=== PATIENT | female | born 1980 | race Caucasian/White ===

== ENCOUNTER → 2016-07-06 | Outpatient (CLI) | payer OTHER ==
[~2016-07-06] MED LIST: /LOR25TA PO; /PANT40TA PO; ALBUTEROL INH; ALLE25CA PO; AMIT25TA2 PO; ASPI81TA83 PO; CATA0.1T PO; CELE40TA PO; FIORICET PO; FLOM5CAP PO; GABA100C PO; HYDR25TA6 PO; LISI5TAB PO; LOFIBRA PO; MELO7.5S PO; MORP15TA4 OR; NAPR500T PO; NEUR100C PO; NEXI20CA PO; NIAS500T2 PO; NUCYNTA PO; PERCOCET PO; SOMA350T PO; VOLT1GEL2 TD; ZANT150T OR; [UNRECOGNIZED DRUG - OTHER]; butrans TOP; combination cream; combination cream TD; nucynta; zantac PO; zocor PO
--- NOTE | 2016-07-07 00:15 | ECWPNPC ---
PATIENT NAME: EAMON DOW : 1980 GENDER: FEMALE VISIT DATE: 07/06/2016 DISCHARGE DATE: 07/06/16 1247 VISIT LOCKED DATE TIME: PHYSICIAN: GREGOR DANIELS RESOURCE: GREGOR DANIELS REASON FOR APPOINTMENT 1. FOLLOW UP HISTORY OF PRESENT ILLNESS HISTORY OF PRESENT ILLNESS: HERE FOR F/U AND MANAGEMENT OF LBP AND LEFT LEG PAIN.DESCRIBES PAIN CONSTANT BURNING AND ACHING PAIN.RATING PAIN VAS4/10.HAS HAD GOOD RELIEF WITH LESI.USING HYDROCONE 10/325 UP TO 5 TABS. PER DAY WHICH SHE REPORTS IS HELPFUL. FALL RISK SCREENING: SCREENING :NO FALLS IN THE PAST YEAR CURRENT MEDICATIONS TAKING MAY HAVE QUATRO FX C PAP MASK AND ACCESORIES SIZE LARGE AT NIGHT DX 780.58 TAKING ASPIR-81 81 MG TABLET DELAYED RELEASE 1 TABLET ORALLY ONCE A DAY TAKING HYDROCHLOROTHIAZIDE 12.5 12.5MG CAPSULE 1 CAP(S) ORAL TWICE A DAY TAKING PROTONIX 40 MG TABLET DELAYED RELEASE 1 TABLET ORALLY BID TAKING LISINOPRIL 10 MG TABLET 1 TABLET ORALLY ONCE A DAY TAKING LIPITOR 80 MG TABLET 1 TABLET ORALLY ONCE A DAY TAKING LOPID 600 MG TABLET 1 TABLET ORALLY TWICE A DAY TAKING NORCO 10-325 MG TABLETS 1 ORALLY Q4-6HMDD5 NOT-TAKING VICODIN ES 10-325 MG TABLET 1 ORALLY Q4H PRN PAIN MDD5 NOT-TAKING VALIUM 5 MG TABLET 1 TABLET NEEDED ORALLY 1 TAB Q8H MDD3 NOT-TAKING PERCOCET 5-325 MG TABLET 1 TABLET NEEDED ORALLY EVERY 6 HRS PRN PAIN NOT-TAKING OXYCODONE HCL 5 MG TABLET 1 TABLET ORALLY 2 TAB PRE PROC. MDD2 NOT-TAKING RANITIDINE HCL 150 MG CAPSULE 1 CAPSULE ORALLY TWICE A DAY NOT-TAKING ZANTAC 150 MG TABLET 1 TABLET ORALLY DAILY NOT-TAKING KETOROLAC TROMETHAMINE 10 MG TABLET DIRECTED ORALLY EVERY 6 HRS NOT-TAKING FLOMAX 0.4 MG CAPSULE 1 CAPSULE 30 MINUTES AFTER THE SAME MEAL EACH DAY ORALLY ONCE A DAY MEDICATION LIST REVIEWED AND RECONCILED WITH THE PATIENT PAST MEDICAL HISTORY HTN- 4 YRS- ON HCTZ DYSLIPIDEMIA-RECENTLY- HYPERTRYGLY DEPRESSION- CELEXA MIGRAINES- FIORECIT LBP- SPINAL STENOSIS/SCIATICA- DR MCNEILL IN [facility] [facility] HX OF RENAL STONE SLEEP APNOEA- CPAP- DYSPEPSIA HYPERCHOLESTEROLEMIA MRSA INFECTION GERD OVARIAN CYSTS SOCIAL HISTORY GENERAL: TOBACCO USE ARE YOU A:CURRENT SMOKER LEARNING BARRIERS / SPECIAL NEEDS ORIENTED TO PLAN OF CARE: PATIENT, PAIN MANAGEMENT PATIENT, ORIENTED TO PLAN OF CARE: PATIENT, PAIN MANAGEMENT PATIENT. NEW PATIENT PAIN DIARY TODAY'S VISITNOTES FROM 0-10, WHAT LEVEL IS YOUR PAIN TODAY?0 PAIN CLINIC PFS, CLERGY, PUBLIC HEALTH REFERRALS PFS REFERRAL NEEDED?NO CLERGY REFERRAL NEEDED?NO PUBLIC HEALTH REFERRAL NEEDED?NO WAS THE PROVIDER NOTIFIED OF ANY PERTINENT INFO?NO PFS REFERRAL NEEDED?NO CLERGY REFERRAL NEEDED?NO PUBLIC HEALTH REFERRAL NEEDED?NO WAS THE PROVIDER NOTIFIED OF ANY PERTINENT INFO?NO REVIEW OF SYSTEMS CONSTITUTIONAL: ANY CHANGE IN YOUR MEDICAL CONDITION? NO . CHILLS NO . FEVER NO . INFECTION: DO YOU HAVE NEW INFECTIONS? NO . DO YOU HAVE HISTORY OF MRSA? NO . MUSCULOSKELETAL: ANY NEW PATTERNS OF PAIN OR NUMBNESS? NO . GASTROENTEROLOGY: ANY NEW CHANGE IN BOWEL CONTROL? NO . GENITOURINARY: ANY NEW CHANGE IN BLADDER CONTROL? NO . IS THERE A CHANCE YOU COULD BE ? NO . HEMATOLOGY/LYMPH: DO YOU TAKE ANY BLOOD THINNERS? (FOR EXAMPLE- COUMADIN, PLAVIX, AGGRENOX, PLATEL, PRADAXA, OR XARELTO) NO . WHEN WAS YOUR LAST DOSE? DATE: TIME: . NEUROLOGY: HAVE YOU FALLEN IN THE PAST 6 MONTHS? NO . ANY NEW EXTREMITY NUMBNESS OR WEAKNESS? 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 CARDIOLOGY: DO YOU HAVE A PACEMAKER OR DEFIBRILLATOR? NO . RESPIRATORY: HAVE YOU BEEN SICK IN THE PAST WEEK? NO . FEVER NO . FLU LIKE SYMPTOMS? NO . COUGH NO . INTEGUMENTARY: DO YOU HAVE ANY RASHES OR OPEN SORES? NO . ALLERGIC/IMMUNO: ARE YOU ALLERGIC TO SHELLFISH OR IV DYE? NO . ANY NEW ALLERGIES? NO . PSYCHIATRIC: DO YOU HAVE THOUGHTS OF HURTING YOURSELF OR SOMEONE ELSE? NO . ARE YOU ABUSED, NEGLECTED, OR IN AN UNSAFE ENVIRONMENT? NO . ENDOCRINOLOGY: ARE YOU DIABETIC? NO . OTHER: DO YOU NEED ANY PRESCRIPTIONS? NO . IF YES, PLEASE LIST: ____ . ANY NEW PROBLEMS WITH YOUR MEDICATIONS? NO . WHEN DID YOU LAST EAT? ____ . WHEN DID YOU LAST DRINK? ____ . WHAT DID YOU LAST DRINK? ____ . NAME OF PERSON DRIVING YOU HOME? ____ . DO YOU HAVE ANY OTHER QUESTIONS OR CONCERNS NO . REVIEWED BY: PROVIDER: GREGOR MENON . VITAL SIGNS WT 200 LBS, HT 65 IN, BMI 33.28 INDEX, BP 149/100 R ARM, REPEAT BP 165/97 L ARM, HR 84 /MIN, RR 16 /MIN, TEMP 97.4 F, OXYGEN SAT % 96, NA INITIALS TL 1135, REVIEWED BY: KGELEVATED BP, PT STATES SHE HAS NOT BEEN TAKING HER BP MEDICATION IN QUITE SOMETIME-TL. EXAMINATION GENERAL EXAMINATION: LUNGS:LUNG SOUNDS ARE CLEAR. HEART:HEART RATE REGULAR. MUSCULOSKELETAL:*SPECIFIC POINT TENDERNESS AND TRIGGER POINTS NOTED OVER LEFT PRIFORMIS.. ASSESSMENTS PIRIFORMIS MUSCLE PAIN - M79.1 (PRIMARY) CHRONIC PRESCRIPTION OPIATE USE - Z79.891 PROTRUDED LUMBAR DISC - M51.26 TREATMENT PIRIFORMIS MUSCLE PAIN CAUDAL/LUMBAR EPIDURAL NOTES: ISTOP REGISTRY REVIEWED AND DEMNOSTRATES COMPLLIANCE. BRINGS IN MEDICATIONS WHICH IS APPROPRIATE FOR WHAT WAS DISPENSED. RECENT URINE TOXICOLOGY REVIEWED. NO UNAUTHORIZED MEDICATIONS. NO ILLICIT SUBSTANCES AND PRESCRIBED MEDICATIONS WERE PRESENT. , RISKS AND BENEFITS OF NARCOTIC/OPIOD MEDICATIONS WERE REVIEWED WITH PATIENT - THIS INCLUDES BUT IS NOT LIMITED TO RISK OF DEPENDANCE/DEVELOPMENT OF ADDICTION, MOOD DISTURBANCE AND DEPRESSION, OSTEOPOROSIS, HORMONAL AND LABIDAL CHANGES, RESPIRATORY DEPRESSION AND . PATIENT IS ADVISED NOT TO DRIVE WHILE ON THESE MEDICATIONS. PROTRUDED LUMBAR DISC CAUDAL/LUMBAR EPIDURAL PROCEDURE CODES FA211 ESTABILISHED PATIENT [facility] CHARGE DISPOSITION & COMMUNICATION FOLLOW UP 2WK POST (REASON: L4/5-L5/S1 LESI) ELECTRONICALLY SIGNED BY LYNSEY LIMA ON 07/06/2016 AT 02:27 PM EST DISCLAIMER : THIS IS A VISIT SUMMARY EXTRACTED FROM THE [employer] CHART. IT IS NOT A COPY OF THE [employer] PROGRESS NOTE. JEOVANNY
== END ==
LOC: M PAIN 11:00
PROVIDERS: ATTEND Nurse Practitioner Family
DX: Z09 Encounter for follow-up examination after completed treatment for conditions other than malignant neoplasm (principal); M79.1 Myalgia; M51.26 Other intervertebral disc displacement, lumbar region; I10 Essential (primary) hypertension; E78.5 Hyperlipidemia, unspecified; F32.9 Major depressive disorder, single episode, unspecified; G43.909 Migraine, unspecified, not intractable, without status migrainosus; M48.00 Spinal stenosis, site unspecified; K30 Functional dyspepsia; E78.00 Pure hypercholesterolemia, unspecified; Z86.14 Personal history of Methicillin resistant Staphylococcus aureus infection; F17.200 Nicotine dependence, unspecified, uncomplicated; Z79.82 Long term (current) use of aspirin; Z79.891 Long term (current) use of opiate analgesic; Z79.899 Other long term (current) drug therapy

== ENCOUNTER → 2016-11-28 | Outpatient (CLI) | payer OTHER ==
[~2016-11-28] MED LIST changes: +IBUP80TA PO
--- NOTE | 2016-12-19 01:07 | ECWPNPC ---
PATIENT NAME: EAMON DOW : 1980 GENDER: FEMALE VISIT DATE: 11/28/2016 DISCHARGE DATE: 11/28/16 1521 VISIT LOCKED DATE TIME: PHYSICIAN: GREGOR DANIELS RESOURCE: GREGOR DANIELS REASON FOR APPOINTMENT 1. BACK/SCIATIC HISTORY OF PRESENT ILLNESS HISTORY OF PRESENT ILLNESS: HERE FOR F/U AND MANAGEMENT OF LBP AND LEFT LEG PAIN.DESCRIBES PAIN CONSTANT BURNING AND ACHING PAIN.RATING PAIN VAS4/10.HAS HAD GOOD RELIEF WITH LESI.USING HYDROCONE 10/325 UP TO 5 TABS. PER DAY WHICH SHE REPORTS IS HELPFUL.LAST VISIT WAS IN JUL[place].INFORMED HER WE WOULD HAVE TO SEE HER EVERY 3 MONTHS IN ORDER TO CONTINUE OPIOD PRESCRIBING.ALSO WE SCHEDULED A LESI THAT SHE HAS CANCELLED ON THREE OCCASIONS OVER THE PAST 5 MONTHS. PAIN THE PATIENT DESCRIBES THE PAIN... THE PATIENT DESCRIBES THE PAIN... FALL RISK SCREENING: SCREENING :NO FALLS IN THE PAST YEAR CURRENT MEDICATIONS TAKING MAY HAVE QUATRO FX C PAP MASK AND ACCESORIES SIZE LARGE AT NIGHT DX 780.58 TAKING ASPIR-81 81 MG TABLET DELAYED RELEASE 1 TABLET ORALLY ONCE A DAY TAKING HYDROCHLOROTHIAZIDE 12.5 12.5MG CAPSULE 1 CAP(S) ORAL TWICE A DAY TAKING PROTONIX 40 MG TABLET DELAYED RELEASE 1 TABLET ORALLY BID TAKING LISINOPRIL 10 MG TABLET 1 TABLET ORALLY ONCE A DAY TAKING LIPITOR 80 MG TABLET 1 TABLET ORALLY ONCE A DAY TAKING LOPID 600 MG TABLET 1 TABLET ORALLY TWICE A DAY TAKING NORCO 10-325 MG TABLETS 1 ORALLY Q4-6HMDD5 NOT-TAKING VICODIN ES 10-325 MG TABLET 1 ORALLY Q4H PRN PAIN MDD5 NOT-TAKING VALIUM 5 MG TABLET 1 TABLET NEEDED ORALLY 1 TAB Q8H MDD3 NOT-TAKING PERCOCET 5-325 MG TABLET 1 TABLET NEEDED ORALLY EVERY 6 HRS PRN PAIN NOT-TAKING OXYCODONE HCL 5 MG TABLET 1 TABLET ORALLY 2 TAB PRE PROC. MDD2 NOT-TAKING RANITIDINE HCL 150 MG CAPSULE 1 CAPSULE ORALLY TWICE A DAY NOT-TAKING ZANTAC 150 MG TABLET 1 TABLET ORALLY DAILY NOT-TAKING KETOROLAC TROMETHAMINE 10 MG TABLET DIRECTED ORALLY EVERY 6 HRS NOT-TAKING FLOMAX 0.4 MG CAPSULE 1 CAPSULE 30 MINUTES AFTER THE SAME MEAL EACH DAY ORALLY ONCE A DAY MEDICATION LIST REVIEWED AND RECONCILED WITH THE PATIENT PAST MEDICAL HISTORY HTN- 4 YRS- ON HCTZ DYSLIPIDEMIA-RECENTLY- HYPERTRYGLY DEPRESSION- CELEXA MIGRAINES- FIORECIT LBP- SPINAL STENOSIS/SCIATICA- DR MCNEILL IN [place] HX OF RENAL STONE SLEEP APNOEA- CPAP- DYSPEPSIA HYPERCHOLESTEROLEMIA MRSA INFECTION GERD OVARIAN CYSTS ALLERGIES N.K.D.A. SURGICAL HISTORY 09/04,11/07,11/09 CHOLECYSTECTOMY 06/1998 RIGHT JJ STENT/ESWL 05/2007 LEFT ESWL 2006 RIGHT JJ STENT PLACEMENT 08/2010 OVARAIN CYST REMOVAL 2014 4 CYSTS REMOVED LEFT OVARY 08/2015 OVARIAN CYST REMOVAL 2014 HOSPITALIZATION/MAJOR DIAGNOSTIC PROCEDURE SURGERIES PELVIC ABSCESS 2001 REVIEW OF SYSTEMS REVIEWED BY: PROVIDER: GREGOR MENON . CONSTITUTIONAL: ANY CHANGE IN YOUR MEDICAL CONDITION? NO, PT STATES SHE WAS SCHEDUED FOR LESI OR CAUDAL , BUT IT WAS NOT DONE INSURANCE WOULD NOT COVER PRE-SEDATE. . CHILLS NO . FEVER NO . INFECTION: DO YOU HAVE NEW INFECTIONS? NO . DO YOU HAVE HISTORY OF MRSA? NO . MUSCULOSKELETAL: ANY NEW PATTERNS OF PAIN OR NUMBNESS? NO . GASTROENTEROLOGY: ANY NEW CHANGE IN BOWEL CONTROL? NO . GENITOURINARY: ANY NEW CHANGE IN BLADDER CONTROL? NO . IS THERE A CHANCE YOU COULD BE ? NO . HEMATOLOGY/LYMPH: DO YOU TAKE ANY BLOOD THINNERS? (FOR EXAMPLE- COUMADIN, PLAVIX, AGGRENOX, PLATEL, PRADAXA, OR XARELTO) NO . WHEN WAS YOUR LAST DOSE? DATE: TIME: . NEUROLOGY: HAVE YOU FALLEN IN THE PAST 6 MONTHS? YES, TWICE FOR WEAKNESS IN LEFT LEG. PT DENIES INJURIES REQUIRING MEDICAL ATTENTION . ANY NEW EXTREMITY NUMBNESS OR WEAKNESS? NO . CARDIOLOGY: DO YOU HAVE A PACEMAKER OR DEFIBRILLATOR? NO . RESPIRATORY: HAVE YOU BEEN SICK IN THE PAST WEEK? NO . FEVER NO . FLU LIKE SYMPTOMS? NO . COUGH NO . INTEGUMENTARY: DO YOU HAVE ANY RASHES OR OPEN SORES? NO . ALLERGIC/IMMUNO: ARE YOU ALLERGIC TO SHELLFISH OR IV DYE? NO . ANY NEW ALLERGIES? NO . PSYCHIATRIC: DO YOU HAVE THOUGHTS OF HURTING YOURSELF OR SOMEONE ELSE? NO . ARE YOU ABUSED, NEGLECTED, OR IN AN UNSAFE ENVIRONMENT? NO . ENDOCRINOLOGY: ARE YOU DIABETIC? NO . OTHER: DO YOU NEED ANY PRESCRIPTIONS? NO . IF YES, PLEASE LIST: ____ . ANY NEW PROBLEMS WITH YOUR MEDICATIONS? NO . WHEN DID YOU LAST EAT? ____ . WHEN DID YOU LAST DRINK? ____ . WHAT DID YOU LAST DRINK? ____ . NAME OF PERSON DRIVING YOU HOME? ____ . DO YOU HAVE ANY OTHER QUESTIONS OR CONCERNS NO . VITAL SIGNS WT 204 LBS, HT 65 IN, BMI 33.94 INDEX, BP 150/86 MM HG, HR 83 /MIN, RR 16 /MIN, TEMP 98.5 F, OXYGEN SAT % 98, SAFE IN ENV? (Y/N) Y, REVIEWED BY: EM. EXAMINATION GENERAL EXAMINATION: LUNGS:LUNG SOUNDS ARE CLEAR. HEART:HEART RATE REGULAR. MUSCULOSKELETAL:*SPECIFIC POINT TENDERNESS AND TRIGGER POINTS NOTED OVER LEFT PRIFORMIS.. ASSESSMENTS PIRIFORMIS MUSCLE PAIN - M79.1 (PRIMARY) CHRONIC PRESCRIPTION OPIATE USE - Z79.891 PROTRUDED LUMBAR DISC - M51.26 TREATMENT PIRIFORMIS MUSCLE PAIN CONTINUE NORCO TABLETS, 10-325 MG, 1, ORALLY, Q4-6HMDD5 START VALIUM TABLET, 10 MG, 1 TABLET NEEDED, ORALLY, ONE TAB 1HR PRE PROCEDURE=MDD, 1 DOSE(S), 1, REFILLS 0 NOTES: L3/4 TRANSFORAMINAL EPIDURAL STEROID INJECTION. PROCEDURE CODES FA211 ESTABILISHED PATIENT [facility] CHARGE DISPOSITION & COMMUNICATION FOLLOW UP POST PROCEDURE (REASON: L3/4 TRANSFORAMINAL EPIDURAL STEROID INJECTION) ELECTRONICALLY SIGNED BY LYNSEY LIMA ON 12/18/2016 AT 07:10 PM EDT DISCLAIMER : THIS IS A VISIT SUMMARY EXTRACTED FROM THE [employer] CHART. IT IS NOT A COPY OF THE [employer] PROGRESS NOTE. MTDD
== END ==
LOC: M PAIN 14:20
PROVIDERS: ATTEND Nurse Practitioner Family
DX: M79.1 Myalgia (principal); Z79.891 Long term (current) use of opiate analgesic; M51.26 Other intervertebral disc displacement, lumbar region; Z79.82 Long term (current) use of aspirin; Z79.899 Other long term (current) drug therapy

== ENCOUNTER 2017-02-24 01:57 | Emergency (ER) | payer OTHER, SELFPAY ==
[~2017-02-24] VITALS: Ht 165.1 cm; Wt 90.9 kg
[~2017-02-24 01:57] MED LIST changes: -IBUP80TA PO
[2017-02-24 01:59] VITALS: BP 152/92
[2017-02-24] MEDS ORDERED: IBUP80TA PO (19:29)
== END 2017-02-24 05:10 | disposition left against medical advice (07) ==
LOC: M ED 01:57
DX: Z53.21 Procedure and treatment not carried out due to patient leaving prior to being seen by health care provider (principal)

== ENCOUNTER 2017-02-24 16:05 | Emergency (ER) | payer SELFPAY ==
[~2017-02-24] VITALS: Ht 165.1 cm; Wt 90.9 kg
[2017-02-24] MEDS ORDERED: ONDANSETRON 4MG/2ML VIAL (J2405) IV ONE (17:15)
[2017-02-24] MEDS ORDERED: KETOROLAC 30 MG/ML VIAL (J1885) IV ONE (17:15)
[2017-02-24 17:20] LABS: BASO # 0.1 10^3/uL (0.0-0.2); BASO % 0.8 % (0.0-1.0); EOS # 0.5 10^3/uL (0.0-0.50); EOS % 5.1 % (0.0-3.0); IMMATURE GRANULOCYTE % 0.1 % (0-0); MEAN CORPUSCULAR HEMOGLOBIN 22.8 pg (27.0-33.0); MEAN CORPUSCULAR HGB CONC 31.1 g/dl (32.0-36.5); MONO % 10.3 % (0.0-5.0); NEUTROPHILS # 4.8 10^3/uL (1.8-7.7); NEUTROPHILS % 51.7 % (36.0-66.0); PLATELET COUNT, AUTOMATED 441 10^3/uL (150-450); RED CELL DISTRIBUTION WIDTH 16.4 % (11.5-14.5); WHITE BLOOD COUNT 9.3 10^3/uL (4.0-10.0)
[2017-02-24 17:22] LABS: ADD MORPHOLOGY? YES; MEAN CORPUSCULAR VOLUME 73.4 fl (80.0-96.0); POSITIVE MORPH POS FLAG
[2017-02-24 17:38] LABS: CONTROL LINE UCG INT CTR LINE PRESENT
[2017-02-24 17:47] LABS: CONTROL LINE HCG INT CTR LINE PRESENT
[2017-02-24 18:01] LABS: ALBUMIN 3.6 GM/DL (3.2-5.2); ALBUMIN/GLOBULIN RATIO 0.97 (1.00-1.93); ALKALINE PHOSPHATASE 46 U/L (45-117); ALT/SGPT 25 U/L (12-78); ANION GAP 7 MEQ/L (8-16); AST/SGOT 9 U/L (15-37); BILIRUBIN,DIRECT < 0.1 MG/DL (0.0-0.2); BILIRUBIN,TOTAL 0.2 MG/DL (0.2-1.0); BLOOD UREA NITROGEN 9 MG/DL (7-18); CALCIUM LEVEL 8.5 MG/DL (8.5-10.1); CARBON DIOXIDE LEVEL 25 MEQ/L (21-32); CHLORIDE LEVEL 107 MEQ/L (98-107); CREATININE FOR GFR 0.51 MG/DL (0.55-1.02); GLOMERULAR FILTRATION RATE > 60.0 (>60); GLUCOSE, FASTING 104 MG/DL (70-105); MICROCYTOSIS 2+; POTASSIUM SERUM 4.3 MEQ/L (3.5-5.1); SODIUM LEVEL 139 MEQ/L (136-145); TOTAL PROTEIN 7.3 GM/DL (6.4-8.2)
--- NOTE | 2017-02-24 19:20 | REPUSA ---
CLINICAL HISTORY: LLQ pain. TECHNIQUE: Realtime sonographic images were obtained in multiple projections. COMMENTS: The uterus is anteverted measuring 9.1 x 4.5 x 5.3 cm. It demonstrates heterogeneous myometrium. Th e endometrial echo pattern is within normal limits measuring 7.8 mm. Multiple nabothian cysts are se en. There is no evidence of free fluid within the pelvic cul-de-sac. The right ovary measures 4.5 x 3 x 3.5 cm and the left ovary measures 1.1 x 1.16 x 3.1 cm. Both ovar ies are free of solid or cystic mass. No torsion is identified. The right ovarian artery RI is 0.41. The left ovarian artery RI is 0.36. IMPRESSION: 1. Heterogeneous uterine myometrium. This could be due to diffuse adenomyosis versus myomatosis. 2. Multiple nabothian cysts are seen.
[2017-02-24] MEDS ORDERED: IBUP80TA PO (19:29)
[2017-02-24 19:34] VITALS: BP 134/82
== END 2017-02-24 19:50 | disposition home or self-care (01) ==
LOC: M ED 16:05
DX: N80.0 Endometriosis of uterus (principal); Z72.0 Tobacco use
CPT/HCPCS: 76830; 76856; 80048; 80076; 81001; 83690; 84703; 85025; 87086; 93976; 96374; 96375; 99284; J1885; J2405

== ENCOUNTER → 2017-03-14 | Outpatient (CLI) | payer OTHER ==
[~2017-03-14] MED LIST changes: +IBUP80TA PO
--- NOTE | 2017-04-02 02:06 | ECWPNPC ---
PATIENT NAME: EAMON DOW : 1980 GENDER: FEMALE VISIT DATE: 03/14/2017 DISCHARGE DATE: 03/14/17 1135 VISIT LOCKED DATE TIME: PHYSICIAN: GREGOR DANIELS RESOURCE: GREGOR DANIELS REASON FOR APPOINTMENT 1. 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 PAIN THE PATIENT DESCRIBES THE PAIN... FALL RISK SCREENING: SCREENING :NO FALLS IN THE PAST YEAR CURRENT MEDICATIONS TAKING MAY HAVE QUATRO FX C PAP MASK AND ACCESORIES SIZE LARGE AT NIGHT DX 780.58 TAKING ASPIR-81 81 MG TABLET DELAYED RELEASE 1 TABLET ORALLY ONCE A DAY TAKING HYDROCHLOROTHIAZIDE 12.5 12.5MG CAPSULE 1 CAP(S) ORAL TWICE A DAY TAKING PROTONIX 40 MG TABLET DELAYED RELEASE 1 TABLET ORALLY BID TAKING LISINOPRIL 10 MG TABLET 1 TABLET ORALLY ONCE A DAY TAKING LIPITOR 80 MG TABLET 1 TABLET ORALLY ONCE A DAY TAKING LOPID 600 MG TABLET 1 TABLET ORALLY TWICE A DAY TAKING NORCO 10-325 MG TABLETS 1 ORALLY Q4-6HMDD5 TAKING RANITIDINE HCL 150 MG CAPSULE 1 CAPSULE ORALLY TWICE A DAY NOT-TAKING VALIUM 10 MG TABLET 1 TABLET NEEDED ORALLY ONE TAB 1HR PRE PROCEDURE=MDD NOT-TAKING VICODIN ES 10-325 MG TABLET 1 ORALLY Q4H PRN PAIN MDD5 NOT-TAKING VALIUM 5 MG TABLET 1 TABLET NEEDED ORALLY 1 TAB Q8H MDD3 NOT-TAKING PERCOCET 5-325 MG TABLET 1 TABLET NEEDED ORALLY EVERY 6 HRS PRN PAIN NOT-TAKING OXYCODONE HCL 5 MG TABLET 1 TABLET ORALLY 2 TAB PRE PROC. MDD2 NOT-TAKING ZANTAC 150 MG TABLET 1 TABLET ORALLY DAILY NOT-TAKING KETOROLAC TROMETHAMINE 10 MG TABLET DIRECTED ORALLY EVERY 6 HRS NOT-TAKING FLOMAX 0.4 MG CAPSULE 1 CAPSULE 30 MINUTES AFTER THE SAME MEAL EACH DAY ORALLY ONCE A DAY MEDICATION LIST REVIEWED AND RECONCILED WITH THE PATIENT PAST MEDICAL HISTORY HTN- 4 YRS- ON HCTZ DYSLIPIDEMIA-RECENTLY- HYPERTRYGLY DEPRESSION- CELEXA MIGRAINES- FIORECIT LBP- SPINAL STENOSIS/SCIATICA- DR MCNEILL IN [place] HX OF RENAL STONE SLEEP APNOEA- CPAP- DYSPEPSIA HYPERCHOLESTEROLEMIA MRSA INFECTION GERD OVARIAN CYSTS ADENOMYOSIS ALLERGIES N.K.D.A. SURGICAL HISTORY 09/04,11/07,11/09 CHOLECYSTECTOMY 06/1998 RIGHT JJ STENT/ESWL 05/2007 LEFT ESWL 2006 RIGHT JJ STENT PLACEMENT 08/2010 OVARAIN CYST REMOVAL 2013 4 CYSTS REMOVED LEFT OVARY 08/2015 OVARIAN CYST REMOVAL 2014 SOCIAL HISTORY GENERAL: TOBACCO USE ARE YOU A:CURRENT SMOKER ARE YOU INTERESTED IN QUITTING?NOT READY TO QUIT COUNSELED THE PATIENT ON SMOKING EFFECTS, EDUCATION ORWSYNFI05/09/2017 HOW MANY CIGARETTES A DAY DO YOU SMOKE?21-30 PATIENT COUNSELED ON THE DANGERS OF TOBACCO USE AND URGED TO QUIT:03/14/2017 LUNG CANCER SCREENING SMOKING STATUS:CURRENT SMOKER ALCOHOL SCREENING POINTS0 INTERPRETATIONNEGATIVE MARITAL STATUS: . BAPTISM [id number] RELIGION LANGUAGE LANGUAGES SPOKEN:CZECH EDUCATION LEVEL OF EDUCATION:NOT FINISHED COLLEGE LEARNING BARRIERS / SPECIAL NEEDS ORIENTED TO PLAN OF CARE: PATIENT, PAIN MANAGEMENT PATIENT, ORIENTED TO PLAN OF CARE: PATIENT, PAIN MANAGEMENT PATIENT. NEW PATIENT PAIN DIARY TODAY'S VISITNOTES FROM 0-10, WHAT LEVEL IS YOUR PAIN TODAY?0 PAIN CLINIC PFS, CLERGY, PUBLIC HEALTH REFERRALS PFS REFERRAL NEEDED?NO CLERGY REFERRAL NEEDED?NO PUBLIC HEALTH REFERRAL NEEDED?NO WAS THE PROVIDER NOTIFIED OF ANY PERTINENT INFO?NO HAS THE PATIENT BEEN EDUCATED REGARDING HIS/HER PLAN OF CARE?YES HAS THE PATIENT BEEN EDUCATED REGARDING PAIN, THE RISK FOR PAIN, THE IMPORTANCE OF EFFECTIVE PAIN MANAGEMENT, AND THE PAIN ASSESSMENT PROCESS?YES ADVANCE DIRECTIVES HEALTH CARE PROXY?NO DO YOU HAVE A DNR?NO LIVING WILL?NO POWER OF BOTTLE INSPECTOR?NO HOSPITALIZATION/MAJOR DIAGNOSTIC PROCEDURE SURGERIES PELVIC ABSCESS 2001 REVIEW OF SYSTEMS REVIEWED BY: PROVIDER: GREGOR MENON . CONSTITUTIONAL: ANY CHANGE IN YOUR MEDICAL CONDITION? YES, WORSENING ARM NUMBNESS. OVARIAN CYSTS AND ADEMOMYOSIS (FIBROIDS ON UTERUS) . CHILLS NO . FEVER NO . INFECTION: DO YOU HAVE NEW INFECTIONS? NO . DO YOU HAVE HISTORY OF MRSA? NO . MUSCULOSKELETAL: ANY NEW PATTERNS OF PAIN OR NUMBNESS? YES, BILAT ARM NUMBNESS X COUPLE YEARS INTERMITTENTLY. LATELY EVERYDAY X6 MOS . GASTROENTEROLOGY: ANY NEW CHANGE IN BOWEL CONTROL? NO . GENITOURINARY: ANY NEW CHANGE IN BLADDER CONTROL? NO . IS THERE A CHANCE YOU COULD BE ? NO . HEMATOLOGY/LYMPH: DO YOU TAKE ANY BLOOD THINNERS? (FOR EXAMPLE- COUMADIN, PLAVIX, AGGRENOX, PLATEL, PRADAXA, OR XARELTO) NO . WHEN WAS YOUR LAST DOSE? DATE: TIME: . NEUROLOGY: HAVE YOU FALLEN IN THE PAST 6 MONTHS? NO . ANY NEW EXTREMITY NUMBNESS OR WEAKNESS? NO . CARDIOLOGY: DO YOU HAVE A PACEMAKER OR DEFIBRILLATOR? NO . RESPIRATORY: HAVE YOU BEEN SICK IN THE PAST WEEK? NO . FEVER NO . FLU LIKE SYMPTOMS? NO . COUGH NO . INTEGUMENTARY: DO YOU HAVE ANY RASHES OR OPEN SORES? NO . ALLERGIC/IMMUNO: ARE YOU ALLERGIC TO SHELLFISH OR IV DYE? NO . ANY NEW ALLERGIES? NO . PSYCHIATRIC: DO YOU HAVE THOUGHTS OF HURTING YOURSELF OR SOMEONE ELSE? NO . ARE YOU ABUSED, NEGLECTED, OR IN AN UNSAFE ENVIRONMENT? NO . ENDOCRINOLOGY: ARE YOU DIABETIC? NO . OTHER: DO YOU NEED ANY PRESCRIPTIONS? NO . IF YES, PLEASE LIST: ____ . ANY NEW PROBLEMS WITH YOUR MEDICATIONS? NO . WHEN DID YOU LAST EAT? ____ . WHEN DID YOU LAST DRINK? ____ . WHAT DID YOU LAST DRINK? ____ . NAME OF PERSON DRIVING YOU HOME? ____ . DO YOU HAVE ANY OTHER QUESTIONS OR CONCERNS NO, PT DENIES HAVING FLU SHOT THIS SEASON, NOR DOES SHE PLAN TO . VITAL SIGNS WT 208.2 LBS, HT 65 IN, BMI 34.64 INDEX, BP 158/91 MM HG, HR 92 /MIN, RR 16 /MIN, TEMP 97.9 F, OXYGEN SAT % 98%, NA INITIALS TL 1037, REVIEWED BY: EM. EXAMINATION GENERAL EXAMINATION: LUNGS:LUNG SOUNDS ARE CLEAR. HEART:HEART RATE REGULAR. MUSCULOSKELETAL:*SPECIFIC POINT TENDERNESS AND TRIGGER POINTS NOTED OVER LEFT PRIFORMIS.SPECIFIC TENDERNESS OVER LEFT L3/4 LUMBAR FACET., MUSCLE STRENGTH TESTING 5/5 BILATERAL. ASSESSMENTS PROTRUSION OF INTERVERTEBRAL DISC OF LUMBOSACRAL REGION - M51.27 (PRIMARY) LUMBAR RADICULOPATHY - M54.16 TREATMENT PROTRUSION OF INTERVERTEBRAL DISC OF LUMBOSACRAL REGION REFILL NORCO TABLETS, 10-325 MG, 1, ORALLY, Q4-6HMDD5, 30 DAY(S), 150, REFILLS 0 NOTES: ISTOP REGISTRY REVIEWED [id number] AND DEMNOSTRATES COMPLLIANCE. BRINGS IN MEDICATIONS WHICH IS APPROPRIATE FOR WHAT WAS DISPENSED. RECENT URINE TOXICOLOGY REVIEWED. NO UNAUTHORIZED MEDICATIONS. NO ILLICIT SUBSTANCES AND PRESCRIBED MEDICATIONS WERE PRESENT.URINE TOX TODAY , RISKS AND BENEFITS OF NARCOTIC/OPIOD MEDICATIONS WERE REVIEWED WITH PATIENT - THIS INCLUDES BUT IS NOT LIMITED TO RISK OF DEPENDANCE/DEVELOPMENT OF ADDICTION, MOOD DISTURBANCE AND DEPRESSION, OSTEOPOROSIS, HORMONAL AND LABIDAL CHANGES, RESPIRATORY DEPRESSION AND . PATIENT IS ADVISED NOT TO DRIVE WHILE ON THESE MEDICATIONSREQUEST LEFT L33/4 TRANSFORAMINAL EPIDURAL. PROCEDURE CODES FA211 ESTABILISHED PATIENT [facility] CHARGE DISPOSITION & COMMUNICATION FOLLOW UP 2WKS POST (REASON: REQUEST LEFT L33/4 TRANSFORAMINAL EPIDURAL) ELECTRONICALLY SIGNED BY LYNSEY LIMA ON 04/01/2017 AT 07:35 PM EST DISCLAIMER : THIS IS A VISIT SUMMARY EXTRACTED FROM THE [employer] CHART. IT IS NOT A COPY OF THE [employer] PROGRESS NOTE. MTDD
== END ==
LOC: M PAIN 10:15
PROVIDERS: ATTEND Nurse Practitioner Family
DX: G89.29 Other chronic pain (principal); M51.27 Other intervertebral disc displacement, lumbosacral region; M54.16 Radiculopathy, lumbar region; I10 Essential (primary) hypertension; E78.1 Pure hyperglyceridemia; F32.9 Major depressive disorder, single episode, unspecified; G43.909 Migraine, unspecified, not intractable, without status migrainosus; G47.30 Sleep apnea, unspecified; E78.00 Pure hypercholesterolemia, unspecified; K21.9 Gastro-esophageal reflux disease without esophagitis; F17.210 Nicotine dependence, cigarettes, uncomplicated; Z79.82 Long term (current) use of aspirin; Z79.891 Long term (current) use of opiate analgesic; Z79.899 Other long term (current) drug therapy

== ENCOUNTER → 2017-06-11 | Outpatient (CLI) | payer OTHER | LOC: M PAIN 11:30 | DX: M51.27 Other intervertebral disc displacement, lumbosacral region (principal); I10 Essential (primary) hypertension; E78.5 Hyperlipidemia, unspecified; F32.9 Major depressive disorder, single episode, unspecified; G43.909 Migraine, unspecified, not intractable, without status migrainosus; G47.30 Sleep apnea, unspecified; E78.00 Pure hypercholesterolemia, unspecified; K21.9 Gastro-esophageal reflux disease without esophagitis; K30 Functional dyspepsia; F17.210 Nicotine dependence, cigarettes, uncomplicated; Z79.82 Long term (current) use of aspirin; Z79.891 Long term (current) use of opiate analgesic; Z79.899 Other long term (current) drug therapy | CPT/HCPCS: G0463 ==

== ENCOUNTER → 2017-08-12 | Outpatient (CLI) | payer OTHER | END | disposition home or self-care (01) | LOC: M PAIN 10:15 | DX: G89.29 Other chronic pain (principal); M51.27 Other intervertebral disc displacement, lumbosacral region; I10 Essential (primary) hypertension; F33.9 Major depressive disorder, recurrent, unspecified; G43.909 Migraine, unspecified, not intractable, without status migrainosus; G47.30 Sleep apnea, unspecified; E78.00 Pure hypercholesterolemia, unspecified; K21.9 Gastro-esophageal reflux disease without esophagitis; Z99.89 Dependence on other enabling machines and devices; Z79.899 Other long term (current) drug therapy; Z79.82 Long term (current) use of aspirin; F17.210 Nicotine dependence, cigarettes, uncomplicated | CPT/HCPCS: G0463 ==

== ENCOUNTER 2017-09-26 20:11 | Emergency (ER) | payer OTHER ==
[2017-09-27] MEDS: KETOROLAC TROMETHAMINE 10 MG TAB PO (00:32)
== END 2017-09-27 00:49 | disposition home or self-care (01) ==
LOC: M ED 20:11
DX: S23.41XA Sprain of ribs, initial encounter (principal); I45.19 Other right bundle-branch block; X58.XXXA Exposure to other specified factors, initial encounter; Y92.9 Unspecified place or not applicable; Y93.9 Activity, unspecified; Y99.9 Unspecified external cause status; I10 Essential (primary) hypertension; E78.5 Hyperlipidemia, unspecified; K21.9 Gastro-esophageal reflux disease without esophagitis; F41.9 Anxiety disorder, unspecified; F32.9 Major depressive disorder, single episode, unspecified; Z72.0 Tobacco use; Z79.82 Long term (current) use of aspirin; Z79.899 Other long term (current) drug therapy
CPT/HCPCS: 71046

== ENCOUNTER → 2017-09-26 | Outpatient (CLI) | payer OTHER | LOC: M RAD 10:53 | DX: M51.27 Other intervertebral disc displacement, lumbosacral region (principal) | CPT/HCPCS: 72148 ==

== ENCOUNTER → 2017-11-04 | Outpatient (CLI) | payer OTHER, MEDICAID | LOC: M PAIN 09:45 | DX: M51.27 Other intervertebral disc displacement, lumbosacral region (principal); M48.07 Spinal stenosis, lumbosacral region; G89.29 Other chronic pain; I10 Essential (primary) hypertension; F32.9 Major depressive disorder, single episode, unspecified; G43.909 Migraine, unspecified, not intractable, without status migrainosus; G47.30 Sleep apnea, unspecified; E78.00 Pure hypercholesterolemia, unspecified; K21.9 Gastro-esophageal reflux disease without esophagitis; F17.210 Nicotine dependence, cigarettes, uncomplicated; Z79.82 Long term (current) use of aspirin; Z79.891 Long term (current) use of opiate analgesic; Z79.899 Other long term (current) drug therapy | CPT/HCPCS: G0463 ==

== ENCOUNTER 2017-11-19 12:45 | Emergency (ER) | payer OTHER, MEDICAID, SELFPAY | END 2017-11-19 14:27 | disposition left against medical advice (07) | LOC: M ED 12:45 | DX: Z53.21 Procedure and treatment not carried out due to patient leaving prior to being seen by health care provider (principal) ==

== ENCOUNTER → 2017-12-18 | Outpatient (CLI) | payer OTHER, MEDICAID ==
[~2017-12-18] MED LIST changes: -/LOR25TA PO; -/PANT40TA PO; -ALBUTEROL INH; -ALLE25CA PO; -AMIT25TA2 PO; -ASPI81TA83 PO; -CATA0.1T PO; -CELE40TA PO; -FIORICET PO; -FLOM5CAP PO; -GABA100C PO; -HYDR25TA6 PO; -IBUP80TA PO; +ISOVUE-M 300 61% 15ML VIAL (Q9967) As Ordered; +LIDOCAINE 1% SDV INJ 30 ML VIAL As Ordered; -LISI5TAB PO; -LOFIBRA PO; -MELO7.5S PO; +MIDAZOLAM INJ 2 MG/2 ML VIAL (J2250) As Ordered; -MORP15TA4 OR; -NAPR500T PO; -NEUR100C PO; -NEXI20CA PO; -NIAS500T2 PO; -NUCYNTA PO; -PERCOCET PO; -SOMA350T PO; -VOLT1GEL2 TD; -ZANT150T OR; -[UNRECOGNIZED DRUG - OTHER]; -butrans TOP; -combination cream; -combination cream TD; +fentaNYL 100 MCG/2 ML INJECTION (J3010) As Ordered; +methylPREDNISolone SUSP 40 MG/ML (DEPO-medrol) VIAL (J1030) As Ordered; -nucynta; -zantac PO; -zocor PO
== END ==
LOC: M PAIN 11:00
DX: G89.29 Other chronic pain (principal); M51.17 Intervertebral disc disorders with radiculopathy, lumbosacral region; I10 Essential (primary) hypertension; F32.9 Major depressive disorder, single episode, unspecified; G43.909 Migraine, unspecified, not intractable, without status migrainosus; G47.30 Sleep apnea, unspecified; E78.00 Pure hypercholesterolemia, unspecified; K21.9 Gastro-esophageal reflux disease without esophagitis; F17.210 Nicotine dependence, cigarettes, uncomplicated; Z79.891 Long term (current) use of opiate analgesic; Z79.899 Other long term (current) drug therapy
CPT/HCPCS: J1030

== ENCOUNTER → 2018-03-13 | Outpatient (CLI) | payer OTHER, MEDICAID | LOC: M PAIN 09:45 | DX: M51.27 Other intervertebral disc displacement, lumbosacral region (principal); G89.29 Other chronic pain; M48.07 Spinal stenosis, lumbosacral region; Z51.81 Encounter for therapeutic drug level monitoring; Z79.891 Long term (current) use of opiate analgesic; I10 Essential (primary) hypertension; F32.9 Major depressive disorder, single episode, unspecified; G43.909 Migraine, unspecified, not intractable, without status migrainosus; G47.30 Sleep apnea, unspecified; E78.00 Pure hypercholesterolemia, unspecified; K21.9 Gastro-esophageal reflux disease without esophagitis; F17.210 Nicotine dependence, cigarettes, uncomplicated; Z79.899 Other long term (current) drug therapy | CPT/HCPCS: G0463 ==

== ENCOUNTER 2018-04-30 19:54 | Emergency (ER) | payer MEDICAID, OTHER ==
[~2018-04-30] VITALS: Ht 162.6 cm; Wt 86.4 kg
[~2018-04-30 19:54] MED LIST changes: +/LOR25TA PO; +/PANT40TA PO; +ALBUTEROL INH; +ALLE25CA PO; +AMIT25TA2 PO; +APAP; +ASPI81TA83 PO; +CATA0.1T PO; +CELE20TA PO; +CELE40TA PO; +CYCL10TA PO; +FIORICET PO; +FLOM0.4C39 PO; +GABA100C PO; +HYDR25TA6 PO; +HYDROCODONE; +IBUP80TA PO; -ISOVUE-M 300 61% 15ML VIAL (Q9967) As Ordered; -LIDOCAINE 1% SDV INJ 30 ML VIAL As Ordered; +LISI-538; +LISI5TAB PO; +LOFIBRA PO; +MELO7.5S PO; -MIDAZOLAM INJ 2 MG/2 ML VIAL (J2250) As Ordered; +MORP15TA4 OR; +NAPR-49 PO; +NAPR500T PO; +NEUR100C PO; +NEXI20CA PO; +NIAS500T2 PO; +NUCYNTA PO; +PERCOCET PO; +SOMA350T PO; +VOLT1GEL2 TD; +ZANT150T OR; +[UNRECOGNIZED DRUG - OTHER]; +butrans TOP; +combination cream; +combination cream TD; -fentaNYL 100 MCG/2 ML INJECTION (J3010) As Ordered; -methylPREDNISolone SUSP 40 MG/ML (DEPO-medrol) VIAL (J1030) As Ordered; +nucynta; +zantac PO; +zocor PO
[2018-04-30] MEDS ORDERED: ASPI81TA85 PO (20:01)
[2018-04-30] MEDS ORDERED: CELE10TA PO (20:01)
[2018-04-30 21:10] LABS: HEMATOCRIT 35.9 % (36.0-47.0); HEMOGLOBIN 10.9 g/dl (12.0-15.5); MEAN CORPUSCULAR HEMOGLOBIN 20.6 pg (27.0-33.0); MEAN CORPUSCULAR HGB CONC 30.4 g/dl (32.0-36.5); PLATELET COUNT, AUTOMATED 556 10^3/uL (150-450); RED BLOOD COUNT 5.28 10^6/uL (4.00-5.40); WHITE BLOOD COUNT 15.1 10^3/uL (4.0-10.0)
[2018-04-30 21:33] LABS: BLOOD UREA NITROGEN 8 MG/DL (7-18); C REACTIVE PROTEIN QUANTITATIV 3.02 MG/DL (0.00-0.30); CALCIUM LEVEL 8.6 MG/DL (8.5-10.1); CARBON DIOXIDE LEVEL 26 MEQ/L (21-32); CHLORIDE LEVEL 105 MEQ/L (98-107); CREATININE FOR GFR 0.63 MG/DL (0.55-1.30); GLOMERULAR FILTRATION RATE > 60.0 (>60); GLUCOSE, FASTING 116 MG/DL (70-100); POTASSIUM SERUM 4.3 MEQ/L (3.5-5.1); SODIUM LEVEL 136 MEQ/L (136-145)
--- NOTE | 2018-04-30 22:17 | REPVR ---
EXAM: US lower lumbar region EXAM DATE/TIME: 04/30/2018 9:32 PM CLINICAL HISTORY: 37 years old, female; Signs and symptoms; Symptoms: Wound; Additional info: Left low back potential fluid collection COMPARISON: No relevant prior studies available. FINDINGS: Examination of the lumbar soft tissues demonstrates a complex thinly septated fluid collection the left of midline in the lower back deep to the subcutaneous fat measuring 8 x 1.5 x 6.7 cm. A 3.6 cm fluid-filled extension originating from the large fluid-filled mass extends towards the cutaneous surface. IMPRESSION: Complex fluid collection in the low back to the left of midline as described above. Further evaluation with CT or MRI is suggested to establish if there is any connection to the epidural space and determine if there is an associated spinal dysraphism. Electronically signed by: Yovani Gillis On 04/30/2018 22:17:22 PM
[2018-04-30] MEDS ORDERED: NS 1,000 ML IV ONE (22:30)
[2018-04-30] MEDS ORDERED: VANCOMYCIN HCL 1,000 MG, VIAL MATE ADAPTER 1 EACH in D5W 250 ML IV ONE (22:30)
[2018-04-30] MEDS ORDERED: ACETAMINOPHEN TAB 650MG DOSE (2X325MG) PO ONE (23:00)
[2018-05-01 00:14] VITALS: BP 131/73
== END 2018-05-01 00:21 | disposition short-term general hospital (02) ==
LOC: M ED 19:54
DX: L02.212 Cutaneous abscess of back [any part, except buttock and flank] (principal); I10 Essential (primary) hypertension; Z79.899 Other long term (current) drug therapy; Z79.82 Long term (current) use of aspirin; F17.210 Nicotine dependence, cigarettes, uncomplicated
CPT/HCPCS: 76857; 80048; 85027; 86140; 87040; 87070; 87077; 87186; 87205; 96361; 96374; 99284; J3370

== ENCOUNTER → 2018-05-12 | Outpatient (REF) | payer OTHER ==
[~2018-05-12] MED LIST changes: +ASPI81TA85 PO; +CELE10TA PO; -NAPR-49 PO; +NAPR-50 PO
[2018-05-12 16:56] LABS: BASO # 0.1 10^3/uL (0.0-0.2); BASO % 0.9 % (0.0-1.0); EOS # 0.4 10^3/uL (0.0-0.50); EOS % 4.3 % (0.0-3.0); HEMATOCRIT 37.5 % (36.0-47.0); LYMPH # 2.6 10^3/uL (1.5-4.5); LYMPH % 30.1 % (24.0-44.0); MEAN CORPUSCULAR HEMOGLOBIN 20.5 pg (27.0-33.0); MEAN CORPUSCULAR HGB CONC 29.3 g/dl (32.0-36.5); MEAN CORPUSCULAR VOLUME 69.8 fl (80.0-96.0); MONO # 0.7 10^3/uL (0.0-0.8); MONO % 8.2 % (0.0-5.0); NEUTROPHILS # 4.9 10^3/uL (1.8-7.7); NEUTROPHILS % 56.4 % (36.0-66.0); PLATELET COUNT, AUTOMATED 613 10^3/uL (150-450); RED BLOOD COUNT 5.37 10^6/uL (4.00-5.40); WHITE BLOOD COUNT 8.7 10^3/uL (4.0-10.0)
[2018-05-12 17:13] LABS: ALBUMIN 3.8 GM/DL (3.2-5.2); ALT/SGPT 20 U/L (12-78); BILIRUBIN,TOTAL 0.2 MG/DL (0.2-1.0); BLOOD UREA NITROGEN 9 MG/DL (7-18); CALCIUM LEVEL 8.8 MG/DL (8.5-10.1); CARBON DIOXIDE LEVEL 26 MEQ/L (21-32); CHLORIDE LEVEL 106 MEQ/L (98-107); CREATININE FOR GFR 0.58 MG/DL (0.55-1.30); GLOMERULAR FILTRATION RATE > 60.0 (>60); GLUCOSE, FASTING 113 MG/DL (70-100); POTASSIUM SERUM 4.6 MEQ/L (3.5-5.1); SODIUM LEVEL 139 MEQ/L (136-145); TOTAL PROTEIN 7.5 GM/DL (6.4-8.2)
== END ==
LOC: M SHH 15:57
PROVIDERS: ATTEND Orthopaedic Surgery Orthopaedic Surgery of the Spine
DX: Z47.89 Encounter for other orthopedic aftercare (principal)

== ENCOUNTER → 2018-05-19 | Outpatient (REF) | payer OTHER ==
[2018-05-19 12:06] LABS: HEMATOCRIT 32.7 % (36.0-47.0); MEAN CORPUSCULAR HEMOGLOBIN 21.1 pg (27.0-33.0); MEAN CORPUSCULAR HGB CONC 30.6 g/dl (32.0-36.5); MEAN CORPUSCULAR VOLUME 69.1 fl (80.0-96.0); PLATELET COUNT, AUTOMATED 683 10^3/uL (150-450); RED BLOOD COUNT 4.73 10^6/uL (4.00-5.40); WHITE BLOOD COUNT 13.1 10^3/uL (4.0-10.0)
[2018-05-19 12:16] LABS: ALBUMIN 3.6 GM/DL (3.2-5.2); ALT/SGPT 21 U/L (12-78); BILIRUBIN,TOTAL 0.1 MG/DL (0.2-1.0); BLOOD UREA NITROGEN 7 MG/DL (7-18); CALCIUM LEVEL 8.9 MG/DL (8.5-10.1); CARBON DIOXIDE LEVEL 26 MEQ/L (21-32); CHLORIDE LEVEL 104 MEQ/L (98-107); CREATININE FOR GFR 0.54 MG/DL (0.55-1.30); GLOMERULAR FILTRATION RATE > 60.0 (>60); GLUCOSE, FASTING 110 MG/DL (70-100); SODIUM LEVEL 138 MEQ/L (136-145)
[2018-05-19 12:32] LABS: BASOPHILS 1 % (0-4); EOSINOPHILS 3 % (0-5); LYMPHOCYTES 44 % (16-52); MONOCYTES 1 % (0-8); NEUTROPHILS 51 % (35-75)
[2018-05-19 12:33] LABS: PLATELET ESTIMATE INCREASED (NORMAL); POLYCHROMASIA 1+
== END ==
LOC: M LAB REF 11:31
PROVIDERS: ATTEND Orthopaedic Surgery Orthopaedic Surgery of the Spine
DX: Z47.89 Encounter for other orthopedic aftercare (principal)

== ENCOUNTER → 2018-05-26 | Outpatient (REF) | payer OTHER ==
[2018-05-26 13:50] LABS: BASO # 0.1 10^3/uL (0.0-0.2); BASO % 0.8 % (0.0-1.0); EOS # 0.5 10^3/uL (0.0-0.50); EOS % 4.2 % (0.0-3.0); HEMATOCRIT 36.2 % (36.0-47.0); HEMOGLOBIN 10.7 g/dl (12.0-15.5); LYMPH # 4.5 10^3/uL (1.5-4.5); LYMPH % 38.7 % (24.0-44.0); MEAN CORPUSCULAR HEMOGLOBIN 20.5 pg (27.0-33.0); MEAN CORPUSCULAR HGB CONC 29.6 g/dl (32.0-36.5); MEAN CORPUSCULAR VOLUME 69.3 fl (80.0-96.0); MONO # 1.4 10^3/uL (0.0-0.8); MONO % 12.2 % (0.0-5.0); NEUTROPHILS # 5.1 10^3/uL (1.8-7.7); NEUTROPHILS % 43.8 % (36.0-66.0); PLATELET COUNT, AUTOMATED 534 10^3/uL (150-450); RED BLOOD COUNT 5.22 10^6/uL (4.00-5.40); WHITE BLOOD COUNT 11.6 10^3/uL (4.0-10.0)
[2018-05-26 14:21] LABS: ALBUMIN 3.6 GM/DL (3.2-5.2); ALT/SGPT 19 U/L (12-78); BILIRUBIN,TOTAL 0.2 MG/DL (0.2-1.0); BLOOD UREA NITROGEN 11 MG/DL (7-18); CALCIUM LEVEL 8.7 MG/DL (8.5-10.1); CARBON DIOXIDE LEVEL 23 MEQ/L (21-32); CHLORIDE LEVEL 106 MEQ/L (98-107); CREATININE FOR GFR 0.49 MG/DL (0.55-1.30); GLOMERULAR FILTRATION RATE > 60.0 (>60); GLUCOSE, FASTING 80 MG/DL (70-100); POTASSIUM SERUM 4.4 MEQ/L (3.5-5.1); SODIUM LEVEL 136 MEQ/L (136-145); TOTAL PROTEIN 7.6 GM/DL (6.4-8.2)
== END ==
LOC: M SHH 13:07 → M LAB REF 13:07
PROVIDERS: ATTEND Orthopaedic Surgery Orthopaedic Surgery of the Spine
DX: Z47.89 Encounter for other orthopedic aftercare (principal)

== ENCOUNTER → 2018-06-04 | Outpatient (REF) | payer OTHER ==
[2018-06-04 16:12] LABS: HEMATOCRIT 35.1 % (36.0-47.0); HEMOGLOBIN 10.3 g/dl (12.0-15.5); MEAN CORPUSCULAR HEMOGLOBIN 19.9 pg (27.0-33.0); MEAN CORPUSCULAR HGB CONC 29.3 g/dl (32.0-36.5); MEAN CORPUSCULAR VOLUME 67.8 fl (80.0-96.0); PLATELET COUNT, AUTOMATED 536 10^3/uL (150-450); RED BLOOD COUNT 5.18 10^6/uL (4.00-5.40); WHITE BLOOD COUNT 10.1 10^3/uL (4.0-10.0)
== END ==
LOC: M LAB REF 15:46
PROVIDERS: ATTEND Internal Medicine Infectious Disease
DX: B99.9 Unspecified infectious disease (principal)

== ENCOUNTER → 2018-06-23 | Outpatient (CLI) | payer OTHER ==
[2018-06-23 13:26] LABS: HEMATOCRIT 33.9 % (36.0-47.0); HEMOGLOBIN 9.8 g/dl (12.0-15.5); MEAN CORPUSCULAR HGB CONC 28.9 g/dl (32.0-36.5); MEAN CORPUSCULAR VOLUME 69.2 fl (80.0-96.0); PLATELET COUNT, AUTOMATED 470 10^3/uL (150-450); WHITE BLOOD COUNT 11.9 10^3/uL (4.0-10.0)
[2018-06-23 13:33] LABS: ALBUMIN 3.8 GM/DL (3.2-5.2); ALT/SGPT 22 U/L (12-78); BILIRUBIN,TOTAL 0.2 MG/DL (0.2-1.0); BLOOD UREA NITROGEN 10 MG/DL (7-18); CALCIUM LEVEL 8.6 MG/DL (8.5-10.1); CARBON DIOXIDE LEVEL 26 MEQ/L (21-32); CHLORIDE LEVEL 106 MEQ/L (98-107); CREATININE FOR GFR 0.55 MG/DL (0.55-1.30); GLOMERULAR FILTRATION RATE > 60.0 (>60); GLUCOSE, FASTING 108 MG/DL (70-100); POTASSIUM SERUM 4.6 MEQ/L (3.5-5.1); SODIUM LEVEL 138 MEQ/L (136-145); TOTAL PROTEIN 7.4 GM/DL (6.4-8.2)
== END ==
LOC: M SMT 10:11
PROVIDERS: ATTEND Internal Medicine Infectious Disease
DX: B99.9 Unspecified infectious disease (principal)

== ENCOUNTER → 2018-08-20 | Outpatient (CLI) | payer OTHER, MEDICAID ==
[~2018-08-20] MED LIST changes: -/PANT40TA PO; -LISI-538; +LISI-538 PO; -NAPR-50 PO; +NAPR-837 PO; +NICO21DI31 TOP; +PLAV1TAB2 PO; +PROT1TAB2 PO; +RANI1TAB38 PO
--- NOTE | 2018-09-08 00:19 | ECWPNPC ---
PATIENT NAME: EAMON FREEMAN : 1980 GENDER: FEMALE VISIT DATE: 08/20/2018 DISCHARGE DATE: 08/20/18 1408 VISIT LOCKED DATE TIME: PHYSICIAN: GREGOR DANIELS RESOURCE: GREGOR DANIELS REASON FOR APPOINTMENT 1. MED MNGMT HISTORY OF PRESENT ILLNESS HISTORY OF PRESENT ILLNESS: HERE FOR F/U OF CHRONIC LOW BACK PAIN AND LEFT THIGH PAIN.HAD LUMBAR SURGERY IN [place] AND REPORTING RESOLUTION OF LEFT THIGH PAIN.DOES CONTINUE WITH MODERATE LOW BACK PAIN BUT OVERALL DOING MUCH BETTER.SHE IS BACK TO WORK.DISCUSSED REDUCING HYDROCODONE FROM 5 TAB PER DAY TO 4 TAB PER DAY.SHE IS RECEPTIVE TO TRYING BUT CONCERNED ABOUT ABILITY TO CONTINUE WORKING IF PAIN BECOMES UNTOLERABLE WITH REDUCTION.REASSURED WE WOULD MONITOR AND ENCOURAGED HER TO CALL WITH ANY PROBLEMS.RATING PAIN VAS 3/10. PAIN THE PATIENT DESCRIBES THE PAIN... FALL RISK SCREENING: SCREENING :NO FALLS REPORTED IN THE LAST YEAR CURRENT MEDICATIONS TAKING MAY HAVE QUATRO FX C PAP MASK AND ACCESORIES SIZE LARGE AT NIGHT DX 780.58 TAKING PROTONIX 40 MG TABLET DELAYED RELEASE 1 TABLET ORALLY BID TAKING LISINOPRIL 10 MG TABLET 1 TABLET ORALLY ONCE A DAY TAKING CYMBALTA 30 MG CAPSULE DELAYED RELEASE PARTICLES 1 CAPSULE ORALLY ONCE A DAY TAKING NORCO 10-325 MG TABLET 1 TABLET NEEDED ORALLY Q4-6H PRN MDD5 TAKING ZANTAC 150 MG TABLET 1 TABLET ORALLY DAILY NOT-TAKING AMITRIPTYLINE HCL 25 MG TABLET 1-2 ORALLY BEFORE BEDTIME NOT-TAKING OXYCODONE HCL 15 MG TABLET 1 TABLET ORALLY 1 TAB Q8H PRN MDD3 NOT-TAKING HYDROCHLOROTHIAZIDE 12.5 12.5MG CAPSULE 1 CAP(S) ORAL TWICE A DAY NOT-TAKING LIPITOR 80 MG TABLET 1 TABLET ORALLY ONCE A DAY NOT-TAKING LOPID 600 MG TABLET 1 TABLET ORALLY TWICE A DAY NOT-TAKING AMOXICILLIN 500 MG CAPSULE 1 CAPSULE ORALLY BID F75DONC DISCONTINUED HYDROCODONE-ACETAMINOPHEN 10-325 MG TABLET 1 TABLET NEEDED ORALLY EVERY 4-6 HRS PRN PAIN MDD=5, NOTES: DUPLICATE DISCONTINUED VALIUM 10 MG TABLET 1 TABLET NEEDED ORALLY ONE TAB 1HR PRE PROCEDURE=MDD DISCONTINUED VICODIN ES 10-325 MG TABLET 1 ORALLY Q4H PRN PAIN MDD5 DISCONTINUED VALIUM 5 MG TABLET 1 TABLET NEEDED ORALLY 1 TAB Q8H MDD3 DISCONTINUED PERCOCET 5-325 MG TABLET 1 TABLET NEEDED ORALLY EVERY 6 HRS PRN PAIN DISCONTINUED OXYCODONE HCL 5 MG TABLET 1 TABLET ORALLY 2 TAB PRE PROC. MDD2 DISCONTINUED KETOROLAC TROMETHAMINE 10 MG TABLET DIRECTED ORALLY EVERY 6 HRS DISCONTINUED FLOMAX 0.4 MG CAPSULE 1 CAPSULE 30 MINUTES AFTER THE SAME MEAL EACH DAY ORALLY ONCE A DAY MEDICATION LIST REVIEWED AND RECONCILED WITH THE PATIENT PAST MEDICAL HISTORY HTN- 4 YRS- ON HCTZ DYSLIPIDEMIA-RECENTLY- HYPERTRYGLY DEPRESSION- CELEXA MIGRAINES- FIORECIT LBP- SPINAL STENOSIS/SCIATICA- DR MCNEILL IN [place] HX OF RENAL STONE SLEEP APNOEA- CPAP- DYSPEPSIA HYPERCHOLESTEROLEMIA MRSA INFECTION GERD OVARIAN CYSTS ADENOMYOSIS STAPH INFECTION POST LAMINECTOMY ALLERGIES N.K.D.A. SURGICAL HISTORY 09/04,11/07,11/09 CHOLECYSTECTOMY 06/1998 RIGHT JJ STENT/ESWL 05/2007 LEFT ESWL 2006 RIGHT JJ STENT PLACEMENT 08/2010 OVARAIN CYST REMOVAL 2013 4 CYSTS REMOVED LEFT OVARY 08/2015 OVARIAN CYST REMOVAL 2014 LAMINECTOMY @ [facility] 04/07/2018 I&D OF LAMINECTOMY 05/01/18 FAMILY HISTORY FATHER: ALIVE, DIAGNOSED WITH HEART DISEASE, OTHER, HYPERTENSION MOTHER: , CANCER SIBLINGS: ALIVE, HYPERTENSION SON(S): ALIVE DAUGHTER(S): ALIVE 3 BROTHER(S) . 3 SON(S) , 2 DAUGHTER(S) - HEALTHY. 2 BROTHERS - HTN\NSONS - DELETION ON CHROMOSOME 22, ECZEMA\NDAUGHTER - DUPLICATION ON CHROMOSOME 11\N1 SON & ! DAUGHTER - DEVELOPMENTALLY DELAYED\NFATHER - SPINAL STENOSIS\NMOTHER - RENAL CELL CARCINOMA. SOCIAL HISTORY GENERAL: TOBACCO USE ARE YOU A:CURRENT SMOKER ARE YOU INTERESTED IN QUITTING?NOT READY TO QUIT COUNSELED THE PATIENT ON SMOKING EFFECTS, EDUCATION [id number]/17/2019 HOW MANY CIGARETTES A DAY DO YOU SMOKE?11-20 HOW SOON AFTER YOU WAKE UP DO YOU SMOKE YOUR FIRST CIGARETTE?31-60 MIN HOW OFTEN DO YOU SMOKE CIGARETTES?EVERY DAY PATIENT COUNSELED ON THE DANGERS OF TOBACCO USE AND URGED TO QUIT:08/20/2018 LATEX QUESTIONNAIRE LATEX ALLERGY : HAVE YOU EVER DEVELOPED ANY TYPE OF REACTION AFTER HANDLING LATEX PRODUCTS SUCH RUBBER GLOVES, CONDOMS, DIAPHRAGMS, BALLOONS, SOCKS, OR UNDERWEAR?NO LATEX ALLERGY : HAVE YOU EVER DEVELOPED ANY TYPE OF REACTION DURING OR AFTER DENTAL APPOINTMENT, VAGINAL/RECTAL EXAMINATION, SURGICAL PROCEDURE, OR ANY OTHER EXPOSURE?NO LATEX RISK : HAVE YOU EVER HAD ANY DIFFICULTY BREATHING OR HIVES AFTER EATING OR HANDLING ANY FRUITS, OR VEGETABLES; SUCH KIWI, BANANAS, STONE FRUITS, OR CHESTNUTSNO LATEX RISK : DO YOU HAVE A PREVIOUS PERSONAL HISTORY OF MORE THAN NINE SURGERIES, SPINA BIFIDA, OR REPEATED CATHERTIZATIONS? YES - PLEASE INDICATE : > 9 SURGERIES LATEX RISK : ARE YOU FREQUENTLY EXPOSED TO LATEX PRODUCTS IN YOUR OCCUPATION?YES DATE ASKED : 08/20/2018 LUNG CANCER SCREENING SMOKING STATUS:CURRENT SMOKER ALCOHOL SCREENING DID YOU HAVE A DRINK CONTAINING ALCOHOL IN THE PAST YEAR?NO POINTS0 INTERPRETATIONNEGATIVE RECREATIONAL DRUG USE DRUG USE?NO CONFUCIANISM [id number] SCIENTOLOGY LANGUAGE LANGUAGES SPOKEN:BAHRAINI EDUCATION LEVEL OF EDUCATION:NOT FINISHED COLLEGE LEARNING BARRIERS / SPECIAL NEEDS BARRIERS TO LEARNING?NO HEARING IMPAIRED?NO VISION IMPAIRED?NO COGNITIVELY IMPAIRED?NO READINESS TO LEARN?YES LEARNING PREFERENCES?YES :BOOKLETS, HANDOUTS LEARNING CAPABILITIES PRESENT?YES EMOTIONAL BARRIERS?NO SPECIAL DEVICES?NO ONLINE MARKETING COORDINATOR NEEDED?NO DOMESTIC VIOLENCE DO YOU FEEL SAFE IN YOUR ENVIRONMENT?YES MARITAL STATUS: . NEW PATIENT PAIN DIARY FROM 0-10, WHAT LEVEL IS YOUR PAIN TODAY?3 PAIN CLINIC PFS, CLERGY, PUBLIC HEALTH REFERRALS PFS REFERRAL NEEDED?NO CLERGY REFERRAL NEEDED?NO PUBLIC HEALTH REFERRAL NEEDED?NO WAS THE PROVIDER NOTIFIED OF ANY PERTINENT INFO? N/A HAS THE PATIENT BEEN EDUCATED REGARDING HIS/HER PLAN OF CARE?YES HAS THE PATIENT BEEN EDUCATED REGARDING PAIN, THE RISK FOR PAIN, THE IMPORTANCE OF EFFECTIVE PAIN MANAGEMENT, AND THE PAIN ASSESSMENT PROCESS?YES ADVANCE DIRECTIVE ADVANCE DIRECTIVE DISCUSSED WITH PATIENT:YES 08/20/18 PT DOES NOT HAVE ANY ADVANCED DIRECTIVES AND SHE DECLINED INFORMATION ON HCP AT THIS TIME AD REVIEWED WITH PATIENT 03/13/18 1016 JS. HOSPITALIZATION/MAJOR DIAGNOSTIC PROCEDURE SURGERIES PELVIC ABSCESS 2002 INFECTION AFTER LAMINECTOMY 05/01/18 REVIEW OF SYSTEMS REVIEWED BY: PROVIDER: GREGOR MENON . CONSTITUTIONAL: ANY CHANGE IN YOUR MEDICAL CONDITION? YES, STAPH INFECTION POST LAMINECTOMY IN DEC. . CHILLS NO . FEVER NO . INFECTION: DO YOU HAVE NEW INFECTIONS? NO . DO YOU HAVE HISTORY OF MRSA? NO . MUSCULOSKELETAL: ANY NEW PATTERNS OF PAIN OR NUMBNESS? NO . GASTROENTEROLOGY: ANY NEW CHANGE IN BOWEL CONTROL? NO . GENITOURINARY: ANY NEW CHANGE IN BLADDER CONTROL? NO . IS THERE A CHANCE YOU COULD BE ? NO . HEMATOLOGY/LYMPH: DO YOU TAKE ANY BLOOD THINNERS? (FOR EXAMPLE- COUMADIN, PLAVIX, AGGRENOX, PLATEL, PRADAXA, OR XARELTO) NO . WHEN WAS YOUR LAST DOSE? DATE: TIME: . NEUROLOGY: HAVE YOU FALLEN IN THE PAST 12 MONTHS? NO . ANY NEW EXTREMITY NUMBNESS OR WEAKNESS? NO . CARDIOLOGY: DO YOU HAVE A PACEMAKER OR DEFIBRILLATOR? NO . RESPIRATORY: HAVE YOU BEEN SICK IN THE PAST WEEK? YES, STOMACH BUG APPROX 1 WEEK AGO . FEVER YES, SLIGHT WITH STOMACH BUG . FLU LIKE SYMPTOMS? NO . COUGH NO . INTEGUMENTARY: DO YOU HAVE ANY RASHES OR OPEN SORES? NO . ALLERGIC/IMMUNO: ARE YOU ALLERGIC TO IV DYE? NO . ANY NEW ALLERGIES? NO . PSYCHIATRIC: DO YOU HAVE THOUGHTS OF HURTING YOURSELF OR SOMEONE ELSE? NO . ARE YOU ABUSED, NEGLECTED, OR IN AN UNSAFE ENVIRONMENT? NO . ENDOCRINOLOGY: ARE YOU DIABETIC? NO . OTHER: DO YOU NEED ANY PRESCRIPTIONS? NO . IF YES, PLEASE LIST: ____ . ANY NEW PROBLEMS WITH YOUR MEDICATIONS? NO . WHEN DID YOU LAST EAT? ____ . WHEN DID YOU LAST DRINK? ____ . WHAT DID YOU LAST DRINK? ____ . NAME OF PERSON DRIVING YOU HOME? ____ . DO YOU HAVE ANY OTHER QUESTIONS OR CONCERNS NO . VITAL SIGNS WT 209 LBS, HT 65 IN, BMI 34.78 INDEX, BP 143/75 MM HG, HR 89 /MIN, RR 16 /MIN, TEMP 98.8 F, OXYGEN SAT % 98%, NA INITIALS AW 1317. EXAMINATION GENERAL EXAMINATION: GENERAL APPEARANCE:AWAKE,ALERT ,PLEAASANT . PSYCHAFFECT NORMAL . LUNGS:LUNG CABALLERO ARE CLEAR TO AUSCULTATION BILATERALLY. GOOD MOVEMENT OF AIR . HEART:S1, S2 IN A REGULAR RATE AND RHYTHM. NO SIGNIFICANT MURMURS, RUBS OR GALLOPS NOTED . ASSESSMENTS PROTRUSION OF INTERVERTEBRAL DISC OF LUMBOSACRAL REGION - M51.27 (PRIMARY) TREATMENT PROTRUSION OF INTERVERTEBRAL DISC OF LUMBOSACRAL REGION DECREASE NORCO TABLET, 10-325 MG, 1 TABLET NEEDED, ORALLY, Q4-6H PRN MDD5, 30 DAY(S), 120, REFILLS 0 NOTES: REDUCE HYDROCODONE TO MAX 4 PER DAY, RISKS AND BENEFITS OF NARCOTIC/OPIOD MEDICATIONS WERE REVIEWED WITH PATIENT - THIS INCLUDES BUT IS NOT LIMITED TO RISK OF DEPENDANCE/DEVELOPMENT OF ADDICTION, MOOD DISTURBANCE AND DEPRESSION, OSTEOPOROSIS, HORMONAL AND LABIDAL CHANGES, RESPIRATORY DEPRESSION AND . PATIENT IS ADVISED NOT TO DRIVE OR DRINK ALCOHOL WHILE ON THESE MEDICATIONS, [facility] NARCOTIC AGREEMENT WAS UPDATED REVIEWED AND SIGNED TODAY BY THE PATIENT. SEE ATTACHED DOCUMENT FOR FULL DETAILS; SPECIFIC ISSUES WERE REVIEWED: 1) KEEP PAIN MEDS IN THEIR ORIGINAL BOTTLES AND ANY WEEKLY PLANNERS ARE TO BE BROUGHT TO THE PAIN CENTER AT EVERY VISIT. 2) THE PATIENT IS NOT TO INCREASE DOSING OR TIMING OF THEIR PAIN MEDICATION WITHOUT SPECIFIC DIRECTION OF THEIR PAIN CENTERPROVIDER (NOT ER OR OTHER PROVIDERS). 3) ALL PAIN MEDS ARE TO BE KEPT SECURED, IN A LOCKED BOX. 4) NO PAIN MEDS ARE TO BE SHARED WITH ANY OTHER PERSON FOR ANY REASON. 5) NO PAIN MEDS MAY BE TAKEN FROM ANY FRIENDS OR RELATIVES FOR ANY REASON 6) NO MEDS OR SUBSTANCES WHICH ARE NOT LEGAL ARE TO BE USED- NO MARIJUANA, NO COCAINE, AMPHETAMINES, HEROIN, OR OTHERS ARE EVER TO BE USED. 7)URINE TESTING IS DONE TO ACCOUNT FOR MEDS AND SUBSTANCES BEING TAKEN AND WILL BE DONE RANDOMLY., ISTOP REGISTRY REVIEWED AND DEMONSTRATES COMPLLIANCE. (REF #[id number] ) BRINGS IN MEDICATIONS WHICH IS APPROPRIATE FOR WHAT WAS DISPENSED. RECENT URINE TOXICOLOGY REVIEWED. NO UNAUTHORIZED MEDICATIONS. NO ILLICIT SUBSTANCES AND PRESCRIBED MEDICATIONS WERE PRESENT. URINE TOX TODAY. PROCEDURE CODES FA211 ESTABILISHED PATIENT [facility] CHARGE DISPOSITION & COMMUNICATION FOLLOW UP 2 MONTHS ELECTRONICALLY SIGNED BY LYNSEY HURLEY ON 09/07/2018 AT 12:28 PM EDT DISCLAIMER : THIS IS A VISIT SUMMARY EXTRACTED FROM THE [employer] MET[employer]TECH CHART. IT IS NOT A COPY OF THE [email or web address] PROGRESS NOTE. JEOVANNY
== END ==
LOC: M PAIN 13:45
PROVIDERS: ATTEND Nurse Practitioner Family
DX: M51.27 Other intervertebral disc displacement, lumbosacral region (principal); G89.29 Other chronic pain; I10 Essential (primary) hypertension; E78.1 Pure hyperglyceridemia; G43.909 Migraine, unspecified, not intractable, without status migrainosus; G47.30 Sleep apnea, unspecified; K21.9 Gastro-esophageal reflux disease without esophagitis; F32.9 Major depressive disorder, single episode, unspecified; F17.210 Nicotine dependence, cigarettes, uncomplicated; Z79.899 Other long term (current) drug therapy

== ENCOUNTER 2018-08-30 11:59 | Emergency (ER) | payer MEDICAID, OTHER ==
[~2018-08-30] VITALS: Ht 165.1 cm; Wt 86.4 kg
[~2018-08-30 11:59] MED LIST changes: -NICO21DI31 TOP; -PLAV1TAB2 PO; -RANI1TAB38 PO
[2018-08-30] MEDS ORDERED: RANI1TAB38 PO (12:07)
[2018-08-30] MEDS ORDERED: NS 1,000 ML IV ONE (12:45)
[2018-08-30 13:01] LABS: BASO # 0.1 10^3/uL (0.0-0.2); BASO % 0.7 % (0.0-1.0); EOS % 0.4 % (0.0-3.0); HEMATOCRIT 33.1 % (36.0-47.0); HEMOGLOBIN 9.5 g/dl (12.0-15.5); LYMPH # 2.3 10^3/uL (1.5-4.5); LYMPH % 23.3 % (24.0-44.0); MEAN CORPUSCULAR HEMOGLOBIN 19.2 pg (27.0-33.0); MEAN CORPUSCULAR HGB CONC 28.7 g/dl (32.0-36.5); MEAN CORPUSCULAR VOLUME 66.9 fl (80.0-96.0); MONO # 0.5 10^3/uL (0.0-0.8); MONO % 4.8 % (0.0-5.0); NEUTROPHILS # 6.9 10^3/uL (1.8-7.7); NEUTROPHILS % 70.4 % (36.0-66.0); PLATELET COUNT, AUTOMATED 562 10^3/uL (150-450); RED BLOOD COUNT 4.95 10^6/uL (4.00-5.40); WHITE BLOOD COUNT 9.8 10^3/uL (4.0-10.0)
[2018-08-30 13:12] LABS: PARTIAL THROMBOPLASTIN TIME 27.5 SECONDS (25.4-37.6)
[2018-08-30 13:20] LABS: INR 0.98; PROTHROMBIN TIME 13.1 SECONDS (12.1-14.4)
[2018-08-30 13:26] LABS: ALBUMIN 3.6 GM/DL (3.2-5.2); ALT/SGPT 20 U/L (12-78); BILIRUBIN,TOTAL 0.2 MG/DL (0.2-1.0); BLOOD UREA NITROGEN 12 MG/DL (7-18); C REACTIVE PROTEIN QUANTITATIV < 0.30 MG/DL (0.00-0.30); CALCIUM LEVEL 8.6 MG/DL (8.5-10.1); CARBON DIOXIDE LEVEL 26 MEQ/L (21-32); CHLORIDE LEVEL 109 MEQ/L (98-107); CREATININE FOR GFR 0.62 MG/DL (0.55-1.30); ERYTHROCYTE SEDIMENTATION RATE 11 mm/hr (0-20); GLOMERULAR FILTRATION RATE > 60.0 (>60); GLUCOSE, FASTING 123 MG/DL (70-100); POTASSIUM SERUM 4.5 MEQ/L (3.5-5.1); SODIUM LEVEL 138 MEQ/L (136-145); TOTAL PROTEIN 7.3 GM/DL (6.4-8.2); URIC ACID 3.2 MG/DL (2.6-6.0)
--- NOTE | 2018-08-30 14:35 | REP ---
Left upper extremity duplex veins History: Swelling There are no filling defects in the deep venous system. The deep venous system is patent. Impression: There is no deep venous thrombosis. Electronically Signed by Niall Kamara MD 08/30/2018 02:26 P
[2018-08-30] MEDS ORDERED: PLAV1TAB2 PO (17:05)
[2018-08-30] MEDS ORDERED: NICO21DI31 TOP (17:10)
[2018-08-30] MEDS ORDERED: CLOPIDOGREL 75 MG TAB PO ONE (17:15)
[2018-08-30] MEDS ORDERED: KETOROLAC 30 MG/ML VIAL (J1885) IV ONE (17:15)
[2018-08-30 17:36] VITALS: BP 146/98
--- NOTE | 2018-08-30 17:42 | ECGEPIP ---
Stationary ECG Study [facility] - ED Test Date: 2018-08-30 Pat Name: EAMON FREEMAN Department: Room: - Gender: [employer] Chief: [employer] : 1980 Requested By: Edgardo Barcenas Order Number: [id number] Reading MD: Edgardo Barcenas Measurements Intervals [place] Rate: 89 P: 30 [place]: 175 QRS: 25 QRSD: 95 T: 37 QT: 341 QTc: 415 Interpretive Statements SINUS RHYTHM NONSPECIFIC ST T WAVE CHANGES CW RATE INCREASED NONSPECIFIC ST T WAVE CHANGES Electronically Signed On 08-30-2018 17:42:46 EDT by Edgardo Barcenas
--- NOTE | 2018-08-30 17:45 | REPVR ---
EXAM: US Duplex Left Upper Extremity Arteries EXAM DATE/TIME: 08/30/2018 4:35 PM CLINICAL HISTORY: 38 years old, female; Fingers and hand; Left; Patient HX: Sudden onset arm swelling & pain; Additional info: Left- pain/swelling TECHNIQUE: Imaging protocol: Left Real-time ultrasound scan of the arteries of the left upper extremity with 2-D joseph scale, color Doppler flow and spectral waveform analysis. COMPARISON: No relevant prior studies available. FINDINGS: Left subclavian artery: Peak systolic velocities in the left subclavian artery measure 150 and 113 cm/s. Triphasic waveforms. Left axillary artery: Peak systolic velocity in the left axillary artery measures 181 cm/s. Triphasic waveform. Left brachial artery: Peak systolic velocities in the left brachial artery measure 111, 126, and 134 cm/s. Triphasic waveforms. Left Radial artery: Peak systolic velocities in the left radial artery measure 88, 91, and 90 cm/s. Triphasic waveforms. Left ulnar artery: Peak systolic velocities in the left ulnar artery measure 86, 49, and 65 cm/s. Triphasic waveforms. Other arteries: Peak systolic velocity in the left common carotid artery measures 135 cm/s. Triphasic waveform. Soft tissues: Unremarkable. IMPRESSION: No evidence of hemodynamically significant arterial stenosis within the left upper extremity. Electronically signed by: Bre Centeno On 08/30/2018 17:45:07 PM
== END 2018-08-30 17:40 | disposition home or self-care (01) ==
LOC: M ED 11:59
DX: M79.642 Pain in left hand (principal); I10 Essential (primary) hypertension; E78.9 Disorder of lipoprotein metabolism, unspecified; F33.9 Major depressive disorder, recurrent, unspecified; Z79.899 Other long term (current) drug therapy; Z79.82 Long term (current) use of aspirin; Z79.02 Long term (current) use of antithrombotics/antiplatelets; F17.210 Nicotine dependence, cigarettes, uncomplicated
CPT/HCPCS: 80053; 84550; 85025; 85610; 85652; 85730; 86140; 93005; 93931; 93971; 96361; 96374; 99285; J1885

== ENCOUNTER 2018-12-12 20:11 | Emergency (ER) | payer OTHER ==
[~2018-12-12] VITALS: Ht 165.1 cm; Wt 90.9 kg
[~2018-12-12 20:11] MED LIST changes: +NICO21DI31 TOP; +PLAV1TAB2 PO; +RANI1TAB38 PO
[2018-12-12 21:12] LABS: BASO # 0.1 10^3/uL (0.0-0.2); BASO % 0.6 % (0.0-1.0); EOS # 0.4 10^3/uL (0.0-0.50); HEMATOCRIT 32.9 % (36.0-47.0); HEMOGLOBIN 9.3 g/dl (12.0-15.5); LYMPH # 3.8 10^3/uL (1.5-4.5); LYMPH % 40.4 % (24.0-44.0); MEAN CORPUSCULAR HEMOGLOBIN 19.5 pg (27.0-33.0); MEAN CORPUSCULAR HGB CONC 28.3 g/dl (32.0-36.5); MEAN CORPUSCULAR VOLUME 69.1 fl (80.0-96.0); MONO # 0.7 10^3/uL (0.0-0.8); MONO % 7.6 % (0.0-5.0); NEUTROPHILS # 4.4 10^3/uL (1.8-7.7); NEUTROPHILS % 47.2 % (36.0-66.0); PLATELET COUNT, AUTOMATED 516 10^3/uL (150-450); RED BLOOD COUNT 4.76 10^6/uL (4.00-5.40); WHITE BLOOD COUNT 9.3 10^3/uL (4.0-10.0)
[2018-12-12 21:22] LABS: PROTHROMBIN TIME 12.9 SECONDS (11.8-14.0)
[2018-12-12 21:23] LABS: PARTIAL THROMBOPLASTIN TIME 29.2 SECONDS (25.0-38.4)
[2018-12-12 21:44] LABS: ALBUMIN 3.3 GM/DL (3.2-5.2); ALT/SGPT 31 U/L (12-78); BILIRUBIN,DIRECT < 0.1 MG/DL (0.0-0.2); BILIRUBIN,TOTAL 0.1 MG/DL (0.2-1.0); BLOOD UREA NITROGEN 9 MG/DL (7-18); CALCIUM LEVEL 8.6 MG/DL (8.5-10.1); CARBON DIOXIDE LEVEL 26 MEQ/L (21-32); CHLORIDE LEVEL 110 MEQ/L (98-107); CK-MB VALUE MASS < 1.0 NG/ML (<3.6); CPK CREATINE PHOSPHOKINASE 60 U/L (26-192); FREE T4 0.93 NG/DL (0.76-1.46); GLOMERULAR FILTRATION RATE > 60.0 (>60); GLUCOSE, FASTING 114 MG/DL (70-100); MB/CK RELATIVE INDEX 1.67 (< OR =4); NT-PRO BNP 25 PG/ML (<125); POTASSIUM SERUM 3.6 MEQ/L (3.5-5.1); SODIUM LEVEL 142 MEQ/L (136-145); THYROID STIMULATING HORMONE 0.755 uIU/ML (0.358-3.740); TOTAL PROTEIN 6.9 GM/DL (6.4-8.2); TROPONIN I < 0.02 NG/ML (< 0.10)
--- NOTE | 2018-12-12 22:06 | REPVR ---
EXAM: US Duplex Right Upper Extremity Veins, Limited EXAM DATE/TIME: 12/12/2018 9:34 PM CLINICAL HISTORY: 38 years old, female; Pain; Arn, upper; Right; Additional info: Rue swelling eval for dvt TECHNIQUE: Imaging protocol: Real-time Duplex ultrasound of the Right Upper Extremity with 2-D joseph scale, color Doppler flow and spectral waveform analysis with image documentation. Limited exam focused on the right upper extremity veins. COMPARISON: US DUPLEX EXT UPPER VEINS UNILATE 08/30/2018 1:40 PM FINDINGS: Right deep veins: Unremarkable. Axillary and brachial veins are patent throughout without thrombus. Normal Doppler waveforms. Normal compressibility and/or augmentation response. Visualized internal jugular and subclavian veins are patent. Right superficial veins: Occluded and expanded distal cephalic vein. Visualized basilic veins are patent without thrombus. Soft tissues: Unremarkable. IMPRESSION: Occluded distal cephalic vein. No evidence of deep vein thrombosis. Electronically signed by: Yovani Gillis On 12/12/2018 22:06:24 PM
--- NOTE | 2018-12-12 22:12 | REPVR ---
EXAM: XR Chest, 2 Views EXAM DATE/TIME: 12/12/2018 8:53 PM CLINICAL HISTORY: 38 years old, female; Pain; Other: Extremity; Prior surgery; Surgery date: 3-7 days post-operative; Surgery type: Loop recorder; Additional info: R arm swelling eval for chf TECHNIQUE: Imaging protocol: XR of the chest, 2 views. COMPARISON: CR Chest, 2 view PA, Lat 09/26/2017 8:56 PM FINDINGS: Tubes, catheters and devices: Loop recorder demonstrated. Lungs: Unremarkable. No consolidation. Pleural space: Unremarkable. No pleural effusion. No pneumothorax. Heart/Mediastinum: Unremarkable. No cardiomegaly. Bones/joints: Unremarkable. IMPRESSION: No acute findings. Electronically signed by: Yovani Gillis On 12/12/2018 22:12:43 PM
[2018-12-12 22:30] VITALS: BP 142/78
--- NOTE | 2018-12-13 08:12 | ECGEPIP ---
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
== END 2018-12-12 22:45 | disposition home or self-care (01) ==
LOC: M ED 20:11
DX: I82.611 Acute embolism and thrombosis of superficial veins of right upper extremity (principal); I10 Essential (primary) hypertension; E78.5 Hyperlipidemia, unspecified; Z79.899 Other long term (current) drug therapy; Z79.82 Long term (current) use of aspirin; Z79.02 Long term (current) use of antithrombotics/antiplatelets; F17.210 Nicotine dependence, cigarettes, uncomplicated

== ENCOUNTER → 2019-01-13 | Outpatient (REF) | payer OTHER ==
[2019-01-20 00:06] LABS: ANCA-ATYPICAL <1:20 titer (Neg:<1:20); ANTI DS-DNA AB <1:10 titer (.); ANTI THROMBIN 3 ANTIGEN IMMUNO 99 % (72-124); ANTI THROMBIN 3 FUNCT ACTIVITY 114 % (75-135); ANTINUCLEAR ANTIBODIES DIRECT Negative (Negative); CARDIOLIPIN IGA ANTIBODY <9 APL U/mL (0-11); CARDIOLIPIN IGG ANTIBODY <9 GPL U/mL (0-14); CARDIOLIPIN IGM ANTIBODY <9 MPL U/mL (0-12); CYTOPLASMIC NEUTROP AB ANCA-C <1:20 titer (Neg:<1:20); F8 ACTIVITY FOR F8 PANEL 197 % (56-140); F8 ACTIVITY vWB FOR F8 PANEL 188 % (50-200); F8 ANTIGEN FOR F8 PANEL 248 % (50-200); HOMOCYST(E)INE SERUM 9.4 umol/L (0.0-15.0); PERINUCLEAR AB ANCA-P <1:20 titer (Neg:<1:20); PROTEIN C FUNCTIONAL ACTIVITY 120 % (73-180); PROTEIN S FUNCTIONAL ACTIVITY 69 % (63-140); SJOGREN'S ANTI SS-A <0.2 AI (0.0-0.9); SJOGREN'S ANTI SS-B <0.2 AI (0.0-0.9)
[2019-01-20 08:53] LABS: DRVV SCREEN 36.9 SEC
[2019-01-20 08:56] LABS: PTT LUPUS TYPE ANTICOAG SCREEN 0.9 (0-1.2)
== END ==
LOC: M LABNEURO 14:57
PROVIDERS: ATTEND Psychiatry & Neurology Neurology
DX: E11.9 Type 2 diabetes mellitus without complications (principal); I63.9 Cerebral infarction, unspecified

== ENCOUNTER → 2019-02-02 | Outpatient (RCR) | payer OTHER | LOC: M PT 01-08 11:06 → M ST 01-27 13:30 | PROVIDERS: ATTEND Nurse Practitioner Family | DX: Z86.73 Personal history of transient ischemic attack (TIA), and cerebral infarction without residual deficits (principal) ==

== ENCOUNTER → 2019-02-12 | Outpatient (CLI) | payer OTHER, MEDICAID ==
--- NOTE | 2019-03-03 02:29 | ECWPNPC ---
PATIENT NAME: EAMON FREEMAN : 1980 GENDER: FEMALE VISIT DATE: 02/12/2019 DISCHARGE DATE: 02/12/19 1042 VISIT LOCKED DATE TIME: PHYSICIAN: GREGOR DANIELS RESOURCE: GREGOR DANIELS REASON FOR APPOINTMENT 1. MED MGMT HISTORY OF PRESENT ILLNESS HISTORY OF PRESENT ILLNESS: HERE FOR F/U OF CHRONIC LBP W RIGHT LEG PAIN.HAD A STROKE 12/02/18 WITH RESIDUAL RIGHT SIDED WEAKNESS.CURRENTLY SUFFERING FROM MAINLY RIGHT LOW BACK AND LEG PAIN.SCIATIC LEFT LEG PAIN WAS TAKEN CARE OF WITH LUMBAR SURGERY SEVERAL MONTHS AGO.CURRENTLY UNDER THE CARE OF NEUROLOGY AND CARDIOLOGY.CURRENTLY HYDROCODONE CONTINUES TO BE EFFECTIVE AND WE WONT MAKE CHANGES TO THIS AT THIS POINT DUE TO HER COMPLEX MEDICAL SITUATION AT THE PRESENT TIME.RATING PAIN VAS 5/10. PAIN THE PATIENT DESCRIBES THE PAIN... FALL RISK SCREENING: SCREENING :NO FALLS REPORTED IN THE LAST YEAR CURRENT MEDICATIONS TAKING PROTONIX 40 MG TABLET DELAYED RELEASE 1 TABLET ORALLY BID TAKING LISINOPRIL 20 MG TABLET 1 TABLET ORALLY ONCE A DAY TAKING ATORVASTATIN CALCIUM 80 MG TABLET TAKE ONE TABLET BY MOUTH ONCE DAILY ORAL TAKING ASPIRIN 81 MG TABLET DELAYED RELEASE TAKE ONE TABLET BY MOUTH ONCE DAILY ORAL TAKING NORCO 10-325 MG TABLET 1/2 TO 1 TAB ORALLY Q4-6H PRN MDD4.5 TAKING FLUOXETINE HCL 10 MG CAPSULE TAKE ONE CAPSULE BY MOUTH ONCE DAILY ORAL DAILY TAKING AMLODIPINE BESYLATE 5 MG TABLET 1 TABLET ORALLY ONCE A DAY NOT-TAKING MAY HAVE QUATRO FX C PAP MASK AND ACCESORIES SIZE LARGE AT NIGHT DX 780.58 NOT-TAKING ZANTAC 150 MG TABLET 1 TABLET ORALLY DAILY NOT-TAKING CYMBALTA 30 MG CAPSULE DELAYED RELEASE PARTICLES 1 CAPSULE ORALLY ONCE A DAY NOT-TAKING AMITRIPTYLINE HCL 25 MG TABLET 1-2 ORALLY BEFORE BEDTIME NOT-TAKING OXYCODONE HCL 15 MG TABLET 1 TABLET ORALLY 1 TAB Q8H PRN MDD3 NOT-TAKING HYDROCHLOROTHIAZIDE 12.5 12.5MG CAPSULE 1 CAP(S) ORAL TWICE A DAY NOT-TAKING LIPITOR 80 MG TABLET 1 TABLET ORALLY ONCE A DAY NOT-TAKING LOPID 600 MG TABLET 1 TABLET ORALLY TWICE A DAY NOT-TAKING AMOXICILLIN 500 MG CAPSULE 1 CAPSULE ORALLY BID [id number] MEDICATION LIST REVIEWED AND RECONCILED WITH THE PATIENT PAST MEDICAL HISTORY HTN- 5 YRS- ON HCTZ DYSLIPIDEMIA-RECENTLY- HYPERTRYGLY DEPRESSION- CELEXA MIGRAINES- FIORECIT LBP- SPINAL STENOSIS/SCIATICA- DR MCNEILL IN [place] HX OF RENAL STONE SLEEP APNOEA- CPAP- DYSPEPSIA HYPERCHOLESTEROLEMIA MRSA INFECTION GERD OVARIAN CYSTS ADENOMYOSIS STAPH INFECTION POST LAMINECTOMY 12/02/18 STROKE - RIGHT SIDED WEAKNESS ALLERGIES N.K.D.A. SURGICAL HISTORY 09/04,11/07,11/09 CHOLECYSTECTOMY 06/1998 RIGHT JJ STENT/ESWL 05/2007 LEFT ESWL 2006 RIGHT JJ STENT PLACEMENT 08/2010 OVARAIN CYST REMOVAL 2013 4 CYSTS REMOVED LEFT OVARY 08/2015 OVARIAN CYST REMOVAL 2014 LAMINECTOMY @ [facility] 04/07/2018 I&D OF LAMINECTOMY 05/01/18 ANGIO PLASTY - BRAIN 12/02/18 FAMILY HISTORY FATHER: ALIVE, DIAGNOSED WITH HYPERTENSION, UNSPECIFIED HEART DISEASE, OTHER SPECIFIED CONDITIONS INFLUENCING HEALTH STATUS MOTHER: , OTHER MALIGNANT NEOPLASM OF UNSPECIFIED SITE SIBLINGS: ALIVE, HYPERTENSION SON(S): ALIVE DAUGHTER(S): ALIVE 3 BROTHER(S) . 3 SON(S) , 2 DAUGHTER(S) - HEALTHY. 2 BROTHERS - HTN\NSONS - DELETION ON CHROMOSOME 22, ECZEMA\NDAUGHTER - DUPLICATION ON CHROMOSOME 11\N1 SON & ! DAUGHTER - DEVELOPMENTALLY DELAYED\NFATHER - SPINAL STENOSIS\NMOTHER - RENAL CELL CARCINOMA. SOCIAL HISTORY GENERAL: TOBACCO USE ARE YOU A:FORMER SMOKER HIV / HEP-C SCREENING HIV TEST OFFERED TO PATIENT:YES DATE OFFERED:12/16/2018 TEST ACCEPTED:NO HEP-C TEST OFFERED TO PATIENT:NO REASON:PATIENT DECLINED BROCHURE PROVIDED TO PATIENTYES OTHERS AT HOME: CHILDREN, OTHER NON-RELATIVE. EDUCATION LEVEL OF EDUCATION:NOT FINISHED COLLEGE DIET: REGULAR. LANGUAGE LANGUAGES SPOKEN:[place] DOMESTIC VIOLENCE DO YOU FEEL SAFE IN YOUR ENVIRONMENT?YES NEW PATIENT PAIN DIARY FROM 0-10, WHAT LEVEL IS YOUR PAIN TODAY?3 BMI CARE GOAL FOLLOW-UP ABOVE NORMAL BMI FOLLOW-UPDIETARY MANAGEMENT EDUCATION, GUIDANCE, AND COUNSELING, DIETARY NEEDS EDUCATION RECREATIONAL DRUG USE DRUG USE?NO EXERCISE: DAILY. LEARNING BARRIERS / SPECIAL NEEDS CHANGE FROM LAST VISIT?NO BARRIERS TO LEARNING?NO HEARING IMPAIRED?NO VISION IMPAIRED?NO COGNITIVELY IMPAIRED?NO READINESS TO LEARN?YES LEARNING PREFERENCES?YES :BOOKLETS, HANDOUTS LEARNING CAPABILITIES PRESENT?YES EMOTIONAL BARRIERS?NO SPECIAL DEVICES?NO VEST BUSHELER NEEDED?NO LUNG CANCER SCREENING SMOKING STATUS:CURRENT SMOKER PAIN CLINIC PFS, CLERGY, PUBLIC HEALTH REFERRALS PFS REFERRAL NEEDED?NO CLERGY REFERRAL NEEDED?NO PUBLIC HEALTH REFERRAL NEEDED?NO WAS THE PROVIDER NOTIFIED OF ANY PERTINENT INFO? N/A HAS THE PATIENT BEEN EDUCATED REGARDING HIS/HER PLAN OF CARE?YES HAS THE PATIENT BEEN EDUCATED REGARDING PAIN, THE RISK FOR PAIN, THE IMPORTANCE OF EFFECTIVE PAIN MANAGEMENT, AND THE PAIN ASSESSMENT PROCESS?YES LATEX QUESTIONNAIRE LATEX ALLERGY : HAVE YOU EVER DEVELOPED ANY TYPE OF REACTION AFTER HANDLING LATEX PRODUCTS SUCH RUBBER GLOVES, CONDOMS, DIAPHRAGMS, BALLOONS, SOCKS, OR UNDERWEAR?NO LATEX ALLERGY : HAVE YOU EVER DEVELOPED ANY TYPE OF REACTION DURING OR AFTER DENTAL APPOINTMENT, VAGINAL/RECTAL EXAMINATION, SURGICAL PROCEDURE, OR ANY OTHER EXPOSURE?NO DATE ASKED : 08/20/2018 LATEX RISK : HAVE YOU EVER HAD ANY DIFFICULTY BREATHING OR HIVES AFTER EATING OR HANDLING ANY FRUITS, OR VEGETABLES; SUCH KIWI, BANANAS, STONE FRUITS, OR CHESTNUTSNO LATEX RISK : DO YOU HAVE A PREVIOUS PERSONAL HISTORY OF MORE THAN NINE SURGERIES, SPINA BIFIDA, OR REPEATED CATHERIZATIONS? YES - PLEASE INDICATE : > 9 SURGERIES LATEX RISK : ARE YOU FREQUENTLY EXPOSED TO LATEX PRODUCTS IN YOUR OCCUPATION?YES CAFFEINE CAFFEINE USE?YES HOW OFTEN AND HOW MUCH? COFFEE ADVANCE DIRECTIVE ADVANCE DIRECTIVE DISCUSSED WITH PATIENT:YES 08/20/18 PT DOES NOT HAVE ANY ADVANCED DIRECTIVES AND SHE DECLINED INFORMATION ON HCP AT THIS TIME AD HOAHAOISM [id number] RESTORATION MARITAL STATUS: SINGLE. ALCOHOL SCREENING DID YOU HAVE A DRINK CONTAINING ALCOHOL IN THE PAST YEAR?NO POINTS0 INTERPRETATIONNEGATIVE OCCUPATION: UNEMPLOYED. SEXUAL HX HAD SEX IN THE LAST 12 MONTHS (VAGINAL, ORAL, OR ANAL)?NO HAVE YOU EVER HAD AN STD?NO REVIEWED WITH PATIENT 03/13/[address] [place] [address]. HOSPITALIZATION/MAJOR DIAGNOSTIC PROCEDURE SURGERIES PELVIC ABSCESS 2002 INFECTION AFTER LAMINECTOMY 05/01/18 [facility] - STROKE 12/02/18-12/07/18 REVIEW OF SYSTEMS REVIEWED BY: PROVIDER: GREGOR MENON . CONSTITUTIONAL: ANY CHANGE IN YOUR MEDICAL CONDITION? YES- PT HAD A STROKE 12/02/18 AND WAS TRANSFERRED TO [facility], HAS RIGHT SIDED WEAKNESS AND NUMBNESS FROM STROKE . CHILLS NO . FEVER NO . INFECTION: DO YOU HAVE NEW INFECTIONS? NO . DO YOU HAVE HISTORY OF MRSA? NO . MUSCULOSKELETAL: ANY NEW PATTERNS OF PAIN OR NUMBNESS? YES- STATES PAIN IN LOWER BACK IS THE SAME, STATES THE NUMBNESS IN HER RIGHT LEG IS WORSE, BUT STATES IT IS DUE TO THE STROKE, PT STATES MEDS ARE HELPING WITH BACK PAIN . GASTROENTEROLOGY: ANY NEW CHANGE IN BOWEL CONTROL? NO . GENITOURINARY: ANY NEW CHANGE IN BLADDER CONTROL? NO . IS THERE A CHANCE YOU COULD BE ? NO . HEMATOLOGY/LYMPH: DO YOU TAKE ANY BLOOD THINNERS? (FOR EXAMPLE- COUMADIN, PLAVIX, AGGRENOX, PLATEL, PRADAXA, OR XARELTO) NO . WHEN WAS YOUR LAST DOSE? DATE: TIME: . NEUROLOGY: HAVE YOU FALLEN IN THE PAST 12 MONTHS? NO . ANY NEW EXTREMITY NUMBNESS OR WEAKNESS? YES- STATES NUMBNESS ON RIGHT SIDE DUE TO STROKE . CARDIOLOGY: DO YOU HAVE A PACEMAKER OR DEFIBRILLATOR? NO . RESPIRATORY: HAVE YOU BEEN SICK IN THE PAST WEEK? NO . FEVER NO . FLU LIKE SYMPTOMS? NO . COUGH NO . INTEGUMENTARY: DO YOU HAVE ANY RASHES OR OPEN SORES? NO . ALLERGIC/IMMUNO: ARE YOU ALLERGIC TO IV DYE? NO . ANY NEW ALLERGIES? NO . PSYCHIATRIC: DO YOU HAVE THOUGHTS OF HURTING YOURSELF OR SOMEONE ELSE? NO . ARE YOU ABUSED, NEGLECTED, OR IN AN UNSAFE ENVIRONMENT? NO . ENDOCRINOLOGY: ARE YOU DIABETIC? NO . OTHER: DO YOU NEED ANY PRESCRIPTIONS? NO . IF YES, PLEASE LIST: ____ . ANY NEW PROBLEMS WITH YOUR MEDICATIONS? NO . WHEN DID YOU LAST EAT? ____ . WHEN DID YOU LAST DRINK? ____ . WHAT DID YOU LAST DRINK? ____ . NAME OF PERSON DRIVING YOU HOME? ____ . DO YOU HAVE ANY OTHER QUESTIONS OR CONCERNS NO . VITAL SIGNS WT 208 LBS, HT 65 IN, BMI 34.61 INDEX, BP 139/77 MM HG, HR 88 /MIN, RR 18 /MIN, TEMP 97.3 F, OXYGEN SAT % 100%, SAFE IN ENV? (Y/N) YES, NA INITIALS AW 0954, REVIEWED BY: KIMBERLEE. EXAMINATION GENERAL EXAMINATION: GENERALAWAKE,ALERT ,PLEAASANT . PSYCHAFFECT NORMAL . LUNGS:LUNG CABALLERO ARE CLEAR TO AUSCULTATION BILATERALLY. GOOD MOVEMENT OF AIR . HEART:S1, S2 IN A REGULAR RATE AND RHYTHM. NO SIGNIFICANT MURMURS, RUBS OR GALLOPS NOTED . ASSESSMENTS PROTRUSION OF INTERVERTEBRAL DISC OF LUMBOSACRAL REGION - M51.27 (PRIMARY) TREATMENT PROTRUSION OF INTERVERTEBRAL DISC OF LUMBOSACRAL REGION CONTINUE NORCO TABLET, 10-325 MG, 1/2 TO 1 TAB, ORALLY, Q4-6H PRN MDD4.5 NOTES: ISTOP REGISTRY REVIEWED AND DEMONSTRATES COMPLLIANCE. BRINGS IN MEDICATIONS WHICH IS APPROPRIATE FOR WHAT WAS DISPENSED. RECENT URINE TOXICOLOGY REVIEWED. NO UNAUTHORIZED MEDICATIONS. NO ILLICIT SUBSTANCES AND PRESCRIBED MEDICATIONS WERE PRESENT. . PROCEDURE CODES FA211 ESTABILISHED PATIENT [facility] CHARGE DISPOSITION & COMMUNICATION FOLLOW UP 2 MONTHS ELECTRONICALLY SIGNED BY LYNSEY HURLEY ON 03/02/2019 AT 08:47 AM EDT DISCLAIMER : THIS IS A VISIT SUMMARY EXTRACTED FROM THE [employer] CHART. IT IS NOT A COPY OF THE [employer] PROGRESS NOTE. MTDD
== END ==
LOC: M PAIN 09:30
PROVIDERS: ATTEND Nurse Practitioner Family
DX: M51.27 Other intervertebral disc displacement, lumbosacral region (principal); G89.29 Other chronic pain; I10 Essential (primary) hypertension; Z86.59 Personal history of other mental and behavioral disorders; G43.909 Migraine, unspecified, not intractable, without status migrainosus; G47.30 Sleep apnea, unspecified; E78.00 Pure hypercholesterolemia, unspecified; Z86.14 Personal history of Methicillin resistant Staphylococcus aureus infection; K21.9 Gastro-esophageal reflux disease without esophagitis; Z87.891 Personal history of nicotine dependence; Z79.82 Long term (current) use of aspirin; Z79.891 Long term (current) use of opiate analgesic; Z79.899 Other long term (current) drug therapy

== ENCOUNTER 2019-02-16 14:15 | Outpatient (RCR) | payer OTHER | END 2019-03-05 | LOC: M ST 14:15 | PROVIDERS: ATTEND Nurse Practitioner Family | DX: I69.351 Hemiplegia and hemiparesis following cerebral infarction affecting right dominant side (principal) ==

== ENCOUNTER → 2019-02-27 | Outpatient (CLI) | payer OTHER ==
[2019-02-27 10:33] LABS: HEMATOCRIT 36.2 % (36.0-47.0); HEMOGLOBIN 10.2 g/dl (12.0-15.5); MEAN CORPUSCULAR HEMOGLOBIN 19.9 pg (27.0-33.0); MEAN CORPUSCULAR HGB CONC 28.2 g/dl (32.0-36.5); MEAN CORPUSCULAR VOLUME 70.7 fl (80.0-96.0); PLATELET COUNT, AUTOMATED 552 10^3/uL (150-450); RED BLOOD COUNT 5.12 10^6/uL (4.00-5.40); WHITE BLOOD COUNT 8.6 10^3/uL (4.0-10.0)
[2019-02-27 11:33] LABS: ALBUMIN 3.6 GM/DL (3.2-5.2); ALT/SGPT 30 U/L (12-78); BILIRUBIN,TOTAL 0.3 MG/DL (0.2-1.0); BLOOD UREA NITROGEN 8 MG/DL (7-18); CALCIUM LEVEL 8.8 MG/DL (8.5-10.1); CARBON DIOXIDE LEVEL 29 MEQ/L (21-32); CHLORIDE LEVEL 108 MEQ/L (98-107); CHOLESTEROL LEVEL 129 MG/DL (<200); CHOLESTEROL RISK RATIO 4.607 (<5); CREATININE FOR GFR 0.54 MG/DL (0.55-1.30); GLOMERULAR FILTRATION RATE > 60.0 (>60); GLUCOSE, FASTING 91 MG/DL (70-100); HDL CHOLESTEROL 28 MG/DL (>40); LDL CHOLESTEROL 46 MG/DL (<100); NON-HDL-C 101 MG/DL; POTASSIUM SERUM 4.6 MEQ/L (3.5-5.1); SODIUM LEVEL 140 MEQ/L (136-145); TOTAL PROTEIN 6.9 GM/DL (6.4-8.2); TRIGLYCERIDES LEVEL 274 MG/DL (<150)
== END ==
LOC: M LAB 09:33
PROVIDERS: ATTEND Physician Assistant
DX: D64.9 Anemia, unspecified (principal); E78.2 Mixed hyperlipidemia

== ENCOUNTER → 2019-05-18 | Outpatient (CLI) | payer OTHER, MEDICAID ==
--- NOTE | 2019-06-03 01:34 | ECWPNPC ---
PATIENT NAME: EAMON FEREMAN : 1980 GENDER: FEMALE VISIT DATE: 05/18/2019 DISCHARGE DATE: 05/18/19 1103 VISIT LOCKED DATE TIME: PHYSICIAN: GREGOR DANIELS RESOURCE: GREGOR DANIELS REASON FOR APPOINTMENT 1. MED MGMT HISTORY OF PRESENT ILLNESS HISTORY OF PRESENT ILLNESS: HERE FOR FOLLOW-UP OF CHRONIC LOW BACK PAIN. REPORTING SIGNIFICANT INCREASE IN PAIN IN THE CENTRAL LOW BACK SINCE REDUCING HYDROCODONE FROM 5 A DAY TO 4 PER DAY. SHE HAS TAKEN ON A JOB AT [employer]. HAS TO STAND ON HER FEET FOR SEVERAL HOURS. DESCRIBES PAIN CONTINUOUS, STABBING AND ACHING. RATING PAIN LEVEL AN 8/10 VAS. SHE IS VERY DEPRESSED TODAY. HISTORY OF HAVING A STROKE APPROXIMATELY 8 MONTHS AGO. STATES THAT SHE FEELS SHE CAN'T DO ANYTHING ANYMORE SINCE THE STROKE. PAIN HAS MADE HER MORE DEPRESSED. PAIN THE PATIENT DESCRIBES THE PAIN... FALL RISK SCREENING: SCREENING :NO FALLS REPORTED IN THE LAST YEAR CURRENT MEDICATIONS TAKING PROTONIX 40 MG TABLET DELAYED RELEASE 1 TABLET ORALLY BID TAKING AMLODIPINE BESYLATE 5 MG TABLET 1 TABLET ORALLY ONCE A DAY TAKING IRON 325 (65 FE) MG TABLET 1 TABLET ORALLY EVERY OTHER DAY TAKING ATORVASTATIN CALCIUM 80 MG TABLET 1 TABLET ORAL DAILY TAKING LISINOPRIL 20 MG TABLET 1 TABLET ORALLY ONCE A DAY TAKING QUAD CANE - MISCELLANEOUS DIRECTED DAILY, NOTES: ICD10: Z86.73, DEFICIT=RS WEAKNESS TAKING ASPIRIN ADULT 325 MG TABLET 1 TABLET ORALLY ONCE A DAY TAKING PROZAC 20 MG CAPSULE 2 CAPSULE ORALLY ONCE A DAY TAKING NORCO 10-325 MG TABLET 1/2 TO 1 TAB ORALLY Q4-6H PRN MDD4.5 NOT-TAKING PREDNISONE 20 MG TABLET 2 TABLET ORALLY ONCE A DAY NOT-TAKING ALBUTEROL SULFATE HFA 108 (90 BASE) MCG/ACT AEROSOL SOLUTION 2 PUFFS NEEDED INHALATION EVERY 6 HRS NOT-TAKING ASPIRIN 81 MG TABLET DELAYED RELEASE 1 TABLET ORAL DAILY NOT-TAKING MAY HAVE QUATRO FX C PAP MASK AND ACCESORIES SIZE LARGE AT NIGHT DX 780.58 NOT-TAKING ZANTAC 150 MG TABLET 1 TABLET ORALLY DAILY NOT-TAKING CYMBALTA 30 MG CAPSULE DELAYED RELEASE PARTICLES 1 CAPSULE ORALLY ONCE A DAY NOT-TAKING AMITRIPTYLINE HCL 25 MG TABLET 1-2 ORALLY BEFORE BEDTIME NOT-TAKING OXYCODONE HCL 15 MG TABLET 1 TABLET ORALLY 1 TAB Q8H PRN MDD3 NOT-TAKING HYDROCHLOROTHIAZIDE 12.5 12.5MG CAPSULE 1 CAP(S) ORAL TWICE A DAY NOT-TAKING LIPITOR 80 MG TABLET 1 TABLET ORALLY ONCE A DAY NOT-TAKING LOPID 600 MG TABLET 1 TABLET ORALLY TWICE A DAY NOT-TAKING AMOXICILLIN 500 MG CAPSULE 1 CAPSULE ORALLY BID [id number] MEDICATION LIST REVIEWED AND RECONCILED WITH THE PATIENT PAST MEDICAL HISTORY HTN- 4 YRS- ON HCTZ DYSLIPIDEMIA-RECENTLY- HYPERTRYGLY DEPRESSION- CELEXA MIGRAINES- FIORECIT LBP- SPINAL STENOSIS/SCIATICA- DR MCNEILL IN [place] HX OF RENAL STONE SLEEP APNOEA- CPAP- DYSPEPSIA HYPERCHOLESTEROLEMIA MRSA INFECTION GERD OVARIAN CYSTS ADENOMYOSIS STAPH INFECTION POST LAMINECTOMY 12/02/18 STROKE - RIGHT SIDED WEAKNESS BRONCHITIS ALLERGIES N.K.D.A. SURGICAL HISTORY 09/04,11/07,11/09 CHOLECYSTECTOMY 06/1998 RIGHT JJ STENT/ESWL 05/2007 LEFT ESWL 2006 RIGHT JJ STENT PLACEMENT 08/2010 OVARAIN CYST REMOVAL 2013 4 CYSTS REMOVED LEFT OVARY 08/2015 OVARIAN CYST REMOVAL 2014 LAMINECTOMY @ [facility] 04/07/2018 I&D OF LAMINECTOMY 05/01/18 ANGIO PLASTY - BRAIN 12/02/18 FAMILY HISTORY FATHER: ALIVE, DIAGNOSED WITH HYPERTENSION, UNSPECIFIED HEART DISEASE, OTHER SPECIFIED CONDITIONS INFLUENCING HEALTH STATUS MOTHER: , OTHER MALIGNANT NEOPLASM OF UNSPECIFIED SITE SIBLINGS: ALIVE, HYPERTENSION SON(S): ALIVE DAUGHTER(S): ALIVE 3 BROTHER(S) . 3 SON(S) , 2 DAUGHTER(S) - HEALTHY. 2 BROTHERS - HTN\NSONS - DELETION ON CHROMOSOME 22, ECZEMA\NDAUGHTER - DUPLICATION ON CHROMOSOME 11\N1 SON & ! DAUGHTER - DEVELOPMENTALLY DELAYED\NFATHER - SPINAL STENOSIS\NMOTHER - RENAL CELL CARCINOMA. SOCIAL HISTORY GENERAL: TOBACCO USE ARE YOU A:CURRENT SMOKER ARE YOU INTERESTED IN QUITTING?NOT READY TO QUIT COUNSELED THE PATIENT ON SMOKING EFFECTS, EDUCATION [id number]/13/2020 HOW MANY CIGARETTES A DAY DO YOU SMOKE?6-10 HOW SOON AFTER YOU WAKE UP DO YOU SMOKE YOUR FIRST CIGARETTE?31-60 MIN HOW OFTEN DO YOU SMOKE CIGARETTES?EVERY DAY HIV / HEP-C SCREENING HIV TEST OFFERED TO PATIENT:YES DATE OFFERED:12/16/2018 TEST ACCEPTED:NO HEP-C TEST OFFERED TO PATIENT:NO REASON:PATIENT DECLINED BROCHURE PROVIDED TO PATIENTYES OTHERS AT HOME: CHILDREN, OTHER NON-RELATIVE. EDUCATION LEVEL OF EDUCATION:NOT FINISHED COLLEGE DIET: REGULAR. LANGUAGE LANGUAGES SPOKEN:TUNISIAN DOMESTIC VIOLENCE DO YOU FEEL SAFE IN YOUR ENVIRONMENT?YES NEW PATIENT PAIN DIARY FROM 0-10, WHAT LEVEL IS YOUR PAIN TODAY?3 BMI CARE GOAL FOLLOW-UP ABOVE NORMAL BMI FOLLOW-UPDIETARY MANAGEMENT EDUCATION, GUIDANCE, AND COUNSELING, DIETARY NEEDS EDUCATION RECREATIONAL DRUG USE DRUG USE?NO EXERCISE: DAILY. LEARNING BARRIERS / SPECIAL NEEDS CHANGE FROM LAST VISIT?NO BARRIERS TO LEARNING?NO HEARING IMPAIRED?NO VISION IMPAIRED?NO COGNITIVELY IMPAIRED?NO READINESS TO LEARN?YES LEARNING PREFERENCES?YES :BOOKLETS, HANDOUTS LEARNING CAPABILITIES PRESENT?YES EMOTIONAL BARRIERS?NO SPECIAL DEVICES?NO AWNING FINISHER NEEDED?NO LUNG CANCER SCREENING SMOKING STATUS:CURRENT SMOKER PAIN CLINIC PFS, CLERGY, PUBLIC HEALTH REFERRALS PFS REFERRAL NEEDED?NO CLERGY REFERRAL NEEDED?NO PUBLIC HEALTH REFERRAL NEEDED?NO WAS THE PROVIDER NOTIFIED OF ANY PERTINENT INFO? N/A HAS THE PATIENT BEEN EDUCATED REGARDING HIS/HER PLAN OF CARE?YES HAS THE PATIENT BEEN EDUCATED REGARDING PAIN, THE RISK FOR PAIN, THE IMPORTANCE OF EFFECTIVE PAIN MANAGEMENT, AND THE PAIN ASSESSMENT PROCESS?YES LATEX QUESTIONNAIRE LATEX ALLERGY : HAVE YOU EVER DEVELOPED ANY TYPE OF REACTION AFTER HANDLING LATEX PRODUCTS SUCH RUBBER GLOVES, CONDOMS, DIAPHRAGMS, BALLOONS, SOCKS, OR UNDERWEAR?NO LATEX ALLERGY : HAVE YOU EVER DEVELOPED ANY TYPE OF REACTION DURING OR AFTER DENTAL APPOINTMENT, VAGINAL/RECTAL EXAMINATION, SURGICAL PROCEDURE, OR ANY OTHER EXPOSURE?NO LATEX RISK : HAVE YOU EVER HAD ANY DIFFICULTY BREATHING OR HIVES AFTER EATING OR HANDLING ANY FRUITS, OR VEGETABLES; SUCH KIWI, BANANAS, STONE FRUITS, OR CHESTNUTSNO LATEX RISK : DO YOU HAVE A PREVIOUS PERSONAL HISTORY OF MORE THAN NINE SURGERIES, SPINA BIFIDA, OR REPEATED CATHERIZATIONS? YES - PLEASE INDICATE : > 9 SURGERIES LATEX RISK : ARE YOU FREQUENTLY EXPOSED TO LATEX PRODUCTS IN YOUR OCCUPATION?YES DATE ASKED : 08/20/2018 CAFFEINE CAFFEINE USE?YES HOW OFTEN AND HOW MUCH? COFFEE ADVANCE DIRECTIVE ADVANCE DIRECTIVE DISCUSSED WITH PATIENT:YES HCP - BETINA FREEMAN (SON) RESTORATIONISM [id number] YARSANISM MARITAL STATUS: SINGLE. ALCOHOL SCREENING DID YOU HAVE A DRINK CONTAINING ALCOHOL IN THE PAST YEAR?NO POINTS0 INTERPRETATIONNEGATIVE OCCUPATION: UNEMPLOYED. SEXUAL HX HAD SEX IN THE LAST 12 MONTHS (VAGINAL, ORAL, OR ANAL)?NO HAVE YOU EVER HAD AN STD?NO REVIEWED WITH PATIENT 03/13/18 1016 JSREVIEWED WITH PATIENT 05/18/2019 1012 JS. HOSPITALIZATION/MAJOR DIAGNOSTIC PROCEDURE SURGERIES PELVIC ABSCESS 2002 INFECTION AFTER LAMINECTOMY 05/01/18 [facility] - STROKE 12/02/18-12/07/18 REVIEW OF SYSTEMS REVIEWED BY: PROVIDER: GREGOR MENON . CONSTITUTIONAL: ANY CHANGE IN YOUR MEDICAL CONDITION? NO . CHILLS NO . FEVER NO . INFECTION: DO YOU HAVE NEW INFECTIONS? NO . DO YOU HAVE HISTORY OF MRSA? YES, HISTORY OF MRSA IN [place] . MUSCULOSKELETAL: ANY NEW PATTERNS OF PAIN OR NUMBNESS? NO . GASTROENTEROLOGY: ANY NEW CHANGE IN BOWEL CONTROL? NO . GENITOURINARY: ANY NEW CHANGE IN BLADDER CONTROL? NO . IS THERE A CHANCE YOU COULD BE ? NO . HEMATOLOGY/LYMPH: DO YOU TAKE ANY BLOOD THINNERS? (FOR EXAMPLE- COUMADIN, PLAVIX, AGGRENOX, PLATEL, PRADAXA, OR XARELTO) NO . WHEN WAS YOUR LAST DOSE? DATE: TIME: . NEUROLOGY: HAVE YOU FALLEN IN THE PAST 12 MONTHS? YES, STATES FALL IN MARCH AND APRIL - SLIPPED ON ICE AND RIGHT LEG GAVE OUT. NO MAJOR INJURIES, NO ED VISIT . ANY NEW EXTREMITY NUMBNESS OR WEAKNESS? NO . CARDIOLOGY: DO YOU HAVE A PACEMAKER OR DEFIBRILLATOR? NO . RESPIRATORY: HAVE YOU BEEN SICK IN THE PAST WEEK? NO . FEVER NO . FLU LIKE SYMPTOMS? NO . COUGH NO . INTEGUMENTARY: DO YOU HAVE ANY RASHES OR OPEN SORES? NO . ALLERGIC/IMMUNO: ARE YOU ALLERGIC TO IV DYE? NO . ANY NEW ALLERGIES? NO . PSYCHIATRIC: DO YOU HAVE THOUGHTS OF HURTING YOURSELF OR SOMEONE ELSE? NO . ARE YOU ABUSED, NEGLECTED, OR IN AN UNSAFE ENVIRONMENT? NO . ENDOCRINOLOGY: ARE YOU DIABETIC? NO . OTHER: DO YOU NEED ANY PRESCRIPTIONS? YES . IF YES, PLEASE LIST: ____WOULD LIKE TO DISCUSS WITH GREGOR . ANY NEW PROBLEMS WITH YOUR MEDICATIONS? NO . WHEN DID YOU LAST EAT? ____ . WHEN DID YOU LAST DRINK? ____ . WHAT DID YOU LAST DRINK? ____ . NAME OF PERSON DRIVING YOU HOME? ____ . DO YOU HAVE ANY OTHER QUESTIONS OR CONCERNS YES, WOULD LIKE TO DISCUSS MEDICATIONS WITH GREGOR - HIGHER DOSE OR DIFFERENT PAIN MEDICATION . VITAL SIGNS WT 197.8 LBS, HT 65 IN, BMI 32.91 INDEX, BP 140/72 MM HG, HR 85 /MIN, RR 18 /MIN, TEMP 97.9 F, OXYGEN SAT % 99, SAFE IN ENV? (Y/N) YES, REVIEWED BY: TYLER. TIMOTEO WORRELL LPN II @ 1005. EXAMINATION GENERAL EXAMINATION: GENERALAWAKE,ALERT ,PLEAASANT . PSYCHAFFECT NORMAL . LUNGS:LUNG CABALLERO ARE CLEAR TO AUSCULTATION BILATERALLY. GOOD MOVEMENT OF AIR . HEART:S1, S2 IN A REGULAR RATE AND RHYTHM. NO SIGNIFICANT MURMURS, RUBS OR GALLOPS NOTED . ASSESSMENTS PROTRUSION OF INTERVERTEBRAL DISC OF LUMBOSACRAL REGION - M51.27 (PRIMARY) TREATMENT PROTRUSION OF INTERVERTEBRAL DISC OF LUMBOSACRAL REGION INCREASE NORCO TABLET, 10-325 MG, 1 TAB, ORALLY, Q4H PRN MDD5, 30 DAY(S), 150, REFILLS 0 NOTES: ISTOP REGISTRY REVIEWED AND DEMONSTRATES COMPLLIANCE. BRINGS IN MEDICATIONS WHICH IS APPROPRIATE FOR WHAT WAS DISPENSED. RECENT URINE TOXICOLOGY REVIEWED. NO UNAUTHORIZED MEDICATIONS. NO ILLICIT SUBSTANCES AND PRESCRIBED MEDICATIONS WERE PRESENT. PROCEDURE CODES FA211 ESTABILISHED PATIENT [facility] CHARGE DISPOSITION & COMMUNICATION FOLLOW UP 4 WEEKS (REASON: MED MGMNT) ELECTRONICALLY SIGNED BY LYNSEY HURLEY ON 06/02/2019 AT 04:14 PM EST DISCLAIMER : THIS IS A VISIT SUMMARY EXTRACTED FROM THE [employer] CHART. IT IS NOT A COPY OF THE [employer] PROGRESS NOTE. JEOVANNY
== END ==
LOC: M PAIN 09:45
PROVIDERS: ATTEND Nurse Practitioner Family
DX: M51.27 Other intervertebral disc displacement, lumbosacral region (principal); G89.29 Other chronic pain; I10 Essential (primary) hypertension; Z86.59 Personal history of other mental and behavioral disorders; G43.909 Migraine, unspecified, not intractable, without status migrainosus; G47.30 Sleep apnea, unspecified; E78.00 Pure hypercholesterolemia, unspecified; Z86.14 Personal history of Methicillin resistant Staphylococcus aureus infection; K21.9 Gastro-esophageal reflux disease without esophagitis; F17.210 Nicotine dependence, cigarettes, uncomplicated; Z79.82 Long term (current) use of aspirin; Z79.891 Long term (current) use of opiate analgesic; Z79.899 Other long term (current) drug therapy

== ENCOUNTER 2019-06-26 14:27 | Emergency (ER) | payer MEDICAID, OTHER ==
[~2019-06-26] VITALS: Ht 165.1 cm; Wt 90.9 kg
[2019-06-26 15:11] LABS: HEMATOCRIT 35.9 % (36.0-47.0); HEMOGLOBIN 10.9 g/dl (12.0-15.5); MEAN CORPUSCULAR HEMOGLOBIN 22.2 pg (27.0-33.0); MEAN CORPUSCULAR HGB CONC 30.4 g/dl (32.0-36.5); MEAN CORPUSCULAR VOLUME 73.3 fl (80.0-96.0); PLATELET COUNT, AUTOMATED 490 10^3/uL (150-450); WHITE BLOOD COUNT 10.3 10^3/uL (4.0-10.0)
[2019-06-26 15:24] LABS: INR 0.96; PROTHROMBIN TIME 12.5 SECONDS (11.8-14.0)
[2019-06-26 15:25] LABS: PARTIAL THROMBOPLASTIN TIME 28.6 SECONDS (25.0-38.4)
[2019-06-26 15:40] LABS: ALBUMIN 3.6 GM/DL (3.2-5.2); ALT/SGPT 26 U/L (12-78); BILIRUBIN,DIRECT < 0.1 MG/DL (0.0-0.2); BILIRUBIN,TOTAL 0.1 MG/DL (0.2-1.0); BLOOD UREA NITROGEN 11 MG/DL (7-18); C REACTIVE PROTEIN QUANTITATIV < 0.30 MG/DL (0.00-0.30); CALCIUM LEVEL 8.6 MG/DL (8.5-10.1); CARBON DIOXIDE LEVEL 24 MEQ/L (21-32); CHLORIDE LEVEL 109 MEQ/L (98-107); CREATININE FOR GFR 0.59 MG/DL (0.55-1.30); GLOMERULAR FILTRATION RATE > 60.0 (>60); GLUCOSE, FASTING 122 MG/DL (70-100); POTASSIUM SERUM 4.3 MEQ/L (3.5-5.1); SODIUM LEVEL 138 MEQ/L (136-145)
[2019-06-26 15:51] LABS: ANISOCYTOSIS 2+; ATYPICAL LYMPH 4 % (0-5); EOSINOPHILS 2 % (0-3); HYPOCHROMASIA 1+; LYMPHOCYTES 31 % (16-44); MONOCYTES 5 % (0-5); NEUTROPHILS 58 % (28-66)
[2019-06-26 15:52] LABS: PLATELET ESTIMATE INCREASED (NORMAL); POLYCHROMASIA 2+
[2019-06-26 15:53] LABS: TEAR DROP CELLS 1+
--- NOTE | 2019-06-26 15:55 | REP ---
Clinical: Right upper extremity pain and swelling . Technique: Nolasco scale and color Doppler evaluation of the right upper extremity using linear high frequency transducer. Findings: Ultrasound examination of the right upper extremity including jugular, axillary, subclavian, basilic, brachial, and cephalic veins demonstrate normal flow characteristics without evidence for deep venous thrombosis. Impression: No evidence for deep venous thrombosis involving the right upper extremity . Electronically Signed by Ho Aguiar MD 06/26/2019 03:47 P
[2019-06-26 16:45] LABS: ERYTHROCYTE SEDIMENTATION RATE 8 mm/hr (0-20)
--- NOTE | 2019-06-26 17:22 | REP ---
Ultrasound of the right forearm soft tissues in area of redness, swelling, tenderness and warmth: The area of interest in the right forearm is evaluated by ultrasound. In the area of interest, the cephalic vein distal to the elbow contains occlusive thrombus. There is no focal fluid collection, cyst, mass or other abnormality. Impression: Occlusive thrombus in the cephalic vein just distal to the elbow. Electronically Signed by Jeffy Beauchamp MD 06/26/2019 05:13 P
[2019-06-26 17:36] VITALS: BP 125/65
--- NOTE | 2019-06-29 10:47 | ED PDOC ---
Post-Departure Follow-Up extrem us faxed to [facility] for fu Edgardo Finley MD Jun 29, 2019 10:47
== END 2019-06-26 17:36 | disposition home or self-care (01) ==
LOC: M ED 14:27
DX: I82.611 Acute embolism and thrombosis of superficial veins of right upper extremity (principal); I10 Essential (primary) hypertension; E78.5 Hyperlipidemia, unspecified; D66 Hereditary factor VIII deficiency; Z86.73 Personal history of transient ischemic attack (TIA), and cerebral infarction without residual deficits; Z86.718 Personal history of other venous thrombosis and embolism; F17.210 Nicotine dependence, cigarettes, uncomplicated; Z79.899 Other long term (current) drug therapy; Z79.02 Long term (current) use of antithrombotics/antiplatelets; Z79.82 Long term (current) use of aspirin

== ENCOUNTER → 2019-06-26 | Outpatient (CLI) | payer OTHER, MEDICAID | LOC: M PAIN 13:45 | PROVIDERS: ATTEND Nurse Practitioner Family | DX: Z53.20 Procedure and treatment not carried out because of patient's decision for unspecified reasons (principal) ==

== ENCOUNTER → 2019-07-09 | Outpatient (CLI) | payer OTHER, MEDICAID ==
--- NOTE | 2019-07-11 01:50 | ECWPNPC ---
PATIENT NAME: EAMON FREEMAN : 1980 GENDER: FEMALE VISIT DATE: 07/09/2019 DISCHARGE DATE: 07/09/19 1151 VISIT LOCKED DATE TIME: PHYSICIAN: GREGOR DANIELS RESOURCE: GREGOR DANIELS REASON FOR APPOINTMENT 1. MED MNG HISTORY OF PRESENT ILLNESS HISTORY OF PRESENT ILLNESS: HERE FOR FOLLOW-UP OF CHRONIC LOW BACK PAIN. HISTORY OF STROKE WITH RIGHT SIDE PAIN AND PARESTHESIA X6 MONTHS. REPORTS BURNING PAIN AND HYPERSENSITIVITY IN HER RIGHT ARM. RECENTLY HAD BLOOD CLOT IN RIGHT ARM. [facility] DOCTORS ARE CONSIDERING PUTTING HER ON XARELTO. HISTORY OF LUMBAR SURGERY OVER A YEAR AGO THAT HELPED WITH HER LEFT LOW BACK AND LEFT LEG PAIN WHICH CONTINUES TODAY. CHIEF COMPLAINTS ARE POST STROKE NEUROPATHY RELATED OVER THE RIGHT SIDE. DISCUSSED PALLIATIVE CARE REFERRAL. INCREASE IN HYDROCODONE 10/325 DONE AT LAST VISIT IS NOT HELPFUL. THIS WAS DONE AT LAST VISIT 2 MONTHS AGO.RATING PAIN VAS 7/10. PAIN THE PATIENT DESCRIBES THE PAIN... FALL RISK SCREENING: SCREENING :NO FALLS REPORTED IN THE LAST YEAR CURRENT MEDICATIONS TAKING PROTONIX 40 MG TABLET DELAYED RELEASE 1 TABLET ORALLY BID TAKING AMLODIPINE BESYLATE 5 MG TABLET 1 TABLET ORALLY ONCE A DAY TAKING IRON 325 (65 FE) MG TABLET 1 TABLET ORALLY EVERY OTHER DAY TAKING ATORVASTATIN CALCIUM 80 MG TABLET 1 TABLET ORAL DAILY TAKING LISINOPRIL 20 MG TABLET 1 TABLET ORALLY ONCE A DAY TAKING QUAD CANE - MISCELLANEOUS DIRECTED DAILY, NOTES: ICD10: Z86.73, DEFICIT=RS WEAKNESS TAKING ASPIRIN ADULT 325 MG TABLET 1 TABLET ORALLY ONCE A DAY TAKING PROZAC 20 MG CAPSULE 2 CAPSULE ORALLY ONCE A DAY TAKING NORCO 10-325 MG TABLET 1 TAB ORALLY Q4H PRN MDD5 NOT-TAKING PREDNISONE 20 MG TABLET 2 TABLET ORALLY ONCE A DAY NOT-TAKING ALBUTEROL SULFATE HFA 108 (90 BASE) MCG/ACT AEROSOL SOLUTION 2 PUFFS NEEDED INHALATION EVERY 6 HRS NOT-TAKING ASPIRIN 81 MG TABLET DELAYED RELEASE 1 TABLET ORAL DAILY NOT-TAKING MAY HAVE QUATRO FX C PAP MASK AND ACCESORIES SIZE LARGE AT NIGHT DX 780.58 NOT-TAKING ZANTAC 150 MG TABLET 1 TABLET ORALLY DAILY NOT-TAKING CYMBALTA 30 MG CAPSULE DELAYED RELEASE PARTICLES 1 CAPSULE ORALLY ONCE A DAY NOT-TAKING AMITRIPTYLINE HCL 25 MG TABLET 1-2 ORALLY BEFORE BEDTIME NOT-TAKING OXYCODONE HCL 15 MG TABLET 1 TABLET ORALLY 1 TAB Q8H PRN MDD3 NOT-TAKING HYDROCHLOROTHIAZIDE 12.5 12.5MG CAPSULE 1 CAP(S) ORAL TWICE A DAY NOT-TAKING LIPITOR 80 MG TABLET 1 TABLET ORALLY ONCE A DAY NOT-TAKING LOPID 600 MG TABLET 1 TABLET ORALLY TWICE A DAY NOT-TAKING AMOXICILLIN 500 MG CAPSULE 1 CAPSULE ORALLY BID [id number] MEDICATION LIST REVIEWED AND RECONCILED WITH THE PATIENT PAST MEDICAL HISTORY HTN- 4 YRS- ON HCTZ DYSLIPIDEMIA-RECENTLY- HYPERTRYGLY DEPRESSION- CELEXA MIGRAINES- FIORECIT LBP- SPINAL STENOSIS/SCIATICA- DR MCNEILL IN [place] HX OF RENAL STONE SLEEP APNOEA- CPAP- DYSPEPSIA HYPERCHOLESTEROLEMIA MRSA INFECTION GERD OVARIAN CYSTS ADENOMYOSIS STAPH INFECTION POST LAMINECTOMY 12/02/18 STROKE - RIGHT SIDED WEAKNESS BRONCHITIS HIGH FACTOR 8 ALLERGIES N.K.D.A. SURGICAL HISTORY 09/04,11/07,11/09 CHOLECYSTECTOMY 06/1998 RIGHT JJ STENT/ESWL 05/2007 LEFT ESWL 2006 RIGHT JJ STENT PLACEMENT 08/2010 OVARAIN CYST REMOVAL 2014 4 CYSTS REMOVED LEFT OVARY 08/2015 OVARIAN CYST REMOVAL 2014 LAMINECTOMY @ [facility] 04/07/2018 I&D OF LAMINECTOMY 05/01/18 ANGIO PLASTY - BRAIN 12/02/18 FAMILY HISTORY FATHER: ALIVE, DIAGNOSED WITH HYPERTENSION, UNSPECIFIED HEART DISEASE, OTHER SPECIFIED CONDITIONS INFLUENCING HEALTH STATUS MOTHER: , OTHER MALIGNANT NEOPLASM OF UNSPECIFIED SITE SIBLINGS: ALIVE, HYPERTENSION SON(S): ALIVE DAUGHTER(S): ALIVE 3 BROTHER(S) . 3 SON(S) , 2 DAUGHTER(S) - HEALTHY. 2 BROTHERS - HTN\NSONS - DELETION ON CHROMOSOME 22, ECZEMA\NDAUGHTER - DUPLICATION ON CHROMOSOME 11\N1 SON & ! DAUGHTER - DEVELOPMENTALLY DELAYED\NFATHER - SPINAL STENOSIS\NMOTHER - RENAL CELL CARCINOMA. SOCIAL HISTORY GENERAL: TOBACCO USE ARE YOU A:CURRENT SMOKER ARE YOU INTERESTED IN QUITTING?NOT READY TO QUIT COUNSELED THE PATIENT ON SMOKING EFFECTS, EDUCATION [id number]/05/2020 HOW MANY CIGARETTES A DAY DO YOU SMOKE?6-10 HOW SOON AFTER YOU WAKE UP DO YOU SMOKE YOUR FIRST CIGARETTE?31-60 MIN HOW OFTEN DO YOU SMOKE CIGARETTES?EVERY DAY PATIENT COUNSELED ON THE DANGERS OF TOBACCO USE AND URGED TO QUIT:07/09/2019 HIV / HEP-C SCREENING HIV TEST OFFERED TO PATIENT:YES DATE OFFERED:12/16/2018 TEST ACCEPTED:NO HEP-C TEST OFFERED TO PATIENT:NO REASON:PATIENT DECLINED BROCHURE PROVIDED TO PATIENTYES OTHERS AT HOME: CHILDREN, OTHER NON-RELATIVE. EDUCATION LEVEL OF EDUCATION:NOT FINISHED COLLEGE DIET: REGULAR. LANGUAGE LANGUAGES SPOKEN:SUDANESE DOMESTIC VIOLENCE DO YOU FEEL SAFE IN YOUR ENVIRONMENT?YES NEW PATIENT PAIN DIARY FROM 0-10, WHAT LEVEL IS YOUR PAIN TODAY?3 BMI CARE GOAL FOLLOW-UP ABOVE NORMAL BMI FOLLOW-UPDIETARY MANAGEMENT EDUCATION, GUIDANCE, AND COUNSELING, DIETARY NEEDS EDUCATION RECREATIONAL DRUG USE DRUG USE?NO EXERCISE: DAILY. LEARNING BARRIERS / SPECIAL NEEDS CHANGE FROM LAST VISIT?NO BARRIERS TO LEARNING?NO HEARING IMPAIRED?NO VISION IMPAIRED?NO COGNITIVELY IMPAIRED?NO READINESS TO LEARN?YES LEARNING PREFERENCES?YES :BOOKLETS, HANDOUTS LEARNING CAPABILITIES PRESENT?YES EMOTIONAL BARRIERS?NO SPECIAL DEVICES?NO MEDICAL LABORATORY TECHNOLOGIST NEEDED?NO LUNG CANCER SCREENING SMOKING STATUS:CURRENT SMOKER PAIN CLINIC PFS, CLERGY, PUBLIC HEALTH REFERRALS PFS REFERRAL NEEDED?NO CLERGY REFERRAL NEEDED?NO PUBLIC HEALTH REFERRAL NEEDED?NO WAS THE PROVIDER NOTIFIED OF ANY PERTINENT INFO? N/A HAS THE PATIENT BEEN EDUCATED REGARDING HIS/HER PLAN OF CARE?YES HAS THE PATIENT BEEN EDUCATED REGARDING PAIN, THE RISK FOR PAIN, THE IMPORTANCE OF EFFECTIVE PAIN MANAGEMENT, AND THE PAIN ASSESSMENT PROCESS?YES LATEX QUESTIONNAIRE LATEX ALLERGY : HAVE YOU EVER DEVELOPED ANY TYPE OF REACTION AFTER HANDLING LATEX PRODUCTS SUCH RUBBER GLOVES, CONDOMS, DIAPHRAGMS, BALLOONS, SOCKS, OR UNDERWEAR?NO LATEX ALLERGY : HAVE YOU EVER DEVELOPED ANY TYPE OF REACTION DURING OR AFTER DENTAL APPOINTMENT, VAGINAL/RECTAL EXAMINATION, SURGICAL PROCEDURE, OR ANY OTHER EXPOSURE?NO LATEX RISK : HAVE YOU EVER HAD ANY DIFFICULTY BREATHING OR HIVES AFTER EATING OR HANDLING ANY FRUITS, OR VEGETABLES; SUCH KIWI, BANANAS, STONE FRUITS, OR CHESTNUTSNO LATEX RISK : DO YOU HAVE A PREVIOUS PERSONAL HISTORY OF MORE THAN NINE SURGERIES, SPINA BIFIDA, OR REPEATED CATHERIZATIONS? YES - PLEASE INDICATE : > 9 SURGERIES LATEX RISK : ARE YOU FREQUENTLY EXPOSED TO LATEX PRODUCTS IN YOUR OCCUPATION?YES DATE ASKED : 08/20/2018 CAFFEINE CAFFEINE USE?YES HOW OFTEN AND HOW MUCH? COFFEE ADVANCE DIRECTIVE ADVANCE DIRECTIVE DISCUSSED WITH PATIENT:YES HCP - BETINA FREEMAN (SON) YAZIDISM [id number] NONDENOMINATIONAL MARITAL STATUS: SINGLE. ALCOHOL SCREENING DID YOU HAVE A DRINK CONTAINING ALCOHOL IN THE PAST YEAR?NO POINTS0 INTERPRETATIONNEGATIVE OCCUPATION: UNEMPLOYED. SEXUAL HX HAD SEX IN THE LAST 12 MONTHS (VAGINAL, ORAL, OR ANAL)?NO HAVE YOU EVER HAD AN STD?NO HOSPITALIZATION/MAJOR DIAGNOSTIC PROCEDURE SURGERIES PELVIC ABSCESS 2002 INFECTION AFTER LAMINECTOMY 05/01/18 [facility] - STROKE 12/02/18-12/07/18 REVIEW OF SYSTEMS REVIEWED BY: PROVIDER: GREGOR MENON . CONSTITUTIONAL: ANY CHANGE IN YOUR MEDICAL CONDITION? NO . CHILLS NO . FEVER NO . INFECTION: DO YOU HAVE NEW INFECTIONS? NO . DO YOU HAVE HISTORY OF MRSA? YES . MUSCULOSKELETAL: ANY NEW PATTERNS OF PAIN OR NUMBNESS? NO . GASTROENTEROLOGY: ANY NEW CHANGE IN BOWEL CONTROL? NO . GENITOURINARY: ANY NEW CHANGE IN BLADDER CONTROL? NO . IS THERE A CHANCE YOU COULD BE ? NO . HEMATOLOGY/LYMPH: DO YOU TAKE ANY BLOOD THINNERS? (FOR EXAMPLE- COUMADIN, PLAVIX, AGGRENOX, PLATEL, PRADAXA, OR XARELTO) NO . WHEN WAS YOUR LAST DOSE? DATE: TIME: . NEUROLOGY: HAVE YOU FALLEN IN THE PAST 12 MONTHS? NO . ANY NEW EXTREMITY NUMBNESS OR WEAKNESS? NO . CARDIOLOGY: DO YOU HAVE A PACEMAKER OR DEFIBRILLATOR? NO . RESPIRATORY: HAVE YOU BEEN SICK IN THE PAST WEEK? NO . FEVER NO . FLU LIKE SYMPTOMS? NO . COUGH NO . INTEGUMENTARY: DO YOU HAVE ANY RASHES OR OPEN SORES? NO . ALLERGIC/IMMUNO: ARE YOU ALLERGIC TO IV DYE? NO . ANY NEW ALLERGIES? NO . PSYCHIATRIC: DO YOU HAVE THOUGHTS OF HURTING YOURSELF OR SOMEONE ELSE? NO . ARE YOU ABUSED, NEGLECTED, OR IN AN UNSAFE ENVIRONMENT? NO . ENDOCRINOLOGY: ARE YOU DIABETIC? NO . OTHER: DO YOU NEED ANY PRESCRIPTIONS? YES . IF YES, PLEASE LIST: ____HYDROCODONE . ANY NEW PROBLEMS WITH YOUR MEDICATIONS? NO . WHEN DID YOU LAST EAT? ____ . WHEN DID YOU LAST DRINK? ____ . WHAT DID YOU LAST DRINK? ____ . NAME OF PERSON DRIVING YOU HOME? ____ . DO YOU HAVE ANY OTHER QUESTIONS OR CONCERNS NO . VITAL SIGNS WT 192 LBS, HT 65 IN, BMI 31.95 INDEX, BP 141/81 MM HG, HR 79 /MIN, RR 18 /MIN, TEMP 98.0 F, OXYGEN SAT % 98%, NA INITIALS AW 1105. EXAMINATION GENERAL EXAMINATION: GENERALAWAKE,ALERT ,PLEAASANT . PSYCHAFFECT NORMAL . LUNGS:LUNG CABALLERO ARE CLEAR TO AUSCULTATION BILATERALLY. GOOD MOVEMENT OF AIR . HEART:S1, S2 IN A REGULAR RATE AND RHYTHM. NO SIGNIFICANT MURMURS, RUBS OR GALLOPS NOTED . ASSESSMENTS SEQUELA, POST-STROKE - I69.30 (PRIMARY) NEUROPATHY DUE TO MEDICAL CONDITION - G63 TREATMENT SEQUELA, POST-STROKE REFILL NORCO TABLET, 10-325 MG, 1 TAB, ORALLY, Q4H PRN MDD5, 30 DAY(S), 150, REFILLS 0 START GABAPENTIN CAPSULE, 100 MG, 1 CAPSULE, ORALLY, Q8H TID, 30 DAY(S), 90, REFILLS 5 NOTES: ISTOP REGISTRY REVIEWED AND DEMONSTRATES COMPLLIANCE. BRINGS IN MEDICATIONS WHICH IS APPROPRIATE FOR WHAT WAS DISPENSED. RECENT URINE TOXICOLOGY REVIEWED. NO UNAUTHORIZED MEDICATIONS. NO ILLICIT SUBSTANCES AND PRESCRIBED MEDICATIONS WERE PRESENT. URINE TOX TODAY, RISKS OF NARCOTIC/OPIOD MEDICATIONS INCLUDES BUT IS NOT LIMITED TO RISK OF DEPENDANCE/DEVELOPMENT OF ADDICTION, MOOD DISTURBANCE AND DEPRESSION, OSTEOPOROSIS, HORMONAL AND LABIDAL CHANGES, RESPIRATORY DEPRESSION AND . PATIENT IS ADVISED NOT TO DRIVE OR DRINK ALCOHOL WHILE ON THESE MEDICATIONS. REFERRAL TO:[facility] [place] [facility] REASON:HX OF STROKE 11/2018-CHRONIC RIGHT SIDED NEUROPATHY POST STROKE PROCEDURE CODES FA211 ESTABILISHED PATIENT [facility]AC[facility] CHARGE DISPOSITION & COMMUNICATION FOLLOW UP 6WKS (REASON: MED MGMNT) ELECTRONICALLY SIGNED BY LYNSEY HURLEY ON 07/10/2019 AT 09:54 AM EST DISCLAIMER : THIS IS A VISIT SUMMARY EXTRACTED FROM THE [employer] CHART. IT IS NOT A COPY OF THE [employer] PROGRESS NOTE. CHEKOD
== END ==
LOC: M PAIN 10:45
PROVIDERS: ATTEND Nurse Practitioner Family
DX: I69.30 Unspecified sequelae of cerebral infarction (principal); G63 Polyneuropathy in diseases classified elsewhere; G89.29 Other chronic pain; I10 Essential (primary) hypertension; Z86.59 Personal history of other mental and behavioral disorders; G43.909 Migraine, unspecified, not intractable, without status migrainosus; G47.30 Sleep apnea, unspecified; E78.00 Pure hypercholesterolemia, unspecified; Z86.14 Personal history of Methicillin resistant Staphylococcus aureus infection; K21.9 Gastro-esophageal reflux disease without esophagitis; F17.210 Nicotine dependence, cigarettes, uncomplicated; Z79.82 Long term (current) use of aspirin; Z79.891 Long term (current) use of opiate analgesic; Z79.899 Other long term (current) drug therapy

== ENCOUNTER → 2019-08-20 | Outpatient (CLI) | payer MEDICAID, OTHER ==
[~2019-08-20] MED LIST changes: +AMLO5TAB6 PO; +ATOR80TA59 PO; +BAYE325T12 PO; +CYCL-707 PO; -CYCL10TA PO; +HYDR-4517 PO; +IRON1TAB2 PO; +PANT40TA3 PO; +PROZ40CA PO
--- NOTE | 2019-08-24 08:26 | ECWPNPC ---
PATIENT NAME: EAMON FREEMAN : 1980 GENDER: FEMALE VISIT DATE: 08/20/2019 DISCHARGE DATE: 08/20/19 1303 VISIT LOCKED DATE TIME: PHYSICIAN: GREGOR DANIELS RESOURCE: GREGOR DANIELS REASON FOR APPOINTMENT 1. MED MNG/LOW BACK--[phone] HISTORY OF PRESENT ILLNESS HISTORY OF PRESENT ILLNESS: PATIENT IS AGREEABLE TO TELEMED VISIT. SUFFERS FROM CHRONIC LOW BACK PAIN. PAIN HAS BEEN SEVERE OVER THE PAST MONTH. STATES SHE HAS BEEN HAVING TO STAY ON THE COUCH MOST OF THE TIME. RATING PAIN LEVEL A 7/10 VAS. FINDS HYDROCODONE 10/325 MINIMALLY EFFECTIVE, EVEN AFTER INCREASING DOSE 2 MAX DAILY DOSE OF 5. STARTED ON GABAPENTIN 100 MG 3 TIMES A DAY AT LAST VISIT. PATIENT IS FINDING NO IMPROVED PAIN CONTROL AT THIS DOSE. AT ONE POINT, WE WERE USING BUTTE TRANS-PATCH AND PATIENT WAS DOING MUCH BETTER. HAS SUFFERED A STROKE LAST YEAR. HAS BEEN DOING POORLY EVER SINCE. IT'S NOT RECOMMENDED FOR HER TO BE ON A BLOOD THINNER. SHE WOULD CONSIDER DOING PROCEDURES IN THE FUTURE. DISCUSSED MEDICATION AND TREATMENT OPTIONS. PAIN THE PATIENT DESCRIBES THE PAIN... FALL RISK SCREENING: SCREENING :NO FALLS REPORTED IN THE LAST YEAR CURRENT MEDICATIONS TAKING PROTONIX 40 MG TABLET DELAYED RELEASE 1 TABLET ORALLY BID TAKING AMLODIPINE BESYLATE 5 MG TABLET 1 TABLET ORALLY ONCE A DAY TAKING IRON 325 (65 FE) MG TABLET 1 TABLET ORALLY EVERY OTHER DAY TAKING ATORVASTATIN CALCIUM 80 MG TABLET 1 TABLET ORAL DAILY TAKING LISINOPRIL 20 MG TABLET 1 TABLET ORALLY ONCE A DAY TAKING QUAD CANE - MISCELLANEOUS DIRECTED DAILY, NOTES: ICD10: Z86.73, DEFICIT=RS WEAKNESS TAKING ASPIRIN ADULT 325 MG TABLET 1 TABLET ORALLY ONCE A DAY TAKING PROZAC 20 MG CAPSULE 2 CAPSULE ORALLY ONCE A DAY TAKING GABAPENTIN 100 MG CAPSULE 1 CAPSULE ORALLY Q8H TID TAKING NORCO 10-325 MG TABLET 1 TAB ORALLY Q4H PRN MDD5 NOT-TAKING PREDNISONE 20 MG TABLET 2 TABLET ORALLY ONCE A DAY NOT-TAKING ALBUTEROL SULFATE HFA 108 (90 BASE) MCG/ACT AEROSOL SOLUTION 2 PUFFS NEEDED INHALATION EVERY 6 HRS NOT-TAKING ASPIRIN 81 MG TABLET DELAYED RELEASE 1 TABLET ORAL DAILY NOT-TAKING MAY HAVE QUATRO FX C PAP MASK AND ACCESORIES SIZE LARGE AT NIGHT DX 780.58 NOT-TAKING ZANTAC 150 MG TABLET 1 TABLET ORALLY DAILY NOT-TAKING CYMBALTA 30 MG CAPSULE DELAYED RELEASE PARTICLES 1 CAPSULE ORALLY ONCE A DAY NOT-TAKING AMITRIPTYLINE HCL 25 MG TABLET 1-2 ORALLY BEFORE BEDTIME NOT-TAKING OXYCODONE HCL 15 MG TABLET 1 TABLET ORALLY 1 TAB Q8H PRN MDD3 NOT-TAKING HYDROCHLOROTHIAZIDE 12.5 12.5MG CAPSULE 1 CAP(S) ORAL TWICE A DAY NOT-TAKING LIPITOR 80 MG TABLET 1 TABLET ORALLY ONCE A DAY NOT-TAKING LOPID 600 MG TABLET 1 TABLET ORALLY TWICE A DAY NOT-TAKING AMOXICILLIN 500 MG CAPSULE 1 CAPSULE ORALLY BID [id number] MEDICATION LIST REVIEWED AND RECONCILED WITH THE PATIENT PAST MEDICAL HISTORY HTN- 4 YRS- ON HCTZ DYSLIPIDEMIA-RECENTLY- HYPERTRYGLY DEPRESSION- CELEXA MIGRAINES- FIORECIT LBP- SPINAL STENOSIS/SCIATICA- DR MCNEILL IN SECRETARY HX OF RENAL STONE SLEEP APNOEA- CPAP- DYSPEPSIA HYPERCHOLESTEROLEMIA MRSA INFECTION GERD OVARIAN CYSTS ADENOMYOSIS STAPH INFECTION POST LAMINECTOMY 12/02/18 STROKE - RIGHT SIDED WEAKNESS BRONCHITIS HIGH FACTOR 8 ALLERGIES N.K.D.A. SURGICAL HISTORY 09/04,11/07,11/09 CHOLECYSTECTOMY 06/1998 RIGHT JJ STENT/ESWL 05/2007 LEFT ESWL 2006 RIGHT JJ STENT PLACEMENT 08/2010 OVARAIN CYST REMOVAL 2013 4 CYSTS REMOVED LEFT OVARY 08/2015 OVARIAN CYST REMOVAL 2014 LAMINECTOMY @ [facility] 04/07/2018 I&D OF LAMINECTOMY 05/01/18 ANGIO PLASTY - BRAIN 12/02/18 FAMILY HISTORY FATHER: ALIVE, DIAGNOSED WITH HYPERTENSION, UNSPECIFIED HEART DISEASE, OTHER SPECIFIED CONDITIONS INFLUENCING HEALTH STATUS MOTHER: , OTHER MALIGNANT NEOPLASM OF UNSPECIFIED SITE SIBLINGS: ALIVE, HYPERTENSION SON(S): ALIVE DAUGHTER(S): ALIVE 3 BROTHER(S) . 3 SON(S) , 2 DAUGHTER(S) - HEALTHY. 2 BROTHERS - HTN\NSONS - DELETION ON CHROMOSOME 22, ECZEMA\NDAUGHTER - DUPLICATION ON CHROMOSOME 11\N1 SON & ! DAUGHTER - DEVELOPMENTALLY DELAYED\NFATHER - SPINAL STENOSIS\NMOTHER - RENAL CELL CARCINOMA. SOCIAL HISTORY GENERAL: TOBACCO USE ARE YOU A:CURRENT SMOKER ARE YOU INTERESTED IN QUITTING?NOT READY TO QUIT COUNSELED THE PATIENT ON SMOKING EFFECTS, EDUCATION TXUYMICA90/16/2020 HOW MANY CIGARETTES A DAY DO YOU SMOKE?6-10 HOW SOON AFTER YOU WAKE UP DO YOU SMOKE YOUR FIRST CIGARETTE?31-60 MIN HOW OFTEN DO YOU SMOKE CIGARETTES?EVERY DAY PATIENT COUNSELED ON THE DANGERS OF TOBACCO USE AND URGED TO QUIT:08/20/2019 HIV / HEP-C SCREENING HIV TEST OFFERED TO PATIENT:YES DATE OFFERED:07/17/2019 TEST ACCEPTED:NO HEP-C TEST OFFERED TO PATIENT:NO REASON:PATIENT DECLINED BROCHURE PROVIDED TO PATIENTYES OTHERS AT HOME: CHILDREN, OTHER NON-RELATIVE. EDUCATION LEVEL OF EDUCATION:NOT FINISHED COLLEGE DIET: REGULAR. LANGUAGE LANGUAGES SPOKEN:ERITREAN DOMESTIC VIOLENCE DO YOU FEEL SAFE IN YOUR ENVIRONMENT?YES NEW PATIENT PAIN DIARY TODAY'S VISITNOTES 08/20/2019 PATIENT DESCRIBES PAIN :ACHING, HAVE IT ALL THE TIME, THROBBING FROM 0-10, WHAT LEVEL IS YOUR PAIN TODAY?6 BMI CARE GOAL FOLLOW-UP ABOVE NORMAL BMI FOLLOW-UPDIETARY MANAGEMENT EDUCATION, GUIDANCE, AND COUNSELING, DIETARY NEEDS EDUCATION RECREATIONAL DRUG USE DRUG USE?NO EXERCISE: DAILY. LEARNING BARRIERS / SPECIAL NEEDS CHANGE FROM LAST VISIT?NO BARRIERS TO LEARNING?NO HEARING IMPAIRED?NO VISION IMPAIRED?NO COGNITIVELY IMPAIRED?NO READINESS TO LEARN?YES LEARNING PREFERENCES?YES :BOOKLETS, HANDOUTS LEARNING CAPABILITIES PRESENT?YES EMOTIONAL BARRIERS?NO SPECIAL DEVICES?NO CLINICAL SAFETY MANAGER NEEDED?NO LUNG CANCER SCREENING SMOKING STATUS:CURRENT SMOKER PAIN CLINIC PFS, CLERGY, PUBLIC HEALTH REFERRALS PFS REFERRAL NEEDED?NO CLERGY REFERRAL NEEDED?NO PUBLIC HEALTH REFERRAL NEEDED?NO WAS THE PROVIDER NOTIFIED OF ANY PERTINENT INFO? N/A HAS THE PATIENT BEEN EDUCATED REGARDING HIS/HER PLAN OF CARE?YES HAS THE PATIENT BEEN EDUCATED REGARDING PAIN, THE RISK FOR PAIN, THE IMPORTANCE OF EFFECTIVE PAIN MANAGEMENT, AND THE PAIN ASSESSMENT PROCESS?YES LATEX QUESTIONNAIRE LATEX ALLERGY : HAVE YOU EVER DEVELOPED ANY TYPE OF REACTION AFTER HANDLING LATEX PRODUCTS SUCH RUBBER GLOVES, CONDOMS, DIAPHRAGMS, BALLOONS, SOCKS, OR UNDERWEAR?NO LATEX ALLERGY : HAVE YOU EVER DEVELOPED ANY TYPE OF REACTION DURING OR AFTER DENTAL APPOINTMENT, VAGINAL/RECTAL EXAMINATION, SURGICAL PROCEDURE, OR ANY OTHER EXPOSURE?NO LATEX RISK : HAVE YOU EVER HAD ANY DIFFICULTY BREATHING OR HIVES AFTER EATING OR HANDLING ANY FRUITS, OR VEGETABLES; SUCH KIWI, BANANAS, STONE FRUITS, OR CHESTNUTSNO LATEX RISK : DO YOU HAVE A PREVIOUS PERSONAL HISTORY OF MORE THAN NINE SURGERIES, SPINA BIFIDA, OR REPEATED CATHERIZATIONS? YES - PLEASE INDICATE : > 9 SURGERIES LATEX RISK : ARE YOU FREQUENTLY EXPOSED TO LATEX PRODUCTS IN YOUR OCCUPATION?YES DATE ASKED : 07/17/2019 CAFFEINE CAFFEINE USE?YES HOW OFTEN AND HOW MUCH? COFFEE ADVANCE DIRECTIVE ADVANCE DIRECTIVE DISCUSSED WITH PATIENT:YES HCP - BETINA FREEMAN (SON) BAHAI [id number] ANABAPTIST MARITAL STATUS: SINGLE. ALCOHOL SCREENING DID YOU HAVE A DRINK CONTAINING ALCOHOL IN THE PAST YEAR?NO POINTS0 INTERPRETATIONNEGATIVE OCCUPATION: UNEMPLOYED. SEXUAL HX HAD SEX IN THE LAST 12 MONTHS (VAGINAL, ORAL, OR ANAL)?NO HAVE YOU EVER HAD AN STD?NO HOSPITALIZATION/MAJOR DIAGNOSTIC PROCEDURE SURGERIES PELVIC ABSCESS 2001 INFECTION AFTER LAMINECTOMY 05/01/18 [facility] - STROKE 12/02/18-12/07/18 REVIEW OF SYSTEMS REVIEWED BY: PROVIDER: GREGOR MENON . CONSTITUTIONAL: ANY CHANGE IN YOUR MEDICAL CONDITION? NO . CHILLS NO . FEVER NO . INFECTION: DO YOU HAVE NEW INFECTIONS? NO . DO YOU HAVE HISTORY OF MRSA? NO . MUSCULOSKELETAL: ANY NEW PATTERNS OF PAIN OR NUMBNESS? NO . GASTROENTEROLOGY: ANY NEW CHANGE IN BOWEL CONTROL? NO . GENITOURINARY: ANY NEW CHANGE IN BLADDER CONTROL? NO . IS THERE A CHANCE YOU COULD BE ? NO . HEMATOLOGY/LYMPH: DO YOU TAKE ANY BLOOD THINNERS? (FOR EXAMPLE- COUMADIN, PLAVIX, AGGRENOX, PLATEL, PRADAXA, OR XARELTO) NO . WHEN WAS YOUR LAST DOSE? DATE: TIME: . NEUROLOGY: HAVE YOU FALLEN IN THE PAST 12 MONTHS? YES, STATES PRIOR TO LAST VISIT, DISCUSSED PREVIOUSLY . ANY NEW EXTREMITY NUMBNESS OR WEAKNESS? NO . CARDIOLOGY: DO YOU HAVE A PACEMAKER OR DEFIBRILLATOR? NO . RESPIRATORY: HAVE YOU BEEN SICK IN THE PAST WEEK? YES, GI BUG FOR THE PAST MONTH . FEVER NO . FLU LIKE SYMPTOMS? NO . COUGH NO . INTEGUMENTARY: DO YOU HAVE ANY RASHES OR OPEN SORES? NO . ALLERGIC/IMMUNO: ARE YOU ALLERGIC TO IV DYE? NO . ANY NEW ALLERGIES? NO . PSYCHIATRIC: DO YOU HAVE THOUGHTS OF HURTING YOURSELF OR SOMEONE ELSE? NO . ARE YOU ABUSED, NEGLECTED, OR IN AN UNSAFE ENVIRONMENT? NO . ENDOCRINOLOGY: ARE YOU DIABETIC? NO . OTHER: DO YOU NEED ANY PRESCRIPTIONS? NO . IF YES, PLEASE LIST: ____ . ANY NEW PROBLEMS WITH YOUR MEDICATIONS? NO . WHEN DID YOU LAST EAT? ____ . WHEN DID YOU LAST DRINK? ____ . WHAT DID YOU LAST DRINK? ____ . NAME OF PERSON DRIVING YOU HOME? ____ . DO YOU HAVE ANY OTHER QUESTIONS OR CONCERNS NO . ASSESSMENTS SPINAL STENOSIS OF LUMBAR REGION WITHOUT NEUROGENIC CLAUDICATION - M48.061 (PRIMARY) CHRONIC PRESCRIPTION OPIATE USE - Z79.891 TREATMENT SPINAL STENOSIS OF LUMBAR REGION WITHOUT NEUROGENIC CLAUDICATION INCREASE GABAPENTIN CAPSULE, 300 MG, 1 CAPSULE, ORALLY, BID, 30 DAY(S), 60 CAPSULE, REFILLS 2 REFILL NORCO TABLET, 10-325 MG, 1 TAB, ORALLY, Q4H PRN MDD5, 30 DAY(S), 150, REFILLS 0 START BUTRANS PATCH WEEKLY, 10 MCG/HR, 1 PATCH TO SKIN, TRANSDERMAL, [id number], 30 DAYS, 4, REFILLS 2 NOTES: DUE TO UNCONTROLLED CHRONIC PAIN IT IS NECESSARY TO USE A 24-HOUR PAIN MEDICATION. I'M CHOOSING BUTRANS PATCH DUE TO CDC RECOMMENDATIONS IN ATTEMPT TO REDUCE MORPHINE MILLIEQUIVALENTS. SHE HAS RESPONDED WELL TO BUTRANS-PATCH IN THE PAST. TODAY WE WILL INCREASE GABAPENTIN TO 300 MG MORNING AND NIGHT. FOLLOW-UP WILL BE SCHEDULED IN 2 MONTHS TO CONSIDER INTERVENTIONAL THERAPY WELL MEDICINE MANAGEMENT FOR CHRONIC PAIN. SHE IS NOT INTERESTED IN REFERRAL TO PALLIATIVE CARE TO CONSIDER MEDICAL MARIJUANA. OTHERS NOTES: NO VITALS OBTAINED DUE TO VIRTUAL VISIT. DISPOSITION & COMMUNICATION FOLLOW UP 2 MONTHS (REASON: LBP/MED MGMNT) ELECTRONICALLY SIGNED BY LYNSEY HURLEY ON 08/20/2019 AT 12:30 PM EDT DISCLAIMER : THIS IS A VISIT SUMMARY EXTRACTED FROM THE [employer] CHART. IT IS NOT A COPY OF THE [employer] PROGRESS NOTE. JEOVANNY
== END ==
LOC: M PAIN 11:30 → M TMPAIN 11:30
PROVIDERS: ATTEND Nurse Practitioner Family
DX: M48.061 Spinal stenosis, lumbar region without neurogenic claudication (principal); G89.29 Other chronic pain; I10 Essential (primary) hypertension; Z86.59 Personal history of other mental and behavioral disorders; G43.909 Migraine, unspecified, not intractable, without status migrainosus; G47.30 Sleep apnea, unspecified; Z86.14 Personal history of Methicillin resistant Staphylococcus aureus infection; K21.9 Gastro-esophageal reflux disease without esophagitis; F17.210 Nicotine dependence, cigarettes, uncomplicated; Z79.82 Long term (current) use of aspirin; Z79.891 Long term (current) use of opiate analgesic; Z79.899 Other long term (current) drug therapy

== ENCOUNTER → 2019-12-10 | Outpatient (POV) | payer OTHER ==
[~2019-12-10] MED LIST changes: +AMLO1TAB24 PO; -AMLO5TAB6 PO; -ASPI81TA85 PO; +ASPI81TA86 PO; +PANT40TA29 PO; -PANT40TA3 PO
== END ==
LOC: M PAIN 09:00
PROVIDERS: ATTEND Nurse Practitioner Family
DX: M51.27 Other intervertebral disc displacement, lumbosacral region (principal); Z79.891 Long term (current) use of opiate analgesic

== ENCOUNTER 2020-03-29 13:07 | Emergency (ER) | payer OTHER ==
[~2020-03-29] VITALS: Ht 165.1 cm; Wt 86.4 kg
[2020-03-29 13:19] VITALS: BP 137/72
[2020-03-29] MEDS ORDERED: PROTPAK PO (13:34)
[2020-03-29] MEDS ORDERED: BUTR10DI TOP (13:34)
[2020-03-29] MEDS ORDERED: PROZ20CA11 PO (13:34)
== END 2020-03-29 23:34 | disposition home or self-care (01) ==
LOC: M ED 13:07
DX: M54.5 Low back pain (principal); M54.2 Cervicalgia; V43.52XA Car driver injured in collision with other type car in traffic accident, initial encounter; Y92.410 Unspecified street and highway as the place of occurrence of the external cause; I10 Essential (primary) hypertension; K21.9 Gastro-esophageal reflux disease without esophagitis; Z79.899 Other long term (current) drug therapy; Z79.82 Long term (current) use of aspirin

== ENCOUNTER 2020-04-13 21:59 | Emergency (ER) | payer OTHER ==
[~2020-04-13] VITALS: Ht 162.6 cm; Wt 91.2 kg
[~2020-04-13 21:59] MED LIST changes: +BUTR10DI TOP; +NICO1DIS12 TOP; -NICO21DI31 TOP; +PROTPAK PO; +PROZ20CA11 PO
[2020-04-13] MEDS ORDERED: FLUO20CA22 PO (22:09)
[2020-04-13 22:47] LABS: HEMATOCRIT 30.1 % (36.0-47.0); HEMOGLOBIN 8.6 g/dl (12.0-15.5); MEAN CORPUSCULAR HEMOGLOBIN 19.2 pg (27.0-33.0); MEAN CORPUSCULAR HGB CONC 28.6 g/dl (32.0-36.5); PLATELET COUNT, AUTOMATED 517 10^3/uL (150-450); RED BLOOD COUNT 4.49 10^6/uL (4.00-5.40); WHITE BLOOD COUNT 9.6 10^3/uL (4.0-10.0)
--- NOTE | 2020-04-13 22:49 | REPVR ---
PROCEDURE INFORMATION: Exam: XR Chest, 1 View Exam date and time: 04/13/2020 10:42 PM Age: 39 years old Clinical indication: Other: Dyspnea; Additional info: Dyspnea/cough TECHNIQUE: Imaging protocol: XR of the chest Views: 1 view. COMPARISON: CR Chest, 2 view PA, Lat 12/12/2018 9:10 PM FINDINGS: Tubes, catheters and devices: Loop recorder demonstrated. Lungs: Unremarkable. No consolidation. Pleural space: Unremarkable. No pleural effusion. No pneumothorax. Heart/Mediastinum: Unremarkable. No cardiomegaly. Bones/joints: Unremarkable. IMPRESSION: No acute findings. Electronically signed by: Yovani Gillis On 04/13/2020 22:49:26 PM
[2020-04-13 23:04] LABS: ATYPICAL LYMPH 1 % (0-5); EOSINOPHILS 9 % (0-3); LYMPHOCYTES 38 % (16-44); MONOCYTES 4 % (0-5); NEUTROPHILS 48 % (28-66)
[2020-04-13 23:06] LABS: ANISOCYTOSIS 2+; MICROCYTOSIS 3+; PLATELET ESTIMATE INCREASED (NORMAL); POIKILOCYTOSIS 2+; POLYCHROMASIA 1+
[2020-04-13 23:07] LABS: OVALOCYTES 2+
[2020-04-13 23:08] LABS: HYPOCHROMASIA 2+; TEAR DROP CELLS 1+
[2020-04-13 23:19] LABS: ALBUMIN 3.1 GM/DL (3.2-5.2); ALT/SGPT 25 U/L (12-78); BILIRUBIN,DIRECT < 0.1 MG/DL (0.0-0.2); BILIRUBIN,TOTAL 0.1 MG/DL (0.2-1.0); BLOOD UREA NITROGEN 10 MG/DL (7-18); CALCIUM LEVEL 7.8 MG/DL (8.5-10.1); CARBON DIOXIDE LEVEL 24 MEQ/L (21-32); CHLORIDE LEVEL 110 MEQ/L (98-107); CK-MB VALUE MASS < 1.0 NG/ML (<3.6); CPK CREATINE PHOSPHOKINASE 67 U/L (26-192); CREATININE FOR GFR 0.61 MG/DL (0.55-1.30); GLOMERULAR FILTRATION RATE > 60.0 (>60); GLUCOSE, FASTING 133 MG/DL (70-100); MB/CK RELATIVE INDEX 1.49 (< OR =4); POTASSIUM SERUM 3.9 MEQ/L (3.5-5.1); SODIUM LEVEL 140 MEQ/L (136-145); THYROXINE (T4) 8.1 UG/DL (4.5-12.0); TOTAL PROTEIN 6.3 GM/DL (6.4-8.2); TROPONIN I < 0.02 NG/ML (< 0.10)
[2020-04-13] MEDS ORDERED: ISOVUE-370 76% 100ML VIAL As Ordered ONE (23:43)
--- NOTE | 2020-04-13 23:59 | REPVR ---
PROCEDURE INFORMATION: Exam: US Duplex Lower Extremity Veins, Bilateral Exam date and time: 04/13/2020 11:40 PM Age: 39 years old Clinical indication: Pain; Leg, lower; Bilateral; Additional info: Bilateral lower leg pain/swelling; R/O dvt TECHNIQUE: Imaging protocol: Real-time duplex ultrasound of the extremities with 2-D ojseph scale, color Doppler flow and spectral waveform analysis with image documentation. Complete exam focused on the bilateral lower extremity veins. COMPARISON: US Duplex, Ext,LOWER veins,unilat 04/01/2019 2:14 PM FINDINGS: Right deep veins: Unremarkable. The common femoral, femoral and popliteal veins are patent without thrombus. Normal Doppler waveforms. Normal compressibility and/or augmentation response. Right superficial veins: Saphenofemoral junction is patent without thrombus. Left deep veins: Unremarkable. The common femoral, femoral and popliteal veins are patent without thrombus. Normal Doppler waveforms. Normal compressibility and/or augmentation response. Left superficial veins: Saphenofemoral junction is patent without thrombus. Soft tissues: Unremarkable. IMPRESSION: No sonographic evidence of deep vein thrombosis. Electronically signed by: Dexter Melgoza On 04/13/2020 23:59:21 PM
--- NOTE | 2020-04-14 00:28 | REPVR ---
PROCEDURE INFORMATION: Exam: CT Angiography Chest With Contrast Exam date and time: 04/13/2020 11:15 PM Age: 39 years old Clinical indication: Shortness of breath; Additional info: Chest pain/sob; R/O pe TECHNIQUE: Imaging protocol: Computed tomographic angiography of the chest with intravenous contrast. Axial, coronal and sagittal reformatted images were created and reviewed. 3D rendering (Not supervised by radiologist): MIP and/or 3D reconstructed images were created by the technologist. Radiation optimization: All CT scans at this facility use at least one of these dose optimization techniques: automated exposure control; mA and/or kV adjustment per patient size (includes targeted exams where dose is matched to clinical indication); or iterative reconstruction. Contrast material: ISO; Contrast volume: 75 ml; Contrast route: INTRAVENOUS (IV); COMPARISON: CT Chest with contrast 08/26/2013 8:16 PM FINDINGS: Pulmonary arteries: Contrast opacification satisfactory. No intraluminal filling defect. Aorta: Unremarkable. No aneurysm or dissection. Lungs: Mild linear stranding and groundglass, likely due to atelectasis and/or scarring. No focal consolidation. Pleural space: Unremarkable. No pneumothorax. No pleural effusion. Heart: Unremarkable. No cardiomegaly. No pericardial effusion. Lymph nodes: Calcified right hilar lymph nodes, consistent with prior granulomatous disease. Diaphragm: Elevated left hemidiaphragm. Gallbladder and bile ducts: Status post cholecystectomy. No biliary ductal dilatation. Bones/joints: No acute osseous abnormality. Mild degenerative changes. Soft tissues: Unremarkable. IMPRESSION: 1. No CT evidence of pulmonary embolism. 2. Additional findings, as above. Electronically signed by: Dexter Melgoza On 04/14/2020 00:27:11 AM
[2020-04-14 01:02] VITALS: BP 124/82
--- NOTE | 2020-04-14 06:39 | ECGEPIP ---
[facility] - ED Test Date: 2020-04-13 Pat Name: EAMON FREEMAN Department: Room: - Gender: Female Size Changer: pauline : 1980 Requested By: JOHN MENON Order Number: [id number] Reading MD: Edgardo Barcenas Measurements Intervals [place] Rate: 78 P: 30 NH: 196 QRS: 40 QRSD: 107 T: 34 QT: 396 QTc: 454 Interpretive Statements SINUS RHYTHM NONSPECIFIC ST T WAVE CHANGES 12/11/[address] T WAVE CHANGES Electronically Signed on 04-14-2020 6:39:30 EST by Edgardo Barcenas
== END 2020-04-14 01:04 | disposition home or self-care (01) ==
LOC: M ED 21:59
DX: M79.651 Pain in right thigh (principal); M79.89 Other specified soft tissue disorders; D64.9 Anemia, unspecified; E88.09 Other disorders of plasma-protein metabolism, not elsewhere classified; R05 Cough; R06.02 Shortness of breath; I10 Essential (primary) hypertension; K21.9 Gastro-esophageal reflux disease without esophagitis; F41.9 Anxiety disorder, unspecified; F32.9 Major depressive disorder, single episode, unspecified; Z86.718 Personal history of other venous thrombosis and embolism; Z86.73 Personal history of transient ischemic attack (TIA), and cerebral infarction without residual deficits; F17.210 Nicotine dependence, cigarettes, uncomplicated; Z79.899 Other long term (current) drug therapy; Z79.82 Long term (current) use of aspirin
CPT/HCPCS: 71045; 71275; 80048; 80076; 82550; 82553; 84436; 85025; 85379; 93005; 93041; 93970; 94760; 99285; Q9967

== ENCOUNTER → 2020-04-15 | Outpatient (CLI) | payer OTHER, MEDICAID ==
[~2020-04-15] MED LIST changes: +FLUO20CA22 PO
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
== END ==
LOC: M PAIN 14:15
PROVIDERS: ATTEND Nurse Practitioner Family
DX: M48.061 Spinal stenosis, lumbar region without neurogenic claudication (principal); G89.29 Other chronic pain; G43.909 Migraine, unspecified, not intractable, without status migrainosus; G47.30 Sleep apnea, unspecified; K21.9 Gastro-esophageal reflux disease without esophagitis; F17.210 Nicotine dependence, cigarettes, uncomplicated; Z86.14 Personal history of Methicillin resistant Staphylococcus aureus infection; Z86.59 Personal history of other mental and behavioral disorders; Z79.82 Long term (current) use of aspirin; Z79.891 Long term (current) use of opiate analgesic; Z79.899 Other long term (current) drug therapy

== ENCOUNTER 2020-06-08 02:29 | Emergency (ER) | payer MEDICARE, OTHER ==
[~2020-06-08] VITALS: Ht 165.1 cm; Wt 86.2 kg
[~2020-06-08 02:29] MED LIST changes: -LISI-538 PO; +LISI20TA33 PO
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
--- OUTSIDE RECORDS SUMMARY | 2020-06-08 02:39 | CCD ---
Author Author [facility] Organization [facility] Address Unknown Phone Unavailable Care Team Providers Care Rehabilitation Services Manager Name Role Phone Margoth Neves Unavailable PROBLEMS Type Condition ICD9-CM Code [id number] Code Onset Dates Condition S tatus SNOMED Code Notes Problem Sciatica 724.3 Active 05477475 Problem Back Pain - Lumbar 724.2 Active 587157730 Problem Chronic migraine without aur a, without mention of intractable migraine without mention of status migrainosus 346.70 Active 825192161957057 Problem Dyspepsia and other specified disorders of function of stomach 536.8 Active 478253136 Problem Low back pain due to displacement of intervertebral disc M51.26 Active 04830539 Problem Depressive disorder, not elsewhere classified 311 Active 03291472 Problem Piriformis syndrome of left side G57.02 Active 957894559 Problem Mixed hyperlipidemia 272.2 Active 622843254 Problem Chronic prescription opiate use Z79.899 Active 278150783 Problem Nondependent tobacco use disorder 305.1 Active 528479808 Problem Protrusion of intervertebral disc of lumbosacral region M51.27 Active 15439293 Problem Lumbar radiculopathy M54.16 Active 446807946 Problem 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 Active 05214562 Problem Sequela, 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 Active 67260643898 05 Problem Protruded lumbar disc M51.26 Active 167900499 Problem Personal history of urinary calculi V13.01 Acti ve 548561720 Problem 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 G63 Acti ve 01508304 Problem Sacroiliitis, not elsewhere classified M46.1 A ctive 656530367 Problem Unspecified essential hypertension 401.9 Activ e 17305401 Problem Spinal stenosis of lumbar region without neuroge marlene claudication M48.061 Active 82582139 Problem Reactive depression F32.9 Active 34138868 Problem Dysthymia F34.1 Active 88794080 Problem Claudication of right lower extremity I73.9 Ac tive 56778733 Problem Claudication of lower extremity I73.9 Active 12905459 ALLERGIES Allergen (clinical drug ingredient) Drug/Non Drug Allergy do cumented on EMR Reaction Allergy Type Onset Date Status Butran Transdermal Patch hives Drug Allergy Inactive ENCOUNTERS from 1981 to 2020-03-23 Encounter Location Date Provider Diagnosis [facility] [address] [place] [phone] Mar, Margoth Neves IMMUNIZATIONS Vaccine Route Administration Date Status Influenza [...] Education Language: Question Answer Notes Languages spoken: Congolese Rastafari: Question Answer Notes Rastafari 21 Religion Sexual Hx: Question Answer Notes Had sex [...] Notes Start Da te End Date Status Iron 325 (65 Fe) MG 1 tablet Orally every other day Active Aspirin 81 MG 1 tablet Oral Daily for 30 days Not-Taking Protonix 40 MG 1 tablet Orally bid for 90 days Active Atorvastatin Calcium 80 MG 1 tablet Oral Daily for 30 days Active Lopid 600 MG 1 tablet Orally Twice a day Not-Taking May have Quatro FX and accesories size large at night DX 780.58 for 99 10 Nov, 2011 Not-Taking Aspirin Adult 325 MG 1 tablet Orally Once a day for 30 day(s) Active Zantac 150 MG 1 tablet Orally daily Not-Taking Quad Cane - as directed Daily Mar, Acti ve Amitriptyline HCl 25 mg 1-2 Orally before bedtime for 30 day(s) Mar, Not-Taking Cymbalta 30 MG 1 capsule Orally Once a day Not-Taking Amoxicillin 500 MG 1 capsule Orally bid [id number] Not-Taking PredniSONE 20 MG 2 tablet Orally Once a day for 5 day(s) 0 Apr, Not-Taking Oxycodone HCl 15 MG 1 tablet Orally 1 tab Q8H PRN MDD3 for 30 da y(s) May, Not-Taking Albuterol Sulfate HFA 108 (90 Base) MCG/ACT 2 puffs as needed Inhalation every 6 hrs for 14 day(s) Apr, Not-Taking [place] 10-325 MG 1 tab Orally Q4H PRN MDD5 for 30 day(s) Mar, Active Lipitor 80 MG 1 tablet Orally Once a day Not-Taking Gabapentin 300 MG 1 capsule Orally bid for 30 day(s) 2019 Active Butrans 10 MCG/HR 1 patch to skin Transdermal [id number]=prq for 30 Days Aug, Active PROzac 20 MG 2 capsule Orally Once a day for 90 days 2018 Active Lisinopril 20 MG 1 tablet Orally Once a day for 30 Days Active Hydrochlorothiazide 12.5 12.5mg 1 cap(s) oral twice a day for 30 day(s) Jan, Not-Taking AmLODIPine Besylate 5 MG 1 tablet Orally Once a day for 30 day(s) Active PROCEDURES No Information RESULTS No Results REASON FOR VISIT BUTRANS 10 MCG PATCH MEDICAL (GENERAL) HISTORY Type Description Date Medical History HTN- 4 yrs- on HCTZ Medical History Dyslipidemia-recently- Hypertrygly Medical History Depression- celexa Medical History Migraines- fiorecit Medical History LBP- spinal stenosis/sciatica- Dr Salas in [place] Medical History Hx of renal stone Medical History Sleep apnoea- CPAP- Medical History Dyspepsia Medical History Hypercholesterolemia Medical History MRSA infection Medical History GERD Medical History Ovarian Cysts Medical History adenomyosis Medical History Staph Infection post Laminectomy Medical History 12/02/18 stroke - right sided weakness Medical History Bronchitis Medical History High Factor 8 Surgical History 09/04,11/07,11/09 Surgical History Cholecystectomy 06/1998 Surgical History Right JJ stent/ESWL 05/2007 Surgical History Left ESWL 2006 Surgical History Right JJ Stent Placement 08/2010 Surgical History Ovarain Cyst removal 2013 Surgical History 4 cysts removed left ovary 08/2015 Surgical History ovarian cyst removal 2014 Surgical History Laminectomy @ [facility] 04/07/2018 Surgical History I&D of Laminectomy 05/01/18 [...] 10 MCG/HR 1 patch to skin Transdermal [id number] f or 30 Days Aug, Gabapentin 300 MG 1 capsule Orally bid for 30 day(s) Jul, 0 PROzac 20 MG 2 capsule Orally Once a day for 90 days Apr, [place] 10-325 MG 1 tab Orally Q4H PRN MDD5 for 30 day(s) Mar, Protonix 40 MG 1 tablet Orally bid for 90 days Next Appt Details Provider Name:Margoth Neves, 2020-04-04 02 :15:00 PM, [address] [place], [address], Insurance Providers Payer Name Payer Address Payer Phone Insured Name Patient Relati onship to Insured Coverage Start Date Coverage End Date [employer] PLAN [employer] [address] [facility] [phone] EAMON FREEMAN MEDICAID [employer] [address] [facility] [id number] EAMON FREEMAN
--- OUTSIDE RECORDS SUMMARY | 2020-06-08 02:39 | CCD ---
Author Author [facility] Organization [facility] Address Unknown Phone Unavailable Care Team Providers Care Safety Manager Name Role Phone Margoth Neves Unavailable PROBLEMS Type Condition ICD9-CM Code [id number] Code Onset Dates Condition S tatus SNOMED Code Notes Problem Sciatica 724.3 Active 38475641 Problem Back Pain - Lumbar 724.2 Active 123134889 Problem Chronic migraine without aur a, without mention of intractable migraine without mention of status migrainosus 346.70 Active 289077348788321 Problem Dyspepsia and other specified disorders of function of stomach 536.8 Active 852720330 Problem Low back pain due to displacement of intervertebral disc M51.26 Active 03888410 Problem Depressive disorder, not elsewhere classified 311 Active 50143012 Problem Piriformis syndrome of left side G57.02 Active 616180523 Problem Mixed hyperlipidemia 272.2 Active 089466591 Problem Chronic prescription opiate use Z79.899 Active 892232032 Problem Nondependent tobacco use disorder 305.1 Active 399408833 Problem Protrusion of intervertebral disc of lumbosacral region M51.27 Active 38273974 Problem Lumbar radiculopathy M54.16 Active 697448551 Problem 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 Active 26945478 Problem Sequela, 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 Active 70193686889 05 Problem Protruded lumbar disc M51.26 Active 179875036 Problem Personal history of urinary calculi V13.01 Acti ve 277257445 Problem 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 G63 Acti ve 71342861 Problem Sacroiliitis, not elsewhere classified M46.1 A ctive 396721301 Problem Unspecified essential hypertension 401.9 Activ e 33578548 Problem Spinal stenosis of lumbar region without neuroge marlene claudication M48.061 Active 27399914 Problem Reactive depression F32.9 Active 44974050 Problem Dysthymia F34.1 Active 22978247 Problem Claudication of right lower extremity I73.9 Ac tive 38880775 Problem Claudication of lower extremity I73.9 Active 26891162 ALLERGIES Allergen (clinical drug ingredient) Drug/Non Drug Allergy do cumented on EMR Reaction Allergy Type Onset Date Status Butran Transdermal Patch hives Drug Allergy Inactive ENCOUNTERS from 1981 to 2020-04-08 Encounter Location Date Provider Diagnosis [facility] [address] [place] [phone] Apr, Margoth Neves Spinal stenosis of lumbar region without neurogenic claudication M48.061 IMMUNIZATIONS Vaccine Route Administration Date Status Influenza [...] Education Language: Question Answer Notes Languages spoken: Swedish Sabianism: Question Answer Notes Sabianism 21 Rastafarian Sexual Hx: Question Answer Notes Had sex [...] tablet Oral Daily for 30 days Not-Taking [place] 10-325 MG 1 tab Orally Q4H PRN MDD5 for 30 day(s) Apr, Active Atorvastatin Calcium 80 MG 1 tablet [...] Amoxicillin 500 MG 1 capsule Orally bid [id number] Not-Taking PredniSONE 20 MG 2 tablet Orally Once a day for 5 day(s) 0 Apr, Not-Taking Oxycodone HCl 15 MG 1 tablet Orally 1 tab Q8H PRN MDD3 for 30 da y(s) May, Not-Taking Albuterol Sulfate HFA 108 (90 Base) MCG/ACT 2 puffs as needed Inhalation every 6 hrs for 14 day(s) Apr, Not-Taking PROzac 20 MG 2 capsule Orally Once a day for 90 days 2018 Active Lipitor 80 MG 1 tablet Orally Once a day Not-Taking Gabapentin 300 MG 1 capsule Orally bid for 30 day(s) 2019 Active Butrans 10 MCG/HR 1 patch to skin Transdermal r4vfhy=jmd for 30 Days Aug, Active Protonix 40 MG 1 tablet Orally bid for 90 days Active Lisinopril 20 MG 1 tablet Orally Once a day for 30 Days Active Hydrochlorothiazide 12.5 12.5mg 1 cap(s) oral twice a day for 30 day(s) Jan, Not-Taking AmLODIPine Besylate 5 MG 1 tablet Orally Once a day for 30 day(s) Active PROCEDURES No Information RESULTS No Results REASON FOR VISIT NORCO REFILL MEDICAL (GENERAL) HISTORY Type Description Date Medical History HTN- 4 yrs- on HCTZ Medical History Dyslipidemia-recently- Hypertrygly Medical History Depression- celexa Medical History Migraines- fiorecit Medical History LBP- spinal stenosis/sciatica- Dr Salas in [place] Medical History Hx of renal stone Medical [...] No Information FUNCTIONAL STATUS No Information ASSESSMENTS Encounter Date Diagnosis Assessment Notes Treatment Notes Treatm ent Clinical Notes Apr, Spinal stenosis of lumbar re gion without neurogenic claudication (ICD-10 - M48.061) PLAN OF TREATMENT Medication Medication Name Sig Start Date Stop Date Butrans 10 MCG/HR 1 patch to skin Transdermal y0boip=ckp f or 30 Days Aug, Gabapentin 300 MG 1 capsule Orally bid for 30 day(s) Jul, 0 Protonix 40 MG 1 tablet Orally bid for 90 days PROzac 20 MG 2 capsule Orally Once a day for 90 days Apr, [place] 10-325 MG 1 tab Orally Q4H PRN MDD5 for 30 day(s) Apr, Next Appt Details Provider Name:Margoth Neves 2020-04-15 02 :15:00 PM, [address] [place], [address], Insurance Providers Payer Name Payer Address Payer Phone Insured Name Patient Relati onship to Insured Coverage Start Date Coverage End Date MEDICAID [employer] [address] [facility] [id number] [facility] PLAN [facility] [address] [facility] [phone] EAMON FREEMAN
--- OUTSIDE RECORDS SUMMARY | 2020-06-08 02:39 | CCD ---
Author Author [facility] Organization [facility] Address Unknown Phone Unavailable Care Team Providers Care Nutrition Associate Name Role Phone Margoth Neves Unavailable PROBLEMS Type Condition ICD9-CM Code [id number] Code Onset Dates Condition S tatus SNOMED Code Notes Problem Sciatica 724.3 Active 51734710 Problem Back Pain - Lumbar 724.2 Active 912100365 Problem Chronic migraine without aur a, without mention of intractable migraine without mention of status migrainosus 346.70 Active 603788788663603 Problem Dyspepsia and other specified disorders of function of stomach 536.8 Active 736765359 Problem Low back pain due to displacement of intervertebral disc M51.26 Active 99217387 Problem Depressive disorder, not elsewhere classified 311 Active 30041957 Problem Piriformis syndrome of left side G57.02 Active 024881274 Problem Mixed hyperlipidemia 272.2 Active 548543597 Problem Chronic prescription opiate use Z79.899 Active 029804012 Problem Nondependent tobacco use disorder 305.1 Active 649926108 Problem Protrusion of intervertebral disc of lumbosacral region M51.27 Active 30600999 Problem Lumbar radiculopathy M54.16 Active 656213299 Problem 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 Active 64811572 Problem Sequela, 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 Active 40509706552 05 Problem Protruded lumbar disc M51.26 Active 280187291 Problem Personal history of urinary calculi V13.01 Acti ve 835255269 Problem 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 G63 Acti ve 16670974 Problem Sacroiliitis, not elsewhere classified M46.1 A ctive 627654280 Problem Unspecified essential hypertension 401.9 Activ e 34310143 Problem Spinal stenosis of lumbar region without neuroge marlene claudication M48.061 Active 35876375 Problem Reactive depression F32.9 Active 17093404 Problem Dysthymia F34.1 Active 94537828 Problem Claudication of right lower extremity I73.9 Ac tive 45636495 Problem Claudication of lower extremity I73.9 Active 27935485 ALLERGIES Allergen (clinical drug ingredient) Drug/Non Drug Allergy do cumented on EMR Reaction Allergy Type Onset Date Status Butran Transdermal Patch hives Drug Allergy Inactive ENCOUNTERS from 1981 to 2020-04-20 Encounter Location Date Provider Diagnosis [facility] [address] [place] [phone] Apr, Margoth Neves Spinal stenosis of lumbar region without neurogenic claudication M48.061 and Chronic prescription opiate use Z79.891 IMMUNIZATIONS Vaccine Route Administration Date Status Influenza [...] Education Language: Question Answer Notes Languages spoken: Italian Worship: Question Answer Notes Worship 21 Congregation Sexual Hx: Question Answer Notes Had sex [...] REASON FOR REFERRAL No Information VITAL SIGNS Weight 200.8 lbs Apr, Height 65 in Apr, BMI 33.41 kg/m2 Apr, Heart Rate 92 /min Apr, Respiratory Rate 18 /min Apr, Temperature 98.0 degrees Fahrenheit Apr, Oximetry 99% Apr, Blood pressure systolic 141 mm Hg Apr, Blood pressure diastolic 71 mm Hg Apr, MEDICATIONS Medication SIG (Take, Route, Frequency, Duration) Notes Start Da te End Date Status Oxycodone HCl 15 MG 1 tablet Orally 1 tab Q8H PRN MDD3 for 30 da y(s) May, Not-Taking Protonix 40 MG 1 tablet Orally bid for 90 days Active Aspirin 81 MG 1 tablet Oral Daily for 30 days Not-Taking Lipitor 80 MG 1 tablet Orally Once a day Not-Taking Amitriptyline HCl 25 mg 1-2 Orally before bedtime for 30 day(s) Mar, Not-Taking Lopid 600 MG 1 tablet Orally Twice a day Not-Taking Zantac 150 MG 1 tablet Orally daily Not-Taking Albuterol Sulfate HFA 108 (90 Base) MCG/ACT 2 puffs as needed Inhalation every 6 hrs for 14 day(s) Apr, Not-Taking Iron 325 (65 Fe) MG 1 tablet Orally every other day Active Quad Cane - as directed Daily Mar, Acti ve Atorvastatin Calcium 80 MG 1 tablet Oral Daily for 30 days Active Cymbalta 30 MG 1 capsule Orally Once a day Not-Taking Aspirin Adult 325 MG 1 tablet Orally Once a day for 30 day(s) Active Lisinopril 20 MG 1 tablet Orally Once a day for 30 Days Active Hydrochlorothiazide 12.5 12.5mg 1 cap(s) oral twice a day for 30 day(s) Jan, Not-Taking Amoxicillin 500 MG 1 capsule Orally bid [id number] Not-Taking Gabapentin 300 MG 1 capsule Orally bid for 30 day(s) 2019 Not-Taking PROzac 20 MG 2 capsule Orally Once a day for 90 days 2018 Active PredniSONE 20 MG 2 tablet Orally Once a day for 5 day(s) 0 Apr, Not-Taking May have Quatro FX and accesories size large at night DX 780.58 for 99 10 Nov, 2011 Not-Taking AmLODIPine Besylate 5 MG 1 tablet Orally Once a day for 30 day(s) Active Butrans 10 MCG/HR 1 patch to skin Transdermal z4lrsg=flz for 30 Days 16 Apr, 2020 Active [place] 10-325 MG 1 tab Orally Q4H PRN MDD5 Apr, Active PROCEDURES No Information RESULTS No Results REASON FOR VISIT low back MEDICAL (GENERAL) HISTORY Type Description Date Medical History HTN- 4 yrs- on HCTZ Medical History Dyslipidemia-recently- Hypertrygly Medical History Depression- celexa Medical History Migraines- fiorecit Medical History LBP- spinal stenosis/sciatica- Dr Salas in [place] Medical History Hx of renal stone Medical [...] gion without neurogenic claudication (ICD-10 - M48.061) ISTOP registry reviewed and demonstrates complliance. Brings in medications which is appropriate for what was dispensed. Recent urine toxicology reviewed. No unauthorized medications. No illicit substances and prescribed medications were present URINE TOX TODAY , Risks of narcotic/opiod medications includes but is not limited to risk of dependance/development of addiction, mood disturbance and depression, osteoporosis, hormonal and labidal changes, respiratory depression and . Patient is advised NOT to DRIVE or drink ALCOHOL while on these medications Apr, Chronic prescription opiate use (ICD-10 - Z79.89 1) PLAN OF TREATMENT Medication Medication Name Sig Start Date Stop Date Guys 10-325 MG 1 tab Orally Q4H PRN MDD5 Apr, Butrans 10 MCG/HR 1 patch to skin Transdermal k4txms=cez f or 30 Days Aug, Treatment Notes Assessment Notes Clinical Notes Spinal stenosis of lumbar region without neurogenic cl audication ISTOP registry reviewed and demonstrates complliance. Brings in medications which is appropriate for what was dispensed. Recent urine toxicology reviewed. No unauthorized medications. No illicit substances and prescribed medications were presentURINE TOX TODAY, Risks of narcotic/opiod medications includes but is not limited to risk of dependance/development of addiction, mood disturbance and depression, osteoporosis, hormonal and labidal changes, respiratory depression and . Patient is advised NOT to DRIVE or drink ALCOHOL while on these medications Next Appt Details 3 Months Reason:MED MGMNT/REVIEW UTOX Provider Name:Margoth Neves, 2020-07-14 02 :15:00 PM, [address] [place] [address], [phone], Follow Up:3 MonthsMED MGMNT/REVIEW UTOX Insurance Providers Payer Name Payer Address Payer Phone Insured Name Patient Relati onship to Insured Coverage Start Date Coverage End Date [facility] [address] [facility] [phone] EAMON FREEMAN MEDICAID [id number] [address] [facility] [address] EAMON FREEMAN
--- OUTSIDE RECORDS SUMMARY | 2020-06-08 02:39 | CCD ---
Author Author [facility] Organization [facility] Address Unknown Phone Unavailable Care Team Providers Care Ultimate Hoops Trainer Name Role Phone Margoth Neves Unavailable PROBLEMS Type Condition ICD9-CM Code [id number] Code Onset Dates Condition S tatus SNOMED Code Notes Problem Sciatica 724.3 Active 42897437 Problem Back Pain - Lumbar 724.2 Active 010590331 Problem Chronic migraine without aur a, without mention of intractable migraine without mention of status migrainosus 346.70 Active 150275304383023 Problem Dyspepsia and other specified disorders of function of stomach 536.8 Active 282128260 Problem Low back pain due to displacement of intervertebral disc M51.26 Active 99970414 Problem Depressive disorder, not elsewhere classified 311 Active 16031712 Problem Piriformis syndrome of left side G57.02 Active 551524575 Problem Mixed hyperlipidemia 272.2 Active 455117591 Problem Chronic prescription opiate use Z79.899 Active 598181268 Problem Nondependent tobacco use disorder 305.1 Active 274896517 Problem Protrusion of intervertebral disc of lumbosacral region M51.27 Active 59370568 Problem Lumbar radiculopathy M54.16 Active 826744155 Problem 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 Active 50811109 Problem Sequela, 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 Active 83464126687 05 Problem Protruded lumbar disc M51.26 Active 118846840 Problem Personal history of urinary calculi V13.01 Acti ve 493455337 Problem 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 G63 Acti ve 64966716 Problem Sacroiliitis, not elsewhere classified M46.1 A ctive 529401059 Problem Unspecified essential hypertension 401.9 Activ e 95143215 Problem Spinal stenosis of lumbar region without neuroge marlene claudication M48.061 Active 43448711 Problem Reactive depression F32.9 Active 70935564 Problem Dysthymia F34.1 Active 57040063 Problem Claudication of right lower extremity I73.9 Ac tive 96449921 Problem Claudication of lower extremity I73.9 Active 14423988 ALLERGIES Allergen (clinical drug ingredient) Drug/Non Drug Allergy do cumented on EMR Reaction Allergy Type Onset Date Status Butran Transdermal Patch hives Drug Allergy Inactive ENCOUNTERS from 1981 to 2020-06-01 Encounter Location Date Provider Diagnosis [facility] [address] [place] [phone] May, Margoth Neves Spinal stenosis of lumbar region [...] Education Language: Question Answer Notes Languages spoken: Serbian Pentecostalism: Question Answer Notes Pentecostalism 21 Adventism Sexual Hx: Question Answer Notes Had sex [...] Notes Start Da te End Date Status Lopid 600 MG 1 tablet Orally Twice a day Not-Taking Oxycodone HCl 15 MG 1 tablet Orally 1 tab Q8H PRN MDD3 for 30 da y(s) May, Not-Taking Aspirin 81 MG 1 tablet Oral Daily for 30 days Not-Taking PROzac 20 MG 2 capsule Orally Once a day for 90 days 2018 Active Amitriptyline HCl 25 mg 1-2 Orally before bedtime for 30 day(s) Mar, Not-Taking Lipitor 80 MG 1 tablet Orally Once a day Not-Taking Quad Cane - as directed Daily Mar, Acti ve Albuterol Sulfate HFA 108 (90 Base) MCG/ACT 2 puffs as needed Inhalation every 6 hrs for 14 day(s) Apr, Not-Taking Protonix 40 MG 1 tablet Orally [...] 150 MG 1 tablet Orally daily Not-Taking [place] 10-325 MG 1 tab Orally Q4H PRN MDD5 for 30 Days 27 , 2020 Active Amoxicillin 500 MG 1 capsule Orally bid [id number] Not-Taking Gabapentin 300 MG 1 capsule Orally [...] 10 MCG/HR 1 patch to skin Transdermal c5vbcc=bxc for 30 Days Aug, Active Hydrochlorothiazide 12.5 12.5mg 1 cap(s) oral twice a day for 30 day(s) Jan, Not-Taking PROCEDURES No Information RESULTS No Results REASON FOR VISIT Hydrocodone Refill MEDICAL (GENERAL) HISTORY Type Description Date Medical History HTN- 4 yrs- on HCTZ Medical History Dyslipidemia-recently- Hypertrygly Medical History Depression- celexa Medical History Migraines- fiorecit Medical History LBP- spinal stenosis/sciatica- Dr Salas in [place] Medical History Hx of renal stone Medical [...] cyst removal 2014 Surgical History Laminectomy @ [facility] 04/07/2018 Surgical History I&D of Laminectomy [...] Notes Treatment Notes Treatm ent Clinical Notes May, Spinal stenosis of lumbar re gion without neurogenic claudication (ICD-10 - M48.061) PLAN OF TREATMENT Medication Medication Name Sig Start Date Stop Date Butrans 10 MCG/HR 1 patch to skin Transdermal o0mjgu=bub f or 30 Days Aug, Protonix 40 MG 1 tablet Orally bid for 90 days [place] 10-325 MG 1 tab Orally Q4H PRN MDD5 for 30 Days May, Lisinopril 20 MG 1 tablet Orally Once a day for 90 day(s) PROzac 20 MG 2 capsule Orally Once a day for 90 days Apr, Next Appt Details Provider Name:Margoth Edinson, 2020-07-14 02 :15:00 PM, [address] [place], [address], Insurance Providers Payer Name Payer Address Payer Phone Insured Name Patient Relati onship to Insured Coverage Start Date Coverage End Date MEDICAID [place] [address] [place] [id number] [address] [facility] COMM[employer]AN [facility] [address] [facility] [address] EAMON FREEMAN
--- OUTSIDE RECORDS SUMMARY | 2020-06-08 02:39 | CCD ---
Author Author [facility] Organization [facility] Address Unknown Phone Unavailable Care Team Providers Care District Home Economics Agent Name Role Phone Margoth Neves Unavailable PROBLEMS Type Condition ICD9-CM Code IBP81-FA Code Onset Dates Condition S tatus SNOMED Code Notes Problem Sciatica 724.3 Active 59539775 Problem Back Pain - Lumbar 724.2 Active 266937363 Problem Chronic migraine without aur a, without mention of intractable migraine without mention of status migrainosus 346.70 Active 920793947848310 Problem Dyspepsia and other specified disorders of function of stomach 536.8 Active 016176963 Problem Low back pain due to displacement of intervertebral disc M51.26 Active 25377418 Problem Depressive disorder, not elsewhere classified 311 Active 52423806 Problem Piriformis syndrome of left side G57.02 Active 418290242 Problem Mixed hyperlipidemia 272.2 Active 940037587 Problem Chronic prescription opiate use Z79.899 Active 659212788 Problem Nondependent tobacco use disorder 305.1 Active 780643149 Problem Protrusion of intervertebral disc of lumbosacral region M51.27 Active 98150735 Problem Lumbar radiculopathy M54.16 Active 554659678 Problem 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 Active 34167208 Problem Sequela, 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 Active 52176500647 05 Problem Protruded lumbar disc M51.26 Active 292149378 Problem Personal history of urinary calculi V13.01 Acti ve 347129505 Problem 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 G63 Acti ve 42656859 Problem Sacroiliitis, not elsewhere classified M46.1 A ctive 362585262 Problem Unspecified essential hypertension 401.9 Activ e 83102304 Problem Spinal stenosis of lumbar region without neuroge marlene claudication M48.061 Active 10639430 Problem Reactive depression F32.9 Active 14292812 Problem Dysthymia F34.1 Active 99661051 Problem Claudication of right lower extremity I73.9 Ac tive 24519221 Problem Claudication of lower extremity I73.9 Active 34494578 ALLERGIES Allergen (clinical drug ingredient) Drug/Non Drug Allergy do cumented on EMR Reaction Allergy Type Onset Date Status Butran Transdermal Patch hives Drug Allergy Inactive ENCOUNTERS from 1981 to 2020-05-04 Encounter Location Date Provider Diagnosis [facility] [address] [place] [id number] Apr, Margoth Neves Spinal stenosis of lumbar [...] Education Language: Question Answer Notes Languages spoken: Malay Temple: Question Answer Notes Temple 21 Latter Day Sexual Hx: Question Answer Notes Had sex [...] 1 tablet Orally Once a day Not-Taking Zantac 150 MG 1 tablet Orally daily Not-Taking [place] 10-325 MG 1 tab Orally Q4H PRN MDD5 for 30 Days 29 D 2019 Active Iron 325 (65 Fe) MG 1 [...] Amoxicillin 500 MG 1 capsule Orally bid [id number] Not-Taking Gabapentin 300 MG 1 capsule Orally [...] 10 MCG/HR 1 patch to skin Transdermal i3rtcx=hwr for 30 Days Aug, Active Protonix 40 MG 1 tablet Orally bid for 90 days Active PROCEDURES No Information RESULTS No Results REASON FOR VISIT HYDROCODONE/ACET REFILL MEDICAL (GENERAL) HISTORY Type Description Date Medical History HTN- 4 yrs- on HCTZ Medical History Dyslipidemia-recently- Hypertrygly Medical History Depression- celexa Medical History Migraines- fiorecit Medical History LBP- spinal stenosis/sciatica- Dr Salas in [place] Medical History Hx of renal stone Medical [...] cyst removal 2014 Surgical History Laminectomy @ [facility] 04/07/2018 Surgical History I&D of Laminectomy [...] Medication Name Sig Start Date Stop Date [place] 10-325 MG 1 tab Orally Q4H PRN MDD5 for 30 Days Apr, Butrans 10 MCG/HR 1 patch to skin Transdermal [id number]=rmb f or 30 Days Aug, Next Appt Details Provider Name:Margothcodi Neves, 2020-07-14 02 :15:00 PM, [address] [place], [address], Insurance Providers Payer Name Payer Address Payer Phone Insured Name Patient Relati onship to Insured Coverage Start Date Coverage End Date [facility] COMM[employer] PLAN [employer] [address] [facility] [address] EAMON FREEMAN MEDICAID [employer] [address] [facility] [id number] EAMON FREEMAN
--- OUTSIDE RECORDS SUMMARY | 2020-06-08 02:39 | CCD ---
Author Author [facility] Organization [facility] Address Unknown Phone Unavailable Care Team Providers Care Rnfa Name Role Phone Gabrielle Linder Unavailable PROBLEMS Type Condition ICD9-CM Code GEM46-EO Code Onset Dates Condition S tatus SNOMED Code Notes Problem Sciatica 724.3 Active 82036194 Problem Back Pain - Lumbar 724.2 Active 373306504 Problem Chronic migraine without aur a, without mention of intractable migraine without mention of status migrainosus 346.70 Active 952007738951225 Problem Dyspepsia and other specified disorders of function of stomach 536.8 Active 083047691 Problem Low back pain due to displacement of intervertebral disc M51.26 Active 36548103 Problem Depressive disorder, not elsewhere classified 311 Active 13976614 Problem Piriformis syndrome of left side G57.02 Active 129433431 Problem Mixed hyperlipidemia 272.2 Active 098416914 Problem Chronic prescription opiate use Z79.899 Active 613485407 Problem Nondependent tobacco use disorder 305.1 Active 527421190 Problem Protrusion of intervertebral disc of lumbosacral region M51.27 Active 16093663 Problem Lumbar radiculopathy M54.16 Active 336150880 Problem 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 Active 39867113 Problem Sequela, 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 Active 43132000538 05 Problem Protruded lumbar disc M51.26 Active 290201966 Problem Personal history of urinary calculi V13.01 Acti ve 806950282 Problem 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 G63 Acti ve 89550148 Problem Sacroiliitis, not elsewhere classified M46.1 A ctive 732633348 Problem Unspecified essential hypertension 401.9 Activ e 12083507 Problem Spinal stenosis of lumbar region without neuroge marlene claudication M48.061 Active 28717069 Problem Reactive depression F32.9 Active 05448437 Problem Dysthymia F34.1 Active 50150214 Problem Claudication of right lower extremity I73.9 Ac tive 29986081 Problem Claudication of lower extremity I73.9 Active 22298761 ALLERGIES Allergen (clinical drug ingredient) Drug/Non Drug Allergy do cumented on EMR Reaction Allergy Type Onset Date Status Butran Transdermal Patch hives Drug Allergy Inactive ENCOUNTERS from 1981 to 2020-04-15 Encounter Location Date Provider Diagnosis [address] [address] Apr, Gabrielle Linder IMMUNIZATIONS Vaccine Route Administration Date [...] Education Language: Question Answer Notes Languages spoken: Grenadian Samaritan: Question Answer Notes Samaritan 21 Sikh Sexual Hx: Question Answer Notes Had sex [...] Amoxicillin 500 MG 1 capsule Orally bid [id number] Not-Taking Gabapentin 300 MG 1 capsule Orally bid for 30 day(s) 2019 Not-Taking PROzac 20 MG 2 capsule Orally Once a day for 90 days 2018 Active PredniSONE 20 MG 2 tablet Orally Once a day for 5 day(s) 0 Apr, Not-Taking May have Quatro FX and accesories size large at night DX 780.58 for 99 Nov, Not-Taking AmLODIPine Besylate 5 MG 1 tablet Orally Once a day for 30 day(s) Active Butrans 10 MCG/HR 1 patch to skin Transdermal q5pljo=uzb for 30 Days Aug, Active Dent 10-325 MG 1 tab Orally Q4H PRN MDD5 Apr, Active PROCEDURES No Information RESULTS No Results REASON FOR VISIT ER Visit [facility] 04/13; Chest Pain MEDICAL (GENERAL) HISTORY Type Description Date Medical History HTN- 4 yrs- on HCTZ Medical History Dyslipidemia-recently- Hypertrygly Medical History Depression- celexa Medical History Migraines- fiorecit Medical History LBP- spinal stenosis/sciatica- Dr Salas in [place] Medical History Hx of renal stone Medical [...] cyst removal 2014 Surgical History Laminectomy @ [facility] 04/07/2018 Surgical History I&D of Laminectomy [...] Medication Name Sig Start Date Stop Date Dent 10-325 MG 1 tab Orally Q4H PRN MDD5 Apr, Butrans 10 MCG/HR 1 patch to skin Transdermal x6mdhz=vxg f or 30 Days Aug, Next Appt Details Provider Name:Gabrielle Linder, 02:00:00 PM, [address] [place], [address], Provider Name:Margoth Neves, 2020-07-14 02 :15:00 PM, [address] [place], [address], Insurance Providers Payer Name Payer Address Payer Phone Insured Name Patient Relati onship to Insured Coverage Start Date Coverage End Date MEDICAID [place] [address] [facility] [id number] EAMON FREEMAN [facility] [employer]AN [employer] [address] [facility] [address] [phone] EAMON FREEMAN
--- OUTSIDE RECORDS SUMMARY | 2020-06-08 02:40 | CCD ---
Author Author [facility] Organization [facility] Address Unknown Phone Unavailable Care Team Providers [employer] Technical [employer] Consultant Name Role Phone Margoth Neves Unavailable PROBLEMS Type Condition ICD9-CM Code RID60-BC Code Onset Dates Condition S tatus SNOMED Code Notes Problem Sciatica 724.3 Active 57922301 Problem Back Pain - Lumbar 724.2 Active 414904596 Problem Chronic migraine without aur a, without mention of intractable migraine without mention of status migrainosus 346.70 Active 249620533455997 Problem Dyspepsia and other specified disorders of function of stomach 536.8 Active 996529366 Problem Low back pain due to displacement of intervertebral disc M51.26 Active 60378178 Problem Depressive disorder, not elsewhere classified 311 Active 40151585 Problem Piriformis syndrome of left side G57.02 Active 417841830 Problem Mixed hyperlipidemia 272.2 Active 358878551 Problem Chronic prescription opiate use Z79.899 Active 985440473 Problem Nondependent tobacco use disorder 305.1 Active 489507062 Problem Protrusion of intervertebral disc of lumbosacral region M51.27 Active 08650268 Problem Lumbar radiculopathy M54.16 Active 462301572 Problem 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 Active 17677162 Problem Sequela, 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 Active 44155108966 05 Problem Protruded lumbar disc M51.26 Active 302645034 Problem Personal history of urinary calculi V13.01 Acti ve 644706371 Problem 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 G63 Acti ve 21685897 Problem Sacroiliitis, not elsewhere classified M46.1 A ctive 210525771 Problem Unspecified essential hypertension 401.9 Activ e 05488363 Problem Spinal stenosis of lumbar region without neuroge marlene claudication M48.061 Active 23858307 Problem Reactive depression F32.9 Active 41621241 Problem Dysthymia F34.1 Active 25048604 Problem Claudication of right lower extremity I73.9 Ac tive 53370926 Problem Claudication of lower extremity I73.9 Active 74723947 ALLERGIES Allergen (clinical drug ingredient) Drug/Non Drug Allergy do cumented on EMR Reaction Allergy Type Onset Date Status Butran Transdermal Patch hives Drug Allergy Inactive ENCOUNTERS from 1981 to 2020-03-10 Encounter Location Date Provider Diagnosis [facility] [address] [place] [id number] Mar, Margoth Neves Spinal stenosis of lumbar region [...] Language: Question Answer Notes Languages spoken: Italian Druze: Question Answer Notes Druze 21 Jainism Sexual Hx: Question Answer Notes Had sex [...] MEDICATIONS Medication SIG (Take, Route, Frequency, Duration) Start Date En d Date Status Iron 325 (65 Fe) MG [...] and accesories size large at night DX 78 0.58 for 99 10 Nov, 2011 Not-Taking Aspirin Adult 325 MG 1 tablet Orally Once a day for 30 day(s) Active Zantac 150 MG 1 tablet Orally daily Not-T aking Quad Cane - as directed Daily Mar, Active Amitriptyline HCl 25 mg 1-2 Orally before bedtime for 30 day(s) Mar, Not-Taking Cymbalta 30 MG 1 capsule Orally Once a day Not-Taking Amoxicillin 500 MG 1 capsule Orally bid [id number] Not-Taking PredniSONE 20 MG 2 tablet Orally Once a day for 5 day(s) Apr, Not-Taking Oxycodone HCl 15 MG 1 tablet Orally 1 tab Q8H PRN MDD3 for 3 0 day(s) May, Not-Taking Albuterol Sulfate HFA 108 (90 Base) MCG/ACT 2 puffs as needed Inhalation every 6 hrs for 14 day(s) Apr, Not-Taking [place] 10-325 MG 1 tab Orally Q4H PRN MDD5 for 30 day(s) Mar, 0 Active Lipitor 80 MG 1 tablet Orally Once a day Not-Taking Gabapentin 300 MG 1 capsule Orally bid for 30 day(s) Jul, Active Butrans 10 MCG/HR 1 patch to skin Transdermal q9gvhn=gqd f or 30 Days Aug, Active PROzac 20 MG 2 capsule Orally Once a day for 90 days Apr, Active Lisinopril 20 MG 1 tablet Orally Once a day for 30 Days Active Hydrochlorothiazide 12.5 12.5mg 1 cap(s) oral twice a day fo r 30 day(s) Jan, Not-Taking AmLODIPine Besylate 5 MG 1 tablet Orally Once a day for 30 day(s) Active PROCEDURES No Information RESULTS No Results REASON FOR VISIT HYDROCODONE MEDICAL (GENERAL) HISTORY Type Description Date Medical History HTN- 4 yrs- on HCTZ Medical History Dyslipidemia-recently- Hypertrygly Medical History Depression- celexa Medical History Migraines- fiorecit Medical History LBP- spinal stenosis/sciatica- Dr Salas in [place] Medical History Hx of renal stone Medical [...] cyst removal 2014 Surgical History Laminectomy @ [facility] 04/07/2018 Surgical History I&D of Laminectomy 05/01/18 Surgical History angio plasty - brain 12/02/18 Hospitalization History surgeries Hospitalization History pelvic abscess 2001 Hospitalization History Infection after Laminectomy 05/01/18 [place] 12/02/18-12/07/18 Goals Section No Information Health Concerns No Information MEDICAL EQUIPMENT No Information MENTAL STATUS No Information FUNCTIONAL STATUS No Information ASSESSMENTS Encounter Date Diagnosis Notes Mar, Spinal stenosis of lumbar re gion without neurogenic claudication (ICD-10 - M48.061) PLAN OF TREATMENT Medication Medication Name Sig Start Date Stop Date Butrans 10 MCG/HR 1 patch to skin Transdermal j2scqv=hbr f or 30 Days Aug, Gabapentin 300 MG 1 capsule Orally bid for 30 day(s) Jul, 0 PROzac 20 MG 2 capsule Orally Once a day for 90 days Apr, [place] 10-325 MG 1 tab Orally Q4H PRN MDD5 for 30 day(s) Mar, Protonix 40 MG 1 tablet Orally bid for 90 days Next Appt Details Provider Name:Margoth Neves 2020-03-21 02 :30:00 PM, [address] [place], [address], Insurance Providers Payer Name Payer Address Payer Phone Insured Name Patient Relati onship to Insured Coverage Start Date Coverage End Date MEDICAID [place] [employer] [place] [address] [facility] [id number] EAMON FREEMAN [facility] COMMUNITY [facility]AN [facility] [address] [facility] [phone] EAMON FREEMAN self
--- OUTSIDE RECORDS SUMMARY | 2020-06-08 02:40 | CCD ---
Author Author [facility] Organization [facility] Address Unknown Phone Unavailable Support Name Relationship Address Phone Stefanie Cesar Sr. Next Of Kin Unknown Unavailable LILY MARIANO Next Of Kin [address] [place] [address] Lelo Teixeira Next Of Kin [address] [place] [address] BETINA CESAR Next Of Kin [address] [place] [address] SADI COSBY Next Of Kin [address] [place] [address] ZAC MARIANO Next Of Kin Unknown Zac Landry Next Of Kin [address] [place] [address] Ascencion Mariscal MD Next Of Kin [address] [place] [address] Amanda WALTER, Carmen Next Of Kin [address] [place], [place] [phone] MASON Next Of Kin [address] [place] [address] STEFANIE CESAR Next Of Kin [address] [place] [id number] UNEMPLOYED Next Of Kin [address] [place] [address] Thony MCNAIR, aHley Next Of Kin [address] [facility] [place] [address] Taryn Odom Next Of Kin [address] [place] [address] [employer] [place] [address] [facility] [employer] Next Of [facility] [address] [place] [address] [employer] Next Of Kin [address] [place] [address] UE Next Of Kin Unknown Unavailable VICTOR M VANESA Next Of Kin [address] [place] [address] MARIANOLILY ECON [address] [place] [phone] Vanesa Hanson ECON [address] [place] [address] [phone] Care Team Providers Care Paint Grinder Name Role Phone Declan Lelo TABLE MACHINE OPERATOR TABLE MACHINE OPERATOR Unavailable Unavailable ROBBIN, MARYAM PA Unavailable Unavailable ROBBIN, MARYAM PA Unavailable Unavailable ROBBIN, MARYAM PA Unavailable Unavailable ROBBIN, MARYAM PA Unavailable Unavailable ROBBIN, MARYAM PA Unavailable Unavailable ROBBIN, MARYAM PA Unavailable Unavailable ROBBIN, MARYAM PA Unavailable Unavailable ROBBIN, MARYAM PA Unavailable Unavailable ROBBIN, MARYAM PA Unavailable Unavailable ROBBIN, MARYMA PA Unavailable Unavailable ROBBIN, MARYAM PA Unavailable Unavailable ROBBIN, MARYAM PA Unavailable Unavailable ROBBIN, MARYAM PA Unavailable Unavailable ROBBIN, MARYAM PA Unavailable Unavailable ROBBIN, MARYAM PA Unavailable Unavailable ROBBIN, MARYAM PA Unavailable Unavailable ROBBIN, MARYAM PA Unavailable Unavailable ROBBIN, MARYAM PA Unavailable Unavailable ROBBIN, MARYAM PA Unavailable Unavailable ROBBIN, MARYAM PA Unavailable Unavailable ROBBIN, MARYAM PA Unavailable Unavailable ROBBIN, MARYAM PA Unavailable Unavailable ROBBIN, MARYAM PA Unavailable Unavailable ROBBIN, MARYAM PA Unavailable Unavailable ROBBIN, MARYAM PA Unavailable Unavailable ROBBIN, MARYAM PA Unavailable Unavailable ROBBIN, MARYAM PA Unavailable Unavailable ROBBIN, MARYAM PA Unavailable Unavailable ROBBIN, MARYAM PA Unavailable Unavailable ROBBIN, MARYAM PA Unavailable Unavailable ROBBIN, MARYAM PA Unavailable Unavailable ROBBIN, MARYAM PA Unavailable Unavailable ROBBIN, MARYAM PA Unavailable Unavailable ROBBIN, MARYAM PA Unavailable Unavailable ROBBIN, MARYAM PA Unavailable Unavailable ROBBIN, MARYAM PA Unavailable Unavailable ROBBIN, MARYAM PA Unavailable Unavailable ROBBIN, MARYAM PA Unavailable Unavailable RAZIA QUINN MD, MBBS Unavailable Unavailable QUINN, RAZIA MD, MBBS Unavailable Unavailable RAZIA QUINN MD, MBBS Unavailable Unavailable QUINNRAZIA MD, MBBS Unavailable Unavailable QUINNRAZIA MD, MBBS Unavailable Unavailable QUINNRAZIA MD, MBBS Unavailable Unavailable QUINNRAZIA MD, MBBS Unavailable Unavailable QUINNRAZIA MD, MBBS Unavailable Unavailable QUINNRAZIA MD, MBBS Unavailable Unavailable QUINNRAZIA MD, MBBS Unavailable Unavailable QUINNRAZIA MD, MBBS Unavailable Unavailable QUINNRAZIA MD, MBBS Unavailable Unavailable QUINNRAZIA MD, MBBS Unavailable Unavailable QUINNRAZIA MD, MBBS Unavailable Unavailable QUINNRAZIA MD, MBBS Unavailable Unavailable QUINNRAZIA MD, MBBS Unavailable Unavailable QUINNRAZIA MD, MBBS Unavailable Unavailable QUINNRAZIA MD, MBBS Unavailable Unavailable QUINNRAZIA MD, MBBS Unavailable Unavailable QUINNRAZIA MD, MBBS Unavailable Unavailable QUINNRAZIA MD, MBBS Unavailable Unavailable QUINNRAZIA MD, MBBS Unavailable Unavailable QUINNRAZIA MD, MBBS Unavailable Unavailable QUINNRAZIA MD, MBBS Unavailable Unavailable QUINNRAZIA MD, MBBS Unavailable Unavailable QUINNRAZIA MD, MBBS Unavailable Unavailable QUINNRAZIA MD, MBBS Unavailable Unavailable QUINNRAZIA MD, MBBS Unavailable Unavailable QUINNRAZIA MD, MBBS Unavailable Unavailable QUINNRAZIA MD, MBBS Unavailable Unavailable Neves, M Margoth FORK REPAIRER Unavailable Unavailable Neves, M Margoth FORK REPAIRER Unavailable Unavailable Neves, M Margoth FORK REPAIRER Unavailable Unavailable Neves, M Margoth FORK REPAIRER Unavailable Unavailable Neves, M Margoth FORK REPAIRER Unavailable Unavailable Neves, M Margoth FORK REPAIRER Unavailable Unavailable Neves, M Margoth FORK REPAIRER Unavailable Unavailable Neves, M Margoth FORK REPAIRER Unavailable Unavailable Neves, M Margoth FORK REPAIRER Unavailable Unavailable Neves, M Margoth FORK REPAIRER Unavailable Unavailable Neves, M Margoth FORK REPAIRER Unavailable Unavailable Neves, M Margoth FORK REPAIRER Unavailable Unavailable Neves, M Margoth FORK REPAIRER Unavailable Unavailable Neves, M Margoth FORK REPAIRER Unavailable Unavailable Neves, M Margoth FORK REPAIRER Unavailable Unavailable Neves, M Margoth FORK REPAIRER Unavailable Unavailable Neves, M Margoth FORK REPAIRER Unavailable Unavailable Neves, M Margoth FORK REPAIRER Unavailable Unavailable Neves, M Margoth FORK REPAIRER Unavailable Unavailable Neves, M Margoth FORK REPAIRER Unavailable Unavailable Neves, M Margoth FORK REPAIRER Unavailable Unavailable Neves, M Margoth FORK REPAIRER Unavailable Unavailable Neves, M Margoth FORK REPAIRER Unavailable Unavailable Neves, M Margoth FORK REPAIRER Unavailable Unavailable Neves, M Margoth FORK REPAIRER Unavailable Unavailable Neves, M Margoth FORK REPAIRER Unavailable Unavailable Neves, M Margoth FORK REPAIRER Unavailable Unavailable Neves, M Margoth FORK REPAIRER Unavailable Unavailable Neves, M Margoth FORK REPAIRER Unavailable Unavailable Neves, M Margoth FORK REPAIRER Unavailable Unavailable Re-disclosure Warning The records that you are about to access may contain information from federally-assisted alcohol or drug abuse programs. If such information is present, then the following federally mandated warning applies: This information has been disclosed to you from records protected by federal confidentiality rules (42 CFR part 2). The federal rules prohibit you from making any further disclosure of this information unless further disclosure is expressly permitted by the written consent of the person to whom it pertains or as otherwise permitted by 42 CFR part 2. A general authorization for the release of medical or other information is NOT sufficient for this purpose. The Federal rules restrict any use of the information to criminally investigate or prosecute any alcohol or drug abuse patient.The records that you are about to access may contain highly sensitive health information, the redisclosure of which is protected by Article 27-F of the [facility] Public Health law. If you continue you may have access to information: Regarding HIV / AIDS; Provided by facilities licensed or operated by the [facility] Office of Mental Health; or Provided by the [facility] Office for People With Developmental Disabilities. If such information is present, then the following [facility] mandated warning applies: This information has been disclosed to you from confidential records which are protected by state law. State law prohibits you from making any further disclosure of this information without the specific written consent of the person to whom it pertains, or as otherwise permitted by law. Any unauthorized further disclosure in violation of state law may result in a fine or snf sentence or both. A general authorization for the release of medical or other information is NOT sufficient authorization for further disc losure. Family History Family Member Name Family Member Gender Family Member Status Date o f Status Description Data Source(s) Unknown Unknown Problem [facility] ([facility]) Encounters Encounter Providers Location Date Indications Data Source(s ) Unknown [address] [facility], [facility] [id number] 05/31/2020 12:00:00 AM EST [facility] [place] [address] [facility] [address] 05/09/2020 12:00:00 AM EST [facility] [place] [address] [facility] [address] 05/02/2020 12:00:00 AM EST [facility]CW1 [facility]) Outpatient [address] [facility] [address] 04/15/2020 12:00:00 AM EST [facility] Unknown [address] [facility] [address] 04/14/2020 12:00:00 AM EST [facility] Unknown [address] [facility] [address] 04/06/2020 12:00:00 AM EST [facility]CW1 [facility]) Outpatient [email or web address] 03/30/2020 01:06:50 PM EST [facility] Unknown [address] [facility] [address] 03/22/2020 12:00:00 AM EST [facility]CW1 [facility] Unknown [address] [facility] [address] 03/07/2020 12:00:00 AM EST [facility]CW1 [facility]) Outpatient [email or web address] 02/17/2020 03:54:13 PM EDT [facility] Unknown [address] [facility] [address] 02/10/2020 12:00:00 AM EDT [facility]CW1 [facility]) Unknown [address] [facility] [address] 02/03/2020 12:00:00 AM EDT [facility]CW1 [facility]) Outpatient [email or web address] 01/04/2020 11:37:51 AM EDT [facility] Unknown [address] [facility] [place] [address] 11/25/2019 12:00:00 AM EDT eCW1 ([facility]) Outpatient [email or web address] 11/24/2019 01:36:34 PM EDT [facility] Outpatient Attender: LYNSEY CASILLAS 10/13/2019 07:35:50 PM EDT [facility] Outpatient [email or web address] 10/13/2019 10:24:45 AM EDT [facility] Unknown [address] [facility] [address] 10/09/2019 12:00:00 AM EDT eCW1 ([facility]) [address] [address] 09/22/2019 12:00:00 AM EDT eCW1 ([facility]) [address] [address] 09/21/2019 12:00:00 AM EDT eCW1 ([facility]) [facility] [address] [place] [phone] 09/10/2019 12:00:00 AM EDT eCW1 ([facility]) Outpatient Attender: RAZIA QUINN MD, MBBSReferrer: RAZIA QUINN MD, MBBRIT 09/09/2019 12:00:00 AM [facility] [address] [place] [phone] 08/24/2019 12:00:00 AM EDT eCW1 ([facility]) [facility] [address] [place] [phone] 08/20/2019 12:00:00 AM EDT eCW1 ([facility]) [facility] [address] [place] [phone] 08/20/2019 12:00:00 AM EDT eCW1 ([facility]) [facility] [address] [place] [phone] 08/12/2019 12:00:00 AM EDT [facility]CW[facility] Outpatient Attender: VALENCIA GRAY MDReferrer: VALENCIA GRAY MD 08/09/2019 12:00:00 AM EDT [facility] [address] [facility] [address] 07/17/2019 12:00:00 AM EDT [facility]CW[facility]) Outpatient Attender: VALENCIA GRAY MDReferrer: VALENCIA GRAY MD 07/09/2019 12:00:00 AM [facility] [address] [place], [place] [phone] 07/09/2019 12:00:00 AM EST eCW1 [facility]) Outpatient Referrer: Margoth Neves NP 07/03/2019 01:45:00 PM EST [facility] [place] [address] [place] [phone] 06/29/2019 12:00:00 AM EST eCW1 [facility]) [facility] [address] [place] [address] 06/26/2019 12:00:00 AM EST [facility]CW1 [facility]) [facility] [address] [place], [place] [address] 06/15/2019 12:00:00 AM EST eCW1 [facility]) [facility] [address] [place], [place] [address] 06/15/2019 12:00:00 AM EST [facility]CW1 [facility]) Outpatient Attender: RAZIA QUINN MD, VALENCIAReferrer: VALENCIA GRAY MD 06/08/2019 12:00:00 AM [facility] Outpatient Attender: MARYAM batista 05/25/2019 02:25:00 PM EST [facility] ([facility]) [facility] [address] [place] [address] 05/18/2019 12:00:00 AM EST eCW1 ([facility]) Outpatient Attender: RAZIA QUINN MD, VALENCIAReferrer: VALENCIA GRAY MD 05/08/2019 12:00:00 AM EST [facility] Outpatient Attender: LYNSEY CASILLAS 05/05/2019 09:01:02 PM EST [facility] [address] [place] [phone] 05/04/2019 12:00:00 AM EST eCW1 ([facility]) [facility] [address] [place] [phone] 04/22/2019 12:00:00 AM EST eCW1 ([facility]) [facility] [address] [place] [phone] 04/21/2019 12:00:00 AM EST eCW1 ([facility]) Outpatient Referrer: Margoth Neves NP 04/14/2019 09:29:00 PM EST [facility] [address] [place] [phone] 04/14/2019 12:00:00 AM EST eCW1 ([facility]) [facility] [address] [place] [phone] 04/14/2019 12:00:00 AM EST eCW1 ([facility]) [facility] [address] [place] [phone] 04/13/2019 12:00:00 AM EST eCW1 ([facility]) [facility] [address] [place] [phone] 04/10/2019 12:00:00 AM EST eCW1 ([facility]) Medications Medication Brand Name Start Date Product Form Dose Route Admi nistrative Instructions Pharmacy Instructions Status Indications Reaction Description Data Source(s) Acetaminophen 325 MG / Hydrocodone Jacqueline trate 10 MG Oral Tablet [[place]] [place] 10-325 MG [place] 10-325 MG 06/01/2020 12:00:00 AM EST active [place] 10-325 MG eCW1 ([facility]) 20 mg 05/11/2020 12:00:00 AM EST capsule 180 TAKE TWO CAPSULES BY MOUTH EVERY DAY TAKE TWO CAPSULES BY MOUTH EVERY DAY SOLD: 05/15/2020 [facility] pantoprazole 40 MG Delayed Release Oral Tablet PANTOPRAZOLE SODIUM 05/11/2020 12:00:00 AM EST tablet,delayed release (DR/EC) 180 T ABDON ONE TABLET BY MOUTH TWICE A DAY TAKE ONE TABLET BY MOUTH TWICE A DAY SOLD: 05/15/2020 [facility] 20 mg 05/11/2020 12:00:00 AM EST tablet 90 TAKE ONE TABLET BY MOUTH ONCE DAILY TAKE ONE TABLET BY MOUTH ONCE DAILY SOLD: 05/15/2020 [facility] 10-325 mg 05/08/2020 12:00:00 AM EST tablet 150 TAKE ONE TABLET BY MOUTH EVERY 4 HOURS NEEDED, MAXIMUM DAILY DOSE = FIVE TABLETS TAKE ONE TABLET BY MOUTH EVERY 4 HOURS NEEDED, MAXIMUM DAILY DOSE = FIVE TABLETS SOLD: 05/09/2020 [facility] Acetaminophen 325 MG / Hydrocodone Jacqueline trate 10 MG Oral Tablet [[place]] [place] 10-325 MG [place] 10-325 MG 05/03/2020 12:00:00 AM EST active [place] 10-325 MG eCW1 ([facility]) Acetaminophen 325 MG / Hydrocodone Jacqueline trate 10 MG Oral Tablet [[place]] [place] 10-325 MG [place] 10-325 MG 05/03/2020 12:00:00 AM EST active [place] 10-325 MG eCW1 ([facility]) 10 mcg/hour 04/19/2020 12:00:00 AM EST patch weekly 4 APPLY ONE PATCH TO THE SKIN ONCE WEEKLY, MAXIMUM DAILY DOSE = 1 PATCH PER WEEK APPLY ONE PATCH TO THE SKIN ONCE WEEKLY, MAXIMUM DAILY DOSE = 1 PATCH PER WEEK SOLD: 05/21/2020 [facility] 10 mcg/hour 04/19/2020 12:00:00 AM EST patch weekly 4 APPLY ONE PATCH TO THE SKIN ONCE WEEKLY, MAXIMUM DAILY DOSE = 1 PATCH PER WEEK APPLY ONE PATCH TO THE SKIN ONCE WEEKLY, MAXIMUM DAILY DOSE = 1 PATCH PER WEEK SOLD: 04/20/2020 [facility] 10-325 mg 04/09/2020 12:00:00 AM EST tablet 150 TAKE ONE TABLET BY MOUTH EVERY 4 HOURS NEEDED, MAXIMUM DAILY DOSE = 5 (THIS IS A 30 DAY SUPPLY) TAKE ONE TABLET BY MOUTH EVERY 4 HOURS NEEDED, MAXIMUM DAILY DOSE = 5 (THIS IS A 30 DAY SUPPLY) SOLD: 04/09/2020 [facility] Acetaminophen 325 MG / Hydrocodone Jacqueline trate 10 MG Oral Tablet [[place]] [place] 10-325 MG [place] 10-325 MG 04/07/2020 12:00:00 AM EST active [place] 10-325 MG eCW1 ([facility]) Acetaminophen 325 MG / Hydrocodone Jacqueline trate 10 MG Oral Tablet [[place]] [place] 10-325 MG [place] 10-325 MG 04/07/2020 12:00:00 AM EST active [place] 10-325 MG eCW1 ([facility]) Acetaminophen 325 MG / Hydrocodone Jacqueline trate 10 MG Oral Tablet [[place]] [place] 10-325 MG [place] 10-325 MG 04/07/2020 12:00:00 AM EST active [place] 10-325 MG eCW1 ([facility]) Acetaminophen 325 MG / Hydrocodone Jacqueline trate 10 MG Oral Tablet [[place]] [place] 10-325 MG [place] 10-325 MG 03/10/2020 12:00:00 AM EST active [place] 10-325 MG eCW1 ([facility]) Acetaminophen 325 MG / Hydrocodone Jacqueline trate 10 MG Oral Tablet [[place]] [place] 10-325 MG [place] 10-325 MG 03/10/2020 12:00:00 AM EST active [place] 10-325 MG eCW1 ([facility]) 10-325 mg 03/10/2020 12:00:00 AM EST tablet 150 TAKE ONE TABLET BY MOUTH EVERY 4 HOURS NEEDED, MAXIMUM DAILY DOSE = FIVE TABLETS TAKE ONE TABLET BY MOUTH EVERY 4 HOURS NEEDED, MAXIMUM DAILY DOSE = FIVE TABLETS SOLD: 03/11/2020 [facility] 10-325 mg 02/07/2020 12:00:00 AM EDT tablet 150 TAKE ONE TABLET BY MOUTH EVERY 4 HOURS NEEDED FOR PAIN, MAXIMUM DAILY DOSE = FIVE TABLETS TAKE ONE TABLET BY MOUTH EVERY 4 HOURS NEEDED FOR PAIN, MAXIMUM DAILY DOSE = FIVE TABLETS SOLD: 02/08/2020 [facility] Acetaminophen 325 MG / Hydrocodone Jacqueline trate 10 MG Oral Tablet [[place]] [place] 10-325 MG [place] 10-325 MG 02/03/2020 12:00:00 AM EDT active [place] 10-325 MG eCW1 ([facility]) Acetaminophen 325 MG / Hydrocodone Jacqueline trate 10 MG Oral Tablet [[place]] [place] 10-325 MG [place] 10-325 MG 02/03/2020 12:00:00 AM EDT active [place] 10-325 MG eCW1 ([facility]) 10-325 mg 01/08/2020 12:00:00 AM EDT tablet 150 TAKE ONE TABLET BY MOUTH EVERY 4 HOURS NEEDED , MAXIMUM DAILY DOSE = 5 TABLETS TAKE ONE TABLET BY MOUTH EVERY 4 HOURS NEEDED , MAXIMUM DAILY DOSE = 5 TABLETS SOLD: 01/09/2020 [facility] 10 mcg/hour 12/20/2019 12:00:00 AM EDT patch weekly 4 APPLY ONE PATCH TO THE SKIN ONCE WEEKLY - MAX ONE PATCH IN 7 DAYS APPLY ONE PATCH TO THE SKIN ONCE WEEKLY - MAX ONE PATCH IN 7 DAYS SOLD: 12/23/2019 [facility] 10 mcg/hour 12/20/2019 12:00:00 AM EDT patch weekly 4 APPLY ONE PATCH TO THE SKIN ONCE WEEKLY - MAX ONE PATCH IN 7 DAYS APPLY ONE PATCH TO THE SKIN ONCE WEEKLY - MAX ONE PATCH IN 7 DAYS SOLD: 02/23/2020 [facility] 10 mcg/hour 12/20/2019 12:00:00 AM EDT patch weekly 4 APPLY ONE PATCH TO THE SKIN ONCE WEEKLY - MAX ONE PATCH IN 7 DAYS APPLY ONE PATCH TO THE SKIN ONCE WEEKLY - MAX ONE PATCH IN 7 DAYS SOLD: 03/23/2020 [facility] 10 mcg/hour 12/20/2019 12:00:00 AM EDT patch weekly 4 APPLY ONE PATCH TO THE SKIN ONCE WEEKLY - MAX ONE PATCH IN 7 DAYS APPLY ONE PATCH TO THE SKIN ONCE WEEKLY - MAX ONE PATCH IN 7 DAYS SOLD: 01/24/2020 [facility] 10-325 mg 12/10/2019 12:00:00 AM EDT tablet 150 TAKE ONE TABLET BY MOUTH EVERY 4 HOURS NEEDED, MAXIMUM DAILY DOSE = FIVE TABLETS TAKE ONE TABLET BY MOUTH EVERY 4 HOURS NEEDED, MAXIMUM DAILY DOSE = FIVE TABLETS SOLD: 12/10/2019 [facility] 10 mcg/hour 11/25/2019 12:00:00 AM EDT patch weekly 4 APPLY 1 PATCH TO SKIN Q7D MAXIMUM DAILY DOSE = 1 PATCH EVERY 7 DAYS APPLY 1 PATCH TO SKIN Q7D MAXIMUM DAILY DOSE = 1 PATCH EVERY 7 DAYS SOLD: 11/25/2019 [facility] 10-325 mg 11/10/2019 12:00:00 AM EDT tablet 150 TAKE ONE TABLET BY MOUTH EVERY 4 HOURS NEEDED , MAXIMUM DAILY DOSE = 5 TABLETS TAKE ONE TABLET BY MOUTH EVERY 4 HOURS NEEDED , MAXIMUM DAILY DOSE = 5 TABLETS SOLD: 11/10/2019 [facility] Acetaminophen 325 MG / Hydrocodone Jacqueline trate 10 MG Oral Tablet [[place]] [place] 10-325 MG [place] 10-325 MG 11/10/2019 12:00:00 AM EDT active [place] 10-325 MG eCW1 ([facility]) 10-325 mg 10/13/2019 12:00:00 AM EDT tablet 150 TAKE ONE TABLET BY MOUTH EVERY 4 HOURS NEEDED, MAXIMUM DAILY DOSE = FIVE TABLETS TAKE ONE TABLET BY MOUTH EVERY 4 HOURS NEEDED, MAXIMUM DAILY DOSE = FIVE TABLETS SOLD: 10/13/2019 [facility] Acetaminophen 325 MG / Hydrocodone Jacqueline trate 10 MG Oral Tablet [[place]] [place] 10-325 MG [place] 10-325 MG 10/12/2019 12:00:00 AM EDT active [place] 10-325 MG eCW1 ([facility]) 20 mg 09/23/2019 12:00:00 AM EDT capsule 180 TAKE TWO CAPSULES BY MOUTH ONCE DAILY TAKE TWO CAPSULES BY MOUTH ONCE DAILY SOLD: 01/24/2020 [facility] 40 mg 09/23/2019 12:00:00 AM EDT tablet,delayed release (DR/EC) 180 TAKE ONE TABLET BY MOUTH TWICE A DAY TAKE ONE TABLET BY MOUTH TWICE A DAY SOLD: 10/05/2019 [facility] pantoprazole 40 MG Delayed Release Oral Tablet PANTOPRAZOLE SODIUM 09/23/2019 12:00:00 AM EDT tablet,delayed release (DR/EC) 180 T ABDON ONE TABLET BY MOUTH TWICE A DAY TAKE ONE TABLET BY MOUTH TWICE A DAY SOLD: 01/24/2020 [facility] 20 mg 09/23/2019 12:00:00 AM EDT capsule 180 TAKE TWO CAPSULES BY MOUTH ONCE DAILY TAKE TWO CAPSULES BY MOUTH ONCE DAILY SOLD: 10/05/2019 [facility] 10-325 mg 09/13/2019 12:00:00 AM EDT tablet 150 TAKE ONE TABLET BY MOUTH EVERY 4 HOURS NEEDED, MAXIMUM DAILY DOSE = FIVE TABLETS TAKE ONE TABLET BY MOUTH EVERY 4 HOURS NEEDED, MAXIMUM DAILY DOSE = FIVE TABLETS SOLD: 09/14/2019 [facility] Acetaminophen 325 MG / Hydrocodone Jacqueline trate 10 MG Oral Tablet [[place]] [place] 10-325 MG [place] 10-325 MG 09/11/2019 12:00:00 AM EDT active 1 tab eCW1 ([facility]) 10 mcg/hour 08/24/2019 12:00:00 AM EDT patch weekly 4 APPLY ONE PATCH TO SKIN EVERY 7 DAYS , MAXIMUM DAILY DOSE = 1 PATCH EVERY 7 DAYS APPLY ONE PATCH TO SKIN EVERY 7 DAYS , MAXIMUM DAILY DOSE = 1 PATCH EVERY 7 DAYS SOLD: 09/23/2019 [facility] 10 mcg/hour 08/24/2019 12:00:00 AM EDT patch weekly 4 APPLY ONE PATCH TO SKIN EVERY 7 DAYS , MAXIMUM DAILY DOSE = 1 PATCH EVERY 7 DAYS APPLY ONE PATCH TO SKIN EVERY 7 DAYS , MAXIMUM DAILY DOSE = 1 PATCH EVERY 7 DAYS SOLD: 08/24/2019 [facility] 10 mcg/hour 08/24/2019 12:00:00 AM EDT patch weekly 4 APPLY ONE PATCH TO SKIN EVERY 7 DAYS , MAXIMUM DAILY DOSE = 1 PATCH EVERY 7 DAYS APPLY ONE PATCH TO SKIN EVERY 7 DAYS , MAXIMUM DAILY DOSE = 1 PATCH EVERY 7 DAYS SOLD: 10/27/2019 [facility] 168 HR Buprenorphine 0.01 MG/HR Transdermal Patch [BuT rans] Butrans 10 MCG/HR [facility] 10 MCG/HR 08/20/2019 12:00:00 AM EDT active 1 patch to skin eCW1 ([facility]) Acetaminophen 325 MG / Hydrocodone Jacqueline trate 10 MG Oral Tablet [[place]] [place] 10-325 MG [place] 10-325 MG 08/20/2019 12:00:00 AM EDT active 1 tab eCW1 ([facility]) 168 HR Buprenorphine 0.01 MG/HR Transdermal Patch [BuT rans] [place] 10 MCG/HR [place] 10 MCG/HR 08/20/2019 12:00:00 AM EDT 1.0 {patch_to_skin} active [place] 10 MCG/HR eCW1 ([facility]) 168 HR Buprenorphine 0.01 MG/HR Transdermal Patch [BuT rans] [place] 10 MCG/HR [place] 10 MCG/HR 08/20/2019 12:00:00 AM EDT 1.0 {patch_to_skin} active [place] 10 MCG/HR eCW1 ([facility]) 168 HR Buprenorphine 0.01 MG/HR Transdermal Patch [BuT rans] [place] 10 MCG/HR [place] 10 MCG/HR 08/20/2019 12:00:00 AM EDT 1.0 {patch_to_skin} active [place] 10 MCG/HR eCW1 ([facility]) 168 HR Buprenorphine 0.01 MG/HR Transdermal Patch [BuT rans] [place] 10 MCG/HR [place] 10 MCG/HR 08/20/2019 12:00:00 AM EDT 1.0 {patch_to_skin} active [place] 10 MCG/HR eCW1 ([facility]) 168 HR Buprenorphine 0.01 MG/HR Transdermal Patch [BuT rans] [place] 10 MCG/HR [place] 10 MCG/HR 08/20/2019 12:00:00 AM EDT 1.0 {patch_to_skin} active [place] 10 MCG/HR eCW1 ([facility]) 168 HR Buprenorphine 0.01 MG/HR Transdermal Patch [BuT rans] [place] 10 MCG/HR [place] 10 MCG/HR 08/20/2019 12:00:00 AM EDT 1.0 {patch_to_skin} active [place] 10 MCG/HR eCW1 ([facility]) 168 HR Buprenorphine 0.01 MG/HR Transdermal Patch [BuT rans] [place] 10 MCG/HR [place] 10 MCG/HR 08/20/2019 12:00:00 AM EDT 1.0 {patch_to_skin} active [place] 10 MCG/HR eCW1 ([facility]) 168 HR Buprenorphine 0.01 MG/HR Transdermal Patch [BuT rans] [place] 10 MCG/HR [place] 10 MCG/HR 08/20/2019 12:00:00 AM EDT 1.0 {patch_to_skin} active [place] 10 MCG/HR eCW1 ([facility]) 168 HR Buprenorphine 0.01 MG/HR Transdermal Patch [BuT rans] [place] 10 MCG/HR [place] 10 MCG/HR 08/20/2019 12:00:00 AM EDT 1.0 {patch_to_skin} active [place] 10 MCG/HR eCW1 ([facility]) 168 HR Buprenorphine 0.01 MG/HR Transdermal Patch [BuT rans] [place] 10 MCG/HR [place] 10 MCG/HR 08/20/2019 12:00:00 AM EDT 1.0 {patch_to_skin} active [place] 10 MCG/HR eCW1 ([facility]) 168 HR Buprenorphine 0.01 MG/HR Transdermal Patch [BuT rans] [place] 10 MCG/HR [place] 10 MCG/HR 08/20/2019 12:00:00 AM EDT 1.0 {patch_to_skin} active [place] 10 MCG/HR eCW1 ([facility]) 168 HR Buprenorphine 0.01 MG/HR Transdermal Patch [BuT rans] [place] 10 MCG/HR [place] 10 MCG/HR 08/20/2019 12:00:00 AM EDT 1.0 {patch_to_skin} active [place] 10 MCG/HR eCW1 ([facility]) 10-325 mg 08/15/2019 12:00:00 AM EDT tablet 150 TAKE ONE TABLET BY MOUTH EVERY 4 HOURS NEEDED, MAXIMUM DAILY DOSE = FIVE TABLETS TAKE ONE TABLET BY MOUTH EVERY 4 HOURS NEEDED, MAXIMUM DAILY DOSE = FIVE TABLETS SOLD: 08/15/2019 [facility] Acetaminophen 325 MG / Hydrocodone Jacqueline trate 10 MG Oral Tablet [[place]] [place] 10-325 MG [place] 10-325 MG 08/13/2019 12:00:00 AM EDT active 1 tab eCW1 ([facility]) 10-325 mg 07/17/2019 12:00:00 AM EDT tablet 150 TAKE ONE TABLET BY MOUTH EVERY 4 HOURS NEEDED MAXIMUM DAILY DOSE = FIVE TABLETS TAKE ONE TABLET BY MOUTH EVERY 4 HOURS NEEDED MAXIMUM DAILY DOSE = FIVE TABLETS SOLD: 07/17/2019 [facility] 100 mg 07/10/2019 12:00:00 AM EST capsule 90 TAKE ONE CAPSULE BY MOUTH EVERY 8 HOURS (THREE TIMES A DAY) TAKE ONE CAPSULE BY MOUTH EVERY 8 HOURS (THREE TIMES A DAY) SOLD: 08/22/2019 [facility] 100 mg 07/10/2019 12:00:00 AM EST capsule 90 TAKE ONE CAPSULE BY MOUTH EVERY 8 HOURS (THREE TIMES A DAY) TAKE ONE CAPSULE BY MOUTH EVERY 8 HOURS (THREE TIMES A DAY) SOLD: 09/23/2019 [facility] 100 mg 07/10/2019 12:00:00 AM EST capsule 90 TAKE ONE CAPSULE BY MOUTH EVERY 8 HOURS (THREE TIMES A DAY) TAKE ONE CAPSULE BY MOUTH EVERY 8 HOURS (THREE TIMES A DAY) SOLD: 07/17/2019 [facility] gabapentin 100 MG Oral Capsule Gabapentin 100 MG Gabapentin 100 MG 07/09/2019 12:00:00 AM EST active 1 capsul e eCW1 ([facility]) gabapentin 300 MG Oral Capsule Gabapentin 300 MG Gabapentin 300 MG 07/09/2019 12:00:00 AM EST 1.0 {capsule} active G abapentin 300 MG eCW1 ([facility]) gabapentin 300 MG Oral Capsule Gabapentin 300 MG Gabapentin 300 MG 07/09/2019 12:00:00 AM EST 1.0 {capsule} suspended Gabapentin 300 MG eCW1 ([facility]) gabapentin 300 MG Oral Capsule Gabapentin 300 MG Gabapentin 300 MG 07/09/2019 12:00:00 AM EST 1.0 {capsule} active G abapentin 300 MG eCW1 ([facility]) gabapentin 300 MG Oral Capsule Gabapentin 300 MG Gabapentin 300 MG 07/09/2019 12:00:00 AM EST 1.0 {capsule} active G abapentin 300 MG eCW1 ([facility]) gabapentin 300 MG Oral Capsule Gabapentin 300 MG Gabapentin 300 MG 07/09/2019 12:00:00 AM EST active 1 capsul e eCW1 ([facility]) gabapentin 300 MG Oral Capsule Gabapentin 300 MG Gabapentin 300 MG 07/09/2019 12:00:00 AM EST 1.0 {capsule} active G abapentin 300 MG eCW1 ([facility]) gabapentin 300 MG Oral Capsule Gabapentin 300 MG Gabapentin 300 MG 07/09/2019 12:00:00 AM EST 1.0 {capsule} suspended Gabapentin 300 MG eCW1 ([facility]) Acetaminophen 325 MG / Hydrocodone Jacqueline trate 10 MG Oral Tablet [[place]] [place] 10-325 MG [place] 10-325 MG 07/09/2019 12:00:00 AM EST active 1 tab eCW1 ([facility]) gabapentin 100 MG Oral Capsule Gabapentin 100 MG Gabapentin 100 MG 07/09/2019 12:00:00 AM EST active 1 capsul e eCW1 ([facility]) gabapentin 300 MG Oral Capsule Gabapentin 300 MG Gabapentin 300 MG 07/09/2019 12:00:00 AM EST 1.0 {capsule} suspended Gabapentin 300 MG eCW1 ([facility]) gabapentin 300 MG Oral Capsule Gabapentin 300 MG Gabapentin 300 MG 07/09/2019 12:00:00 AM EST 1.0 {capsule} suspended Gabapentin 300 MG eCW1 ([facility]) gabapentin 300 MG Oral Capsule Gabapentin 300 MG Gabapentin 300 MG 07/09/2019 12:00:00 AM EST 1.0 {capsule} active G abapentin 300 MG eCW1 ([facility]) gabapentin 300 MG Oral Capsule Gabapentin 300 MG Gabapentin 300 MG 07/09/2019 12:00:00 AM EST 1.0 {capsule} active G abapentin 300 MG eCW1 ([facility]) gabapentin 300 MG Oral Capsule Gabapentin 300 MG Gabapentin 300 MG 07/09/2019 12:00:00 AM EST 1.0 {capsule} active G abapentin 300 MG eCW1 ([facility]) gabapentin 300 MG Oral Capsule Gabapentin 300 MG Gabapentin 300 MG 07/09/2019 12:00:00 AM EST 1.0 {capsule} suspended Gabapentin 300 MG eCW1 ([facility]) Acetaminophen 325 MG / Hydrocodone Jacqueline trate 10 MG Oral Tablet [[place]] [place] 10-325 MG [place] 10-325 MG 07/09/2019 12:00:00 AM EST active 1 tab eCW1 ([facility]) 10-325 mg 06/18/2019 12:00:00 AM EST tablet 150 TAKE ONE TABLET BY MOUTH EVERY 4 HOURS NEEDED, MAXIMUM DAILY DOSE = FIVE TABLETS TAKE ONE TABLET BY MOUTH EVERY 4 HOURS NEEDED, MAXIMUM DAILY DOSE = FIVE TABLETS SOLD: 06/18/2019 [facility] Acetaminophen 325 MG / Hydrocodone Jacqueline trate 10 MG Oral Tablet [[place]] [place] 10-325 MG [place] 10-325 MG 06/15/2019 12:00:00 AM EST active 1 tab eCW1 ([facility]) 0.12 % 06/01/2019 12:00:00 AM EST mouthwash 473 RINSE MOUTH WITH 10ML AND SPIT FOUR TIMES A DAY STARTING TOMORROW RINSE MOUTH WITH 10ML AND SPIT FOUR TIMES A DAY STARTING TOMORROW SOLD: 06/01/2019 [facility] 500 mg 06/01/2019 12:00:00 AM EST capsule 21 TAKE ONE CAPSULE BY MOUTH EVERY 8 HOURS UNTIL GONE TAKE ONE CAPSULE BY MOUTH EVERY 8 HOURS UNTIL GONE AGUSTIN [facility] Amoxicillin 875 MG / Clavulanate 125 MG Oral Tablet Am oxicillin/Clavulanate Potassium 05/25/2019 12:00:00 AM EST ORAL active MEDENT ([facility]) 875-125 mg 05/25/2019 12:00:00 AM EST tablet 14 TAKE ONE TABLET BY MOUTH TWICE A DAY FOR 7 DAYS TAKE ONE TABLET BY MOUTH TWICE A DAY FOR 7 DAYS SOLD: 05/25/2019 [facility] 10-325 mg 05/20/2019 12:00:00 AM EST tablet 150 TAKE ONE TABLET BY MOUTH EVERY 4 HOURS NEEDED, MAXIMUM DAILY DOSE = FIVE TABLETS TAKE ONE TABLET BY MOUTH EVERY 4 HOURS NEEDED, MAXIMUM DAILY DOSE = FIVE TABLETS SOLD: 05/20/2019 [facility] Acetaminophen 325 MG / Hydrocodone Jacqueline trate 10 MG Oral Tablet [[place]] [place] 10-325 MG [place] 10-325 MG 05/18/2019 12:00:00 AM EST active 1 tab eCW1 ([facility]) 10-325 mg 04/24/2019 12:00:00 AM EST tablet 135 TAKE A HALF TO ONE TABLET BY MOUTH EVERY 4-6 HOURS NEEDED MAXIMUM DAILY DOSE = 4.5 TABLETS TAKE A HALF TO ONE TABLET BY MOUTH EVERY 4-6 HOURS NEEDED MAXIMUM DAILY DOSE = 4.5 TABLETS SOLD: 04/24/2019 [facility] Acetaminophen 325 MG / Hydrocodone Jacqueline trate 10 MG Oral Tablet [[place]] [place] 10-325 MG [place] 10-325 MG 04/22/2019 12:00:00 AM EST active 1/2 to 1 tab eCW1 ([facility]) 10 mg 04/21/2019 12:00:00 AM EST tablet 9 TAKE ONE TABLET BY MOUTH THREE TIMES A DAY FOR 3 DAYS TAKE ONE TABLET BY MOUTH THREE TIMES A DAY FOR 3 DAYS SOLD: 04/21/2019 [facility] Albuterol Sulfate HFA 108 (90 Base) MCG/ACT Albuterol Sulfate HFA 108 (90 Base) MCG/ACT 04/13/2019 12:00:00 AM EST 2.0 {puffs_as_needed} suspended Albuterol Sulfate HFA 108 (90 Base) MCG/ACT eCW1 ([facility]) Prednisone 20 MG Oral Tablet PredniSONE 20 MG PredniSONE 20 MG 04/13/2019 12:00:00 AM EST suspended 2 tab let eCW1 ([facility]) Albuterol Sulfate HFA 108 (90 Base) MCG/ACT Albuterol Sulfate HFA 108 (90 Base) MCG/ACT 04/13/2019 12:00:00 AM EST 2.0 {puffs_as_needed} suspended Albuterol Sulfate HFA 108 (90 Base) MCG/ACT eCW1 ([facility]) Albuterol Sulfate HFA 108 (90 Base) MCG/ACT Albuterol Sulfate HFA 108 (90 Base) MCG/ACT 04/13/2019 12:00:00 AM EST 2.0 {puffs_as_needed} suspended Albuterol Sulfate HFA 108 (90 Base) MCG/ACT eCW1 ([facility]) Albuterol Sulfate HFA 108 (90 Base) MCG/ACT Albuterol Sulfate HFA 108 (90 Base) MCG/ACT 04/13/2019 12:00:00 AM EST 2.0 {puffs_as_needed} suspended Albuterol Sulfate HFA 108 (90 Base) MCG/ACT eCW1 ([facility]) Albuterol Sulfate HFA 108 (90 Base) MCG/ACT Albuterol Sulfate HFA 108 (90 Base) MCG/ACT 04/13/2019 12:00:00 AM EST 2.0 {puffs_as_needed} suspended Albuterol Sulfate HFA 108 (90 Base) MCG/ACT eCW1 ([facility]) Prednisone 20 MG Oral Tablet PredniSONE 20 MG PredniSONE 20 MG 04/13/2019 12:00:00 AM EST active 2 tablet eCW1 ([facility]) Prednisone 20 MG Oral Tablet PredniSONE 20 MG PredniSONE 20 MG 04/13/2019 12:00:00 AM EST suspended 2 tab let eCW1 ([facility]) Albuterol Sulfate HFA 108 (90 Base) MCG/ACT Albuterol Sulfate HFA 108 (90 Base) MCG/ACT 04/13/2019 12:00:00 AM EST 2.0 {puffs_as_needed} suspended Albuterol Sulfate HFA 108 (90 Base) MCG/ACT eCW1 ([facility]) Prednisone 20 MG Oral Tablet PredniSONE 20 MG PredniSONE 20 MG 04/13/2019 12:00:00 AM EST 2.0 {tablet} suspended PredniSONE 20 MG eCW1 ([facility]) Albuterol Sulfate HFA 108 (90 Base) MCG/ACT Albuterol Sulfate HFA 108 (90 Base) MCG/ACT 04/13/2019 12:00:00 AM EST 2.0 {puffs_as_needed} suspended Albuterol Sulfate HFA 108 (90 Base) MCG/ACT eCW1 ([facility]) Prednisone 20 MG Oral Tablet PredniSONE 20 MG PredniSONE 20 MG 04/13/2019 12:00:00 AM EST suspended 2 tab let eCW1 ([facility]) Prednisone 20 MG Oral Tablet PredniSONE 20 MG PredniSONE 20 MG 04/13/2019 12:00:00 AM EST 2.0 {tablet} suspended PredniSONE 20 MG eCW1 ([facility]) Prednisone 20 MG Oral Tablet PredniSONE 20 MG PredniSONE 20 MG 04/13/2019 12:00:00 AM EST 2.0 {tablet} suspended PredniSONE 20 MG eCW1 ([facility]) Prednisone 20 MG Oral Tablet PredniSONE 20 MG PredniSONE 20 MG 04/13/2019 12:00:00 AM EST 2.0 {tablet} suspended PredniSONE 20 MG eCW1 ([facility]) Prednisone 20 MG Oral Tablet PredniSONE 20 MG PredniSONE 20 MG 04/13/2019 12:00:00 AM EST 2.0 {tablet} suspended PredniSONE 20 MG eCW1 ([facility]) Prednisone 20 MG Oral Tablet PredniSONE 20 MG PredniSONE 20 MG 04/13/2019 12:00:00 AM EST 2.0 {tablet} suspended PredniSONE 20 MG eCW1 ([facility]) Prednisone 20 MG Oral Tablet PredniSONE 20 MG PredniSONE 20 MG 04/13/2019 12:00:00 AM EST 2.0 {tablet} suspended PredniSONE 20 MG eCW1 ([facility]) Albuterol Sulfate HFA 108 (90 Base) MCG/ACT Albuterol Sulfate HFA 108 (90 Base) MCG/ACT 04/13/2019 12:00:00 AM EST suspended 2 puffs as needed eCW1 ([facility]) Albuterol Sulfate HFA 108 (90 Base) MCG/ACT Albuterol Sulfate HFA 108 (90 Base) MCG/ACT 04/13/2019 12:00:00 AM EST suspended 2 puffs as needed eCW1 ([facility]) Prednisone 20 MG Oral Tablet PredniSONE 20 MG PredniSONE 20 MG 04/13/2019 12:00:00 AM EST 2.0 {tablet} suspended PredniSONE 20 MG eCW1 ([facility]) 20 mg 04/13/2019 12:00:00 AM EST tablet 10 TAKE TWO TABLETS BY MOUTH EVERY DAY FOR 5 DAYS TAKE TWO TABLETS BY MOUTH EVERY DAY FOR 5 DAYS SOLD: 019 [facility] Albuterol Sulfate HFA 108 (90 Base) MCG/ACT Albuterol Sulfate HFA 108 (90 Base) MCG/ACT 04/13/2019 12:00:00 AM EST active 2 puffs as needed eCW1 ([facility]) Albuterol Sulfate HFA 108 (90 Base) MCG/ACT Albuterol Sulfate HFA 108 (90 Base) MCG/ACT 04/13/2019 12:00:00 AM EST 2.0 {puffs_as_needed} suspended Albuterol Sulfate HFA 108 (90 Base) MCG/ACT eCW1 ([facility]) Albuterol Sulfate HFA 108 (90 Base) MCG/ACT Albuterol Sulfate HFA 108 (90 Base) MCG/ACT 04/13/2019 12:00:00 AM EST 2.0 {puffs_as_needed} suspended Albuterol Sulfate HFA 108 (90 Base) MCG/ACT eCW1 ([facility]) Prednisone 20 MG Oral Tablet PredniSONE 20 MG PredniSONE 20 MG 04/13/2019 12:00:00 AM EST 2.0 {tablet} suspended PredniSONE 20 MG eCW1 ([facility]) 90 mcg/actuation 04/13/2019 12:00:00 AM EST HFA aerosol inha ler 18 INHALE TWO PUFFS BY MOUTH EVERY 6 HOURS NEEDED INHALE TWO PUFFS BY MOUTH EVERY 6 HOURS NEEDED SOLD: 04/16/2019 [facility] Albuterol Sulfate HFA 108 (90 Base) MCG/ACT Albuterol Sulfate HFA 108 (90 Base) MCG/ACT 04/13/2019 12:00:00 AM EST suspended 2 puffs as needed eCW1 ([facility]) Albuterol Sulfate HFA 108 (90 Base) MCG/ACT Albuterol Sulfate HFA 108 (90 Base) MCG/ACT 04/13/2019 12:00:00 AM EST 2.0 {puffs_as_needed} suspended Albuterol Sulfate HFA 108 (90 Base) MCG/ACT eCW1 ([facility]) Albuterol Sulfate HFA 108 (90 Base) MCG/ACT Albuterol Sulfate HFA 108 (90 Base) MCG/ACT 04/13/2019 12:00:00 AM EST suspended 2 puffs as needed eCW1 ([facility]) Albuterol Sulfate HFA 108 (90 Base) MCG/ACT Albuterol Sulfate HFA 108 (90 Base) MCG/ACT 04/13/2019 12:00:00 AM EST 2.0 {puffs_as_needed} suspended Albuterol Sulfate HFA 108 (90 Base) MCG/ACT eCW1 ([facility]) Prednisone 20 MG Oral Tablet PredniSONE 20 MG PredniSONE 20 MG 04/13/2019 12:00:00 AM EST 2.0 {tablet} suspended PredniSONE 20 MG eCW1 ([facility]) Albuterol Sulfate HFA 108 (90 Base) MCG/ACT Albuterol Sulfate HFA 108 (90 Base) MCG/ACT 04/13/2019 12:00:00 AM EST 2.0 {puffs_as_needed} suspended Albuterol Sulfate HFA 108 (90 Base) MCG/ACT eCW1 ([facility]) Prednisone 20 MG Oral Tablet PredniSONE 20 MG PredniSONE 20 MG 04/13/2019 12:00:00 AM EST 2.0 {tablet} suspended PredniSONE 20 MG eCW1 ([facility]) Prednisone 20 MG Oral Tablet PredniSONE 20 MG PredniSONE 20 MG 04/13/2019 12:00:00 AM EST suspended 2 tab let eCW1 ([facility]) Prednisone 20 MG Oral Tablet PredniSONE 20 MG PredniSONE 20 MG 04/13/2019 12:00:00 AM EST 2.0 {tablet} suspended PredniSONE 20 MG eCW1 ([facility]) 20 mg 04/08/2019 12:00:00 AM EST capsule 60 TAKE TWO CAPSULES BY MOUTH EVERY DAY TAKE TWO CAPSULES BY MOUTH EVERY DAY SOLD: 06/21/2019 [facility] 20 mg 04/08/2019 12:00:00 AM EST capsule 60 TAKE TWO CAPSULES BY MOUTH EVERY DAY TAKE TWO CAPSULES BY MOUTH EVERY DAY SOLD: 05/12/2019 [facility] 20 mg 04/08/2019 12:00:00 AM EST capsule 60 TAKE TWO CAPSULES BY MOUTH EVERY DAY TAKE TWO CAPSULES BY MOUTH EVERY DAY SOLD: 07/28/2019 [facility] 20 mg 04/08/2019 12:00:00 AM EST capsule 60 TAKE TWO CAPSULES BY MOUTH EVERY DAY TAKE TWO CAPSULES BY MOUTH EVERY DAY SOLD: 04/11/2019 [facility] 20 mg 03/18/2019 12:00:00 AM EST tablet 30 TAKE ONE TABLET BY MOUTH EVERY DAY TAKE ONE TABLET BY MOUTH EVERY DAY SOLD: 05/12/2019 [facility] 80 mg 03/18/2019 12:00:00 AM EST tablet 30 TAKE ONE TABLET BY MOUTH EVERY DAY TAKE ONE TABLET BY MOUTH EVERY DAY SOLD: 07/28/2019 [facility] 20 mg 03/18/2019 12:00:00 AM EST tablet 30 TAKE ONE TABLET BY MOUTH EVERY DAY TAKE ONE TABLET BY MOUTH EVERY DAY SOLD: 09/23/2019 [facility] 20 mg 03/18/2019 12:00:00 AM EST tablet 30 TAKE ONE TABLET BY MOUTH EVERY DAY TAKE ONE TABLET BY MOUTH EVERY DAY SOLD: 11/28/2019 [facility] 20 mg 03/18/2019 12:00:00 AM EST tablet 30 TAKE ONE TABLET BY MOUTH EVERY DAY TAKE ONE TABLET BY MOUTH EVERY DAY SOLD: 07/28/2019 [facility] 20 mg 03/18/2019 12:00:00 AM EST tablet 30 TAKE ONE TABLET BY MOUTH EVERY DAY TAKE ONE TABLET BY MOUTH EVERY DAY SOLD: 01/24/2020 [facility] 5 mg 02/06/2019 12:00:00 AM EDT tablet 30 TAKE ONE TABLET BY MOUTH EVERY DAY TAKE ONE TABLET BY MOUTH EVERY DAY SOLD: 07/28/2019 [facility] 5 mg 02/06/2019 12:00:00 AM EDT tablet 30 TAKE ONE TABLET BY MOUTH EVERY DAY TAKE ONE TABLET BY MOUTH EVERY DAY SOLD: 04/13/2019 [facility] Insurance Providers Payer name Policy type / Coverage type Policy ID Covered constitution party ID Covered constitution party's relationship to baig Policy Baig Plan Information EMEDNY [id number] SP [id number] [facility] [id number] SP [id number] [facility] O [id number] S [id number] PROGRESSIVE CO NO FAULT [id number] SP [id number] [facility] COMM[facility] PLAN MCDHMO [id number] SP [id number] [facility] COMM[facility] PLAN MCDHMO [id number] SP [id number] [facility] PLAN MCDHMO [id number] SP [id number] PROGRESSIVE CO NO FAULT [id number] SP [id number] [facility] MEDICAID [id number] Shanita [id number] Managed Care - [facility] P [id number] S [id number] Medicaid S [id number] S [id number] [facility] I [id number] Self [id number] [facility] I [id number] Self [id number] MEDICAID [id number] SP [id number] [facility] COMMUN[facility] PLAN MCDHMO [id number] SP [id number] [facility] I [id number] Self [id number] ANSI-Medicaid [id number] ANSI-Medicaid [id number] ANSI-Medicaid [id number] ANSI-Medicaid [id number] [facility] Health Maintenance Organization [place] [place] [id number] Self [id number] ANSI-Medicaid [id number] ANSI-Medicaid [id number] ANSI-Medicaid [id number] ANSI-Medicaid [id number] ANSI-Medicaid [id number] ANSI-Medicaid [id number] ANSI-Medicaid [id number] ANSI-Medicaid [id number] ANSI-Medicaid [id number] ANSI-Medicaid [id number] ANSI-Medicaid [id number] ANSI-Medicaid [id number] [facility] Plan Medicaid F [id number] SELF [id number] ANSI-Medicaid [id number] ANSI-Medicaid [id number] [facility] Care [facility] P [id number] S [id number] ANSI-Medicaid [id number] ANSI-Medicaid [id number] ANSI-Medicaid [id number] ANSI-Medicaid [id number] ANSI-Medicaid [id number] ANSI-Medicaid [id number] [facility] [id number] SP [id number] ANSI-Medicaid [id number] ANSI-Medicaid [id number] [facility] MEDICAID PI PI ANSI-Medicaid [id number] ANSI-Medicaid [id number] ANSI-Medicaid [id number] ANSI-Medicaid [id number] ANSI-Medicaid [id number] ANSI-Medicaid [id number] Managed Care - [facility] P [id number] S [id number] [facility] Comm Plan Medicaid F [id number] SELF [id number] ANSI-Medicaid [id number] ANSI-Medicaid [id number] ANSI-Medicaid [id number] ANSI-Medicaid [id number] Medicaid S [id number] S [id number] [facility] Comm Plan Medicaid F [id number] SELF [id number] ANSI-Medicaid [id number] ANSI-Medicaid [id number] ANSI-Medicaid [id number] ANSI-Medicaid [id number] ANSI-Medicaid [id number] ANSI-Medicaid [id number] MEDICAID M [id number] S [id number] [employer] COMM[employer] PLAN [facility] [id number] SP [id number] ANSI-Medicaid [id number] ANS-Medicaid [id number] ANS-Medicaid [id number] [facility] [id number] [facility] Comm Plan Medicaid F [id number] SELF [id number] [employer] COMMUNITY PLAN MCDHMO [id number] SP [id number] SELF PAY ONLY [id number] SP [id number] UNHC COMMUNITY PLAN MCDHMO [id number] SP [id number] [facility] Comm Plan Medicaid F [id number] SELF [id number] Medicaid [facility] Healthcare S D [id number] SELF [id number] [facility] Comm Plan Medicaid F [id number] SELF [id number] UNITED HEALTHCARE(MCAID) O [id number] S [id number] United Healthcare Essential Plan P [id number] S [id number] Medicaid S [id number] S [id number] Managed Care - Community Plan United Healthcare P [id number] S [id number] Self Pay P [id number] S [id number] UNITED HE[employer]CARE(MCAID) O [id number] S [id number] Managed Care - Community Plan United Healthcare P [id number] S [id number] Medicaid S [id number] S [id number] UNHC COMMUNITY PLAN MCDHMO [id number] SP [id number] [employer] COMM[employer]AN MCDHMO [id number] SP [id number] United CR/Community [facility] [employer] [facility] (HMO) Self [employer] AMERICHOICE XIX -HMO [id number] 18 [id number] Managed Care - Community Plan [employer] P [id number] S [id number] Managed Care - [employer] P [id number] S [id number] Medicaid S [id number] S [id number] Managed Care - [facility] P [id number] S [id number] Medicaid S [id number] S [id number] 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 Pt. Level 3 08/20/2019 12:00:00 AM E DT eCW1 ([facility]) ESTABILISHED PATIENT [facility] CHARGE 020 12:00:00 AM EST eCW1 ([facility]) Results ID Date Data Source [id number] 05/23/2020 12:00:00 AM EST [place] Name Value Range Interpretation Code Description Data Lizy rce(s) Supporting Document(s) SARS-CoV2 Rapid Antigen Negative [place] This lab was ordered by [facility] and reported by [facility]. Procedure Social History Code Duration Value Status Description Data Source(s ) Smoking 04/15/2020 12:00:00 AM EST Current Smoker completed Curre nt Smoker eCW1 ([facility]) Smoking 04/15/2020 12:00:00 AM EST Current Smoker completed Curre nt Smoker eCW1 ([facility]) Smoking 04/15/2020 12:00:00 AM EST Current Smoker completed Curre nt Smoker eCW1 ([facility]) Smoking 04/15/2020 12:00:00 AM EST Current Smoker completed Curre nt Smoker eCW1 ([facility]) Smoking 04/15/2020 12:00:00 AM EST Current Smoker completed Curre nt Smoker eCW1 ([facility]) Smoking 08/20/2019 12:00:00 AM EDT Current Smoker completed Curre nt Smoker eCW1 ([facility]) Smoking 08/20/2019 12:00:00 AM EDT Current Smoker completed Curre nt Smoker eCW1 ([facility]) Smoking 08/20/2019 12:00:00 AM EDT Current Smoker completed Curre nt Smoker eCW1 ([facility]) Smoking 08/20/2019 12:00:00 AM EDT Current Smoker completed Curre nt Smoker eCW1 ([facility]) Smoking 08/20/2019 12:00:00 AM EDT Current Smoker completed Curre nt Smoker eCW1 ([facility]) Smoking 08/20/2019 12:00:00 AM EDT Current Smoker completed Curre nt Smoker eCW1 ([facility]) Smoking 08/20/2019 12:00:00 AM EDT Current Smoker completed Curre nt Smoker eCW1 ([facility]) Vital Signs ID Date Data Source UNK Name Value Range Interpretation Code Description Data Source(s) Diastolic blood pressure 71 mm[Hg] 71 mm[Hg] eCW1 ([facility]) Systolic blood pressure 141 mm[Hg] 141 mm[Hg] e CW1 ([facility]) Body temperature 98.0 [degF] 98.0 [degF] eCW1 ( [facility]) Respiratory rate 18 /min 18 /min eCW1 ([facility]) Heart rate 92 /min 92 /min eCW1 ([facility]) Body mass index (BMI) [Ratio] 33.41 kg/m2 33.41 kg/m2 W1 ([facility]) Body height 65 [in_i] 65 [in_i] eCW1 ([facility]) Body weight 200.8 [lb_av] 200.8 [lb_av] eCW1 ([facility]) Diastolic blood pressure 73 mm[Hg] 73 mm[Hg] eCW1 ([facility]) Systolic blood pressure 121 mm[Hg] 121 mm[Hg] e CW1 ([facility]) Body temperature 98.1 [degF] 98.1 [degF] eCW1 ( [facility]) Respiratory rate 16 /min 16 /min eCW1 ([facility]) Heart rate 77 /min 77 /min eCW1 ([facility]) Body mass index (BMI) [Ratio] 32.78 kg/m2 32.78 kg/m2 eCW1 ([facility]) Body height 65 [in_us] 65 [in_us] eCW1 ([facility]) Body weight Measured 197 [lb_av] 197 [lb_av] eC W1 ([facility]) Diastolic blood pressure 81 mm[Hg] 81 mm[Hg] eCW1 ([facility]) Systolic blood pressure 141 mm[Hg] 141 mm[Hg] e CW1 ([facility]) Body temperature 98.0 [degF] 98.0 [degF] eCW1 ( [facility]) Respiratory rate 18 /min 18 /min eCW1 ([facility]) Heart rate 79 /min 79 /min eCW1 ([facility]) Body mass index (BMI) [Ratio] 31.95 kg/m2 31.95 kg/m2 eCW1 ([facility]) Body height 65 [in_us] 65 [in_us] eCW1 ([facility]) Body weight Measured 192 [lb_av] 192 [lb_av] eC W1 ([facility]) Body mass index (BMI) [Ratio] 33.3 kg/m2 33.3 k g/m2 MEDENT ([facility]) Body height 65 [in_i] 65 [in_i] MEDENT ([facility], [facility]) 5'5" Body weight 200.00 [lb_av] 200.00 [lb_av] MEDEN T ([facility], [facility]) Body temperature 98.3 [degF] 98.3 [degF] MEDENT ([facility], [facility]) Oxygen saturation in Arterial blood by Pulse oximetry 98 % 98 % MEDENT ([facility], [facility]) Respiratory rate 16 /min 16 /min MEDENT ( [facility], [facility]) Heart rate 82 /min 82 /min MEDENT ([facility], [facility]) Diastolic blood pressure 84 mm[Hg] 84 mm[Hg] MEDENT ([facility], [facility]) Systolic blood pressure 126 mm[Hg] 126 mm[Hg] M EDENT ([facility], [facility]) Respiratory rate 18 /min 18 /min eCW1 ([facility]) Heart rate 85 /min 85 /min eCW1 ([facility]) Body mass index (BMI) [Ratio] 32.91 kg/m2 32.91 kg/m2 W1 ([facility]) Body height 65 [in_us] 65 [in_us] eCW1 ([facility]) Body weight Measured 197.8 [lb_av] 197.8 [lb_av ] eCW1 ([facility]) Diastolic blood pressure 72 mm[Hg] 72 mm[Hg] eCW1 ([facility]) Systolic blood pressure 140 mm[Hg] 140 mm[Hg] e CW1 ([facility]) Body temperature 97.9 [degF] 97.9 [degF] eCW1 ( [facility]) Diastolic blood pressure 73 mm[Hg] 73 mm[Hg] eCW1 ([facility]) Systolic blood pressure 121 mm[Hg] 121 mm[Hg] e CW1 ([facility]) Body temperature 98.4 [degF] 98.4 [degF] eCW1 ( [facility]) Respiratory rate 18 /min 18 /min eCW1 ([facility]) Heart rate 78 /min 78 /min eCW1 ([facility]) Body mass index (BMI) [Ratio] 33.11 kg/m2 33.11 kg/m2 eCW1 ([facility]) Body height 65 [in_us] 65 [in_us] eCW1 ([facility]) Body weight Measured 199 [lb_av] 199 [lb_av] eC W1 ([facility]) Patient Treatment Plan of Care Planned Activity Planned Date Details Description Data Source (s) Acetaminophen 325 MG / Hydrocodone Bitartrate 10 MG Or al Tablet [[place]] 06/01/2020 12:00:00 AM EST eCW1 ([facility]) Acetaminophen 325 MG / Hydrocodone Bitartrate 10 MG Or al Tablet [[place]] 05/03/2020 12:00:00 AM EST eCW1 ([facility]) Acetaminophen 325 MG / Hydrocodone Bitartrate 10 MG Or al Tablet [[place]] 05/03/2020 12:00:00 AM EST eCW1 ([facility]) Acetaminophen 325 MG / Hydrocodone Bitartrate 10 MG Or al Tablet [[place]] 04/07/2020 12:00:00 AM EST eCW1 ([facility]) Acetaminophen 325 MG / Hydrocodone Bitartrate 10 MG Or al Tablet [[place]] 04/07/2020 12:00:00 AM EST eCW1 ([facility]) Acetaminophen 325 MG / Hydrocodone Bitartrate 10 MG Or al Tablet [[place]] 04/07/2020 12:00:00 AM EST eCW1 ([facility]) Acetaminophen 325 MG / Hydrocodone Bitartrate 10 MG Or al Tablet [[place]] 03/10/2020 12:00:00 AM EST eCW1 ([facility]) Acetaminophen 325 MG / Hydrocodone Bitartrate 10 MG Or al Tablet [[place]] 03/10/2020 12:00:00 AM EST eCW1 ([facility]) Acetaminophen 325 MG / Hydrocodone Bitartrate 10 MG Or al Tablet [[place]] 02/03/2020 12:00:00 AM EDT eCW1 ([facility]) Acetaminophen 325 MG / Hydrocodone Bitartrate 10 MG Or al Tablet [[place]] 02/03/2020 12:00:00 AM EDT eCW1 ([facility]) Acetaminophen 325 MG / Hydrocodone Bitartrate 10 MG Or al Tablet [[place]] 11/10/2019 12:00:00 AM EDT eCW1 ([facility]) Acetaminophen 325 MG / Hydrocodone Bitartrate 10 MG Or al Tablet [[place]] 10/12/2019 12:00:00 AM EDT eCW1 ([facility]) Acetaminophen 325 MG / Hydrocodone Bitartrate 10 MG Or al Tablet [[place]] 09/11/2019 12:00:00 AM EDT eCW1 ([facility]) 168 HR Buprenorphine 0.01 MG/HR Transdermal Patch [[facility]] 08/20/2019 12:00:00 AM EDT eCW1 ([facility]) 168 HR Buprenorphine 0.01 MG/HR Transdermal Patch [BuT rans] 08/20/2019 12:00:00 AM EDT eCW1 ([facility]) 168 HR Buprenorphine 0.01 MG/HR Transdermal Patch [BuT rans] 08/20/2019 12:00:00 AM EDT eCW1 ([facility]) 168 HR Buprenorphine 0.01 MG/HR Transdermal Patch [BuT rans] 08/20/2019 12:00:00 AM EDT eCW1 ([facility]) 168 HR Buprenorphine 0.01 MG/HR Transdermal Patch [BuT r[place]] 08/20/2019 12:00:00 AM EDT eCW1 ([facility]) 168 HR Buprenorphine 0.01 MG/HR Transdermal Patch [BuT rans] 08/20/2019 12:00:00 AM EDT eCW1 ([facility]) 168 HR Buprenorphine 0.01 MG/HR Transdermal Patch [BuT rans] 08/20/2019 12:00:00 AM EDT eCW1 ([facility]) 168 HR Buprenorphine 0.01 MG/HR Transdermal Patch [BuT rans] 08/20/2019 12:00:00 AM EDT eCW1 ([facility]) 168 HR Buprenorphine 0.01 MG/HR Transdermal Patch [BuT rans] 08/20/2019 12:00:00 AM EDT eCW1 ([facility]) 168 HR Buprenorphine 0.01 MG/HR Transdermal Patch [BuT rans] 08/20/2019 12:00:00 AM EDT eCW1 ([facility]) 168 HR Buprenorphine 0.01 MG/HR Transdermal Patch [BuT rans] 08/20/2019 12:00:00 AM EDT eCW1 ([facility]) Acetaminophen 325 MG / Hydrocodone Bitartrate 10 MG Or al Tablet [[place]] 08/20/2019 12:00:00 AM EDT eCW1 ([facility]) 168 HR Buprenorphine 0.01 MG/HR Transdermal Patch [BuT rans] 08/20/2019 12:00:00 AM EDT eCW1 ([facility]) 168 HR Buprenorphine 0.01 MG/HR Transdermal Patch [BuT rans] 08/20/2019 12:00:00 AM EDT eCW1 ([facility]) Acetaminophen 325 MG / Hydrocodone Bitartrate 10 MG Or al Tablet [[place]] 08/13/2019 12:00:00 AM EDT eCW1 ([facility]) gabapentin 300 MG Oral Capsule 07/09/2019 12:00:00 AM EST eCW1 ([facility]) gabapentin 300 MG Oral Capsule 07/09/2019 12:00:00 AM EST eCW1 ([facility]) gabapentin 300 MG Oral Capsule 07/09/2019 12:00:00 AM EST eCW1 ([facility]) gabapentin 300 MG Oral Capsule 07/09/2019 12:00:00 AM EST eCW1 ([facility]) gabapentin 300 MG Oral Capsule 07/09/2019 12:00:00 AM EST eCW1 ([facility]) gabapentin 300 MG Oral Capsule 07/09/2019 12:00:00 AM EST eCW1 ([facility]) gabapentin 300 MG Oral Capsule 07/09/2019 12:00:00 AM EST eCW1 ([facility]) gabapentin 300 MG Oral Capsule 07/09/2019 12:00:00 AM EST eCW1 ([facility]) gabapentin 100 MG Oral Capsule 07/09/2019 12:00:00 AM EST eCW1 ([facility]) Acetaminophen 325 MG / Hydrocodone Bitartrate 10 MG Or al Tablet [[place]] 07/09/2019 12:00:00 AM EST eCW1 ([facility]) Acetaminophen 325 MG / Hydrocodone Bitartrate 10 MG Or al Tablet [[place]] 06/15/2019 12:00:00 AM EST eCW1 ([facility]) Acetaminophen 325 MG / Hydrocodone Bitartrate 10 MG Or al Tablet [[place]] 05/18/2019 12:00:00 AM EST eCW1 ([facility]) Acetaminophen 325 MG / Hydrocodone Bitartrate 10 MG Or al Tablet [[place]] 04/22/2019 12:00:00 AM EST eCW1 ([facility]) Prednisone 20 MG Oral Tablet 04/13/2019 12:00:00 AM EST eCW1 ([facility]) Albuterol Sulfate HFA 108 (90 Base) MCG/ACT 04/13/2019 12:00:00 AM EST eCW1 ([facility])
[2020-06-08] MEDS ORDERED: ASPIRIN 81 MG CHEW TABLET PO ONE (03:00)
[2020-06-08] MEDS ORDERED: GI COCKTAIL 50ML BTL(HYOSCYAMINE/MAALOX/LIDOCAINE VISCOUS)(1:3:1) PO ONE (03:00)
--- OUTSIDE RECORDS SUMMARY | 2020-06-08 03:27 | CCD ---
Author Author [facility] Organization [facility] Address Unknown Phone Unavailable Support Name Relationship Address Phone Stefanie Cesar Sr. Next Of Kin Unknown Unavailable LILY MARIANO Next Of Kin [address] [place] [address] Lelo Teixeira Next Of Kin [address] [place] [address] BETINA CESAR Next Of Kin [address] [place] [address] SADI COSBY Next Of Kin [address] [place] [address] ZAC MARIANO Next Of Kin Unknown Zac Landry Next Of Kin [address] [place] [address] Ascencion Mariscal MD Next Of Kin [address] [place] [address] Amanda WALTER, Carmen Next Of Kin [address] [place], [place] [id number] MASON Next Of Kin [address] [place] [address] STEFANIE CESAR Next Of Kin [address] [place] [id number] UNEMPLOYED Next Of Kin [address] [place] [address] Thony MCNAIR, Haley Next Of Kin [address] [facility] [place] [address] Taryn Odom Next Of Kin [address] [place] [address] [employer] [place] [address] [facility] Recommend CLUB Next Of [facility] [address] [place] [address] [employer] Next Of Kin [address] [place] [address] UE Next Of Kin Unknown Unavailable VICTOR M VANESA Next Of Kin [address] [place] [address] MARIANOLILY ECON [address] [place] [phone] Vanesa Hanson ECON [address] [place] [address] [phone] Care Team Providers Care Overlock Hemmer Name Role Phone Declan Lelo HEALTH CARE TECHNICIAN HEALTH CARE TECHNICIAN Unavailable Unavailable ROBBIN, MARYAM PA Unavailable Unavailable [...] MD, MBBS Unavailable Unavailable Neves, M Margoth PRINCIPAL SYSTEM SOFTWARE ENGINEER Unavailable Unavailable Neves, M Margoth PRINCIPAL SYSTEM SOFTWARE ENGINEER Unavailable Unavailable Neves, M Margoth PRINCIPAL SYSTEM SOFTWARE ENGINEER Unavailable Unavailable Neves, M Margoth PRINCIPAL SYSTEM SOFTWARE ENGINEER Unavailable Unavailable Neves, M Margoth PRINCIPAL SYSTEM SOFTWARE ENGINEER Unavailable Unavailable Nvees, M Margoth PRINCIPAL SYSTEM SOFTWARE ENGINEER Unavailable Unavailable Neves, M Margoth PRINCIPAL SYSTEM SOFTWARE ENGINEER Unavailable Unavailable Neves, M Margoth PRINCIPAL SYSTEM SOFTWARE ENGINEER Unavailable Unavailable Neves, M Margoth PRINCIPAL SYSTEM SOFTWARE ENGINEER Unavailable Unavailable Neves, M Margoth PRINCIPAL SYSTEM SOFTWARE ENGINEER Unavailable Unavailable Neves, M Magroth PRINCIPAL SYSTEM SOFTWARE ENGINEER Unavailable Unavailable Neves, M Margoth PRINCIPAL SYSTEM SOFTWARE ENGINEER Unavailable Unavailable Neves, M Margoth PRINCIPAL SYSTEM SOFTWARE ENGINEER Unavailable Unavailable Neves, M Margoth PRINCIPAL SYSTEM SOFTWARE ENGINEER Unavailable Unavailable Neves, M Margoth PRINCIPAL SYSTEM SOFTWARE ENGINEER Unavailable Unavailable Neves, M Margoth PRINCIPAL SYSTEM SOFTWARE ENGINEER Unavailable Unavailable Neves, M Margoth PRINCIPAL SYSTEM SOFTWARE ENGINEER Unavailable Unavailable Neves, M Margoth PRINCIPAL SYSTEM SOFTWARE ENGINEER Unavailable Unavailable Neves, M Margoth PRINCIPAL SYSTEM SOFTWARE ENGINEER Unavailable Unavailable Neves, M Margoth PRINCIPAL SYSTEM SOFTWARE ENGINEER Unavailable Unavailable Neves, M Margoth PRINCIPAL SYSTEM SOFTWARE ENGINEER Unavailable Unavailable Neves, M Margoth PRINCIPAL SYSTEM SOFTWARE ENGINEER Unavailable Unavailable Neves, M Margoth PRINCIPAL SYSTEM SOFTWARE ENGINEER Unavailable Unavailable Neves, M Margoth PRINCIPAL SYSTEM SOFTWARE ENGINEER Unavailable Unavailable Neves, M Margoth PRINCIPAL SYSTEM SOFTWARE ENGINEER Unavailable Unavailable Neves, M Margoth PRINCIPAL SYSTEM SOFTWARE ENGINEER Unavailable Unavailable Neves, M Margoth PRINCIPAL SYSTEM SOFTWARE ENGINEER Unavailable Unavailable Neves, M Margoth PRINCIPAL SYSTEM SOFTWARE ENGINEER Unavailable Unavailable Neves, M Margoth PRINCIPAL SYSTEM SOFTWARE ENGINEER Unavailable Unavailable Neves, M Margoth PRINCIPAL SYSTEM SOFTWARE ENGINEER Unavailable Unavailable Re-disclosure Warning The records that [...] is protected by Article 27-F of the [facility] Public Health law. If you continue you may have access to information: Regarding HIV / AIDS; Provided by facilities licensed or operated by the [facility] Office of Mental Health; or Provided by the [facility] Office for People With Developmental Disabilities. If such information is present, then the following [facility] mandated warning applies: This information has been [...] law may result in a fine or mcc sentence or both. A general authorization for the release of medical or other information is NOT sufficient authorization for further disc losure. Family History Family Member Name Family Member Gender Family Member Status Date o f Status Description Data Source(s) Unknown Unknown Problem MEDENT ([facility]) Encounters Encounter Providers Location Date Indications Data Source(s ) Unknown [address] [facility], [facility] [address] 05/31/2020 12:00:00 AM EST eCW1 ([facility]) Unknown [address] [facility] [address] 05/09/2020 12:00:00 AM EST eCW1 ([facility]) Unknown [address] [facility] [address] 05/02/2020 12:00:00 AM EST eCW1 ([facility]) [place] [address] [facility] [address] 04/15/2020 12:00:00 AM EST [facility]CW1 ([facility]) Unknown [address] [facility] [address] 04/14/2020 12:00:00 AM EST eCW1 ([facility]) Unknown [address] [facility] [address] 04/06/2020 12:00:00 AM EST eCW1 ([facility]) Outpatient [email or web address] 03/30/2020 01:06:50 PM EST [facility] Unknown [address] [facility] [address] 03/22/2020 12:00:00 AM EST eCW1 ([facility]) Unknown [address] [facility] [address] 03/07/2020 12:00:00 AM EST eCW1 ([facility]) Outpatient [email or web address] 02/17/2020 03:54:13 PM EDT [facility] Unknown [address] [facility] [address] 02/10/2020 12:00:00 AM EDT eCW1 ([facility]) Unknown [address] [facility] [address] 02/03/2020 12:00:00 AM EDT eCW1 ([facility]) Outpatient [email or web address] 01/04/2020 11:37:51 AM EDT [facility] Unknown [address] [facility] [place] [address] 11/25/2019 12:00:00 AM EDT eCW1 ([facility]) Outpatient [email or web address] 11/24/2019 01:36:34 PM EDT [facility] Outpatient Attender: LYNSEY CASILLAS 10/13/2019 07:35:50 PM EDT [facility] Outpatient [email or web address] 10/13/2019 10:24:45 AM EDT [facility] Unknown [address] [facility] [address] 10/09/2019 12:00:00 AM EDT eCW1 ([facility]) [address] [address] 09/22/2019 12:00:00 AM EDT eCW1 ([facility]) [address] [address] 09/21/2019 12:00:00 AM EDT eCW1 ([facility]) [facility] [address] [place] [phone] 09/10/2019 12:00:00 AM EDT eCW1 ([facility]) Outpatient Attender: RAZIA QUINN MD, MBBSReferrer: RAZIA QUINN MD, MBBRIT 09/09/2019 12:00:00 AM [facility] [address] [place] [phone] 08/24/2019 12:00:00 AM EDT eCW1 ([facility]) [facility] [address] [place] [phone] 08/20/2019 12:00:00 AM EDT eCW1 ([facility]) [facility] [address] [place] [phone] 08/20/2019 12:00:00 AM EDT eCW1 ([facility]) [facility] [address] [place] [phone] 08/12/2019 12:00:00 AM EDT eCW1 ([facility]) Outpatient Attender: VALENCIA GRAY MDReferrer: VALENCIA GRAY MD 08/09/2019 12:00:00 AM EDT [facility] [address] [facility] [address] 07/17/2019 12:00:00 AM EDT eCW1 ([facility]) Outpatient Attender: VALENCIA GRAY MDReferrer: VALENCIA GRAY MD 07/09/2019 12:00:00 AM [facility] [address] [place], [place] [id number] 07/09/2019 12:00:00 AM EST eCW1 ([facility]) Outpatient Referrer: Margoth Neves NP 07/03/2019 01:45:00 PM EST [facility] [place] [address] [place] [phone] 06/29/2019 12:00:00 AM EST eCW1 ([facility]) [facility] [address] [place] [address] 06/26/2019 12:00:00 AM EST eCW1 ([facility]) [facility] [address] [place], [place] [phone] 06/15/2019 12:00:00 AM EST eCW1 ([facility]) [facility] [address] [place], [place] [phone] 06/15/2019 12:00:00 AM EST eCW1 ([facility]) Outpatient Attender: RAZIA QUINN MD, VALENCIAReferrer: VALENCIA GRAY MD 06/08/2019 12:00:00 AM [facility] Outpatient Attender: MARYAM batista 05/25/2019 02:25:00 PM EST [facility] ([facility] [address] [place] [address] 05/18/2019 12:00:00 AM EST eCW1 ([facility]) Outpatient Attender: RAZIA QUINN MD, VALENCIAReferrer: VALENCIA GRAY MD 05/08/2019 12:00:00 AM EST [facility] Outpatient Attender: LYNSEY CASILLAS 05/05/2019 09:01:02 PM EST [facility] [address] [place] [phone] 05/04/2019 12:00:00 AM EST eCW1 ([facility]) [facility] [address] [place] [phone] 04/22/2019 12:00:00 AM EST eCW1 ([facility]) [facility] [address] [place] [phone] 04/21/2019 12:00:00 AM EST eCW1 ([facility]) Outpatient Referrer: Margoth Neves NP 04/14/2019 09:29:00 PM EST [facility] [address] [place] [phone] 04/14/2019 12:00:00 AM EST eCW1 ([facility]) [facility] [address] [place] [phone] 04/14/2019 12:00:00 AM EST eCW1 ([facility]) [facility] [address] [place] [phone] 04/13/2019 12:00:00 AM EST eCW1 ([facility]) [facility] [address] [place] [phone] 04/10/2019 12:00:00 AM EST eCW1 ([facility]) Medications Medication Brand Name Start Date Product Form Dose Route Admi nistrative Instructions Pharmacy Instructions Status Indications Reaction Description Data Source(s) Acetaminophen 325 MG / Hydrocodone Jacqueline trate 10 MG Oral Tablet [[place]] [place] 10-325 MG [place] 10-325 MG 06/01/2020 12:00:00 AM EST active [place] 10-325 MG eCW1 ([facility]) 20 mg 05/11/2020 12:00:00 AM EST capsule 180 TAKE TWO CAPSULES BY MOUTH EVERY DAY TAKE TWO CAPSULES BY MOUTH EVERY DAY SOLD: 05/15/2020 [facility] pantoprazole 40 MG Delayed Release Oral Tablet [...] DOSE = FIVE TABLETS SOLD: 05/09/2020 [facility] Acetaminophen 325 MG / Hydrocodone Jacqueline trate 10 MG Oral Tablet [[place]] [place] 10-325 MG [place] 10-325 MG 05/03/2020 12:00:00 AM EST active [place] 10-325 MG eCW1 ([facility]) Acetaminophen 325 MG / Hydrocodone Jacqueline trate 10 MG Oral Tablet [[place]] [place] 10-325 MG [place] 10-325 MG 05/03/2020 12:00:00 AM EST active [place] 10-325 MG eCW1 ([facility]) 10 mcg/hour 04/19/2020 12:00:00 AM EST patch [...] Hydrocodone Jacqueline trate 10 MG Oral Tablet [[place]] [place] 10-325 MG [place] 10-325 MG 04/07/2020 12:00:00 AM EST active [place] 10-325 MG eCW1 ([facility]) Acetaminophen 325 MG / Hydrocodone Jacqueline trate 10 MG Oral Tablet [[place]] [place] 10-325 MG [place] 10-325 MG 04/07/2020 12:00:00 AM EST active [place] 10-325 MG eCW1 ([facility]) Acetaminophen 325 MG / Hydrocodone Jacqueline trate 10 MG Oral Tablet [[place]] [place] 10-325 MG [place] 10-325 MG 04/07/2020 12:00:00 AM EST active [place] 10-325 MG eCW1 ([facility]) Acetaminophen 325 MG / Hydrocodone Jacqueline trate 10 MG Oral Tablet [[place]] [place] 10-325 MG [place] 10-325 MG 03/10/2020 12:00:00 AM EST active [place] 10-325 MG eCW1 ([facility]) Acetaminophen 325 MG / Hydrocodone Jacqueline trate 10 MG Oral Tablet [[place]] [place] 10-325 MG [place] 10-325 MG 03/10/2020 12:00:00 AM EST active [place] 10-325 MG eCW1 ([facility]) 10-325 mg 03/10/2020 12:00:00 AM EST tablet [...] Hydrocodone Jacqueline trate 10 MG Oral Tablet [[place]] [place] 10-325 MG [place] 10-325 MG 02/03/2020 12:00:00 AM EDT active [place] 10-325 MG eCW1 ([facility]) Acetaminophen 325 MG / Hydrocodone Jacqueline trate 10 MG Oral Tablet [[place]] [place] 10-325 MG [place] 10-325 MG 02/03/2020 12:00:00 AM EDT active [place] 10-325 MG eCW1 ([facility]) 10-325 mg 01/08/2020 12:00:00 AM EDT tablet [...] Hydrocodone Jacqueline trate 10 MG Oral Tablet [[place]] [place] 10-325 MG [place] 10-325 MG 11/10/2019 12:00:00 AM EDT active [place] 10-325 MG eCW1 ([facility]) 10-325 mg 10/13/2019 12:00:00 AM EDT tablet 150 TAKE ONE TABLET BY MOUTH EVERY 4 HOURS NEEDED, MAXIMUM DAILY DOSE = FIVE TABLETS TAKE ONE TABLET BY MOUTH EVERY 4 HOURS NEEDED, MAXIMUM DAILY DOSE = FIVE TABLETS SOLD: 10/13/2019 [facility] Acetaminophen 325 MG / Hydrocodone Jacqueline trate 10 MG Oral Tablet [[place]] [place] 10-325 MG [place] 10-325 MG 10/12/2019 12:00:00 AM EDT active [place] 10-325 MG eCW1 ([facility]) 20 mg 09/23/2019 12:00:00 AM EDT capsule [...] Hydrocodone Jacqueline trate 10 MG Oral Tablet [[place]] [place] 10-325 MG [place] 10-325 MG 09/11/2019 12:00:00 AM EDT active 1 tab eCW1 ([facility]) 10 mcg/hour 08/24/2019 12:00:00 AM EDT patch [...] EDT active 1 patch to skin eCW1 ([facility]) Acetaminophen 325 MG / Hydrocodone Jacqueline trate 10 MG Oral Tablet [[place]] [place] 10-325 MG [place] 10-325 MG 08/20/2019 12:00:00 AM EDT active 1 tab eCW1 ([facility]) 168 HR Buprenorphine 0.01 MG/HR Transdermal Patch [BuT rans] Butrans 10 MCG/HR Butrans 10 MCG/HR 08/20/2019 12:00:00 AM EDT 1.0 {patch_to_skin} active Butrans 10 MCG/HR eCW1 ([facility]) 168 HR Buprenorphine 0.01 MG/HR Transdermal Patch [BuT rans] Butrans 10 MCG/HR Butrans 10 MCG/HR 08/20/2019 12:00:00 AM EDT 1.0 {patch_to_skin} active Butrans 10 MCG/HR eCW1 ([facility]) 168 HR Buprenorphine 0.01 MG/HR Transdermal Patch [BuT rans] Butrans 10 MCG/HR Butrans 10 MCG/HR 08/20/2019 12:00:00 AM EDT 1.0 {patch_to_skin} active Butrans 10 MCG/HR eCW1 ([facility]) 168 HR Buprenorphine 0.01 MG/HR Transdermal Patch [BuT rans] Butrans 10 MCG/HR Butrans 10 MCG/HR 08/20/2019 12:00:00 AM EDT 1.0 {patch_to_skin} active Butrans 10 MCG/HR eCW1 ([facility]) 168 HR Buprenorphine 0.01 MG/HR Transdermal Patch [BuT rans] Butrans 10 MCG/HR Butrans 10 MCG/HR 08/20/2019 12:00:00 AM EDT 1.0 {patch_to_skin} active Butrans 10 MCG/HR eCW1 ([facility]) 168 HR Buprenorphine 0.01 MG/HR Transdermal Patch [BuT rans] Butrans 10 MCG/HR Butrans 10 MCG/HR 08/20/2019 12:00:00 AM EDT 1.0 {patch_to_skin} active Butrans 10 MCG/HR eCW1 ([facility]) 168 HR Buprenorphine 0.01 MG/HR Transdermal Patch [BuT rans] Butrans 10 MCG/HR Butrans 10 MCG/HR 08/20/2019 12:00:00 AM EDT 1.0 {patch_to_skin} active Butrans 10 MCG/HR eCW1 ([facility]) 168 HR Buprenorphine 0.01 MG/HR Transdermal Patch [BuT rans] Butrans 10 MCG/HR Butrans 10 MCG/HR 08/20/2019 12:00:00 AM EDT 1.0 {patch_to_skin} active Butrans 10 MCG/HR eCW1 ([facility]) 168 HR Buprenorphine 0.01 MG/HR Transdermal Patch [BuT rans] Butrans 10 MCG/HR Butrans 10 MCG/HR 08/20/2019 12:00:00 AM EDT 1.0 {patch_to_skin} active Butrans 10 MCG/HR eCW1 ([facility]) 168 HR Buprenorphine 0.01 MG/HR Transdermal Patch [BuT rans] Butrans 10 MCG/HR Butrans 10 MCG/HR 08/20/2019 12:00:00 AM EDT 1.0 {patch_to_skin} active Butrans 10 MCG/HR eCW1 ([facility]) 168 HR Buprenorphine 0.01 MG/HR Transdermal Patch [BuT rans] Butrans 10 MCG/HR Butrans 10 MCG/HR 08/20/2019 12:00:00 AM EDT 1.0 {patch_to_skin} active Butrans 10 MCG/HR eCW1 ([facility]) 168 HR Buprenorphine 0.01 MG/HR Transdermal Patch [BuT rans] Butrans 10 MCG/HR Butrans 10 MCG/HR 08/20/2019 12:00:00 AM EDT 1.0 {patch_to_skin} active Butrans 10 MCG/HR eCW1 ([facility]) 10-325 mg 08/15/2019 12:00:00 AM EDT tablet 150 TAKE ONE TABLET BY MOUTH EVERY 4 HOURS NEEDED, MAXIMUM DAILY DOSE = FIVE TABLETS TAKE ONE TABLET BY MOUTH EVERY 4 HOURS NEEDED, MAXIMUM DAILY DOSE = FIVE TABLETS SOLD: 08/15/2019 [facility] Acetaminophen 325 MG / Hydrocodone Jacqueline trate 10 MG Oral Tablet [[place]] [place] 10-325 MG [place] 10-325 MG 08/13/2019 12:00:00 AM EDT active 1 tab eCW1 ([facility]) 10-325 mg 07/17/2019 12:00:00 AM EDT tablet 150 TAKE ONE TABLET BY MOUTH EVERY 4 HOURS NEEDED MAXIMUM DAILY DOSE = FIVE TABLETS TAKE ONE TABLET BY MOUTH EVERY 4 HOURS NEEDED MAXIMUM DAILY DOSE = FIVE TABLETS SOLD: 07/17/2019 [facility] 100 mg 07/10/2019 12:00:00 AM EST [...] AM EST active 1 capsul e eCW1 ([facility]) gabapentin 300 MG Oral Capsule Gabapentin 300 MG Gabapentin 300 MG 07/09/2019 12:00:00 AM EST 1.0 {capsule} active G abapentin 300 MG eCW1 ([facility]) gabapentin 300 MG Oral Capsule Gabapentin 300 MG Gabapentin 300 MG 07/09/2019 12:00:00 AM EST 1.0 {capsule} suspended Gabapentin 300 MG eCW1 ([facility]) gabapentin 300 MG Oral Capsule Gabapentin 300 MG Gabapentin 300 MG 07/09/2019 12:00:00 AM EST 1.0 {capsule} active G abapentin 300 MG eCW1 ([facility]) gabapentin 300 MG Oral Capsule Gabapentin 300 MG Gabapentin 300 MG 07/09/2019 12:00:00 AM EST 1.0 {capsule} active G abapentin 300 MG eCW1 ([facility]) gabapentin 300 MG Oral Capsule Gabapentin 300 MG Gabapentin 300 MG 07/09/2019 12:00:00 AM EST active 1 capsul e eCW1 ([facility]) gabapentin 300 MG Oral Capsule Gabapentin 300 MG Gabapentin 300 MG 07/09/2019 12:00:00 AM EST 1.0 {capsule} active G abapentin 300 MG eCW1 ([facility]) gabapentin 300 MG Oral Capsule Gabapentin 300 MG Gabapentin 300 MG 07/09/2019 12:00:00 AM EST 1.0 {capsule} suspended Gabapentin 300 MG eCW1 ([facility]) Acetaminophen 325 MG / Hydrocodone Jacqueline trate 10 MG Oral Tablet [[place]] [place] 10-325 MG [place] 10-325 MG 07/09/2019 12:00:00 AM EST active 1 tab eCW1 ([facility]) gabapentin 100 MG Oral Capsule Gabapentin 100 MG Gabapentin 100 MG 07/09/2019 12:00:00 AM EST active 1 capsul e eCW1 ([facility]) gabapentin 300 MG Oral Capsule Gabapentin 300 MG Gabapentin 300 MG 07/09/2019 12:00:00 AM EST 1.0 {capsule} suspended Gabapentin 300 MG eCW1 ([facility]) gabapentin 300 MG Oral Capsule Gabapentin 300 MG Gabapentin 300 MG 07/09/2019 12:00:00 AM EST 1.0 {capsule} suspended Gabapentin 300 MG eCW1 ([facility]) gabapentin 300 MG Oral Capsule Gabapentin 300 MG Gabapentin 300 MG 07/09/2019 12:00:00 AM EST 1.0 {capsule} active G abapentin 300 MG eCW1 ([facility]) gabapentin 300 MG Oral Capsule Gabapentin 300 MG Gabapentin 300 MG 07/09/2019 12:00:00 AM EST 1.0 {capsule} active G abapentin 300 MG eCW1 ([facility]) gabapentin 300 MG Oral Capsule Gabapentin 300 MG Gabapentin 300 MG 07/09/2019 12:00:00 AM EST 1.0 {capsule} active G abapentin 300 MG eCW1 ([facility]) gabapentin 300 MG Oral Capsule Gabapentin 300 MG Gabapentin 300 MG 07/09/2019 12:00:00 AM EST 1.0 {capsule} suspended Gabapentin 300 MG eCW1 ([facility]) Acetaminophen 325 MG / Hydrocodone Jacqueline trate 10 MG Oral Tablet [[place]] [place] 10-325 MG [place] 10-325 MG 07/09/2019 12:00:00 AM EST active 1 tab eCW1 ([facility]) 10-325 mg 06/18/2019 12:00:00 AM EST tablet 150 TAKE ONE TABLET BY MOUTH EVERY 4 HOURS NEEDED, MAXIMUM DAILY DOSE = FIVE TABLETS TAKE ONE TABLET BY MOUTH EVERY 4 HOURS NEEDED, MAXIMUM DAILY DOSE = FIVE TABLETS SOLD: 06/18/2019 [facility] Acetaminophen 325 MG / Hydrocodone Jacqueline trate 10 MG Oral Tablet [[place]] [place] 10-325 MG [place] 10-325 MG 06/15/2019 12:00:00 AM EST active 1 tab eCW1 ([facility]) 0.12 % 06/01/2019 12:00:00 AM EST mouthwash [...] 05/25/2019 12:00:00 AM EST ORAL active MEDENT ([facility]) 875-125 mg 05/25/2019 12:00:00 AM EST tablet [...] Hydrocodone Jacqueline trate 10 MG Oral Tablet [[place]] [place] 10-325 MG [place] 10-325 MG 05/18/2019 12:00:00 AM EST active 1 tab eCW1 ([facility]) 10-325 mg 04/24/2019 12:00:00 AM EST tablet 135 TAKE A HALF TO ONE TABLET BY MOUTH EVERY 4-6 HOURS NEEDED MAXIMUM DAILY DOSE = 4.5 TABLETS TAKE A HALF TO ONE TABLET BY MOUTH EVERY 4-6 HOURS NEEDED MAXIMUM DAILY DOSE = 4.5 TABLETS SOLD: 04/24/2019 [facility] Acetaminophen 325 MG / Hydrocodone Jacqueline trate 10 MG Oral Tablet [[place]] [place] 10-325 MG [place] 10-325 MG 04/22/2019 12:00:00 AM EST active 1/2 to 1 tab eCW1 ([facility]) 10 mg 04/21/2019 12:00:00 AM EST tablet [...] Sulfate HFA 108 (90 Base) MCG/ACT eCW1 ([facility]) Prednisone 20 MG Oral Tablet PredniSONE 20 MG PredniSONE 20 MG 04/13/2019 12:00:00 AM EST suspended 2 tab let eCW1 ([facility]) Albuterol Sulfate HFA 108 (90 Base) MCG/ACT Albuterol Sulfate HFA 108 (90 Base) MCG/ACT 04/13/2019 12:00:00 AM EST 2.0 {puffs_as_needed} suspended Albuterol Sulfate HFA 108 (90 Base) MCG/ACT eCW1 ([facility]) Albuterol Sulfate HFA 108 (90 Base) MCG/ACT Albuterol Sulfate HFA 108 (90 Base) MCG/ACT 04/13/2019 12:00:00 AM EST 2.0 {puffs_as_needed} suspended Albuterol Sulfate HFA 108 (90 Base) MCG/ACT eCW1 ([facility]) Albuterol Sulfate HFA 108 (90 Base) MCG/ACT Albuterol Sulfate HFA 108 (90 Base) MCG/ACT 04/13/2019 12:00:00 AM EST 2.0 {puffs_as_needed} suspended Albuterol Sulfate HFA 108 (90 Base) MCG/ACT eCW1 ([facility]) Albuterol Sulfate HFA 108 (90 Base) MCG/ACT Albuterol Sulfate HFA 108 (90 Base) MCG/ACT 04/13/2019 12:00:00 AM EST 2.0 {puffs_as_needed} suspended Albuterol Sulfate HFA 108 (90 Base) MCG/ACT eCW1 ([facility]) Prednisone 20 MG Oral Tablet PredniSONE 20 MG PredniSONE 20 MG 04/13/2019 12:00:00 AM EST active 2 tablet eCW1 ([facility]) Prednisone 20 MG Oral Tablet PredniSONE 20 MG PredniSONE 20 MG 04/13/2019 12:00:00 AM EST suspended 2 tab let eCW1 ([facility]) Albuterol Sulfate HFA 108 (90 Base) MCG/ACT Albuterol Sulfate HFA 108 (90 Base) MCG/ACT 04/13/2019 12:00:00 AM EST 2.0 {puffs_as_needed} suspended Albuterol Sulfate HFA 108 (90 Base) MCG/ACT eCW1 ([facility]) Prednisone 20 MG Oral Tablet PredniSONE 20 MG PredniSONE 20 MG 04/13/2019 12:00:00 AM EST 2.0 {tablet} suspended PredniSONE 20 MG eCW1 ([facility]) Albuterol Sulfate HFA 108 (90 Base) MCG/ACT Albuterol Sulfate HFA 108 (90 Base) MCG/ACT 04/13/2019 12:00:00 AM EST 2.0 {puffs_as_needed} suspended Albuterol Sulfate HFA 108 (90 Base) MCG/ACT eCW1 ([facility]) Prednisone 20 MG Oral Tablet PredniSONE 20 MG PredniSONE 20 MG 04/13/2019 12:00:00 AM EST suspended 2 tab let eCW1 ([facility]) Prednisone 20 MG Oral Tablet PredniSONE 20 MG PredniSONE 20 MG 04/13/2019 12:00:00 AM EST 2.0 {tablet} suspended PredniSONE 20 MG eCW1 ([facility]) Prednisone 20 MG Oral Tablet PredniSONE 20 MG PredniSONE 20 MG 04/13/2019 12:00:00 AM EST 2.0 {tablet} suspended PredniSONE 20 MG eCW1 ([facility]) Prednisone 20 MG Oral Tablet PredniSONE 20 MG PredniSONE 20 MG 04/13/2019 12:00:00 AM EST 2.0 {tablet} suspended PredniSONE 20 MG eCW1 ([facility]) Prednisone 20 MG Oral Tablet PredniSONE 20 MG PredniSONE 20 MG 04/13/2019 12:00:00 AM EST 2.0 {tablet} suspended PredniSONE 20 MG eCW1 ([facility]) Prednisone 20 MG Oral Tablet PredniSONE 20 MG PredniSONE 20 MG 04/13/2019 12:00:00 AM EST 2.0 {tablet} suspended PredniSONE 20 MG eCW1 ([facility]) Prednisone 20 MG Oral Tablet PredniSONE 20 MG PredniSONE 20 MG 04/13/2019 12:00:00 AM EST 2.0 {tablet} suspended PredniSONE 20 MG eCW1 ([facility]) Albuterol Sulfate HFA 108 (90 Base) MCG/ACT Albuterol Sulfate HFA 108 (90 Base) MCG/ACT 04/13/2019 12:00:00 AM EST suspended 2 puffs as needed eCW1 ([facility]) Albuterol Sulfate HFA 108 (90 Base) MCG/ACT Albuterol Sulfate HFA 108 (90 Base) MCG/ACT 04/13/2019 12:00:00 AM EST suspended 2 puffs as needed eCW1 ([facility]) Prednisone 20 MG Oral Tablet PredniSONE 20 MG PredniSONE 20 MG 04/13/2019 12:00:00 AM EST 2.0 {tablet} suspended PredniSONE 20 MG eCW1 ([facility]) 20 mg 04/13/2019 12:00:00 AM EST tablet 10 TAKE TWO TABLETS BY MOUTH EVERY DAY FOR 5 DAYS TAKE TWO TABLETS BY MOUTH EVERY DAY FOR 5 DAYS SOLD: 019 [facility] Albuterol Sulfate HFA 108 (90 Base) MCG/ACT Albuterol Sulfate HFA 108 (90 Base) MCG/ACT 04/13/2019 12:00:00 AM EST active 2 puffs as needed eCW1 ([facility]) Albuterol Sulfate HFA 108 (90 Base) MCG/ACT Albuterol Sulfate HFA 108 (90 Base) MCG/ACT 04/13/2019 12:00:00 AM EST 2.0 {puffs_as_needed} suspended Albuterol Sulfate HFA 108 (90 Base) MCG/ACT eCW1 ([facility]) Albuterol Sulfate HFA 108 (90 Base) MCG/ACT Albuterol Sulfate HFA 108 (90 Base) MCG/ACT 04/13/2019 12:00:00 AM EST 2.0 {puffs_as_needed} suspended Albuterol Sulfate HFA 108 (90 Base) MCG/ACT eCW1 ([facility]) Prednisone 20 MG Oral Tablet PredniSONE 20 MG PredniSONE 20 MG 04/13/2019 12:00:00 AM EST 2.0 {tablet} suspended PredniSONE 20 MG eCW1 ([facility]) 90 mcg/actuation 04/13/2019 12:00:00 AM EST HFA aerosol inha ler 18 INHALE TWO PUFFS BY MOUTH EVERY 6 HOURS NEEDED INHALE TWO PUFFS BY MOUTH EVERY 6 HOURS NEEDED SOLD: 04/16/2019 [facility] Albuterol Sulfate HFA 108 (90 Base) MCG/ACT Albuterol Sulfate HFA 108 (90 Base) MCG/ACT 04/13/2019 12:00:00 AM EST suspended 2 puffs as needed eCW1 ([facility]) Albuterol Sulfate HFA 108 (90 Base) MCG/ACT Albuterol Sulfate HFA 108 (90 Base) MCG/ACT 04/13/2019 12:00:00 AM EST 2.0 {puffs_as_needed} suspended Albuterol Sulfate HFA 108 (90 Base) MCG/ACT eCW1 ([facility]) Albuterol Sulfate HFA 108 (90 Base) MCG/ACT Albuterol Sulfate HFA 108 (90 Base) MCG/ACT 04/13/2019 12:00:00 AM EST suspended 2 puffs as needed eCW1 ([facility]) Albuterol Sulfate HFA 108 (90 Base) MCG/ACT Albuterol Sulfate HFA 108 (90 Base) MCG/ACT 04/13/2019 12:00:00 AM EST 2.0 {puffs_as_needed} suspended Albuterol Sulfate HFA 108 (90 Base) MCG/ACT eCW1 ([facility]) Prednisone 20 MG Oral Tablet PredniSONE 20 MG PredniSONE 20 MG 04/13/2019 12:00:00 AM EST 2.0 {tablet} suspended PredniSONE 20 MG eCW1 ([facility]) Albuterol Sulfate HFA 108 (90 Base) MCG/ACT Albuterol Sulfate HFA 108 (90 Base) MCG/ACT 04/13/2019 12:00:00 AM EST 2.0 {puffs_as_needed} suspended Albuterol Sulfate HFA 108 (90 Base) MCG/ACT eCW1 ([facility]) Prednisone 20 MG Oral Tablet PredniSONE 20 MG PredniSONE 20 MG 04/13/2019 12:00:00 AM EST 2.0 {tablet} suspended PredniSONE 20 MG eCW1 ([facility]) Prednisone 20 MG Oral Tablet PredniSONE 20 MG PredniSONE 20 MG 04/13/2019 12:00:00 AM EST suspended 2 tab let eCW1 ([facility]) Prednisone 20 MG Oral Tablet PredniSONE 20 MG PredniSONE 20 MG 04/13/2019 12:00:00 AM EST 2.0 {tablet} suspended PredniSONE 20 MG eCW1 ([facility]) 20 mg 04/08/2019 12:00:00 AM EST capsule [...] type / Coverage type Policy ID Covered republican ID Covered republican's relationship to baig Policy Baig Plan Information EMEDNY [id number] SP [id number] [id number] SP [id number] [facility] O [id number] S [id number] PROGRESSIVE CO NO FAULT [id number] SP [id number] [facility] COMMUNITY PLAN MCDHMO [id number] SP [id number] [facility] COMMUNITY PLAN MCDHMO [id number] SP [id number] [facility] PLAN MCDHMO [id number] SP [id number] PROGRESSIVE CO NO FAULT [id number] SP [id number] [facility] MEDICAID [id number] Shanita [id number] Managed Care - [facility] P [id number] S [id number] Medicaid S [id number] S [id number] [facility] I [id number] Self [id number] [facility] I [id number] Self [id number] MEDICAID [id number] SP [id number] [facility] COMMUNITY PLAN MCDHMO [id number] SP [id number] [facility] I [id number] Self [id number] ANSI-Medicaid [id number] ANSI-Medicaid [id number] ANSI-Medicaid [id number] ANSI-Medicaid [id number] [facility] Health Maintenance Organization ([facility]) [id number] Self [id number] ANSI-Medicaid [id number] ANSI-Medicaid [id number] ANSI-Medicaid [id number] ANSI-Medicaid [id number] ANSI-Medicaid [id number] ANSI-Medicaid [id number] ANSI-Medicaid [id number] ANSI-Medicaid [id number] ANSI-Medicaid [id number] ANSI-Medicaid [id number] ANSI-Medicaid [id number] ANSI-Medicaid [id number] [facility] Plan Medicaid F [id number] SELF [id number] ANSI-Medicaid [id number] ANSI-Medicaid [id number] [facility] Care [facility] P [id number] S [id number] ANSI-Medicaid [id number] ANSI-Medicaid [id number] ANSI-Medicaid [id number] ANSI-Medicaid [id number] ANSI-Medicaid [id number] ANSI-Medicaid [id number] [facility] [id number] SP [id number] ANSI-Medicaid [id number] ANSI-Medicaid [id number] [facility] MEDICAID PI PI ANSI-Medicaid [id number] ANSI-Medicaid [id number] ANSI-Medicaid [id number] ANSI-Medicaid [id number] ANSI-Medicaid [id number] ANSI-Medicaid [id number] Managed Care - [facility] P [id number] S [id number] [facility] Comm Plan Medicaid F [id number] SELF [id number] ANSI-Medicaid [id number] ANSI-Medicaid [id number] ANSI-Medicaid [id number] ANSI-Medicaid [id number] Medicaid S [id number] S [id number] [facility] Comm Plan Medicaid F [id number] SELF [id number] ANSI-Medicaid [id number] ANSI-Medicaid [id number] ANSI-Medicaid [id number] ANSI-Medicaid [id number] ANSI-Medicaid [id number] ANSI-Medicaid [id number] MEDICAID M [id number] S [id number] UN COMMUNITY PLAN [facility] [id number] SP [id number] ANSI-Medicaid [id number] ANS-Medicaid [id number] ANS-Medicaid [id number] [facility] [id number] [facility] Comm Plan Medicaid F [id number] SELF [id number] [employer] COMMUNITY PLAN MCDHMO [id number] SP [id number] SELF PAY ONLY [id number] SP [id number] [employer] COMMUNITY PLAN MCDHMO [id number] SP [id number] [facility] Comm Plan Medicaid F [id number] SELF [id number] Medicaid [facility] Healthcare S D [id number] SELF [id number] [facility] Comm Plan Medicaid F [id number] SELF [id number] [employer] [facility]([place]) O [id number] S [id number] United Healthcare Essential Plan P [id number] S [id number] Medicaid S [id number] S [id number] Managed Care - Community Plan United [employer] P [id number] S [id number] Self Pay P [id number] S [id number] [employer]([place]) O [id number] S [id number] Managed Care - Community Plan [employer] P [id number] S [id number] Medicaid S [id number] S [id number] [employer] COMMUNITY PLAN MCDHMO [id number] SP [id number] [employer] COMMUNITY PLAN MCDHMO [id number] SP [id number] United CR/Community [facility] (HMO) Self UNHC AMERICHOICE XIX -HMO [id number] 18 [id number] Managed Care - Community Plan [employer] P [id number] S [id number] Managed Care - [facility] P [id number] S [id number] Medicaid S [id number] S [id number] Managed Care - [facility] P [id number] S [id number] Medicaid S [id number] S [id number] [facility]) P [id number] S [id number] [facility] COMMUNITY [facility] [id number] SP [id number] Problems, Conditions, and Diagnoses Code Display Name Description Problem Type Effective Dates Data Source(s) G63 [id number] 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 Pt. Level 3 08/20/2019 12:00:00 AM E DT eCW1 ([facility]) ESTABILISHED PATIENT [facility] CHARGE 020 12:00:00 AM EST eCW1 ([facility]) Results ID Date Data Source [id number] 05/23/2020 12:00:00 AM EST [facility] Name Value Range Interpretation Code Description Data Lizy rce(s) Supporting Document(s) SARS-CoV2 Rapid Antigen Negative [facility] and reported by [facility]. Procedure Social History Code Duration Value Status Description Data Source(s ) Smoking 04/15/2020 12:00:00 AM EST Current Smoker completed Curre nt Smoker eCW1 ([facility]) Smoking 04/15/2020 12:00:00 AM EST Current Smoker completed Curre nt Smoker eCW1 ([facility]) Smoking 04/15/2020 12:00:00 AM EST Current Smoker completed Curre nt Smoker eCW1 ([facility]) Smoking 04/15/2020 12:00:00 AM EST Current Smoker completed Curre nt Smoker eCW1 ([facility]) Smoking 04/15/2020 12:00:00 AM EST Current Smoker completed Curre nt Smoker eCW1 ([facility]) Smoking 08/20/2019 12:00:00 AM EDT Current Smoker completed Curre nt Smoker eCW1 ([facility]) Smoking 08/20/2019 12:00:00 AM EDT Current Smoker completed Curre nt Smoker eCW1 ([facility]) Smoking 08/20/2019 12:00:00 AM EDT Current Smoker completed Curre nt Smoker eCW1 ([facility]) Smoking 08/20/2019 12:00:00 AM EDT Current Smoker completed Curre nt Smoker eCW1 ([facility]) Smoking 08/20/2019 12:00:00 AM EDT Current Smoker completed Curre nt Smoker eCW1 ([facility]) Smoking 08/20/2019 12:00:00 AM EDT Current Smoker completed Curre nt Smoker eCW1 ([facility]) Smoking 08/20/2019 12:00:00 AM EDT Current Smoker completed Curre nt Smoker eCW1 ([facility]) Vital Signs ID Date Data Source UNK Name Value Range Interpretation Code Description Data Source(s) Diastolic blood pressure 71 mm[Hg] 71 mm[Hg] eCW1 ([facility]) Systolic blood pressure 141 mm[Hg] 141 mm[Hg] e CW1 ([facility]) Body temperature 98.0 [degF] 98.0 [degF] eCW1 ( [facility]) Respiratory rate 18 /min 18 /min [facility] Heart rate 92 /min 92 /min eCW1 ([facility]) Body mass index (BMI) [Ratio] 33.41 kg/m2 33.41 kg/m2 W1 ([facility]) Body height 65 [in_i] 65 [in_i] eCW1 ([facility]) Body weight 200.8 [lb_av] 200.8 [lb_av] eCW1 ([facility]) Diastolic blood pressure 73 mm[Hg] 73 mm[Hg] eCW1 ([facility]) Systolic blood pressure 121 mm[Hg] 121 mm[Hg] e CW1 ([facility]) Body temperature 98.1 [degF] 98.1 [degF] eCW1 ( [facility]) Respiratory rate 16 /min 16 /min eCW1 [facility] Heart rate 77 /min 77 /min eCW1 ([facility]) Body mass index (BMI) [Ratio] 32.78 kg/m2 32.78 kg/m2 eCW1 ([facility]) Body height 65 [in_us] 65 [in_us] eCW1 ([facility]) Body weight Measured 197 [lb_av] 197 [lb_av] eC W1 ([facility]) Diastolic blood pressure 81 mm[Hg] 81 mm[Hg] eCW1 ([facility]) Systolic blood pressure 141 mm[Hg] 141 mm[Hg] e CW1 ([facility]) Body temperature 98.0 [degF] 98.0 [degF] eCW1 ( [facility]) Respiratory rate 18 /min 18 /min [facility]CW[facility] Heart rate 79 /min 79 /min eCW1 ([facility]) Body mass index (BMI) [Ratio] 31.95 kg/m2 31.95 kg/m2 eCW1 ([facility]) Body height 65 [in_us] 65 [in_us] eCW1 ([facility]) Body weight Measured 192 [lb_av] 192 [lb_av] eC W1 ([facility]) Body mass index (BMI) [Ratio] 33.3 kg/m2 33.3 k g/m2 MEDENT ([facility], [facility]) Body height 65 [in_i] 65 [in_i] MEDENT ([facility], [facility]) 5'5" Body weight 200.00 [lb_av] 200.00 [lb_av] MEDEN T ([facility], [facility]) Body temperature 98.3 [degF] 98.3 [degF] MEDENT ([facility], [facility]) Oxygen saturation in Arterial blood by Pulse oximetry 98 % 98 % MEDENT ([facility], [facility]) Respiratory rate 16 /min 16 /min MEDENT ( [facility], [facility]) Heart rate 82 /min 82 /min MEDENT ([facility], [facility]) Diastolic blood pressure 84 mm[Hg] 84 mm[Hg] MEDENT ([facility], [facility]) Systolic blood pressure 126 mm[Hg] 126 mm[Hg] M EDENT ([facility], [facility]) Respiratory rate 18 /min 18 /min eCW1 [facility] Heart rate 85 /min 85 /min eCW1 ([facility]) Body mass index (BMI) [Ratio] 32.91 kg/m2 32.91 kg/m2 W1 ([facility]) Body height 65 [in_us] 65 [in_us] eCW1 ([facility]) Body weight Measured 197.8 [lb_av] 197.8 [lb_av ] eCW1 ([facility]) Diastolic blood pressure 72 mm[Hg] 72 mm[Hg] eCW1 ([facility]) Systolic blood pressure 140 mm[Hg] 140 mm[Hg] e CW1 ([facility]) Body temperature 97.9 [degF] 97.9 [degF] eCW1 ( [facility]) Diastolic blood pressure 73 mm[Hg] 73 mm[Hg] eCW1 ([facility]) Systolic blood pressure 121 mm[Hg] 121 mm[Hg] e CW1 ([facility]) Body temperature 98.4 [degF] 98.4 [degF] eCW1 ( [facility]) Respiratory rate 18 /min 18 /min [facility]CW[facility] Heart rate 78 /min 78 /min eCW1 ([facility]) Body mass index (BMI) [Ratio] 33.11 kg/m2 33.11 kg/m2 eCW1 ([facility]) Body height 65 [in_us] 65 [in_us] eCW1 ([facility]) Body weight Measured 199 [lb_av] 199 [lb_av] eC W1 ([facility]) Patient Treatment Plan of Care Planned Activity Planned Date Details Description Data Source (s) Acetaminophen 325 MG / Hydrocodone Bitartrate 10 MG Or al Tablet [[place]] 06/01/2020 12:00:00 AM EST eCW1 ([facility]) Acetaminophen 325 MG / Hydrocodone Bitartrate 10 MG Or al Tablet [[place]] 05/03/2020 12:00:00 AM EST eCW1 ([facility]) Acetaminophen 325 MG / Hydrocodone Bitartrate 10 MG Or al Tablet [[place]] 05/03/2020 12:00:00 AM EST eCW1 ([facility]) Acetaminophen 325 MG / Hydrocodone Bitartrate 10 MG Or al Tablet [[place]] 04/07/2020 12:00:00 AM EST eCW1 ([facility]) Acetaminophen 325 MG / Hydrocodone Bitartrate 10 MG Or al Tablet [[place]] 04/07/2020 12:00:00 AM EST eCW1 ([facility]) Acetaminophen 325 MG / Hydrocodone Bitartrate 10 MG Or al Tablet [[place]] 04/07/2020 12:00:00 AM EST eCW1 ([facility]) Acetaminophen 325 MG / Hydrocodone Bitartrate 10 MG Or al Tablet [[place]] 03/10/2020 12:00:00 AM EST eCW1 ([facility]) Acetaminophen 325 MG / Hydrocodone Bitartrate 10 MG Or al Tablet [[place]] 03/10/2020 12:00:00 AM EST eCW1 ([facility]) Acetaminophen 325 MG / Hydrocodone Bitartrate 10 MG Or al Tablet [[place]] 02/03/2020 12:00:00 AM EDT eCW1 ([facility]) Acetaminophen 325 MG / Hydrocodone Bitartrate 10 MG Or al Tablet [[place]] 02/03/2020 12:00:00 AM EDT eCW1 ([facility]) Acetaminophen 325 MG / Hydrocodone Bitartrate 10 MG Or al Tablet [[place]] 11/10/2019 12:00:00 AM EDT eCW1 ([facility]) Acetaminophen 325 MG / Hydrocodone Bitartrate 10 MG Or al Tablet [[place]] 10/12/2019 12:00:00 AM EDT eCW1 ([facility]) Acetaminophen 325 MG / Hydrocodone Bitartrate 10 MG Or al Tablet [[place]] 09/11/2019 12:00:00 AM EDT eCW1 ([facility]) 168 HR Buprenorphine 0.01 MG/HR Transdermal Patch [[facility] [place]] 08/20/2019 12:00:00 AM EDT eCW1 ([facility]) 168 HR Buprenorphine 0.01 MG/HR Transdermal Patch [[facility]] 08/20/2019 12:00:00 AM EDT eCW1 ([facility]) 168 HR Buprenorphine 0.01 MG/HR Transdermal Patch [[facility]] 08/20/2019 12:00:00 AM EDT eCW1 ([facility]) 168 HR Buprenorphine 0.01 MG/HR Transdermal Patch [[facility]] 08/20/2019 12:00:00 AM EDT eCW1 ([facility]) 168 HR Buprenorphine 0.01 MG/HR Transdermal Patch [[facility]] 08/20/2019 12:00:00 AM EDT eCW1 ([facility]) 168 HR Buprenorphine 0.01 MG/HR Transdermal Patch [[facility]] 08/20/2019 12:00:00 AM EDT eCW1 ([facility]) 168 HR Buprenorphine 0.01 MG/HR Transdermal Patch [[facility]] 08/20/2019 12:00:00 AM EDT eCW1 ([facility]) 168 HR Buprenorphine 0.01 MG/HR Transdermal Patch [[facility]] 08/20/2019 12:00:00 AM EDT eCW1 ([facility]) 168 HR Buprenorphine 0.01 MG/HR Transdermal Patch [[facility]] 08/20/2019 12:00:00 AM EDT eCW1 ([facility]) 168 HR Buprenorphine 0.01 MG/HR Transdermal Patch [[facility]] 08/20/2019 12:00:00 AM EDT eCW1 ([facility]) 168 HR Buprenorphine 0.01 MG/HR Transdermal Patch [[facility]] 08/20/2019 12:00:00 AM EDT eCW1 ([facility]) Acetaminophen 325 MG / Hydrocodone Bitartrate 10 MG Or al Tablet [[place]] 08/20/2019 12:00:00 AM EDT eCW1 ([facility]) 168 HR Buprenorphine 0.01 MG/HR Transdermal Patch [[facility]] 08/20/2019 12:00:00 AM EDT eCW1 ([facility]) 168 HR Buprenorphine 0.01 MG/HR Transdermal Patch [[facility]] 08/20/2019 12:00:00 AM EDT eCW1 ([facility]) Acetaminophen 325 MG / Hydrocodone Bitartrate 10 MG Or al Tablet [[place]] 08/13/2019 12:00:00 AM EDT eCW1 ([facility]) gabapentin 300 MG Oral Capsule 07/09/2019 12:00:00 AM EST eCW1 ([facility]) gabapentin 300 MG Oral Capsule 07/09/2019 12:00:00 AM EST eCW1 ([facility]) gabapentin 300 MG Oral Capsule 07/09/2019 12:00:00 AM EST eCW1 ([facility]) gabapentin 300 MG Oral Capsule 07/09/2019 12:00:00 AM EST eCW1 ([facility]) gabapentin 300 MG Oral Capsule 07/09/2019 12:00:00 AM EST eCW1 ([facility]) gabapentin 300 MG Oral Capsule 07/09/2019 12:00:00 AM EST eCW1 ([facility]) gabapentin 300 MG Oral Capsule 07/09/2019 12:00:00 AM EST eCW1 ([facility]) gabapentin 300 MG Oral Capsule 07/09/2019 12:00:00 AM EST eCW1 ([facility]) gabapentin 100 MG Oral Capsule 07/09/2019 12:00:00 AM EST eCW1 ([facility]) Acetaminophen 325 MG / Hydrocodone Bitartrate 10 MG Or al Tablet [[place]] 07/09/2019 12:00:00 AM EST eCW1 ([facility]) Acetaminophen 325 MG / Hydrocodone Bitartrate 10 MG Or al Tablet [[place]] 06/15/2019 12:00:00 AM EST eCW1 ([facility]) Acetaminophen 325 MG / Hydrocodone Bitartrate 10 MG Or al Tablet [[place]] 05/18/2019 12:00:00 AM EST eCW1 ([facility]) Acetaminophen 325 MG / Hydrocodone Bitartrate 10 MG Or al Tablet [[place]] 04/22/2019 12:00:00 AM EST eCW1 ([facility]) Prednisone 20 MG Oral Tablet 04/13/2019 12:00:00 AM EST eCW1 ([facility]) Albuterol Sulfate HFA 108 (90 Base) MCG/ACT 04/13/2019 12:00:00 AM EST eCW1 ([facility])
[2020-06-08 03:30] LABS: BASO # 0.1 10^3/uL (0.0-0.2); BASO % 0.8 % (0.0-1.0); EOS # 0.6 10^3/uL (0.0-0.5); EOS % 7.1 % (0.0-3.0); HEMATOCRIT 31.3 % (36.0-47.0); HEMOGLOBIN 8.5 g/dl (12.0-15.5); LYMPH # 3.7 10^3/uL (1.5-5.0); MEAN CORPUSCULAR HEMOGLOBIN 17.2 pg (27.0-33.0); MEAN CORPUSCULAR HGB CONC 27.2 g/dl (32.0-36.5); MEAN CORPUSCULAR VOLUME 63.5 fl (80.0-96.0); MONO # 0.9 10^3/uL (0.0-0.8); MONO % 10.2 % (0.0-5.0); NEUTROPHILS # 3.5 10^3/uL (1.5-8.5); NEUTROPHILS % 39.7 % (36.0-66.0); PLATELET COUNT, AUTOMATED 589 10^3/uL (150-450); RED BLOOD COUNT 4.93 10^6/uL (4.00-5.40); WHITE BLOOD COUNT 8.7 10^3/uL (4.0-10.0)
--- NOTE | 2020-06-08 03:37 | REPVR ---
PROCEDURE INFORMATION: Exam: XR Chest, 1 View Exam date and time: 06/08/2020 3:14 AM Age: 39 years old Clinical indication: Chest pain; Type not specified TECHNIQUE: Imaging protocol: XR of the chest Views: 1 view. COMPARISON: CR PORTABLE CHEST X-RAY 04/13/2020 10:36 PM FINDINGS: Tubes, catheters and devices: A loop recorder is noted over the left chest. Lungs: There are no interval infiltrates. Pleural spaces: Unremarkable. No pleural effusion. No pneumothorax. Heart/Mediastinum: The heart and mediastinum are unchanged. Bones/joints: Unremarkable. Soft tissues: There is decreased penetration of the left chest compared to the right. IMPRESSION: Stable negative chest since 04/13/2020. Electronically signed by: Solomon Montero On 06/08/2020 03:36:46 AM
[2020-06-08 03:54] LABS: BLOOD UREA NITROGEN 7 MG/DL (7-18); CALCIUM LEVEL 8.8 MG/DL (8.5-10.1); CARBON DIOXIDE LEVEL 23 MEQ/L (21-32); CHLORIDE LEVEL 107 MEQ/L (98-107); CK-MB VALUE MASS 2.5 NG/ML (<3.6); CPK CREATINE PHOSPHOKINASE 101 U/L (26-192); CREATININE FOR GFR 0.63 MG/DL (0.55-1.30); GLOMERULAR FILTRATION RATE > 60.0 (>60); GLUCOSE, FASTING 115 MG/DL (70-100); MB/CK RELATIVE INDEX 2.48 (< OR =4); POTASSIUM SERUM 4.1 MEQ/L (3.5-5.1); SODIUM LEVEL 140 MEQ/L (136-145)
[2020-06-08] MEDS ORDERED: NITROGLYCERIN 0.4 MG SUBL TABLET As Ordered ONE (04:00)
[2020-06-08] MEDS: NITROGLYCERIN 0.4 MG SUBL TABLET SL PRN ×2 (04:05→04:16)
[2020-06-08] MEDS ORDERED: ONDANSETRON 4MG/2ML VIAL As Ordered ONE (04:12)
[2020-06-08] MEDS ORDERED: ONDANSETRON 4MG/2ML VIAL IV ONE (04:15)
[2020-06-08 04:16] VITALS: BP 180/96
[2020-06-08] MEDS: MORPHINE 4 MG/ML 1ML VIAL/SYRINGE (J2270) IV PRN ×2 (04:33→06:04)
[2020-06-08] MEDS ORDERED: BAYE325T13 PO (05:17)
[2020-06-08] MEDS ORDERED: NORCO (05:17)
[2020-06-08] MEDS ORDERED: BUTR10DI TOP (05:17)
[2020-06-08] MEDS ORDERED: LISI20TA33 PO (05:19)
[2020-06-08] MEDS ORDERED: HYDR-4517 PO (05:19)
[2020-06-08] MEDS ORDERED: PANT40TA29 PO (05:19)
[2020-06-08 05:44] LABS: CK-MB VALUE MASS 2.7 NG/ML (<3.6); CPK CREATINE PHOSPHOKINASE 76 U/L (26-192); MB/CK RELATIVE INDEX 3.55 (< OR =4); TROPONIN I 0.18 NG/ML (< 0.10)
[2020-06-08] MEDS ORDERED: PANTOPRAZOLE 40MG VIAL (C9113 PER 1) IV ONE ×2 (06:15→07:45)
[2020-06-08] MEDS ORDERED: FAMOTIDINE IV BAG 20 MG in IV 1 EA IV ONE (06:15)
[2020-06-08] MEDS ORDERED: SUCRALFATE 1 GM TAB PO ONE (06:15)
[2020-06-08] MEDS ORDERED: ISOVUE-370 76% 100ML VIAL As Ordered ONE (06:17)
[2020-06-08 06:49] LABS: AMYLASE 53 U/L (25-115); LIPASE 139 U/L (73-393)
--- NOTE | 2020-06-08 07:18 | REPVR ---
PROCEDURE INFORMATION: Exam: CT Angiography Chest With Contrast Exam date and time: 06/08/2020 6:07 AM Age: 39 years old Clinical indication: Chest pain; Type not specified; Additional info: Chest/upper abd pain TECHNIQUE: Imaging protocol: Computed tomographic angiography of the chest with contrast. 3D rendering (Not supervised by radiologist): MIP and/or 3D reconstructed images were created by the technologist. Radiation optimization: All CT scans at this facility use at least one of these dose optimization techniques: automated exposure control; mA and/or kV adjustment per patient size (includes targeted exams where dose is matched to clinical indication); or iterative reconstruction. Contrast material: ISO; Contrast volume: 100 ml; Contrast route: INTRAVENOUS (IV); COMPARISON: 1. CT ANGIO CHEST 04/13/2020 11:[address] ABD PELVIS W/O CONTRAST 10/17/2015 8:30:20 PM FINDINGS: Pulmonary arteries: No emboli are seen to the level of the lobar pulmonary arterial vessels. There is limited sensitivity with this degree of arterial opacification. One or more segmental/subsegmental emboli cannot be excluded. Aorta: See "Heart" finding. Lungs: An elliptical 3 mm smooth peripheral lesion is seen in the right upper lobe on axial image 34. A 4 mm calcified granuloma is seen posterior to the right mainstem bronchus on axial image 41. Pleural spaces: Unremarkable. No pneumothorax. No pleural effusion. Heart: The RV/LV ratio is 38/47 mm. A ratio greater than 1 is suspicious for right heart strain. The pulmonary artery density is 188 units. The adjacent aorta measures 190 units. Mediastinal space: A small hiatal hernia is present. Lymph nodes: There are multiple small calcified lymph nodes in the mediastinum, consistent with remote granulomatous organism exposure. Liver: Upper abdomen: The visualized portions of the liver, pancreas, adrenal glands, and spleen show no other significant abnormalities. Adrenal glands: Thickening of the lateral leaflet of the left adrenal gland measuring 1 cm on axial image 180 and may reflect presence of a nodule but is incompletely assessed on this study. There is no similar lesion on the comparison noncontrast study on this may represent a partial volume artifact. Bones/joints: Unremarkable. No acute fracture. Soft tissues: Unremarkable. IMPRESSION: 1. An elliptical 3 mm smooth peripheral lesion is seen in the right upper lobe on axial image 34. A 4 mm calcified granuloma is seen posterior to the right mainstem bronchus on axial image 41. 2. No emboli are seen to the level of the lobar pulmonary arterial vessels. There is limited sensitivity with this degree of arterial opacification. One or more segmental/subsegmental emboli cannot be excluded. RECOMMENDATION: As per Fleischner Society guidelines for follow-up and management of pulmonary nodules: For patients at low risk (minimal or absent history of smoking and of other known risk factors), no follow-up needed. For patients at high risk (history of smoking or of other known risk factors), recommend follow-up chest CT at 12 months; if unchanged, no further follow-up needed. COMMENTS: Consistent with the [employer]'s Incidental Findings Committee white paper (J Am Patrick Radiol 2017): Any incidental adrenal lesion less than or equal to 1 cm is likely benign. No follow-up imaging is recommended for these lesions per consensus recommendations based on imaging criteria. Further lab evaluation could be pursued if warranted based on clinical findings. Electronically signed by: Zoran Carbajal On 06/08/2020 07:18:04 AM
--- NOTE | 2020-06-08 07:26 | ECGEPIP ---
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
--- NOTE | 2020-06-08 07:27 | ECGEPIP ---
[facility] - ED Test Date: 2020-06-08 Pat Name: EAMON FREEMAN Department: Room: - Gender: Female Risk Control Manager: SHARA : 1980 Requested By: MILO Michele Order Number: [id number] Reading MD: Joel Anne Measurements Intervals [place] Rate: 72 P: 6 ME: 188 QRS: 29 QRSD: 106 T: 19 QT: 410 QTc: 450 Interpretive Statements SINUS RHYTHM POSSIBLE RIGHT VENTRICULAR CONDUCTION DELAY Nonspecific ST-T wave abnormalities Similar to tracing done tracing done at 0240 on same date Electronically Signed on 06-08-2020 7:26:45 EST by Joel Anne
[2020-06-08] MEDS ORDERED: HYDROMORPHONE HCL 0.5 MG/ 0.5 ML SYRINGE (J1170 PER 1) IV PRN (07:45)
--- NOTE | 2020-06-08 07:51 | REPVR ---
PROCEDURE INFORMATION: Exam: CT Abdomen And Pelvis With Contrast Exam date and time: 06/08/2020 6:07 AM Age: 39 years old Clinical indication: Abdominal pain; Generalized; Additional info: Chest/upper abd pain TECHNIQUE: Imaging protocol: Computed tomography of the abdomen and pelvis with contrast. Radiation optimization: All CT scans at this facility use at least one of these dose optimization techniques: automated exposure control; mA and/or kV adjustment per patient size (includes targeted exams where dose is matched to clinical indication); or iterative reconstruction. Contrast material: ISO; Contrast volume: 100 ml; Contrast route: INTRAVENOUS (IV); COMPARISON: 1. CT ABD PELVIS W/O CONTRAST 10/17/2015 8:[address] ABD PELVIS W/O CONTRAST 05/10/2015 11:48:17 AM FINDINGS: Lungs: The visualized portions of the lung bases are normal. Mediastinal space: A small hiatal hernia is present. Liver: There are no focal liver lesions present. Gallbladder and bile ducts: There has been a cholecystectomy. Pancreas: The pancreas is normal. Spleen: The spleen is normal. Adrenal glands: The adrenal glands are normal. There is no evidence of a left adrenal nodule.The left kidney is normal. Kidneys and ureters: There are multiple nonobstructing stones of the right kidney including a lower pole 3 mm stone on axial image 82, a lateral 2 mm calculus on image 72 a posterior 3 mm calculus on image 65 and adjacent 2 and 4 mm calculi at the upper pole on image 57. There is multifocal cortical scarring suggesting previous episodes of pyelonephritis. There is no evidence of hydronephrosis or hydroureter. Stomach and bowel: Unremarkable. No obstruction. No mucosal thickening. Appendix: A normal appendix is identified. Intraperitoneal space: Unremarkable. No free air. No significant fluid collection. Vasculature: Unremarkable. No abdominal aortic aneurysm. Lymph nodes: Unremarkable. No enlarged lymph nodes. Urinary bladder: Unremarkable as visualized. Reproductive: There is redemonstration of a 6 cm simple appearing left adnexal cyst which measured 2.5 cm on 10/16/2014 and 8 cm on 05/10/2015. A hypodense oval 26 x 37 mm right adnexal structure probably represents the ovary itself with small follicles similar in appearance to the prior studies. Bones/joints: Unremarkable. No acute fracture. Soft tissues: There is a fat-containing umbilical hernia. Other findings: There is no evidence of dissection, leak, rupture, or other complications. IMPRESSION: 1. There is no evidence of dissection, leak, rupture, or other complications. 2. There is redemonstration of a 6 cm simple appearing left adnexal cyst which measured 2.5 cm on 10/16/2014 and 8 cm on 05/10/2015. A hypodense oval 26 x 37 mm right adnexal structure probably represents the ovary itself with small follicles similar in appearance to the prior studies. RECOMMENDATION: Given the re-expansion of the left adnexal cyst, follow-up ultrasound is recommended. Electronically signed by: Zoran Carbajal On 06/08/2020 07:51:00 AM
[2020-06-08 07:53] LABS: ALBUMIN 3.5 GM/DL (3.2-5.2); ALT/SGPT 22 U/L (12-78); BILIRUBIN,DIRECT < 0.1 MG/DL (0.0-0.2); BILIRUBIN,TOTAL 0.5 MG/DL (0.2-1.0); TOTAL PROTEIN 7.1 GM/DL (6.4-8.2)
[2020-06-08 10:04] LABS: CK-MB VALUE MASS 5.8 NG/ML (<3.6); MB/CK RELATIVE INDEX 6.74 (< OR =4); TROPONIN I 0.57 NG/ML (< 0.10)
--- NOTE | 2020-06-08 10:46 | ED PDOC ---
Post-Departure Follow-Up slick mckeon faxed formal report of cta chest/abd/p for fu Edgardo Finley MD Jun 08, 2020 10:46
[2020-06-08] MEDS ORDERED: HEPARIN DRIP 25,000 UNITS in IV 1 EA IV SCH (10:47)
[2020-06-08] MEDS ORDERED: HEPARIN SOD (PORCINE) 5000UNITS/ML 1ML VIAL/SYRINGE IV ONE (11:00)
[2020-06-08 11:03] LABS: INR 0.95; PROTHROMBIN TIME 12.9 SECONDS (12.5-14.3)
[2020-06-08] MEDS ORDERED: CLOPIDOGREL 300 MG TAB (PLAVIX) PO STA (11:07)
[2020-06-08 11:39] LABS: RSV AMPLIFICATION NEGATIVE (NEGATIVE)
[2020-06-08 12:52] VITALS: BP 119/58
--- NOTE | 2020-06-09 07:33 | ECGEPIP ---
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
== END 2020-06-08 12:55 | disposition short-term general hospital (02) ==
LOC: M ED 02:29
DX: I21.4 Non-ST elevation (NSTEMI) myocardial infarction (principal); I10 Essential (primary) hypertension; E78.5 Hyperlipidemia, unspecified; F17.200 Nicotine dependence, unspecified, uncomplicated; K21.9 Gastro-esophageal reflux disease without esophagitis; Z79.82 Long term (current) use of aspirin; Z79.899 Other long term (current) drug therapy; Z86.73 Personal history of transient ischemic attack (TIA), and cerebral infarction without residual deficits
CPT/HCPCS: 71045; 71275; 74177; 80048; 80076; 82150; 82550; 82553; 83605; 83690; 84484; 85025; 85610; 85730; 87631; 93005; 93041; 94760; 96365; 96366; 96375; 96376; 99285; C9113; J1170; J1644; J2270; J2405; Q9967

== ENCOUNTER → 2020-06-27 | Outpatient (CLI) | payer MEDICARE, OTHER ==
[~2020-06-27] MED LIST changes: +BAYE325T13 PO; +NORCO
[2020-06-27 19:54] LABS: EOS % 4.7 % (0.0-3.0); HEMATOCRIT 38.3 % (36.0-47.0); HEMOGLOBIN 10.6 g/dl (12.0-15.5); LYMPH # 3.2 10^3/uL (1.5-5.0); LYMPH % 34.5 % (24.0-44.0); MEAN CORPUSCULAR HEMOGLOBIN 19.4 pg (27.0-33.0); MEAN CORPUSCULAR HGB CONC 27.7 g/dl (32.0-36.5); MEAN CORPUSCULAR VOLUME 70.3 fl (80.0-96.0); MONO % 10.2 % (2.0-8.0); NEUTROPHILS # 4.6 10^3/uL (1.5-8.5); NEUTROPHILS % 49.4 % (36.0-66.0); PLATELET COUNT, AUTOMATED 486 10^3/uL (150-450); RED BLOOD COUNT 5.45 10^6/uL (4.00-5.40); WHITE BLOOD COUNT 9.3 10^3/uL (4.0-10.0)
[2020-06-27 19:55] LABS: BASO # 0.1 10^3/uL (0.0-0.2); EOS # 0.4 10^3/uL (0.0-0.5)
== END ==
LOC: M WUC 15:44
PROVIDERS: ATTEND Nurse Practitioner Family
DX: D64.9 Anemia, unspecified (principal)

== ENCOUNTER → 2020-07-20 | Outpatient (CLI) | payer MEDICARE, OTHER ==
[2020-07-20 16:43] LABS: BASO # 0.1 10^3/uL (0.0-0.2); BASO % 0.8 % (0.0-1.0); EOS # 0.4 10^3/uL (0.0-0.5); EOS % 4.9 % (0.0-3.0); HEMATOCRIT 38.3 % (36.0-47.0); HEMOGLOBIN 10.9 g/dl (12.0-15.5); LYMPH # 2.8 10^3/uL (1.5-5.0); LYMPH % 31.7 % (24.0-44.0); MEAN CORPUSCULAR HEMOGLOBIN 20.3 pg (27.0-33.0); MEAN CORPUSCULAR HGB CONC 28.5 g/dl (32.0-36.5); MEAN CORPUSCULAR VOLUME 71.5 fl (80.0-96.0); MONO # 0.8 10^3/uL (0.0-0.8); MONO % 9.1 % (2.0-8.0); NEUTROPHILS # 4.7 10^3/uL (1.5-8.5); NEUTROPHILS % 53.2 % (36.0-66.0); PLATELET COUNT, AUTOMATED 486 10^3/uL (150-450); RED BLOOD COUNT 5.36 10^6/uL (4.00-5.40); WHITE BLOOD COUNT 8.9 10^3/uL (4.0-10.0)
== END ==
LOC: M WUC 14:51
PROVIDERS: ATTEND Nurse Practitioner Family
DX: D64.9 Anemia, unspecified (principal)

== ENCOUNTER → 2020-09-13 | Outpatient (CLI) | payer MEDICARE, OTHER ==
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
== END ==
LOC: M PAIN 13:30
PROVIDERS: ATTEND Nurse Practitioner Family
DX: M79.18 Myalgia, other site (principal); G43.909 Migraine, unspecified, not intractable, without status migrainosus; G47.30 Sleep apnea, unspecified; K21.9 Gastro-esophageal reflux disease without esophagitis; I25.2 Old myocardial infarction; F17.210 Nicotine dependence, cigarettes, uncomplicated; Z86.14 Personal history of Methicillin resistant Staphylococcus aureus infection; Z86.59 Personal history of other mental and behavioral disorders; Z88.8 Allergy status to other drugs, medicaments and biological substances; Z79.82 Long term (current) use of aspirin; Z79.899 Other long term (current) drug therapy

== ENCOUNTER → 2020-12-07 | Outpatient (CLI) | payer MEDICARE, OTHER ==
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
== END ==
LOC: M PAIN 09:45
PROVIDERS: ATTEND Nurse Practitioner Family
DX: M79.18 Myalgia, other site (principal); G43.909 Migraine, unspecified, not intractable, without status migrainosus; G47.30 Sleep apnea, unspecified; K21.9 Gastro-esophageal reflux disease without esophagitis; F17.210 Nicotine dependence, cigarettes, uncomplicated; Z86.59 Personal history of other mental and behavioral disorders; Z86.14 Personal history of Methicillin resistant Staphylococcus aureus infection; Z88.8 Allergy status to other drugs, medicaments and biological substances; Z79.82 Long term (current) use of aspirin; Z79.899 Other long term (current) drug therapy

== ENCOUNTER → 2021-03-15 | Outpatient (CLI) | payer MEDICARE, OTHER | LOC: M PAIN 14:45 | PROVIDERS: ATTEND Anesthesiology | DX: M79.18 Myalgia, other site (principal); M96.1 Postlaminectomy syndrome, not elsewhere classified; M46.1 Sacroiliitis, not elsewhere classified; I10 Essential (primary) hypertension; E78.5 Hyperlipidemia, unspecified; F32.A Depression, unspecified; G43.909 Migraine, unspecified, not intractable, without status migrainosus; G47.30 Sleep apnea, unspecified; R10.13 Epigastric pain; K21.9 Gastro-esophageal reflux disease without esophagitis; I25.2 Old myocardial infarction; F17.210 Nicotine dependence, cigarettes, uncomplicated; Z79.83 Long term (current) use of bisphosphonates; Z79.891 Long term (current) use of opiate analgesic; Z79.899 Other long term (current) drug therapy; Z79.02 Long term (current) use of antithrombotics/antiplatelets; Z88.8 Allergy status to other drugs, medicaments and biological substances; I69.351 Hemiplegia and hemiparesis following cerebral infarction affecting right dominant side ==

== ENCOUNTER → 2021-04-13 | Outpatient (CLI) | payer MEDICARE, OTHER | LOC: M LABSMTC 11:05 | PROVIDERS: ATTEND Anesthesiology | DX: Z11.52 Encounter for screening for COVID-19 (principal) ==

== ENCOUNTER → 2021-04-26 | Outpatient (CLI) | payer MEDICARE, OTHER ==
[~2021-04-26] MED LIST changes: +ATOR80TA59; +BELB150M; +CLOP75TA2; +FLUO20CA22; +ISOS1TAB35; +METO1TAB32
[2021-04-26 17:24] LABS: BLOOD UREA NITROGEN 8 MG/DL (7-18); CREATININE FOR GFR 0.42 MG/DL (0.55-1.30); GLOMERULAR FILTRATION RATE > 60.0 (>60)
== END ==
LOC: M LAB 16:29
PROVIDERS: ATTEND Anesthesiology
DX: M96.1 Postlaminectomy syndrome, not elsewhere classified (principal)

== ENCOUNTER → 2021-05-01 | Outpatient (CLI) | payer MEDICARE, OTHER ==
[~2021-05-01] MED LIST changes: +PROHANCE 279.3MG/ML 15ML VIAL ONE; +PROHANCE 279.3MG/ML 5ML VIAL ONE
== END ==
LOC: M PLARAD 13:58
PROVIDERS: ATTEND Anesthesiology
DX: M46.1 Sacroiliitis, not elsewhere classified (principal); M96.1 Postlaminectomy syndrome, not elsewhere classified
CPT/HCPCS: 72158; 72195; A9576

== ENCOUNTER → 2021-05-02 | Outpatient (CLI) | payer MEDICARE, OTHER ==
[~2021-05-02] MED LIST changes: -PROHANCE 279.3MG/ML 15ML VIAL ONE; -PROHANCE 279.3MG/ML 5ML VIAL ONE
== END ==
LOC: M PAIN 13:00
PROVIDERS: ATTEND Nurse Practitioner Family
DX: M79.18 Myalgia, other site (principal); M96.1 Postlaminectomy syndrome, not elsewhere classified; M46.1 Sacroiliitis, not elsewhere classified; I10 Essential (primary) hypertension; E78.5 Hyperlipidemia, unspecified; F32.A Depression, unspecified; G43.909 Migraine, unspecified, not intractable, without status migrainosus; G47.30 Sleep apnea, unspecified; E78.00 Pure hypercholesterolemia, unspecified; K21.9 Gastro-esophageal reflux disease without esophagitis; I25.2 Old myocardial infarction; F17.210 Nicotine dependence, cigarettes, uncomplicated; Z79.02 Long term (current) use of antithrombotics/antiplatelets; Z79.82 Long term (current) use of aspirin; Z79.891 Long term (current) use of opiate analgesic; Z79.52 Long term (current) use of systemic steroids; Z79.899 Other long term (current) drug therapy; Z88.8 Allergy status to other drugs, medicaments and biological substances

== ENCOUNTER 2021-05-04 11:28 | Emergency (ER) | payer MEDICARE, OTHER ==
[~2021-05-04] VITALS: Ht 165.1 cm; Wt 92.7 kg
[2021-05-04 11:28] VITALS: BP 181/100
[~2021-05-04 11:28] MED LIST changes: -ATOR80TA59; -BELB150M; -CLOP75TA2; -FLUO20CA22; -ISOS1TAB35; -METO1TAB32
[2021-05-04] MEDS ORDERED: METO1TAB32 (12:20)
[2021-05-04] MEDS ORDERED: FLUO20CA22 (12:20)
[2021-05-04] MEDS ORDERED: ISOS1TAB35 (12:20)
[2021-05-04] MEDS ORDERED: CLOP75TA2 (12:20)
[2021-05-04] MEDS ORDERED: BELB150M (12:20)
[2021-05-04] MEDS ORDERED: ATOR80TA59 (12:20)
--- NOTE | 2021-05-04 12:58 | REP ---
INDICATION: chest tightness/cough. COMPARISON: 06/08/2020 the latest prior portable exam FINDINGS: The superior mediastinal structures are midline. The cardiac silhouette is unremarkable in size, shape, and position. The diaphragmatic surfaces of the lungs are regular, and the costophrenic angles are clear. The pulmonary robles are clear. The imaged osseous structures are intact. The loop recorder is again noted. IMPRESSION: There is no acute cardiopulmonary disease. <Electronically signed by Jaison Glover > 05/04/21 [id number]
[2021-05-04 13:37] LABS: RSV AMPLIFICATION NEGATIVE (NEGATIVE)
--- NOTE | 2021-05-04 18:16 | ECGEPIP ---
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
== END 2021-05-04 14:12 | disposition left against medical advice (07) ==
LOC: M ED 11:28
DX: Z53.21 Procedure and treatment not carried out due to patient leaving prior to being seen by health care provider (principal)

== ENCOUNTER 2021-05-14 02:38 | Emergency (ER) | payer MEDICARE, OTHER ==
[~2021-05-14] VITALS: Ht 165.1 cm; Wt 96.0 kg
[~2021-05-14 02:38] MED LIST changes: +ATOR80TA59; +BELB150M; +CLOP75TA2; +FLUO20CA22; +ISOS1TAB35; +METO1TAB32
[2021-05-14] MEDS ORDERED: ROCURONIUM BROMIDE 50 MG/5 ML VIAL ONE (02:39)
[2021-05-14] MEDS ORDERED: ETOMIDATE INJ 20MG/10ML VIAL ONE (02:39)
[2021-05-14] MEDS ORDERED: ISOVUE-370 76% 100ML VIAL As Ordered ONE (02:51)
[2021-05-14] MEDS ORDERED: niCARdipine IV 40 MG in IV 1 EA IV SCH (03:05)
[2021-05-14] MEDS ORDERED: PROPOFOL 1,000 MG/100 ML VIAL As Ordered ONE (03:19)
[2021-05-14] MEDS ORDERED: propofoL 1,000 MG in IV 1 EA IV SCH (03:20)
[2021-05-14 03:21] LABS: BASO # 0.1 10^3/uL (0.0-0.2); BASO % 0.4 % (0.0-1.0); EOS # 0.3 10^3/uL (0.0-0.5); EOS % 1.4 % (0.0-3.0); HEMATOCRIT 38.1 % (36.0-47.0); HEMOGLOBIN 11.8 g/dl (12.0-15.5); LYMPH # 3.6 10^3/uL (1.5-5.0); LYMPH % 16.3 % (24.0-44.0); MEAN CORPUSCULAR HEMOGLOBIN 23.2 pg (27.0-33.0); MONO # 1.4 10^3/uL (0.0-0.8); MONO % 6.2 % (2.0-8.0); NEUTROPHILS # 16.5 10^3/uL (1.5-8.5); NEUTROPHILS % 75.2 % (36.0-66.0); PLATELET COUNT, AUTOMATED 515 10^3/uL (150-450); RED BLOOD COUNT 5.08 10^6/uL (4.00-5.40); WHITE BLOOD COUNT 21.9 10^3/uL (4.0-10.0)
[2021-05-14 03:31] LABS: INR 0.96; PROTHROMBIN TIME 13.2 SECONDS (12.7-14.5)
[2021-05-14 03:32] LABS: PARTIAL THROMBOPLASTIN TIME 28.5 SECONDS (25.9-37.0)
[2021-05-14 03:49] VITALS: O2SAT 98
[2021-05-14] MEDS ORDERED: DESMOPRESSIN ACETATE IV ONE ×2 (03:50→04:20)
[2021-05-14] MEDS ORDERED: NS IV ONE ×2 (03:50→04:20)
[2021-05-14 03:52] LABS: ABG BASE EXCESS -3.9 (-2.0-2.0); ABG HCO3 21.7 MEQ/L (22.0-26.0); ABG O2 SATURATION 94.9 % (95.0-99.0); ABG PARTIAL PRESSURE CO2 41.5 mmHg (35.0-45.0); ABG STANDARD HCO3 21.2 MEQ/L (22.0-26.0); ABG pH (ARTERIAL) 7.337 UNITS (7.350-7.450)
[2021-05-14 03:55] LABS: CK-MB VALUE MASS < 1.0 NG/ML (<3.6); CPK CREATINE PHOSPHOKINASE 93 U/L (26-192); MB/CK RELATIVE INDEX 1.08 (< OR =4)
[2021-05-14 04:02] LABS: ALBUMIN 3.5 GM/DL (3.2-5.2); ALT/SGPT 20 U/L (12-78); BILIRUBIN,TOTAL < 0.1 MG/DL (0.2-1.0); BLOOD UREA NITROGEN 14 MG/DL (7-18); CALCIUM LEVEL 8.7 MG/DL (8.5-10.1); CARBON DIOXIDE LEVEL 20 MEQ/L (21-32); CHLORIDE LEVEL 105 MEQ/L (98-107); CREATININE FOR GFR 0.72 MG/DL (0.55-1.30); GLOMERULAR FILTRATION RATE > 60.0 (>60); GLUCOSE, FASTING 178 MG/DL (70-100); LIPASE 142 U/L (73-393); POTASSIUM SERUM 3.9 MEQ/L (3.5-5.1); SODIUM LEVEL 136 MEQ/L (136-145); TOTAL PROTEIN 6.8 GM/DL (6.4-8.2)
[2021-05-14 04:15] LABS: RSV AMPLIFICATION NEGATIVE (NEGATIVE)
[2021-05-14] MEDS ORDERED: levETIRAcetam INJection 1,000 MG in D5W 100 ML IV ONE (04:30)
[2021-05-14 04:40] VITALS: BP 110/63
[2021-05-14 06:07] LABS: AMPHETAMINES LEVEL URINE NEGATIVE (NEGATIVE); BARBITURATES URINE NEGATIVE (NEGATIVE); BENZODIAZEPINES URINE POSITIVE (NEGATIVE); CANNABINOIDS URINE NEGATIVE (NEGATIVE); COCAINE METABOLITE URINE NEGATIVE (NEGATIVE); METHADONE URINE NEGATIVE (NEGATIVE); OPIATES URINE POSITIVE (NEGATIVE); PHENCYCLIDINE URINE NEGATIVE (NEGATIVE)
== END 2021-05-14 05:32 | disposition short-term general hospital (02) ==
LOC: M ED 02:38
DX: R56.9 Unspecified convulsions (principal); I62.00 Nontraumatic subdural hemorrhage, unspecified; I60.9 Nontraumatic subarachnoid hemorrhage, unspecified; I67.1 Cerebral aneurysm, nonruptured; G93.9 Disorder of brain, unspecified; I10 Essential (primary) hypertension; I25.2 Old myocardial infarction; Z86.73 Personal history of transient ischemic attack (TIA), and cerebral infarction without residual deficits; Z79.82 Long term (current) use of aspirin; Z79.899 Other long term (current) drug therapy
CPT/HCPCS: 31500; 36600; 51702; 70450; 70496; 71045; 72125; 80053; 80307; 81001; 82550; 82553; 82803; 83690; 84443; 84484; 85025; 85610; 85730; 87631; 93005; 96365; 96366; 96375; 99291; 99292; J1953; J2597; Q9967

== ENCOUNTER → 2021-08-01 | Outpatient (CLI) | payer MEDICARE, OTHER | LOC: M PAIN 13:45 | PROVIDERS: ATTEND Nurse Practitioner Family | DX: M96.1 Postlaminectomy syndrome, not elsewhere classified (principal); I10 Essential (primary) hypertension; E78.5 Hyperlipidemia, unspecified; F32.A Depression, unspecified; G43.909 Migraine, unspecified, not intractable, without status migrainosus; M48.061 Spinal stenosis, lumbar region without neurogenic claudication; G47.30 Sleep apnea, unspecified; R10.13 Epigastric pain; E78.00 Pure hypercholesterolemia, unspecified; K21.9 Gastro-esophageal reflux disease without esophagitis; I25.2 Old myocardial infarction; F17.210 Nicotine dependence, cigarettes, uncomplicated; Z79.891 Long term (current) use of opiate analgesic; Z79.82 Long term (current) use of aspirin; Z79.899 Other long term (current) drug therapy; Z88.8 Allergy status to other drugs, medicaments and biological substances ==

== ENCOUNTER → 2021-11-08 | Outpatient (CLI) | payer MEDICARE, OTHER | LOC: M PAIN 14:30 | PROVIDERS: ATTEND Nurse Practitioner Family | DX: M96.1 Postlaminectomy syndrome, not elsewhere classified (principal); I10 Essential (primary) hypertension; E78.5 Hyperlipidemia, unspecified; F32.A Depression, unspecified; G43.909 Migraine, unspecified, not intractable, without status migrainosus; M54.50 Low back pain, unspecified; M48.061 Spinal stenosis, lumbar region without neurogenic claudication; G47.30 Sleep apnea, unspecified; E78.00 Pure hypercholesterolemia, unspecified; K21.9 Gastro-esophageal reflux disease without esophagitis; I25.2 Old myocardial infarction; Z86.14 Personal history of Methicillin resistant Staphylococcus aureus infection; R10.13 Epigastric pain; N80.0 Endometriosis of uterus; F17.210 Nicotine dependence, cigarettes, uncomplicated; Z79.82 Long term (current) use of aspirin; Z79.891 Long term (current) use of opiate analgesic; Z79.899 Other long term (current) drug therapy; Z88.8 Allergy status to other drugs, medicaments and biological substances ==

== ENCOUNTER → 2022-01-30 | Outpatient (CLI) | payer MEDICARE, OTHER ==
[2022-01-30 16:56] LABS: BASO # 0.1 10^3/uL (0.0-0.2); BASO % 1.1 % (0.0-1.0); EOS # 0.4 10^3/uL (0.0-0.5); EOS % 3.8 % (0.0-3.0); HEMATOCRIT 43.1 % (36.0-47.0); HEMOGLOBIN 13.6 g/dl (12.0-15.5); LYMPH # 3.8 10^3/uL (1.5-5.0); LYMPH % 37.6 % (24.0-44.0); MEAN CORPUSCULAR HEMOGLOBIN 28.2 pg (27.0-33.0); MEAN CORPUSCULAR HGB CONC 31.6 g/dl (32.0-36.5); MEAN CORPUSCULAR VOLUME 89.4 fl (80.0-96.0); MONO # 0.9 10^3/uL (0.0-0.8); MONO % 9.1 % (2.0-8.0); NEUTROPHILS # 4.8 10^3/uL (1.5-8.5); NEUTROPHILS % 48.1 % (36.0-66.0); PLATELET COUNT, AUTOMATED 414 10^3/uL (150-450); RED BLOOD COUNT 4.82 10^6/uL (4.00-5.40); WHITE BLOOD COUNT 10.1 10^3/uL (4.0-10.0)
[2022-01-30 17:21] LABS: APPEARANCE, URINE MANUAL CLOUDY (CLEAR); BILIRUBIN, URINE MANUAL NEGATIVE (NEGATIVE); BLOOD URINE MANUAL POSITIVE (NEGATIVE); COLOR, URINE MANUAL YELLOW (YELLOW); GLUCOSE, URINE (UA) MANUAL NEGATIVE (NEGATIVE); KETONE, URINE MANUAL NEGATIVE (NEGATIVE); LEUKOCYTE ESTERASE, URINE MAN NEGATIVE (NEGATIVE); NITRITE, URINE MANUAL NEGATIVE (NEGATIVE); PROTEIN, URINE MANUAL 1+ mg/dL (NEGATIVE); UROBILINOGEN, URINE MANUAL NORMAL (NORMAL)
[2022-01-30 17:28] LABS: BLOOD UREA NITROGEN 10 MG/DL (7-18); CALCIUM LEVEL 9.1 MG/DL (8.5-10.1); CARBON DIOXIDE LEVEL 23 MEQ/L (21-32); CHLORIDE LEVEL 108 MEQ/L (98-107); CREATININE FOR GFR 0.52 MG/DL (0.55-1.30); GLOMERULAR FILTRATION RATE > 60.0 (>58); GLUCOSE, FASTING 99 MG/DL (70-100); POTASSIUM SERUM 4.4 MEQ/L (3.5-5.1); SODIUM LEVEL 137 MEQ/L (136-145)
[2022-01-30 17:54] LABS: AMORPHOUS SEDIMENT, URINE LARGE AMOUNT (NEGATIVE); BACTERIA, URINE MOD AMOUNT; RBC, URINE TNTC /hpf (0-3); SQUAMOUS EPITHELIAL CELL URINE MOD AMOUNT /hpf (SMALL AMT)
== END ==
LOC: M WUC 11:32
PROVIDERS: ATTEND Neurological Surgery
DX: I60.8 Other nontraumatic subarachnoid hemorrhage (principal)

== ENCOUNTER → 2022-04-10 | Outpatient (CLI) | payer MEDICARE, OTHER ==
[~2022-04-10] MED LIST changes: +CLOP75TA99 PO; -PLAV1TAB2 PO
== END ==
LOC: M PAIN 10:30
PROVIDERS: ATTEND Nurse Practitioner Family
DX: M96.1 Postlaminectomy syndrome, not elsewhere classified (principal); G89.29 Other chronic pain; I10 Essential (primary) hypertension; G43.909 Migraine, unspecified, not intractable, without status migrainosus; G47.30 Sleep apnea, unspecified; K21.9 Gastro-esophageal reflux disease without esophagitis; I25.2 Old myocardial infarction; F17.210 Nicotine dependence, cigarettes, uncomplicated; Z86.14 Personal history of Methicillin resistant Staphylococcus aureus infection; Z86.59 Personal history of other mental and behavioral disorders; Z88.8 Allergy status to other drugs, medicaments and biological substances; Z79.82 Long term (current) use of aspirin; Z79.899 Other long term (current) drug therapy

== ENCOUNTER 2022-04-26 19:05 | Emergency (ER) | payer MEDICARE, OTHER ==
[~2022-04-26] VITALS: Ht 165.1 cm; Wt 96.7 kg
[2022-04-26] MEDS ORDERED: FIORICET TAB PO ONE (23:10)
[2022-04-27] MEDS ORDERED: FIOR1CAP PO (01:42)
[2022-04-27 01:50] VITALS: BP 150/80
== END 2022-04-27 01:59 | disposition home or self-care (01) ==
LOC: M ED 19:05
DX: G43.709 Chronic migraine without aura, not intractable, without status migrainosus (principal); I25.10 Atherosclerotic heart disease of native coronary artery without angina pectoris; I25.2 Old myocardial infarction; I10 Essential (primary) hypertension; Z87.442 Personal history of urinary calculi; K21.9 Gastro-esophageal reflux disease without esophagitis; E78.5 Hyperlipidemia, unspecified; D68.2 Hereditary deficiency of other clotting factors; F17.200 Nicotine dependence, unspecified, uncomplicated; Z79.899 Other long term (current) drug therapy

== ENCOUNTER → 2022-05-15 | Outpatient (CLI) | payer MEDICARE, OTHER ==
[~2022-05-15] MED LIST changes: +FIOR1CAP PO
== END ==
LOC: M PAIN 14:45
PROVIDERS: ATTEND Nurse Practitioner Family
DX: M96.1 Postlaminectomy syndrome, not elsewhere classified (principal); I10 Essential (primary) hypertension; E78.5 Hyperlipidemia, unspecified; F32.A Depression, unspecified; G43.909 Migraine, unspecified, not intractable, without status migrainosus; M54.50 Low back pain, unspecified; G47.30 Sleep apnea, unspecified; R10.13 Epigastric pain; E78.00 Pure hypercholesterolemia, unspecified; Z86.14 Personal history of Methicillin resistant Staphylococcus aureus infection; K21.9 Gastro-esophageal reflux disease without esophagitis; I25.2 Old myocardial infarction; Z86.718 Personal history of other venous thrombosis and embolism; R56.9 Unspecified convulsions; F17.210 Nicotine dependence, cigarettes, uncomplicated; Z79.891 Long term (current) use of opiate analgesic; Z79.82 Long term (current) use of aspirin; Z79.899 Other long term (current) drug therapy; Z88.8 Allergy status to other drugs, medicaments and biological substances

== ENCOUNTER → 2022-06-15 | Outpatient (REF) | payer MEDICARE, OTHER ==
[2022-06-15 17:58] LABS: APPEARANCE, URINE MANUAL CLOUDY (CLEAR); BILIRUBIN, URINE MANUAL NEGATIVE (NEGATIVE); COLOR, URINE MANUAL YELLOW (YELLOW); GLUCOSE, URINE (UA) MANUAL NEGATIVE (NEGATIVE); KETONE, URINE MANUAL NEGATIVE (NEGATIVE); PROTEIN, URINE MANUAL TRACE mg/dL (NEGATIVE); UROBILINOGEN, URINE MANUAL NORMAL (NORMAL)
[2022-06-15 17:59] LABS: BLOOD URINE MANUAL POSITIVE (NEGATIVE); LEUKOCYTE ESTERASE, URINE MAN POSITIVE (NEGATIVE); NITRITE, URINE MANUAL POSITIVE (NEGATIVE)
[2022-06-15 18:12] LABS: BACTERIA, URINE LARGE AMOUNT; HYALINE CAST, URINE NONE SEEN /lpf (0-1); RBC, URINE 0-1 /hpf (0-3); SQUAMOUS EPITHELIAL CELL URINE MOD AMOUNT /hpf (SMALL AMT); URIC ACID CRYSTALS, URINE MOD AMOUNT /hpf; WBC, URINE 15-20 /hpf (0-3)
== END ==
LOC: M SFHCLERA 16:43
PROVIDERS: ATTEND Student in an Organized Health Care Education/Training Program
DX: R30.0 Dysuria (principal)

== ENCOUNTER 2022-07-04 01:49 | Emergency (ER) | payer OTHER, MEDICARE ==
[~2022-07-04] VITALS: Ht 165.1 cm; Wt 95.9 kg
[2022-07-04] MEDS ORDERED: FIORICET TAB PO ONE (02:20)
[2022-07-04 02:49] VITALS: BP 145/89
[2022-07-04] MEDS ORDERED: FIOR1CAP PO (04:52)
== END 2022-07-04 05:06 | disposition home or self-care (01) ==
LOC: M ED 01:49
DX: G43.909 Migraine, unspecified, not intractable, without status migrainosus (principal); I25.2 Old myocardial infarction; I10 Essential (primary) hypertension; Z86.73 Personal history of transient ischemic attack (TIA), and cerebral infarction without residual deficits; E78.5 Hyperlipidemia, unspecified; K21.9 Gastro-esophageal reflux disease without esophagitis; D68.2 Hereditary deficiency of other clotting factors; F17.200 Nicotine dependence, unspecified, uncomplicated; Z79.899 Other long term (current) drug therapy

== ENCOUNTER → 2022-07-16 | Outpatient (CLI) | payer MEDICARE, OTHER ==
[2022-07-16 13:28] LABS: BLOOD UREA NITROGEN 9 MG/DL (9-23); CALCIUM LEVEL 8.8 MG/DL (8.5-10.1); CARBON DIOXIDE LEVEL 24 MMOL/L (20-31); CHLORIDE LEVEL 108 MMOL/L (98-107); CREATININE FOR GFR 0.35 MG/DL (0.55-1.30); GLOMERULAR FILTRATION RATE > 60.0 (>58); GLUCOSE, FASTING 148 MG/DL (60-100); SODIUM LEVEL 138 MMOL/L (136-145)
[2022-07-16 14:05] LABS: BASO # 0.1 10^3/uL (0.0-0.2); BASO % 0.5 % (0.0-1.0); EOS # 0.3 10^3/uL (0.0-0.5); EOS % 2.5 % (0.0-3.0); HEMATOCRIT 44.5 % (36.0-47.0); HEMOGLOBIN 14.2 g/dl (12.0-15.5); LYMPH # 2.8 10^3/uL (1.5-5.0); LYMPH % 22.5 % (24.0-44.0); MEAN CORPUSCULAR HEMOGLOBIN 27.3 pg (27.0-33.0); MEAN CORPUSCULAR HGB CONC 31.9 g/dl (32.0-36.5); MEAN CORPUSCULAR VOLUME 85.6 fl (80.0-96.0); MONO # 0.8 10^3/uL (0.0-0.8); MONO % 6.4 % (2.0-8.0); NEUTROPHILS # 8.4 10^3/uL (1.5-8.5); NEUTROPHILS % 67.8 % (36.0-66.0); PLATELET COUNT, AUTOMATED 336 10^3/uL (150-450); WHITE BLOOD COUNT 12.3 10^3/uL (4.0-10.0)
[2022-07-16 16:23] LABS: APPEARANCE, URINE HAZY (CLEAR); BACTERIA, URINE AUTO 1+ (NEGATIVE); BILIRUBIN, URINE AUTO NEGATIVE (NEGATIVE); BLOOD, URINE BLOOD NEGATIVE (NEGATIVE); CALCIUM OXALATE CRYSTALS MODERATE; COLOR, URINE YELLOW (YELLOW); GLUCOSE, URINE (UA) AUTO NEGATIVE (NEGATIVE); KETONE, URINE AUTO TRACE mg/dL (NEGATIVE); LEUKOCYTE ESTERASE, URINE AUTO 1+ (NEGATIVE); NITRITE, URINE AUTO NEGATIVE (NEGATIVE); PROTEIN, URINE AUTO NEGATIVE (NEGATIVE); RBC, URINE AUTO 1 /HPF (0-3); SPECIFIC GRAVITY URINE AUTO 1.018 (1.002-1.035); SQUAMOUS EPITHELIAL CELL UR AU 7 /HPF (0-6); UROBILINOGEN, URINE AUTO 0.2 mg/dL (0.0-2.0); WBC, URINE AUTO 4 /HPF (0-3)
== END ==
LOC: M LAB 11:42
PROVIDERS: ATTEND Neurological Surgery
DX: I60.8 Other nontraumatic subarachnoid hemorrhage (principal)

== ENCOUNTER → 2022-07-16 | Outpatient (CLI) | payer MEDICARE, OTHER | LOC: M PAIN 13:45 | PROVIDERS: ATTEND Nurse Practitioner Family | DX: M96.1 Postlaminectomy syndrome, not elsewhere classified (principal); I10 Essential (primary) hypertension; E78.5 Hyperlipidemia, unspecified; F32.A Depression, unspecified; G43.909 Migraine, unspecified, not intractable, without status migrainosus; M54.50 Low back pain, unspecified; G47.30 Sleep apnea, unspecified; R10.13 Epigastric pain; R56.9 Unspecified convulsions; E78.00 Pure hypercholesterolemia, unspecified; K21.9 Gastro-esophageal reflux disease without esophagitis; I25.2 Old myocardial infarction; F17.210 Nicotine dependence, cigarettes, uncomplicated; Z79.891 Long term (current) use of opiate analgesic; Z86.14 Personal history of Methicillin resistant Staphylococcus aureus infection; Z79.82 Long term (current) use of aspirin; Z86.718 Personal history of other venous thrombosis and embolism; Z79.899 Other long term (current) drug therapy; Z88.8 Allergy status to other drugs, medicaments and biological substances; I60.8 Other nontraumatic subarachnoid hemorrhage | CPT/HCPCS: 36415; 80048; 81001; 85025; 86850; 86900; 86901; 87086; G0463 ==

== ENCOUNTER → 2022-09-14 | Outpatient (CLI) | payer MEDICARE, OTHER, MEDICAID ==
[2022-09-14 14:53] LABS: BASO # 0.1 10^3/uL (0.0-0.2); BASO % 0.6 % (0.0-1.0); EOS # 0.3 10^3/uL (0.0-0.5); EOS % 2.5 % (0.0-3.0); HEMATOCRIT 44.9 % (36.0-47.0); HEMOGLOBIN 14.6 g/dl (12.0-15.5); LYMPH # 3.4 10^3/uL (1.5-5.0); LYMPH % 25.4 % (24.0-44.0); MEAN CORPUSCULAR HEMOGLOBIN 27.5 pg (27.0-33.0); MEAN CORPUSCULAR HGB CONC 32.5 g/dl (32.0-36.5); MEAN CORPUSCULAR VOLUME 84.7 fl (80.0-96.0); MONO % 7.3 % (2.0-8.0); NEUTROPHILS # 8.6 10^3/uL (1.5-8.5); NEUTROPHILS % 63.9 % (36.0-66.0); PLATELET COUNT, AUTOMATED 411 10^3/uL (150-450); WHITE BLOOD COUNT 13.5 10^3/uL (4.0-10.0)
[2022-09-14 15:17] LABS: BLOOD UREA NITROGEN 5 MG/DL (9-23); CALCIUM LEVEL 8.2 MG/DL (8.5-10.1); CARBON DIOXIDE LEVEL 22 MMOL/L (20-31); CHLORIDE LEVEL 108 MMOL/L (98-107); CREATININE FOR GFR 0.45 MG/DL (0.55-1.30); GLOMERULAR FILTRATION RATE > 60.0 (>58); GLUCOSE, FASTING 143 MG/DL (60-100); POTASSIUM SERUM 3.8 MMOL/L (3.5-5.1); SODIUM LEVEL 139 MMOL/L (136-145)
== END ==
LOC: M LAB 14:26
PROVIDERS: ATTEND Neurological Surgery
DX: I60.8 Other nontraumatic subarachnoid hemorrhage (principal)

== ENCOUNTER → 2022-10-04 | Outpatient (CLI) | payer MEDICARE, OTHER | LOC: M PAIN 13:45 | PROVIDERS: ATTEND Nurse Practitioner Family | DX: M96.1 Postlaminectomy syndrome, not elsewhere classified (principal); M54.50 Low back pain, unspecified; G89.29 Other chronic pain; I10 Essential (primary) hypertension; E78.5 Hyperlipidemia, unspecified; F32.A Depression, unspecified; G43.909 Migraine, unspecified, not intractable, without status migrainosus; G47.30 Sleep apnea, unspecified; R10.13 Epigastric pain; K21.9 Gastro-esophageal reflux disease without esophagitis; I25.2 Old myocardial infarction; F17.210 Nicotine dependence, cigarettes, uncomplicated; Z79.82 Long term (current) use of aspirin; Z79.891 Long term (current) use of opiate analgesic; Z79.899 Other long term (current) drug therapy; Z88.8 Allergy status to other drugs, medicaments and biological substances ==

== ENCOUNTER → 2022-11-27 | Outpatient (CLI) | payer MEDICARE | LOC: M PAIN 10:45 | PROVIDERS: ATTEND Nurse Practitioner Family | DX: M96.1 Postlaminectomy syndrome, not elsewhere classified (principal); Z79.891 Long term (current) use of opiate analgesic; G89.29 Other chronic pain; I25.2 Old myocardial infarction; I10 Essential (primary) hypertension; G43.909 Migraine, unspecified, not intractable, without status migrainosus; E78.5 Hyperlipidemia, unspecified; F32.A Depression, unspecified; M54.50 Low back pain, unspecified; G47.30 Sleep apnea, unspecified; E78.00 Pure hypercholesterolemia, unspecified; K21.9 Gastro-esophageal reflux disease without esophagitis; F17.210 Nicotine dependence, cigarettes, uncomplicated; Z79.82 Long term (current) use of aspirin; Z79.899 Other long term (current) drug therapy; Z88.8 Allergy status to other drugs, medicaments and biological substances ==

== ENCOUNTER → 2022-12-10 | Outpatient (CLI) | payer MEDICARE | LOC: M PAIN 11:15 | PROVIDERS: ATTEND Nurse Practitioner Family | DX: M96.1 Postlaminectomy syndrome, not elsewhere classified (principal); G89.29 Other chronic pain; I10 Essential (primary) hypertension; E78.5 Hyperlipidemia, unspecified; F32.A Depression, unspecified; G43.909 Migraine, unspecified, not intractable, without status migrainosus; G47.30 Sleep apnea, unspecified; M54.50 Low back pain, unspecified; E78.00 Pure hypercholesterolemia, unspecified; K21.9 Gastro-esophageal reflux disease without esophagitis; I25.2 Old myocardial infarction; F17.210 Nicotine dependence, cigarettes, uncomplicated; Z79.82 Long term (current) use of aspirin; Z79.891 Long term (current) use of opiate analgesic; Z79.899 Other long term (current) drug therapy; Z88.8 Allergy status to other drugs, medicaments and biological substances ==

== ENCOUNTER → 2022-12-20 | Outpatient (CLI) | payer MEDICARE | LOC: M PAIN 16:30 | PROVIDERS: ATTEND Nurse Practitioner Family | DX: M96.1 Postlaminectomy syndrome, not elsewhere classified (principal); Z79.891 Long term (current) use of opiate analgesic; G89.29 Other chronic pain; I10 Essential (primary) hypertension; E78.5 Hyperlipidemia, unspecified; F32.A Depression, unspecified; G43.909 Migraine, unspecified, not intractable, without status migrainosus; M54.50 Low back pain, unspecified; G47.30 Sleep apnea, unspecified; R10.13 Epigastric pain; K21.9 Gastro-esophageal reflux disease without esophagitis; E78.00 Pure hypercholesterolemia, unspecified; I25.2 Old myocardial infarction; F17.210 Nicotine dependence, cigarettes, uncomplicated; Z79.899 Other long term (current) drug therapy; Z88.8 Allergy status to other drugs, medicaments and biological substances ==

== ENCOUNTER → 2023-01-04 | Outpatient (CLI) | payer MEDICARE | LOC: M PAIN 14:00 | PROVIDERS: ATTEND Nurse Practitioner Family | DX: M96.1 Postlaminectomy syndrome, not elsewhere classified (principal); M54.2 Cervicalgia; G89.29 Other chronic pain; G47.30 Sleep apnea, unspecified; I10 Essential (primary) hypertension; G43.909 Migraine, unspecified, not intractable, without status migrainosus; K21.9 Gastro-esophageal reflux disease without esophagitis; I25.2 Old myocardial infarction; F17.210 Nicotine dependence, cigarettes, uncomplicated; Z86.14 Personal history of Methicillin resistant Staphylococcus aureus infection; Z86.59 Personal history of other mental and behavioral disorders; Z88.8 Allergy status to other drugs, medicaments and biological substances; Z79.82 Long term (current) use of aspirin; Z79.891 Long term (current) use of opiate analgesic; Z79.899 Other long term (current) drug therapy ==

== ENCOUNTER → 2023-01-09 | Outpatient (CLI) | payer MEDICARE | LOC: M PLAIMG 17:55 | PROVIDERS: ATTEND Nurse Practitioner Family | DX: M51.17 Intervertebral disc disorders with radiculopathy, lumbosacral region (principal); M51.26 Other intervertebral disc displacement, lumbar region; M48.061 Spinal stenosis, lumbar region without neurogenic claudication; M99.63 Osseous and subluxation stenosis of intervertebral foramina of lumbar region ==

== ENCOUNTER → 2023-01-31 | Outpatient (CLI) | payer MEDICARE | LOC: M PAIN 17:00 | PROVIDERS: ATTEND Nurse Practitioner Family | DX: M96.1 Postlaminectomy syndrome, not elsewhere classified (principal); Z79.891 Long term (current) use of opiate analgesic; G89.29 Other chronic pain; I10 Essential (primary) hypertension; E78.5 Hyperlipidemia, unspecified; F32.A Depression, unspecified; G43.909 Migraine, unspecified, not intractable, without status migrainosus; M54.50 Low back pain, unspecified; M48.061 Spinal stenosis, lumbar region without neurogenic claudication; G47.30 Sleep apnea, unspecified; R10.13 Epigastric pain; E78.00 Pure hypercholesterolemia, unspecified; K21.9 Gastro-esophageal reflux disease without esophagitis; I25.2 Old myocardial infarction; F17.210 Nicotine dependence, cigarettes, uncomplicated; Z79.82 Long term (current) use of aspirin; Z79.899 Other long term (current) drug therapy; Z88.8 Allergy status to other drugs, medicaments and biological substances ==

== ENCOUNTER → 2023-03-14 | Outpatient (CLI) | payer MEDICARE | LOC: M PAIN 15:30 | PROVIDERS: ATTEND Nurse Practitioner Family | DX: M96.1 Postlaminectomy syndrome, not elsewhere classified (principal); Z79.891 Long term (current) use of opiate analgesic; G89.29 Other chronic pain; I10 Essential (primary) hypertension; E78.5 Hyperlipidemia, unspecified; F32.A Depression, unspecified; G43.909 Migraine, unspecified, not intractable, without status migrainosus; M54.50 Low back pain, unspecified; G47.30 Sleep apnea, unspecified; E78.00 Pure hypercholesterolemia, unspecified; K21.9 Gastro-esophageal reflux disease without esophagitis; I25.2 Old myocardial infarction; Z79.82 Long term (current) use of aspirin; Z79.899 Other long term (current) drug therapy; Z88.8 Allergy status to other drugs, medicaments and biological substances ==

== ENCOUNTER → 2023-03-27 | Outpatient (CLI) | payer MEDICARE | LOC: M RAD 11:41 | PROVIDERS: ATTEND Nurse Practitioner Family | DX: M50.30 Other cervical disc degeneration, unspecified cervical region (principal) ==

== ENCOUNTER → 2023-04-01 | Outpatient (CLI) | payer MEDICARE | LOC: M PAIN 17:30 | PROVIDERS: ATTEND Nurse Practitioner Family | DX: M96.1 Postlaminectomy syndrome, not elsewhere classified (principal); Z79.891 Long term (current) use of opiate analgesic; G89.29 Other chronic pain; E78.5 Hyperlipidemia, unspecified; F32.A Depression, unspecified; G43.909 Migraine, unspecified, not intractable, without status migrainosus; M54.50 Low back pain, unspecified; G47.30 Sleep apnea, unspecified; E78.00 Pure hypercholesterolemia, unspecified; K21.9 Gastro-esophageal reflux disease without esophagitis; I25.2 Old myocardial infarction; Z86.14 Personal history of Methicillin resistant Staphylococcus aureus infection; Z79.82 Long term (current) use of aspirin; Z79.899 Other long term (current) drug therapy; F17.210 Nicotine dependence, cigarettes, uncomplicated; Z88.8 Allergy status to other drugs, medicaments and biological substances ==

== ENCOUNTER → 2023-04-08 | Outpatient (CLI) | payer MEDICARE | LOC: M PAIN 17:30 | PROVIDERS: ATTEND Nurse Practitioner Family | DX: M50.10 Cervical disc disorder with radiculopathy, unspecified cervical region (principal); M96.1 Postlaminectomy syndrome, not elsewhere classified; Z79.891 Long term (current) use of opiate analgesic; G89.29 Other chronic pain; I10 Essential (primary) hypertension; E78.5 Hyperlipidemia, unspecified; F32.A Depression, unspecified; G43.909 Migraine, unspecified, not intractable, without status migrainosus; M54.50 Low back pain, unspecified; G47.30 Sleep apnea, unspecified; E78.00 Pure hypercholesterolemia, unspecified; K21.9 Gastro-esophageal reflux disease without esophagitis; I25.2 Old myocardial infarction; F17.210 Nicotine dependence, cigarettes, uncomplicated; Z79.82 Long term (current) use of aspirin; Z79.899 Other long term (current) drug therapy; Z88.8 Allergy status to other drugs, medicaments and biological substances ==

== ENCOUNTER 2023-04-19 00:38 | Inpatient (IN) | payer MEDICARE ==
[~2023-04-19] VITALS: Ht 165.1 cm; Wt 93.5 kg
[~2023-04-19 00:38] MED LIST changes: -ATOR80TA59; -FLUO20CA22
[2023-04-19] MEDS ORDERED: OXYC7.5T3 PO (00:52)
[2023-04-19] MEDS ORDERED: TIZA2TA PO (00:52)
[2023-04-19] MEDS ORDERED: [UNRECOGNIZED DRUG - CODE] BUC (00:52)
[2023-04-19] MEDS ORDERED: ONDANSETRON 4MG 2ML VIAL IV ONE (03:35)
[2023-04-19] MEDS ORDERED: fentaNYL 100 MCG/2 ML INJECTION IV ONE (03:35)
[2023-04-19 04:15] LABS: BASO # 0.1 10^3/uL (0.0-0.2); BASO % 0.6 % (0.0-1.0); EOS # 0.1 10^3/uL (0.0-0.5); EOS % 0.5 % (0.0-3.0); HEMATOCRIT 38.8 % (36.0-47.0); HEMOGLOBIN 12.1 g/dl (12.0-15.5); LYMPH # 1.4 10^3/uL (1.5-5.0); LYMPH % 12.7 % (24.0-44.0); MEAN CORPUSCULAR HEMOGLOBIN 23.4 pg (27.0-33.0); MEAN CORPUSCULAR HGB CONC 31.2 g/dl (32.0-36.5); MEAN CORPUSCULAR VOLUME 74.9 fl (80.0-96.0); MONO # 0.5 10^3/uL (0.0-0.8); MONO % 4.1 % (2.0-8.0); NEUTROPHILS # 9.1 10^3/uL (1.5-8.5); NEUTROPHILS % 81.8 % (36.0-66.0); PLATELET COUNT, AUTOMATED 469 10^3/uL (150-450); RED BLOOD COUNT 5.18 10^6/uL (4.00-5.40); WHITE BLOOD COUNT 11.1 10^3/uL (4.0-10.0)
[2023-04-19 04:38] LABS: LIPASE 25 U/L (12-53)
[2023-04-19 04:40] LABS: ALBUMIN 3.7 G/DL (3.2-5.2); ALKALINE PHOSPHATASE 57 U/L (46-116); ALT/SGPT 20 U/L (7.0-40); AST/SGOT 9 U/L (<34); BILIRUBIN,DIRECT < 0.1 MG/DL (<0.4); BILIRUBIN,TOTAL 0.2 MG/DL (0.3-1.2); BLOOD UREA NITROGEN 8 MG/DL (9-23); CALCIUM LEVEL 9.3 MG/DL (8.5-10.1); CARBON DIOXIDE LEVEL 26 MMOL/L (20-31); CHLORIDE LEVEL 104 MMOL/L (98-107); CREATININE FOR GFR 0.42 MG/DL (0.55-1.30); GLOMERULAR FILTRATION RATE > 60.0 (>58); GLUCOSE, FASTING 142 MG/DL (60-100); POTASSIUM SERUM 4.2 MMOL/L (3.5-5.1); SODIUM LEVEL 137 MMOL/L (136-145); TOTAL PROTEIN 7.2 G/DL (5.7-8.2)
[2023-04-19] MEDS: GASTROGRAFIN SOLUTION 30ML PO SCH ×2 (05:49→06:15)
[2023-04-19] MEDS ORDERED: ISOVUE-370 76% 100ML VIAL As Ordered ONE (05:54)
[2023-04-19] MEDS ORDERED: METOPROLOL SUCC *XL* 25MG TAB (TopROL *XL*) PO ONE (07:40)
[2023-04-19] MEDS ORDERED: ISOSORBIDE MON. (IMDUR) 60MG XR TAB PO ONE (07:40)
[2023-04-19] MEDS ORDERED: ISOS1TAB35 PO (07:43)
[2023-04-19] MEDS ORDERED: LISI20TA33 PO (07:43)
[2023-04-19] MEDS ORDERED: METO1TAB32 PO (07:43)
[2023-04-19] MEDS: ISOSORBIDE MON. (IMDUR) 60MG XR TAB PO SCH (09:00)
[2023-04-19] MEDS ORDERED: MED REC IN PROGRESS XX SCH (09:20)
[2023-04-19] MEDS ORDERED: ACETAMINOPHEN TAB 650MG DOSE (2X325MG) PO PRN (11:00)
[2023-04-19] MEDS ORDERED: MORPHINE 2 MG/ML 1ML VIAL IV PRN (11:05)
[2023-04-19] MEDS: MORPHINE 2 MG/ML 1ML VIAL IV PRN ×3 (11:31→21:16)
[2023-04-19 11:32] LABS: INR 1.11
[2023-04-19 11:33] LABS: PARTIAL THROMBOPLASTIN TIME 29.5 SECONDS (24.8-34.2)
[2023-04-19 11:35] LABS: ERYTHROCYTE SEDIMENTATION RATE 16 mm/hr (0-20)
[2023-04-19] MEDS ORDERED: HOME MED LIST COMPLETE! XX SCH (11:35)
[2023-04-19 11:36] LABS: C REACTIVE PROTEIN QUANTITATIV 0.9 MG/DL (<1.0)
[2023-04-19 13:11] LABS: HEMATOCRIT 36.9 % (36.0-47.0); HEMOGLOBIN 11.5 g/dl (12.0-15.5); MEAN CORPUSCULAR HEMOGLOBIN 23.6 pg (27.0-33.0); MEAN CORPUSCULAR HGB CONC 31.2 g/dl (32.0-36.5); MEAN CORPUSCULAR VOLUME 75.6 fl (80.0-96.0); PLATELET COUNT, AUTOMATED 480 10^3/uL (150-450); RED BLOOD COUNT 4.88 10^6/uL (4.00-5.40); WHITE BLOOD COUNT 17.6 10^3/uL (4.0-10.0)
[2023-04-19] MEDS: FLUoxetine 20MG CAP PO SCH (13:33)
[2023-04-19 14:33] VITALS: BP 128/75; TEMP 97.3; O2SAT 98
[2023-04-19] MEDS: ENOXAPARIN 100MG/1ML SYRINGE (J1650 PER 10MG) SC SCH (14:35)
[2023-04-19 15:46] VITALS: BP 118/66; TEMP 98; O2SAT 98
[2023-04-19 16:32] LABS: HEMATOCRIT 36.1 % (36.0-47.0); HEMOGLOBIN 11.2 g/dl (12.0-15.5); MEAN CORPUSCULAR HEMOGLOBIN 23.4 pg (27.0-33.0); MEAN CORPUSCULAR VOLUME 75.4 fl (80.0-96.0); PLATELET COUNT, AUTOMATED 458 10^3/uL (150-450); RED BLOOD COUNT 4.79 10^6/uL (4.00-5.40); WHITE BLOOD COUNT 19.1 10^3/uL (4.0-10.0)
[2023-04-19 19:43] VITALS: BP 127/64; TEMP 98.3; O2SAT 96
[2023-04-19] MEDS: ATORVASTATIN 20 MG TAB PO SCH (20:09)
[2023-04-19] MEDS: PANTOPRAZOLE 40MG TAB (PROTONIX) PO SCH (20:09)
[2023-04-19] MEDS: ASPIRIN 81MG ENTERIC TABLET PO SCH (20:09)
[2023-04-19] MEDS ORDERED: ASPIRIN 325 MG TAB PO SCH (21:00)
[2023-04-19 21:43] LABS: APPEARANCE, URINE HAZY (CLEAR); BACTERIA, URINE AUTO 1+ (NEGATIVE); BILIRUBIN, URINE AUTO NEGATIVE (NEGATIVE); BLOOD, URINE BLOOD 1+ (NEGATIVE); COLOR, URINE YELLOW (YELLOW); GLUCOSE, URINE (UA) AUTO NEGATIVE (NEGATIVE); KETONE, URINE AUTO NEGATIVE (NEGATIVE); LEUKOCYTE ESTERASE, URINE AUTO 1+ (NEGATIVE); MUCUS, URINE SMALL (NEGATIVE); NITRITE, URINE AUTO NEGATIVE (NEGATIVE); PROTEIN, URINE AUTO NEGATIVE (NEGATIVE); RBC, URINE AUTO 0 /HPF (0-3); SPECIFIC GRAVITY URINE AUTO 1.014 (1.002-1.035); SQUAMOUS EPITHELIAL CELL UR AU 3 /HPF (0-6); UROBILINOGEN, URINE AUTO 0.2 mg/dL (0.0-2.0); WBC, URINE AUTO 12 /HPF (0-3)
[2023-04-19 23:51] VITALS: BP 129/80; TEMP 98.1; O2SAT 98
[2023-04-20] VITALS (7 sets, daily range): BP systolic 105–140; BP diastolic 59–91; TEMP 97.8–98.9; O2SAT 95–98
[2023-04-20] MEDS: ENOXAPARIN 100MG/1ML SYRINGE (J1650 PER 10MG) SC SCH ×2 (00:41→13:36)
[2023-04-20 05:05] LABS: BASO # 0.1 10^3/uL (0.0-0.2); BASO % 0.5 % (0.0-1.0); EOS # 0.3 10^3/uL (0.0-0.5); EOS % 2.4 % (0.0-3.0); HEMATOCRIT 35.1 % (36.0-47.0); HEMOGLOBIN 10.6 g/dl (12.0-15.5); LYMPH % 31.3 % (24.0-44.0); MEAN CORPUSCULAR HEMOGLOBIN 22.9 pg (27.0-33.0); MEAN CORPUSCULAR HGB CONC 30.2 g/dl (32.0-36.5); MONO # 1.2 10^3/uL (0.0-0.8); MONO % 9.4 % (2.0-8.0); NEUTROPHILS # 7.1 10^3/uL (1.5-8.5); NEUTROPHILS % 56.1 % (36.0-66.0); PLATELET COUNT, AUTOMATED 400 10^3/uL (150-450); RED BLOOD COUNT 4.62 10^6/uL (4.00-5.40); WHITE BLOOD COUNT 12.7 10^3/uL (4.0-10.0)
[2023-04-20 05:34] LABS: BLOOD UREA NITROGEN 8 MG/DL (9-23); CALCIUM LEVEL 8.5 MG/DL (8.5-10.1); CARBON DIOXIDE LEVEL 25 MMOL/L (20-31); CHLORIDE LEVEL 107 MMOL/L (98-107); CREATININE FOR GFR 0.44 MG/DL (0.55-1.30); GLOMERULAR FILTRATION RATE > 60.0 (>58); GLUCOSE, FASTING 129 MG/DL (60-100); POTASSIUM SERUM 3.7 MMOL/L (3.5-5.1); SODIUM LEVEL 140 MMOL/L (136-145)
[2023-04-20] MEDS ORDERED: PERCOCET 5MG/325MG TAB PO PRN (07:00)
[2023-04-20] MEDS ORDERED: PILL CUTTER 1 EACH XX ONE (09:45)
[2023-04-20] MEDS: METOPROLOL SUCC *XL* 25MG TAB (TopROL *XL*) PO SCH (09:50)
[2023-04-20] MEDS: FLUoxetine 20MG CAP PO SCH (09:51)
[2023-04-20] MEDS: ISOSORBIDE MON. (IMDUR) 60MG XR TAB PO SCH (09:52)
[2023-04-20] MEDS: PANTOPRAZOLE 40MG TAB (PROTONIX) PO SCH ×2 (09:54→20:14)
[2023-04-20] MEDS: PERCOCET 5MG/325MG TAB PO PRN ×2 (10:02→15:08)
[2023-04-20] MEDS ORDERED: ENOX100I3 SC (13:29)
[2023-04-20] MEDS: ASPIRIN 81MG ENTERIC TABLET PO SCH (20:13)
[2023-04-20] MEDS: ATORVASTATIN 20 MG TAB PO SCH (20:14)
[2023-04-21] MEDS: ENOXAPARIN 100MG/1ML SYRINGE (J1650 PER 10MG) SC SCH ×2 (00:47→11:42)
[2023-04-21 03:34] VITALS: BP 105/58; TEMP 97.6; O2SAT 96
[2023-04-21] MEDS: PERCOCET 5MG/325MG TAB PO PRN (04:18)
[2023-04-21 05:56] LABS: HEMATOCRIT 35.7 % (36.0-47.0); HEMOGLOBIN 10.8 g/dl (12.0-15.5); MEAN CORPUSCULAR HEMOGLOBIN 23.3 pg (27.0-33.0); MEAN CORPUSCULAR HGB CONC 30.3 g/dl (32.0-36.5); MEAN CORPUSCULAR VOLUME 76.9 fl (80.0-96.0); PLATELET COUNT, AUTOMATED 389 10^3/uL (150-450); RED BLOOD COUNT 4.64 10^6/uL (4.00-5.40); WHITE BLOOD COUNT 11.7 10^3/uL (4.0-10.0)
[2023-04-21 06:18] LABS: BLOOD UREA NITROGEN 10 MG/DL (9-23); CALCIUM LEVEL 8.6 MG/DL (8.5-10.1); CARBON DIOXIDE LEVEL 24 MMOL/L (20-31); CHLORIDE LEVEL 109 MMOL/L (98-107); CREATININE FOR GFR 0.49 MG/DL (0.55-1.30); GLOMERULAR FILTRATION RATE > 60.0 (>58); GLUCOSE, FASTING 120 MG/DL (60-100); MAGNESIUM LEVEL 1.9 MG/DL (1.8-2.4); SODIUM LEVEL 142 MMOL/L (136-145)
[2023-04-21] MEDS ORDERED: ASPI81TAEC PO (06:36)
[2023-04-21 06:44] LABS: ATYPICAL LYMPH 26 % (0-5); BASOPHILS 1 % (0-1); EOSINOPHILS 4 % (0-3); LYMPHOCYTES 22 % (16-44); MONOCYTES 3 % (0-5); NEUTROPHILS 44 % (28-66); PLATELET ESTIMATE NORMAL (NORMAL)
[2023-04-21 06:45] LABS: MICROCYTOSIS 1+
[2023-04-21] MEDS: METOPROLOL SUCC *XL* 25MG TAB (TopROL *XL*) PO SCH (09:34)
[2023-04-21] MEDS: PANTOPRAZOLE 40MG TAB (PROTONIX) PO SCH (09:34)
[2023-04-21] MEDS: FLUoxetine 20MG CAP PO SCH (09:35)
[2023-04-21] MEDS: ISOSORBIDE MON. (IMDUR) 60MG XR TAB PO SCH (09:35)
[2023-04-21 09:41] VITALS: BP 135/66
[2023-04-23 11:44] LABS: DRVV SCREEN 38.3 SECONDS
[2023-04-23 11:54] LABS: PTT LUPUS TYPE ANTICOAG SCREEN 0.97 (0-1.20)
== END 2023-04-21 14:35 | disposition home health service (06) | DRG 815 ==
LOC: M ED 00:38 → M ED INP 10:08 → M PCU 14:24
PROVIDERS: ADMIT Internal Medicine; ATTEND Internal Medicine
PROC: B246ZZZ Ultrasonography of Right and Left Heart (ICD-10-PCS; principal; 2023-04-19)
DX: D73.5 Infarction of spleen (principal); D68.00 Von Willebrand disease, unspecified; I69.351 Hemiplegia and hemiparesis following cerebral infarction affecting right dominant side; I10 Essential (primary) hypertension; E78.5 Hyperlipidemia, unspecified; G43.909 Migraine, unspecified, not intractable, without status migrainosus; F32.A Depression, unspecified; F41.9 Anxiety disorder, unspecified; F17.210 Nicotine dependence, cigarettes, uncomplicated; K21.9 Gastro-esophageal reflux disease without esophagitis; I25.10 Atherosclerotic heart disease of native coronary artery without angina pectoris; I25.2 Old myocardial infarction; Z90.49 Acquired absence of other specified parts of digestive tract; Z71.6 Tobacco abuse counseling; Z79.82 Long term (current) use of aspirin; Z79.899 Other long term (current) drug therapy; Z88.8 Allergy status to other drugs, medicaments and biological substances

== ENCOUNTER → 2023-05-09 | Outpatient (CLI) | payer MEDICARE ==
[~2023-05-09] MED LIST changes: +ASPI81TAEC PO; +ENOX100I3 SC; +ISOS1TAB35 PO; +METO1TAB32 PO; +OXYC7.5T3 PO; +TIZA2TA PO; +[UNRECOGNIZED DRUG - CODE] BUC
== END ==
LOC: M PAIN 14:30
PROVIDERS: ATTEND Nurse Practitioner Family
DX: M96.1 Postlaminectomy syndrome, not elsewhere classified (principal); Z79.891 Long term (current) use of opiate analgesic; M50.10 Cervical disc disorder with radiculopathy, unspecified cervical region; G89.29 Other chronic pain; I10 Essential (primary) hypertension; E78.5 Hyperlipidemia, unspecified; G43.909 Migraine, unspecified, not intractable, without status migrainosus; M54.50 Low back pain, unspecified; F17.210 Nicotine dependence, cigarettes, uncomplicated; Z79.82 Long term (current) use of aspirin; Z79.899 Other long term (current) drug therapy; Z88.8 Allergy status to other drugs, medicaments and biological substances

== ENCOUNTER → 2023-05-13 | Outpatient (REF) | payer MEDICARE ==
[2023-05-15 08:15] LABS: LDL DIRECT 95 mg/dL (0-99)
== END ==
LOC: M LAB REF 14:14
PROVIDERS: ATTEND Nurse Practitioner Family
DX: E78.2 Mixed hyperlipidemia (principal)

== ENCOUNTER → 2023-06-28 | Outpatient (CLI) | payer MEDICARE | LOC: M PAIN 11:15 | PROVIDERS: ATTEND Nurse Practitioner Family | DX: M96.1 Postlaminectomy syndrome, not elsewhere classified (principal); M50.10 Cervical disc disorder with radiculopathy, unspecified cervical region; Z79.891 Long term (current) use of opiate analgesic; I10 Essential (primary) hypertension; G47.30 Sleep apnea, unspecified; E78.5 Hyperlipidemia, unspecified; F32.9 Major depressive disorder, single episode, unspecified; G43.909 Migraine, unspecified, not intractable, without status migrainosus; Z79.01 Long term (current) use of anticoagulants; Z79.02 Long term (current) use of antithrombotics/antiplatelets; Z79.1 Long term (current) use of non-steroidal anti-inflammatories (NSAID); Z79.82 Long term (current) use of aspirin; Z88.5 Allergy status to narcotic agent; Z88.8 Allergy status to other drugs, medicaments and biological substances ==

== ENCOUNTER 2023-07-02 10:21 | Outpatient (RCR) | payer MEDICARE | END 2023-07-04 | LOC: M PT 10:21 | PROVIDERS: ATTEND Nurse Practitioner Family | DX: M54.50 Low back pain, unspecified (principal); M48.061 Spinal stenosis, lumbar region without neurogenic claudication; M54.2 Cervicalgia ==

== ENCOUNTER → 2023-07-05 | Outpatient (CLI) | payer MEDICARE | LOC: M PAIN 17:30 | PROVIDERS: ATTEND Nurse Practitioner Family | DX: M96.1 Postlaminectomy syndrome, not elsewhere classified (principal); Z79.891 Long term (current) use of opiate analgesic; M50.10 Cervical disc disorder with radiculopathy, unspecified cervical region; I10 Essential (primary) hypertension; E78.5 Hyperlipidemia, unspecified; F32.A Depression, unspecified; G43.909 Migraine, unspecified, not intractable, without status migrainosus; M54.50 Low back pain, unspecified; E78.00 Pure hypercholesterolemia, unspecified; G47.30 Sleep apnea, unspecified; K21.9 Gastro-esophageal reflux disease without esophagitis; I25.2 Old myocardial infarction; F17.210 Nicotine dependence, cigarettes, uncomplicated; Z79.82 Long term (current) use of aspirin; Z79.899 Other long term (current) drug therapy; Z88.8 Allergy status to other drugs, medicaments and biological substances ==

== ENCOUNTER → 2023-07-30 | Outpatient (CLI) | payer MEDICARE | LOC: M TMPAIN 16:00 → M PAIN 16:00 | PROVIDERS: ATTEND Nurse Practitioner Family | DX: M96.1 Postlaminectomy syndrome, not elsewhere classified (principal); G89.29 Other chronic pain; I10 Essential (primary) hypertension; E78.5 Hyperlipidemia, unspecified; F32.A Depression, unspecified; G43.909 Migraine, unspecified, not intractable, without status migrainosus; M54.50 Low back pain, unspecified; G47.30 Sleep apnea, unspecified; E78.00 Pure hypercholesterolemia, unspecified; K21.9 Gastro-esophageal reflux disease without esophagitis; I25.2 Old myocardial infarction; F17.210 Nicotine dependence, cigarettes, uncomplicated; Z79.82 Long term (current) use of aspirin; Z79.01 Long term (current) use of anticoagulants; Z79.891 Long term (current) use of opiate analgesic; Z79.899 Other long term (current) drug therapy; Z88.8 Allergy status to other drugs, medicaments and biological substances ==

== ENCOUNTER → 2023-09-02 | Outpatient (CLI) | payer MEDICARE | LOC: M TMPAIN 17:30 → M PAIN 17:30 | PROVIDERS: ATTEND Nurse Practitioner Family | DX: M96.1 Postlaminectomy syndrome, not elsewhere classified (principal); M50.10 Cervical disc disorder with radiculopathy, unspecified cervical region; G89.29 Other chronic pain; F17.210 Nicotine dependence, cigarettes, uncomplicated; Z86.14 Personal history of Methicillin resistant Staphylococcus aureus infection; Z79.01 Long term (current) use of anticoagulants; Z79.82 Long term (current) use of aspirin; Z79.891 Long term (current) use of opiate analgesic; Z79.899 Other long term (current) drug therapy; Z80.8 Family history of malignant neoplasm of other organs or systems; Z80.51 Family history of malignant neoplasm of kidney; Z80.1 Family history of malignant neoplasm of trachea, bronchus and lung; Z88.5 Allergy status to narcotic agent; Z88.8 Allergy status to other drugs, medicaments and biological substances ==

== ENCOUNTER → 2023-09-23 | Outpatient (CLI) | payer MEDICARE | LOC: M PAIN 17:30 | PROVIDERS: ATTEND Nurse Practitioner Family | DX: M96.1 Postlaminectomy syndrome, not elsewhere classified (principal); M50.10 Cervical disc disorder with radiculopathy, unspecified cervical region; I10 Essential (primary) hypertension; G47.30 Sleep apnea, unspecified; F17.200 Nicotine dependence, unspecified, uncomplicated; Z79.01 Long term (current) use of anticoagulants; Z79.02 Long term (current) use of antithrombotics/antiplatelets; Z79.891 Long term (current) use of opiate analgesic; Z79.899 Other long term (current) drug therapy ==

== ENCOUNTER → 2023-10-16 | Outpatient (CLI) | payer MEDICARE ==
[~2023-10-16] MED LIST changes: +FLUO-365 PO; -FLUO20CA22 PO
== END ==
LOC: M WHC 13:07
PROVIDERS: ATTEND Nurse Practitioner Family
DX: Z12.31 Encounter for screening mammogram for malignant neoplasm of breast (principal)

== ENCOUNTER → 2023-11-08 | Outpatient (CLI) | payer MEDICARE | LOC: M PAIN 15:30 | PROVIDERS: ATTEND Nurse Practitioner Family | DX: M50.10 Cervical disc disorder with radiculopathy, unspecified cervical region (principal); M96.1 Postlaminectomy syndrome, not elsewhere classified; M46.1 Sacroiliitis, not elsewhere classified; M48.061 Spinal stenosis, lumbar region without neurogenic claudication; G89.29 Other chronic pain; I25.2 Old myocardial infarction; I10 Essential (primary) hypertension; G43.909 Migraine, unspecified, not intractable, without status migrainosus; I69.351 Hemiplegia and hemiparesis following cerebral infarction affecting right dominant side; E78.5 Hyperlipidemia, unspecified; F32.A Depression, unspecified; E78.00 Pure hypercholesterolemia, unspecified; K21.9 Gastro-esophageal reflux disease without esophagitis; Z79.82 Long term (current) use of aspirin; Z79.01 Long term (current) use of anticoagulants; Z79.891 Long term (current) use of opiate analgesic; Z79.899 Other long term (current) drug therapy ==

== ENCOUNTER → 2023-12-12 | Outpatient (CLI) | payer MEDICARE | LOC: M PAIN 16:30 | PROVIDERS: ATTEND Anesthesiology | DX: M96.1 Postlaminectomy syndrome, not elsewhere classified (principal); I10 Essential (primary) hypertension; F17.200 Nicotine dependence, unspecified, uncomplicated; G47.30 Sleep apnea, unspecified; G43.909 Migraine, unspecified, not intractable, without status migrainosus; K30 Functional dyspepsia; E78.5 Hyperlipidemia, unspecified; Z79.01 Long term (current) use of anticoagulants; Z79.51 Long term (current) use of inhaled steroids; Z79.82 Long term (current) use of aspirin; Z79.899 Other long term (current) drug therapy; Z88.8 Allergy status to other drugs, medicaments and biological substances ==

== ENCOUNTER → 2024-01-09 | Outpatient (CLI) | payer MEDICARE | LOC: M PAIN 16:30 | PROVIDERS: ATTEND Nurse Practitioner Family | DX: M96.1 Postlaminectomy syndrome, not elsewhere classified (principal); Z79.891 Long term (current) use of opiate analgesic; G89.29 Other chronic pain; I10 Essential (primary) hypertension; E78.5 Hyperlipidemia, unspecified; F32.A Depression, unspecified; G43.909 Migraine, unspecified, not intractable, without status migrainosus; M54.50 Low back pain, unspecified; M54.2 Cervicalgia; G47.30 Sleep apnea, unspecified; E78.00 Pure hypercholesterolemia, unspecified; K21.9 Gastro-esophageal reflux disease without esophagitis; F17.210 Nicotine dependence, cigarettes, uncomplicated; Z79.82 Long term (current) use of aspirin; Z79.899 Other long term (current) drug therapy; Z88.8 Allergy status to other drugs, medicaments and biological substances ==

== ENCOUNTER → 2024-04-07 | Outpatient (CLI) | payer MEDICARE, OTHER | LOC: M PAIN 14:45 | PROVIDERS: ATTEND Nurse Practitioner Family | DX: M96.1 Postlaminectomy syndrome, not elsewhere classified (principal); Z79.891 Long term (current) use of opiate analgesic; G89.29 Other chronic pain; I10 Essential (primary) hypertension; E78.5 Hyperlipidemia, unspecified; F32.A Depression, unspecified; G43.909 Migraine, unspecified, not intractable, without status migrainosus; M54.50 Low back pain, unspecified; G47.30 Sleep apnea, unspecified; E78.00 Pure hypercholesterolemia, unspecified; K21.9 Gastro-esophageal reflux disease without esophagitis; F17.210 Nicotine dependence, cigarettes, uncomplicated; Z79.82 Long term (current) use of aspirin; Z79.01 Long term (current) use of anticoagulants; Z79.899 Other long term (current) drug therapy; Z88.8 Allergy status to other drugs, medicaments and biological substances ==

== ENCOUNTER → 2024-05-19 | Outpatient (CLI) | payer MEDICARE, OTHER ==
[~2024-05-19] MED LIST changes: -BAYE325T12 PO; +BAYE325T2 PO
== END ==
LOC: M PAIN 17:30
PROVIDERS: ATTEND Nurse Practitioner Family
DX: M96.1 Postlaminectomy syndrome, not elsewhere classified (principal); Z79.891 Long term (current) use of opiate analgesic; G89.29 Other chronic pain; M54.50 Low back pain, unspecified; I10 Essential (primary) hypertension; E78.5 Hyperlipidemia, unspecified; F32.A Depression, unspecified; G43.909 Migraine, unspecified, not intractable, without status migrainosus; G47.30 Sleep apnea, unspecified; E78.00 Pure hypercholesterolemia, unspecified; K21.9 Gastro-esophageal reflux disease without esophagitis; F17.210 Nicotine dependence, cigarettes, uncomplicated; Z79.82 Long term (current) use of aspirin; Z79.01 Long term (current) use of anticoagulants; Z79.899 Other long term (current) drug therapy; Z88.8 Allergy status to other drugs, medicaments and biological substances

== ENCOUNTER → 2024-06-08 | Outpatient (CLI) | payer MEDICARE, OTHER | LOC: M PAIN 15:30 | PROVIDERS: ATTEND Nurse Practitioner Family | DX: M96.1 Postlaminectomy syndrome, not elsewhere classified (principal); Z79.891 Long term (current) use of opiate analgesic; M54.2 Cervicalgia; I10 Essential (primary) hypertension; E78.5 Hyperlipidemia, unspecified; K21.9 Gastro-esophageal reflux disease without esophagitis; E78.00 Pure hypercholesterolemia, unspecified; I25.2 Old myocardial infarction; F17.210 Nicotine dependence, cigarettes, uncomplicated; Z79.82 Long term (current) use of aspirin; Z79.01 Long term (current) use of anticoagulants; Z79.899 Other long term (current) drug therapy; Z88.8 Allergy status to other drugs, medicaments and biological substances ==

== ENCOUNTER → 2024-08-07 | Outpatient (CLI) | payer MEDICARE | LOC: M PLAIMG 12:18 | PROVIDERS: ATTEND Nurse Practitioner Family | DX: M25.512 Pain in left shoulder (principal) ==

== ENCOUNTER → 2024-09-07 | Outpatient (CLI) | payer MEDICARE ==
[~2024-09-07] MED LIST changes: -FLOM0.4C39 PO; +TAMS-18 PO
== END ==
LOC: M PLAIMG 14:15
PROVIDERS: ATTEND Nurse Practitioner Family
DX: M25.512 Pain in left shoulder (principal); M50.122 Cervical disc disorder at C5-C6 level with radiculopathy; M25.78 Osteophyte, vertebrae; M48.02 Spinal stenosis, cervical region; M47.812 Spondylosis without myelopathy or radiculopathy, cervical region; M75.02 Adhesive capsulitis of left shoulder; M25.812 Other specified joint disorders, left shoulder